=== PATIENT | male | born 1955 | race Caucasian/White ===

== ENCOUNTER → 2016-04-20 | Outpatient (REF) ==
[~2016-04-20] MED LIST: AMIT10TA6 PO; ARIP2TAB3 PO; ASP325T; ASPI-892 PO; ASPI-933 PO; ASPI-983 PO; ASPI-999 PO; ATOR40TA70 PO; BUPR100T6 PO; CLOP75TA PO; CLPD75T PO; CYCL10TA9 PO; DICL75TA2 PO; FAMO20TA27 PO; FENO145T20 PO; FISH OIL 1,2001 EAC1 PO; GBPN300C PO; GBPN400C PO; HCT25T PO; HCTZ12.5T; HYDR-3720 PO; HYDR-623 PO; ISM60TCR PO; LAMISIL CREAM TP; LISI1TAB10 PO; LSNP20T PO; MTF500T PO; MULT1TAB63; NF-DICLO50; NIA500ERT PO; OMEG1CAP51 PO; OMEG1CAP77 PO; OMG1KC PO; PANT40TA2 PO; PRAM0.5T9 PO; PRIM50TA PO; SERT25TA; SERT50TA PO; SERT50TA9 PO; SMV20T PO; SRTR100T PO; TERB30CR TP; TRAM50TA2 PO; WRF5T PO
--- NOTE | 2016-04-20 11:53 | Diagnostic Imaging Report ---
INDICATION: Injury between the first and second metacarpal of the right hand. 3 views of the right hand shows no fracture, dislocation or other abnormality. IMPRESSION: Normal right hand. Dictated by: Dictated on workstation # [id number]
== END | disposition home or self-care (01) ==
LOC: OCC 11:33
PROVIDERS: ATTEND Nurse Practitioner Family
CPT/HCPCS: 73130

== ENCOUNTER 2016-04-27 07:04 | Day surgery (SDC) | payer OTHER ==
[2016-04-27] VITALS (11 sets, daily range): BP systolic 121–145; BP diastolic 61–77
[~2016-04-27] VITALS: Ht 185.4 cm; Wt 118.4 kg
[~2016-04-27 07:04] MED LIST changes: -ASPI-983 PO; -ASPI-999 PO; -PRAM0.5T9 PO; -PRIM50TA PO; -SERT50TA9 PO
[2016-04-27] MEDS ORDERED: NS IV 1000 ML 1,000 ML ONE (07:07)
[2016-04-27] MEDS ORDERED: LIDOCAINE 1% INJ 20 ML (XYLOCAINE) VIAL ONE (07:07)
[2016-04-27] MEDS ORDERED: HEParin (CATH LAB) 2,000 ML IV ONE (07:07)
--- OUTSIDE RECORDS SUMMARY | 2016-04-27 07:08 | XMS REPORT | Continuity of Care Document ---
Author Author [facility] Organization [facility] Address Unknown Phone Unavailable Care Team Providers Care Engineering Associate Name Role Phone BETH ANDERSON MD PCP Insurance Providers Payer Name Policy Number Subscriber Name Relationship [employer] [facility] [id number] Easton Lemon Jr 20 Self / Same As Patient Advance Directives Directive Response Recorded Date/Time Advance Directives No 07/18/14 7:27am Health Care Power of Consolidation Accountant No 07/18/14 7:27am Organ Donor No 07/18/14 7:27am Resuscitation Status Full Code 07/18/14 7:27am Problems No known problems or medical conditions. Medications Medication Dose Route Sig Days/Qty Instructions Order Date Discontinued Date Status Lisinopril 10 Mg PO DAILY 02/14/08 02/14/10 Discontinued Hydrochlorothiazide 02/14/08 09/09/08 Discontinued Simvastatin 40 Mg PO DAILY 02/14/08 05/17/11 Discontinued Aspirin 02/14/08 08/19/09 Discontinued Diclofenac Sodium 02/14/08 09/09/08 Discontinued Multivitamins 02/14/08 08/19/09 Discontinued Sertraline HCl 07/26/08 09/09/08 Discontinued Niacin 1,000 Mg PO BEDTIME 09/09/08 05/17/11 Discontinued Diclofenac Sodium 75 Mg PO DAILY 09/09/08 02/14/10 Discontinued Sertraline HCl 09/09/08 08/19/09 Discontinued Clopidogrel Bisulfate 75 Mg PO DAILY 09/09/08 05/17/11 Discontinued Sertraline HCl 100 Mg PO DAILY 08/19/09 11/29/12 Discontinued Aspirin 81 Mg PO DAILY 08/19/09 07/18/14 Discontinued Amitriptyline HCl (Elavil) 10 Mg PO BEDTIME 08/19/09 02/14/10 Discontinued [place]-3 Fatty Acids/Fish Oil 1,000 Mg PO TWICE A DAY 08/19/09 Discontinued Hydrochlorothiazide 12.5 Mg PO DAILY 09/21/09 02/14/10 Discontinued [place]-3 Fatty Acids/Fish Oil 1 Cap PO TWICE A DAY 02/14/10 02/15/10 Discontinued Isosorbide Mononitrate 1 Tab PO DAILY 02/14/10 02/15/10 Discontinued Lisinopril/Hydrochlorothiazide 0.25 Tab PO NEEDED 02/14/10 Discontinued [place]-3/Dha/Epa/Fish Oil 1 Each PO TWICE A DAY 02/15/10 11/29/12 Discontinued Diclofenac Sodium 75 Mg PO DAILY 02/15/10 05/17/11 Discontinued Aripiprazole 5 Mg PO DAILY 05/17/11 07/18/14 Discontinued Acetaminophen/Hydrocodone Bitart ([place]) 0.5 - 1 Each PO Q 4 - 6 HRS PRN 20 Qty 05/17/11 04/24/12 Discontinued Tramadol Hcl 50 Mg PO EVERY 6 HOURS 04/24/12 11/28/12 Discontinued Gabapentin 500 Mg PO TWICE A DAY 04/24/12 11/28/12 Discontinued Famotidine 20 Mg PO DAILY 04/24/12 11/29/12 Discontinued Acetaminophen/Hydrocodone Bitart 1 - 2 Tab PO Q4HR PRN 60 Qty 05/03/12 11/28/12 Discontinued Warfarin Sodium 5 Mg PO DAILY@18 12 Days 05/03/12 11/28/12 Discontinued Cyclobenzaprine HCl (Flexeril) 1 Each PO TWICE A DAY PRN 05/03/12 Discontinued Metformin HCl (Glucophage) 1 Each PO TWICE A DAY WITH MEALS 11/28/12 11/29/12 Discontinued Gabapentin 300 Mg PO TWICE A DAY 11/28/12 Active Metformin HCl (Glucophage) 1 Each PO DAILY 11/29/12 07/18/14 Discontinued Fish Oil 1,000 Mg PO DAILY 11/29/12 07/18/14 Discontinued Sertraline HCl 100 Mg PO DAILY TAKES ALONG WITH 50MG TABLET 11/29/12 Active Sertraline HCl 50 Mg PO DAILY 11/29/12 Active Bupropion HCl 100 Mg PO TWICE A DAY 07/18/14 Active Pantoprazole Sod 40 Mg PO DAILY 07/18/14 Active Diclofenac Sodium 75 Mg PO TWICE A DAY 07/18/14 Active [Lamisil Cream ] TP DAILY 07/18/14 Active Clopidogrel Bisulfate 75 Mg PO DAILY 30 Qty 07/19/14 07/19/14 Discontinued Atorvastatin Calcium 40 Mg PO BEDTIME 30 Qty 07/19/14 07/19/14 Discontinued Clopidogrel Bisulfate 75 Mg PO DAILY 30 Qty 07/19/14 Active Atorvastatin Calcium 40 Mg PO BEDTIME 30 Qty 07/19/14 Active Fenofibrate Nanocrystallized 145 Mg PO BEDTIME 30 Qty 07/19/14 Active Aspirin 81 Mg PO DAILY 30 Qty 07/19/14 Active Social History Social History Problem Response Recorded Date/Time Alcohol Use Denies Use 11/28/2012 9:14pm Recreational Drug Use No 11/28/2012 9:14pm Recent Foreign Travel No 11/28/2012 9:14pm Recent Infectious Disease Exposure Y took flu shot today 11/28/2012 9:14pm Hospitalization with Isolation Denies 11/29/2012 11:09am Sexually Transmitted Disease No 11/28/2012 9:14pm HIV/AIDS No 11/28/2012 9:14pm Smoking Status Current Everyday Smoker 07/18/2014 7:27am Query Response Start Date Stop Date Smoking Status Current Everyday Smoker Hospital Discharge Instructions No hospital discharge instructions. Plan of Care No plan of care. Functional Status Query Response Date Recorded Comprehension Ability Understands Concepts July 19, 2014 8:08am Allergies, Adverse Reactions, Alerts Allergen Type Severity Reaction Status Last Updated NKANo Known Allergies Allergy Unknown Active 01/26/08 Immunizations Name Given Type Date of Pneumonia Vaccine 04/28/09 Historical Date of Influenza Vaccine 11/28/12 Historical Hepatitis A No Historical Hepatitis B Yes Historical Tetanus Booster (TDap) Unknown Historical Vital Signs Acute Vital Signs Vital Response Date/Time Temperature (Fahrenheit) 97.6 degrees F (97.6 - 99.5) Temperature (Calculated Celsius) 36.81231 degrees C (36.4 - 37.5) Temperature Source Temporal Pulse Rate (adult) 65 bpm (60 - 90) Respiratory Rate 20 bpm (12 - 24) O2 Sat by Pulse Oximetry 97 % (88 - 100) Blood Pressure 153/89 mm Hg Pain Pain Intensity 0 Height (Feet) 6 feet Height (Inches) 1.00 inches Height (Calculated Centimeters) 185.866752 cm Weight (Pounds) 260 pounds Weight (Calculated Grams) 679434.017 gm Weight (Calculated Kilograms) 117.941255 kilograms Calculated BMI 34.30 Results Laboratory Results Test Name Result Units Flags Reference Collection Date/Time Result Date/ Time Comments White Blood Count 7.3 10^3/uL 4.3-11.0 07/19/2014 4:54am 07/19/2014 5: 10am Red Blood Count 4.96 10^6/uL 4.35-5.85 07/19/2014 4:54am 07/19/2014 5: 10am Hemoglobin 14.0 G/DL 13.3-17.7 07/19/2014 4:54am 07/19/2014 5:10am Hematocrit 43 % 40-54 07/19/2014 4:54am 07/19/2014 5:10am Mean Corpuscular Volume 87 FL 80-99 07/19/2014 4:54am 07/19/2014 5: 10am Mean Corpuscular Hemoglobin 28 PG 25-34 07/19/2014 4:54am 07/19/2014 5: 10am Mean Corpuscular Hemoglobin Concent 33 G/DL 32-36 07/19/2014 4:54am 5:10am Red Cell Distribution Width 14.2 % 10.0-14.5 07/19/2014 4:54am 2014 5:10am Platelet Count 201 10^3/uL 130-400 07/19/2014 4:54am 07/19/2014 5:10am Mean Platelet Volume 10.5 FL H 7.4-10.4 07/19/2014 4:54am 07/19/2014 5: 10am Prothrombin Time 13.0 SEC 12.2-14.7 07/18/2014 7:30am 07/18/2014 7: 51am INR Comment 1.0 0.8-1.4 07/18/2014 7:30am 07/18/2014 7:51am INTERPRETIVE DATA SUGGESTED THERAPEUTIC RANGE FOR INR'S: VENOUS THROMBOSIS, PULMONARY EMBOLISM, OR PREVENTION OF SYSTEMIC EMBOLISM (EG. IN ATRIAL FIBRILLATION): 2.0 - 3.0 MECHANICAL PROSTHETIC HEART VALVES: 2.5 - 3.5* *NOTE: INR'S UP TO 4.5 MAY BE NECESSARY IN SELECTED GROUPS OF HIGH RISK PATIENTS. [employer] CONSENSUS CONFERENCE ON ANTITHROMBOTIC THERAPY (2000). Activated Partial Thromboplast Time 33 SEC 24-35 07/18/2014 7:30am 7:51am Sodium Level 138 MMOL/L 135-145 07/19/2014 4:54am 07/19/2014 5:32am Potassium Level 4.2 MMOL/L 3.6-5.0 07/19/2014 4:54am 07/19/2014 5:32am Chloride Level 107 MMOL/L 98-107 07/19/2014 4:54am 07/19/2014 5:32am Carbon Dioxide Level 23 MMOL/L 21-07/19/2014 4:54am 07/19/2014 5: 32am Blood Urea Nitrogen 11 MG/DL 7-18 07/19/2014 4:54am 07/19/2014 5:32am Creatinine 0.91 MG/DL 0.60-1.30 07/19/2014 4:54am 07/19/2014 5:32am BUN/Creatinine Ratio 12 07/19/2014 4:54am 07/19/2014 5:32am Estimat Glomerular Filtration Rate > 60 07/19/2014 4:54am 2014 5:32am GFR INTERPRETIVE DATA UNITS FOR ESTIMATED GFR (eGFR): mL/min/1.73 M2 REFERENCE RANGE FOR ESTIMATED GFR (eGFR) eGFR NORMAL eGFR >60 MODERATELY DECREASED eGFR 30-59 SEVERLY DECREASED eGFR 15-29 KIDNEY FAILURE <15 (OR DIALYSIS) Glucose Level 102 MG/DL 70-105 07/19/2014 4:54am 07/19/2014 5:32am Calcium Level 9.1 MG/DL 8.5-10.1 07/19/2014 4:54am 07/19/2014 5:32am Total Bilirubin 0.3 MG/DL 0.1-1.0 07/19/2014 4:54am 07/19/2014 5:32am Alkaline Phosphatase 103 U/L 40-136 07/19/2014 4:54am 07/19/2014 5: 32am Aspartate Amino Transf (AST/SGOT) 18 U/L 5-34 07/19/2014 4:54am 2014 5:32am Alanine Aminotransferase (ALT/SGPT) 24 U/L 0-55 07/19/2014 4:54am 07/19 5:32am Total Protein 6.4 G/DL 6.4-8.2 07/19/2014 4:54am 07/19/2014 5:32am Albumin 3.5 G/DL 3.2-4.5 07/19/2014 4:54am 07/19/2014 5:32am Triglycerides Level 236 MG/DL H <150 07/18/2014 7:30am 07/18/2014 8:03am Cholesterol Level 212 MG/DL H < 200 07/18/2014 7:30am 07/18/2014 8:03am HDL Cholesterol 26 MG/DL L 40-60 07/18/2014 7:30am 07/18/2014 8:03am LDL Cholesterol Direct 150 MG/DL H 1-129 07/18/2014 7:30am 07/18/2014 8: 03am VLDL Cholesterol 47 MG/DL H 5-40 07/18/2014 7:30am 07/18/2014 8:03am Procedures Procedure Status Date Provider(s) Tracing only of electrocardiogram completed 07/18/14 EVETTE SILVESTRE MD Encounters Encounter Location Date/Time Departed Surgical Day Care [facility] 07/18/14 7:05am
--- OUTSIDE RECORDS SUMMARY | 2016-04-27 07:08 | XMS REPORT | Continuity of Care Document ---
Author Author [facility] Organization [facility] Address Unknown Phone Unavailable Care Team Providers Care Retail Security Professional Name Role Phone BETH ANDERSON MD PCP Insurance Providers Payer Name Policy Number Subscriber Name Relationship [employer] [facility] [id number] Easton Lemon Jr 20 Self / Same As Patient Advance Directives Directive Response Recorded Date/Time Advance Directives No 07/18/14 7:27am Health Care Power of Building Specialist No 07/18/14 7:27am Organ Donor No 07/18/14 [...] 10 Mg PO BEDTIME 08/19/09 02/14/10 Discontinued [place]-3 Fatty Acids/Fish Oil 1,000 Mg PO TWICE A DAY 08/19/09 Discontinued Hydrochlorothiazide 12.5 Mg PO DAILY 09/21/09 02/14/10 Discontinued [place]-3 Fatty Acids/Fish Oil 1 Cap PO TWICE A DAY 02/14/10 02/15/10 Discontinued Isosorbide Mononitrate 1 Tab PO DAILY 02/14/10 02/15/10 Discontinued Lisinopril/Hydrochlorothiazide 0.25 Tab PO NEEDED 02/14/10 Discontinued [place]-3/Dha/Epa/Fish Oil 1 Each PO TWICE A DAY 02/15/10 11/29/12 Discontinued Diclofenac Sodium 75 Mg PO DAILY 02/15/10 05/17/11 Discontinued Aripiprazole 5 Mg PO DAILY 05/17/11 07/18/14 Discontinued Acetaminophen/Hydrocodone Bitart ([place]) 0.5 - 1 Each PO Q 4 [...] F (97.6 - 99.5) Temperature (Calculated Celsius) 36.06023 degrees C (36.4 - 37.5) Temperature Source Temporal Pulse Rate (adult) 65 bpm (60 - 90) Respiratory Rate 20 bpm (12 - 24) O2 Sat by Pulse Oximetry 97 % (88 - 100) Blood Pressure 153/89 mm Hg Pain Pain Intensity 0 Height (Feet) 6 feet Height (Inches) 1.00 inches Height (Calculated Centimeters) 185.136127 cm Weight (Pounds) 260 pounds Weight (Calculated Grams) 210604.017 gm Weight (Calculated Kilograms) 117.176253 kilograms Calculated BMI 34.30 Results Laboratory Results [...] SELECTED GROUPS OF HIGH RISK PATIENTS. [employer] CONSENSUS CONFERENCE ON [...] Location Date/Time Departed Surgical Day Care [facility] 07/18/14 7:05am
[2016-04-27 07:35] LABS: MEAN PLATELET VOLUME 10.5 FL (7.4-10.4); RED BLOOD COUNT 5.1 10^6/uL (4.35-5.85); RED CELL DISTRIBUTION WIDTH 14.7 % (10.0-14.5); WHITE BLOOD COUNT 17.9 10^3/uL (4.3-11.0)
[2016-04-27] MEDS ORDERED: NS IV 1000 ML 1,000 ML IV SCH ×2 (07:45→12:24)
[2016-04-27 07:56] LABS: ALANINE AMINOTRANSFERASE 27 U/L (0-55); ALBUMIN 4.3 G/DL (3.2-4.5); ANION GAP 14 MMOL/L (5-14); ASPARTATE AMINO TRANSFERASE 13 U/L (5-34); BILIRUBIN,TOTAL 0.3 MG/DL (0.1-1.0); BLOOD UREA NITROGEN 20 MG/DL (7-18); BUN/CREATININE RATIO 16; CALCIUM 9.2 MG/DL (8.5-10.1); CARBON DIOXIDE 19 MMOL/L (21-32); CHLORIDE 107 MMOL/L (98-107); CHOLESTEROL 190 MG/DL (< 200); CREATININE SERUM 1.22 MG/DL (0.60-1.30); DIRECT LDL 142 MG/DL (1-129); GFR ESTIMATED > 60; GLUCOSE 147 MG/DL (70-105); POTASSIUM 4.4 MMOL/L (3.6-5.0); SODIUM 140 MMOL/L (135-145); TOTAL PROTEIN 7.1 G/DL (6.4-8.2); TRIGLYCERIDES 151 MG/DL (<150); VLDL CHOLESTEROL 30 MG/DL (5-40)
[2016-04-27] MEDS ORDERED: SERT50TA9 PO (08:12)
[2016-04-27] MEDS ORDERED: FENO145T20 PO (08:12)
[2016-04-27] MEDS ORDERED: PRIM50TA PO (08:12)
[2016-04-27] MEDS ORDERED: PRAM0.5T9 PO (08:12)
[2016-04-27] MEDS ORDERED: ASPI-983 PO (08:12)
[2016-04-27] MEDS ORDERED: diphenhydrAMINE 50 MG/ML INJ (BENADRYL) ONE (08:25)
[2016-04-27] MEDS ORDERED: MIDAZOLAM 5 MG/5 ML (VERSED) VIAL ONE (08:25)
[2016-04-27] MEDS ORDERED: fentaNYL INJECTION 100 MCG/2 ML AMP ONE (08:25)
--- NOTE | 2016-04-27 08:52 | Cardiac Procedure Note-CS/ASA ---
Pre-Procedure Note Pre-Op Procedure Note H&P Reviewed The H&P was reviewed, patient examined and no changes noted. Date H&P Reviewed: Apr 27, 2016 Time H&P Reviewed: 08:52 Conscious Sedation Pre-Proced Time Reviewed: 08:52 ASA Class: 3 Airway Mallampati Classification: ([place] appropriate class) I. II. III, IV Lungs Heart ASA score ASA 1: a normal healthy patient ASA 2: a patient with a mild systemic disease (mid diabetes, controlled hypertension, obesity ASA 3: a patient with a severe systemic disease that limits activity (angina , COPD, prior Myocardial infarction) ASA 4: a patient with an incapacitating disease that is a constant threat to life (CHF, renal failure) ASA 5: a moribund patient not expected to survive 24 hrs. (ruptured aneurysm) ASA 6: a declared brain patient whose organs are being harvested. For emergent operations, add the letter E after the classification Grade 3 Sedation Plan: Analgesia, Amnesia, Plan communicated to team members, Discussed options with patient/fam, Discussed risks with patient/fam Note The patient is an appropriate candidate to undergo the planned procedure, sedation, and anesthesia. The patient immediately re-assessed prior to indication. CHRISTEL CARRASQUILLO MD FACP [facility] Apr 27, 2016 08:52
[2016-04-27] MEDS ORDERED: NITROGLYCERIN DRIP 25 MG/D5W 0 ML IV ONE (09:10)
[2016-04-27] MEDS ORDERED: HEParin 1000 UNIT/ML (10ML VIAL) FOR BOLUS ONE (09:10)
[2016-04-27] MEDS ORDERED: EPTIFIBATIDE BOLUS 20 ML IV ONE (09:10)
[2016-04-27] MEDS ORDERED: ASPI-999 PO (12:30)
[2016-04-27] MEDS ORDERED: PATIENT MAY USE OWN MEDS, ALL PO SCH (12:30)
--- NOTE | 2016-04-27 12:31 | Discharge Inst-Post CATH ---
Discharge Inst-CATH Post Cardiac Cath D/C Inst Follow Up/Plan F/u with Dr Houston next week CARDIAC CATH DISCHARGE INSTRUCTIONS *Hold Metformin for 48 hours post heart cath. ACTIVITY * Go Home directly and rest. * Limit activity of the leg (or wrist if it was used) for 7 days including aerobics, swimming, jogging, bicycling, etc. * Restrict stair-climbing for 7 days if possible, if not, climb up with your non -cath leg, then bring together on the same step. * Avoid lifting, pushing, pulling or excessive movement of the affected extremity for 7 days. * Customary sexual activity may be resumed after 2 days-use caution not to use a position that strains or causes pain to the affected extremity. * No driving for 24 hours. * NO SMOKING. * Avoid straining for bowel movements for 7 days. * Gentle walking on level ground is allowed. * Returning to work will depend on the type of procedure and the results. Your doctor will discuss this with you. CALL YOUR DOCTOR FOR ANY OF THE FOLLOWING: *If bleeding from the puncture site occurs- Apply gentle pressure to site with clean cloth and call your doctor or EMS. * If a knot or lump forms under the skin, increases in size, or causes pain. * If bruising appears to be worsening or moving further down your leg instead of disappearing. * Temperature above 101 F. CARE OF YOUR GROIN INCISION; * Bruising or purple discoloration of the skin near the puncture site is common. * You may shower only, no bathtub bathing for 5 days. Be careful to avoid slipping as your leg may feel stiff. * If a closure device was used on your femoral artery, please see the attached guide regarding care of the device and your leg. * REMOVE the dressing from your groin the next day after your procedure in the shower. CARE OF YOUR WRIST INCISION; * Bruising or purple discoloration of the skin near the puncture site is common. * You may shower. * DO NOT submerge wrist. * Remove dressing in 24 hours. CHRISTEL HOUSTON MD FACP [facility]S Apr 27, 2016 12:31
--- NOTE | 2016-04-27 12:33 | Discharge Inst-Cardiology ---
Discharge Inst-Cardiac Discharge Medications New Medications: Aspirin (Aspirin) 81 Mg Tab.chew 81 MG PO DAILY #90 Ref 3 TAB Continued Medications: Atorvastatin Calcium (Atorvastatin Calcium) 40 Mg Tablet 40 MG PO HS TAB Bupropion HCl (Wellbutrin) 100 Mg Tablet 100 MG PO BID TAB Clopidogrel Bisulfate (Plavix Tablet) 75 Mg Tab 75 MG PO DAILY TAB Diclofenac Sodium (Diclofenac Sodium) 75 Mg Tablet.dr 75 MG PO BID TAB Fenofibrate Nanocrystallized (Fenofibrate) 145 Mg Tablet 145 MG PO DAILY LAST FILLED #30 02-13-16 TAB Gabapentin (Neurontin) 300 Mg Cap 300 MG PO BID CAP Pantoprazole Sod (Protonix (Non-Formulary)) 40 Mg Tab 40 MG PO DAILY LAST FILLED #30 02-28-16 TAB Pramipexole Di-HCl (Pramipexole Dihydrochloride) 0.5 Mg Tablet 0.5 MG PO HS TAB Primidone (Primidone) 50 Mg Tablet 50 MG PO HS TAB Sertraline Hcl (Zoloft) 50 Mg Tablet 50 MG PO HS TAB Sertraline HCl (Sertraline HCl) 50 Mg Tablet 100 MG PO DAILY TAKES 2 (50MG) TABLETS EVERY MORNING TAB Discontinued Medications: Aspirin (Aspirin EC) 81 Mg Tablet.dr 81 MG PO DAILY TAB Patient Instructions Patient Instructions: No tobacco use Activity & Diet Discharge Diet: Cardiac Diet CHRISTEL CARRASQUILLO MD FACP [facility] Apr 27, 2016 12:33
--- NOTE | 2016-04-27 14:05 | CARDIAC CATHETERIZATION ---
PROCEDURE PHYSICIAN: CHRISTEL CARRASQUILLO CARDIAC CATHETERIZATION, CORONARY INTERVENTION AND PERIPHERAL ANGIOGRAPHY REPORT DATE OF PROCEDURE: 04/27/2016 Easton Lemon is a 60-year-old gentleman who has known coronary artery disease and peripheral arterial disease and who has been experiencing symptoms suggestive of exertional angina and bilateral leg claudication. Cardiac catheterization and peripheral angiography and possible ad hoc intervention was recommended. An informed consent obtained. PROCEDURE: He was brought to the cardiac catheterization laboratory in a fasting state. The right groin was prepared and draped usual sterile fashion. 1% lidocaine was used for local anesthesia. Modified Seldinger technique was used to advance a 5-[place]stonian sheath in the right femoral artery. A 5-Estonian JL3.5 catheter was used for left coronary angiography. 5-[place]stonian JR4 catheter was used for the right coronary angiography. A 5-[place]stonian pigtail catheter was used for left heart catheterization and left ventricular angiography. PERCUTANEOUS INTERVENTION TO THE RIGHT CORONARY ARTERY: Following completion of the diagnostic cardiac angiography, we proceeded with intervention to the posterior descending branch of the right coronary artery which had complete in-stent occlusion. We exchanged the sheath over a wire for a 6-Estonian sheath. We used a 6-Estonian JR4 guide catheter. We used multiple wires to try and cross the complete occlusion within a long posterior descending artery stent. The wires used were ChoICE floppy, ChoICE PT Graphix, Whisper wires. We were able to advance any of these across the complete occlusion within the posterior descending artery stent. The wires were removed and we repeated the coronary angiogram, which showed that the coronary status remained stable and unchanged. The guide catheter was then removed. LEFT VENTRICULAR ANGIOGRAPHY: Left ventricular angiography indicated normal global left ventricular systolic function with an ejection fraction of 60 to 65% and there did not appear to be distinct regional wall motion abnormality in the [place] projection. There did not appear to be significant mitral regurgitation. ABDOMINAL AORTIC ANGIOGRAPHY: Abdominal aortic angiography did not indicate any abdominal aortic aneurysm or dissection. Renal arteries are identified and do not exhibit significant disease. Mesenteric vessels, to the extent seen, do not seem to have significant disease. BILATERAL ILIAC ARTERY ANGIOGRAPHY: Bilateral iliac artery angiography was performed with runoff down to the level of the legs. The right common iliac artery has approximately 40% proximal stenosis. We performed catheter pullback across this lesion and this did not show any significant pressure gradient, indicating hemodynamic non-significance. The right internal and external iliac arteries are intact. The right common femoral, superficial femoral and deep femoral arteries are intact. Within the right superficial femoral artery, there is a patent stent, but does not exhibit significant disease. The right popliteal artery is intact and there is a 3 vessel runoff in the right leg. On the left side, there is a patent stent in the left common iliac artery that extends into the left external iliac artery. The left internal iliac artery appears occluded. The left common femoral, superficial femoral, deep femoral arteries are intact. The left superficial femoral artery has mild diffuse disease. The left popliteal artery is intact and there is a 3 vessel runoff in the leg. CONCLUSIONS: 1. Coronary artery disease. A long stent in the posterior descending branch of the right coronary artery is completely occluded and percutaneous intervention to this vessel today was unsuccessful. The proximal and mid right coronary artery is extensively stented. These are known to be Promus Premier overlapping 4 x 24 and 4 x 12 mm stents placed by Dr. Dockery on 07/18/2014. Within these stents, there is up to approximately 40% stenoses. The left circumflex in the left anterior descending artery has mild plaques. 2. Normal global left ventricular systolic function with an ejection fraction of approximately 65%. 3. No significant mitral regurgitation. 4. No significant renal artery stenosis. 5. Diffuse, mild peripheral arterial disease. There is a patent stent in the right superficial femoral artery and a patent stent in the left common iliac extending into external iliac artery. There appears to be 3 vessel runoff in both legs. 6. High normal to mildly elevated left ventricular end-diastolic pressure. DISCUSSION AND RECOMMENDATIONS: Based on the results of this study, it appears appropriate to continue a conservative approach. He has again been advised to quit smoking immediately and completely and outpatient follow-up is advised. Job ID: [id number] Dictated Date: 04/27/2016 10:11:36 Welding Estimator Date: 04/27/2016 13:21:41 / una ADKINS
== END 2016-04-27 14:05 | disposition home or self-care (01) ==
LOC: CATH 07:04 → SURG 10:23 → CATH 14:05
PROVIDERS: ATTEND Internal Medicine Cardiovascular Disease
DX: I70.213 Atherosclerosis of native arteries of extremities with intermittent claudication, bilateral legs (principal); I25.10 Atherosclerotic heart disease of native coronary artery without angina pectoris; I25.82 Chronic total occlusion of coronary artery; T82.855A Stenosis of coronary artery stent, initial encounter; I10 Essential (primary) hypertension; E78.00 Pure hypercholesterolemia, unspecified; G47.33 Obstructive sleep apnea (adult) (pediatric); Z72.0 Tobacco use; Z95.5 Presence of coronary angioplasty implant and graft; Z79.899 Other long term (current) drug therapy
CPT/HCPCS: 36415; 75625; 75716; 80053; 80061; 85027; 85610; 85730; 87081; 93005; 93458

== ENCOUNTER 2016-05-19 08:30 | Outpatient (RCR) | payer OTHER ==
--- OUTSIDE RECORDS SUMMARY | 2016-05-17 11:26 | XMS REPORT | Continuity of Care Document ---
Author Author [facility] Organization [facility] Address Unknown Phone Unavailable Care Team Providers Care Editor Publications Name Role Phone BETH ANDERSON MD PCP Insurance Providers Payer Name Policy Number Subscriber Name Relationship [employer] [facility] [id number] Easton Lemon Jr 20 Self / Same As Patient Advance Directives Directive Response Recorded Date/Time Advance Directives No 07/18/14 7:27am Health Care Power of Associate Software Developer No 07/18/14 7:27am Organ Donor No 07/18/14 [...] 10 Mg PO BEDTIME 08/19/09 02/14/10 Discontinued [place]-3 Fatty Acids/Fish Oil 1,000 Mg PO TWICE A DAY 08/19/09 Discontinued Hydrochlorothiazide 12.5 Mg PO DAILY 09/21/09 02/14/10 Discontinued [place]-3 Fatty Acids/Fish Oil 1 Cap PO TWICE A DAY 02/14/10 02/15/10 Discontinued Isosorbide Mononitrate 1 Tab PO DAILY 02/14/10 02/15/10 Discontinued Lisinopril/Hydrochlorothiazide 0.25 Tab PO NEEDED 02/14/10 Discontinued [place]-3/Dha/Epa/Fish Oil 1 Each PO TWICE A DAY 02/15/10 11/29/12 Discontinued Diclofenac Sodium 75 Mg PO DAILY 02/15/10 05/17/11 Discontinued Aripiprazole 5 Mg PO DAILY 05/17/11 07/18/14 Discontinued Acetaminophen/Hydrocodone Bitart ([place]) 0.5 - 1 Each PO Q 4 [...] F (97.6 - 99.5) Temperature (Calculated Celsius) 36.84793 degrees C (36.4 - 37.5) Temperature Source Temporal Pulse Rate (adult) 65 bpm (60 - 90) Respiratory Rate 20 bpm (12 - 24) O2 Sat by Pulse Oximetry 97 % (88 - 100) Blood Pressure 153/89 mm Hg Pain Pain Intensity 0 Height (Feet) 6 feet Height (Inches) 1.00 inches Height (Calculated Centimeters) 185.281593 cm Weight (Pounds) 260 pounds Weight (Calculated Grams) 947413.017 gm Weight (Calculated Kilograms) 117.596234 kilograms Calculated BMI 34.30 Results Laboratory Results [...] SELECTED GROUPS OF HIGH RISK PATIENTS. [employer] CONSENSUS CONFERENCE ON [...] Location Date/Time Departed Surgical Day Care [facility] 07/18/14 7:05am
[2016-05-17 11:35] LABS: BASOPHILS % (AUTO) 0 % (0-10); EOSINOPHILS # (AUTO) 0.1 10^3/uL (0.0-0.3); EOSINOPHILS % (AUTO) 1 % (0-10); LYMPHOCYTES # (AUTO) 1.2 X 10^3 (1.0-4.0); LYMPHOCYTES % (AUTO) 18 % (12-44); MEAN CORPUSCULAR HEMOGLOBIN 29 PG (25-34); MEAN CORPUSCULAR HGB CONC 33 G/DL (32-36); MEAN CORPUSCULAR VOLUME 86 FL (80-99); MEAN PLATELET VOLUME 10.1 FL (7.4-10.4); MONOCYTES # (AUTO) 0.6 X 10^3 (0.0-1.0); MONOCYTES % (AUTO) 9 % (0-12); NEUTROPHILS % (AUTO) 72 % (42-75); PLATELET COUNT 184 10^3/uL (130-400); RED BLOOD COUNT 4.63 10^6/uL (4.35-5.85); RED CELL DISTRIBUTION WIDTH 14.9 % (10.0-14.5); WHITE BLOOD COUNT 6.9 10^3/uL (4.3-11.0)
[2016-05-17 11:53] LABS: BAND NEUTROPHILS 0 %; BASOPHILS % (MANUAL) 0 %; EOSINOPHILS % (MANUAL) 0 %; LYMPHOCYTES % (MANUAL) 20 %; NEUTROPHILS % (MANUAL) 68 %; REACTIVE LYMPHOCYTES 4 %
[~2016-05-19 08:30] MED LIST changes: +ASPI-983 PO; +ASPI-999 PO; +PRAM0.5T9 PO; +PRIM50TA PO; +SERT50TA9 PO
[2016-08-02] MEDS ORDERED: METO-272 PO (15:09)
== END 2016-08-15 | disposition home or self-care (01) ==
LOC: LAB 08:30 → EDSTATUS 05-20 22:01
PROVIDERS: ATTEND Nurse Practitioner Family
DX: R06.02 Shortness of breath (principal); R05 Cough
CPT/HCPCS: 36415; 85007; 85027; 87070; 87205

== ENCOUNTER → 2016-05-20 | Outpatient (CLI) | payer OTHER ==
--- NOTE | 2016-05-20 17:14 | Diagnostic Imaging Report ---
PROCEDURE: MRI lumbar spine. TECHNIQUE: Multiplanar, multisequence MRI of the lumbar spine was performed without contrast. INDICATION: Back pain. Right leg pain. FINDINGS: There is satisfactory alignment of the posterior spinal line. The vertebral body heights are preserved. There is mild disc desiccation, and there is slight disc height loss at L3/4 level. The bone marrow signal demonstrates no significant abnormality. The cauda equina and conus medullaris appear grossly unremarkable. There is facet arthropathy, more prominent in the lower lumbar spine. T12/L1: No disc herniation. No spinal canal or foraminal stenosis. L1/2: No disc herniation or facet hypertrophy. No spinal canal or foraminal stenosis. L2/3: No disc herniation, no spinal canal or foraminal stenosis. L3/4: There is a diffuse disc bulge resulting in mild central canal stenosis reducing the AP dimension of the canal to 9.2 mm. There is toza-ro-aqfinlnc facet arthropathy associated with gign-ex-nficunnr stenosis of the lateral recess bilaterally. There is a mild foraminal stenosis bilaterally. L4/5: No disc herniation. There is moderate facet hypertrophy. No central canal stenosis. There is mild lateral recess stenosis bilaterally. The foramina demonstrate mild stenosis on the left and fcet-wy-hdzsgqjc stenosis on the right. L5/S1: There is a mild disc bulge and mild facet hypertrophy. No central canal or lateral recess stenosis. There is mild foraminal narrowing seen bilaterally. IMPRESSION: Generally mild disc and facet degenerative changes. There is mild central canal stenosis at L3/4 and dygv-pw-sgvxshxt lateral recess stenosis at this level bilaterally. Multilevel mild foraminal stenosis seen as well. Dictated by: Dictated on workstation # [id number]
== END ==
LOC: RAD 15:46
PROVIDERS: ATTEND Orthopaedic Surgery
DX: M54.16 Radiculopathy, lumbar region (principal); M17.11 Unilateral primary osteoarthritis, right knee
CPT/HCPCS: 72148

== ENCOUNTER → 2016-05-31 | Outpatient (CLI) | payer OTHER ==
[~2016-05-31] MED LIST changes: +RT-ALBUTEROL SULF 2.5 MG/3 ML PRE-MIX VIAL IH ONE; +RT-ALBUTEROL SULF 2.5 MG/3 ML PRE-MIX VIAL ONE
--- NOTE | 2016-05-31 14:38 | Diagnostic Imaging Report ---
PROCEDURE: CT chest without contrast. TECHNIQUE: Multiple contiguous axial images were obtained through the chest without the use of intravenous contrast. INDICATION: Tobacco use, shortness of breath. COMPARISON: The previous CT chest exam performed on 11/13/2014 failed to show any sign of a pulmonary nodule or of an acute abnormality. FINDINGS: On this study, there is still no parenchymal mass identified. The lungs remain clear. There is no sign of failure, pneumonia or pleural effusion to suggest an acute abnormality. Heart size is within normal limits. Coronary artery calcifications are evident. Aorta is not abnormally dilated. There is no mediastinal or hilar adenopathy. This exam is limited in evaluation of adenopathy however due to the absence of intravenous contrast. Thyroid gland is unremarkable. The sections through the upper abdomen fail to show any sign of an acute abnormality. The liver and spleen are prominent. Bone windows are unremarkable for fracture or for destructive lesion. IMPRESSION: There is no evidence for an acute cardiopulmonary abnormality. There is no sign of a parenchymal lung mass either. When compared to the previous study, there has been no significant change. LungRads Category 1: Negative. No definite benign nodules are seen with complete central or popcorn calcifications or fat in a benign pattern. Risk of cancer is less than 1%. Continued annual low-dose chest screening. Dictated by: Dictated on workstation # [id number]
== END ==
LOC: RAD 12:12
PROVIDERS: ATTEND Internal Medicine Critical Care Medicine
DX: R05 Cough (principal); R06.02 Shortness of breath; Z72.0 Tobacco use
CPT/HCPCS: 71250; 94060; 94640; 94726; 94729

== ENCOUNTER 2016-06-21 12:36 | Outpatient (CLI) | payer OTHER ==
[~2016-06-21] VITALS: Ht 185.4 cm; Wt 118.4 kg
[~2016-06-21 12:36] MED LIST changes: -RT-ALBUTEROL SULF 2.5 MG/3 ML PRE-MIX VIAL IH ONE; -RT-ALBUTEROL SULF 2.5 MG/3 ML PRE-MIX VIAL ONE
[2016-06-21] MEDS ORDERED: BUPIVACAINE 0.25% 30 ML (SENSORCAINE) VIAL ONE (12:40)
[2016-06-21] MEDS ORDERED: TRIAMCINOLONE ACET (KENALOG-40) 40 MG/ML 1 ML VIAL ONE (12:40)
[2016-06-21 12:46] VITALS: BP 167/83
[2016-06-21 13:25] VITALS: BP 167/72
--- NOTE | 2016-06-21 14:43 | Pain Medicine-Procedure ---
Procedure Pre-Op/Post-Op Diagnosis Diagnosis: disc disorder with radiculopathy, lumbar Indications for Operation Low back pain Attending Surgeon Hunter Procedure Date of Service: Jun 21, 2016 Procedure: Lumbar Epidural Steroid Injection at the L4-L5 level under Fluoroscopic Guidance Procedure: Patient was identified in the holding area. After risks, benefits, and alternatives were discussed with the patient, informed consent was obtained. Patient held his Plavix for 7 days prior to procedure and was instructed to restart his Plavix tomorrow. Patient was brought to the fluoroscopy suite and placed prone on the procedure room table. A time out was performed. Vital signs were monitored throughout the procedure. The patients low back was prepped and draped in the usual sterile fashion. The patients skin was anesthetized using 2% Lidocaine. A Tuohy needle was inserted and advanced to the L4-L5 epidural space under fluoroscopic guidance using the loss of resistance technique and intermittent projection of fluoroscopy. There was no paresthesia with needle placement. The needle position was confirmed in both the AP and lateral view. After negative aspiration 2ml of contrast was injected under live fluoroscopy which showed good spread of the contrast in the epidural space at the appropriate level, there was no intravascular or subarachnoid spread. Again, after negative aspiration for heme or CSF, 2 ml of 0.25% Bupivicaine, 2ml of preservative free normal saline, and 80mg of Kenalog was injected. The needle was removed and a sterile bandage was placed and the patient was transferred to the recovery area in stable condition. After a brief period of observation, patient was discharged to home with no new neurological deficits and no apparent complications. Complications None SHELBY LOPEZ MD Jun 21, 2016 2:43 pm
== END 2016-06-21 13:27 | disposition home or self-care (01) ==
LOC: CARD 12:36
PROVIDERS: ATTEND Pain Medicine Pain Medicine
DX: M51.16 Intervertebral disc disorders with radiculopathy, lumbar region (principal); Z79.02 Long term (current) use of antithrombotics/antiplatelets; Z79.899 Other long term (current) drug therapy
CPT/HCPCS: 62323

== ENCOUNTER 2016-07-12 13:21 | Outpatient (CLI) | payer OTHER ==
[~2016-07-12] VITALS: Ht 182.9 cm; Wt 113.4 kg
[2016-07-12] MEDS ORDERED: BUPIVACAINE 0.25% 30 ML (SENSORCAINE) VIAL ONE (13:29)
[2016-07-12] MEDS ORDERED: TRIAMCINOLONE ACET (KENALOG-40) 40 MG/ML 1 ML VIAL ONE (13:29)
[2016-07-12 13:37] VITALS: BP 163/96
[2016-07-12 14:10] VITALS: BP 154/93
--- NOTE | 2016-07-12 14:52 | Pain Medicine-Procedure ---
Procedure Pre-Op/Post-Op Diagnosis Diagnosis: disc disorder with radiculopathy, lumbar Indications for Operation Low back pain Attending Surgeon Hunter Procedure Date of Service: July 12, 2016 Procedure: Lumbar Epidural Steroid Injection at the L4-L5 level under Fluoroscopic Guidance Procedure: Patient was identified in the holding area. After risks, benefits, and alternatives were discussed with the patient, informed consent was obtained. Patient held his Plavix for 7 days prior to procedure and was instructed to restart his Plavix 24 hours after the procedure. Patient was brought to the fluoroscopy suite and placed prone on the procedure room table. A time out was performed. Vital signs were monitored throughout the procedure. The patient s low back was prepped and draped in the usual sterile fashion. The patients skin was anesthetized using 2% Lidocaine. A Tuohy needle was inserted and advanced to the L4-L5 epidural space under fluoroscopic guidance using the loss of resistance technique and intermittent projection of fluoroscopy. There was no paresthesia with needle placement. The needle position was confirmed in both the AP and lateral view. After negative aspiration 2ml of contrast was injected under live fluoroscopy which showed good spread of the contrast in the epidural space at the appropriate level, there was no intravascular or subarachnoid spread. Again, after negative aspiration for heme or CSF, 2 ml of 0.25% Bupivicaine, 2ml of preservative free normal saline, and 80mg of Kenalog was injected. The needle was removed and a sterile bandage was placed and the patient was transferred to the recovery area in stable condition. After a brief period of observation, patient was discharged to home with no new neurological deficits and no apparent complications. Complications None SHELBY LOPEZ MD July 12, 2016 2:52 pm
== END 2016-07-12 14:12 | disposition home or self-care (01) ==
LOC: CARD 13:21
PROVIDERS: ATTEND Pain Medicine Pain Medicine
DX: M51.16 Intervertebral disc disorders with radiculopathy, lumbar region (principal)
CPT/HCPCS: 62323

== ENCOUNTER 2016-08-02 12:49 | Emergency (ER) | payer OTHER ==
[~2016-08-02] VITALS: Ht 182.9 cm; Wt 113.4 kg
[2016-08-02 13:38] LABS: BASOPHILS % (AUTO) 0 % (0-10); EOSINOPHILS # (AUTO) 0.1 10^3/uL (0.0-0.3); EOSINOPHILS % (AUTO) 1 % (0-10); LYMPHOCYTES # (AUTO) 1.4 X 10^3 (1.0-4.0); LYMPHOCYTES % (AUTO) 14 % (12-44); MEAN CORPUSCULAR HEMOGLOBIN 28 PG (25-34); MEAN CORPUSCULAR HGB CONC 33 G/DL (32-36); MEAN CORPUSCULAR VOLUME 86 FL (80-99); MEAN PLATELET VOLUME 10.5 FL (7.4-10.4); MONOCYTES # (AUTO) 0.6 X 10^3 (0.0-1.0); MONOCYTES % (AUTO) 6 % (0-12); NEUTROPHILS % (AUTO) 79 % (42-75); PLATELET COUNT 184 10^3/uL (130-400); RED BLOOD COUNT 4.97 10^6/uL (4.35-5.85); RED CELL DISTRIBUTION WIDTH 14.9 % (10.0-14.5); WHITE BLOOD COUNT 10.1 10^3/uL (4.3-11.0)
--- NOTE | 2016-08-02 13:41 | ED Cardiac General ---
History of Present Illness General Chief Complaint: Cardiac/General Problems Stated Complaint: ELEVATED BP,HEADACHE Nursing Triage Note: pt ambulated to room. pt states his bp was 180/110, gave (2) 81mg asprin waited 10 minutes and then took his pressure and it was 160/90. pt and then headed to ed, this was all within 30 minutes of arrival to ed. pt also complains of a RODRIGUEZ and shoulder pain. Source: patient Exam Limitations: no limitations History of Present Illness Time seen by provider: 13:38 Initial Comments The patient is a 60-year-old white male who presents today with the observation of hypertension and a headache at home. The patient and his report they are sensitive to this as previously he was here with these complaints. They state he was about to be sent home when a cardiogram revealed him to be having a heart attack. Since that time he has had 13 stents placed by his account. He again denies any chest pain. It is noted that he is not taking any antihypertensive and they state never had this. His drug list does include Plavix and Lipitor Timing/Duration: 1 hour Activities at Onset: none Prior CP/Workup: cardiac cath, echocardiography, heart attack, other (stenting) Allergies and Home Medications Allergies Coded Allergies: No Known Drug Allergies (Unverified , 08/02/16) Home Medications Aspirin 81 Mg Tab.chew, 81 MG PO DAILY, #90 Ref 3 Prescribed by: CHRISTEL CARRASQUILLO on 04/27/16 1230 Atorvastatin Calcium 40 Mg Tablet, 40 MG PO HS, (Reported) Bupropion HCl 100 Mg Tablet, 100 MG PO BID, (Reported) Clopidogrel Bisulfate 75 Mg Tab, 75 MG PO DAILY, (Reported) Diclofenac Sodium 75 Mg Tablet.dr, 75 MG PO BID, (Reported) Fenofibrate Nanocrystallized 145 Mg Tablet, 145 MG PO DAILY, (Reported) LAST FILLED #30 02-13-16 Gabapentin 300 Mg Cap, 300 MG PO BID, (Reported) Pantoprazole Sod 40 Mg Tab, 40 MG PO DAILY, (Reported) LAST FILLED #30 02-28-16 Pramipexole Di-HCl 0.5 Mg Tablet, 0.5 MG PO HS, (Reported) Primidone 50 Mg Tablet, 50 MG PO HS, (Reported) Sertraline HCl 50 Mg Tablet, 100 MG PO DAILY, (Reported) TAKES 2 (50MG) TABLETS EVERY MORNING Sertraline Hcl 50 Mg Tablet, 50 MG PO HS, (Reported) Review of Systems Constitutional: see HPI EENTM: No Symptoms Reported Respiratory: No Symptoms Reported Cardiovascular: No Symptoms Reported Gastrointestinal: No Symptoms Reported Genitourinary: No Symptoms Reported Musculoskeletal: no symptoms reported Skin: no symptoms reported Psychiatric/Neurological: No Symptoms Reported Endocrine: No Symptoms Reported Hematologic/Lymphatic: No Symptoms Reported Past Wzemrnt-Kxxoii-Wxsrzl Hx Patient Social History Alcohol Use: Denies Use Recreational Drug Use: No Smoking Status: Current Everyday Smoker Type Used: Cigarettes 2nd Hand Smoke Exposure: Yes Recent Foreign Travel: No Contact w/Someone Who Travel: No Recent Infectious Disease Expo: No Recent Hopitalizations: No Immunizations Up To Date Tetanus Booster (TDap): Unknown Date of Pneumonia Vaccine: Sep 30, 2012 Date of Influenza Vaccine: Nov 29, 2015 Seasonal Allergies Seasonal Allergies: No Surgeries HX Surgeries: Yes (NECK AND BACK, CYST REMOVED, KNEE ARTH, LEFT TOTAL KNEE ) Respiratory Hx Respiratory Disorders: No Respiratory Disorders: Pneumonia, Sleep Apnea Cardiovascular Hx Cardiac Disorders: Yes Cardiac Disorders: Hypertension Neurological Hx Neurological Disorders: Yes Neurological Disorders: Neuropathy Reproductive System Hx Reproductive Disorders: No Sexually Transmitted Disease: No HIV/AIDS: No Genitourinary Hx Genitourinary Disorders: No Gastrointestinal Hx Gastrointestinal Disorders: No Gastrointestinal Disorders: Gastroesophageal Reflux Musculoskeletal Hx Musculoskeletal Disorders: Yes (OSTEO ARTHRITIS) Musculoskeletal Disorders: Arthritis Endocrine Hx Endocrine Disorders: No HEENT HX ENT Disorders: Yes (READING GLASSES. [place]) Cancer Hx Cancer: No Psychosocial Hx Psychiatric Problems: Yes Behavioral Health Disorders: Depression Integumentary HX Skin/Integumentary Disorder: Yes (RIGHT LEG RED AREA) Blood Transfusions Hx Blood Disorders: No Physical Exam Vital Signs Vital Sign - Last 12Hours 08/02/16 12:58 Temp 98.6 Pulse 71 Resp 20 B/P (MAP) 177/91 Pulse Ox 95 O2 Delivery Room Air Capillary Refill : Less Than 3 Seconds General Appearance: Anxious HEENT: Normal ENT Inspection Neck: Normal Inspection Respiratory: Chest Non Tender, Lungs Clear, Normal Breath Sounds, No Accessory Muscle Use, No Respiratory Distress Cardiovascular: Regular Rate, Rhythm, No Edema, No Gallop, No JVD, No Murmur, Normal Peripheral Pulses Gastrointestinal: Normal Bowel Sounds, No Organomegaly, No Pulsatile Mass, Non Tender Extremity: Normal Inspection Neurologic/Psychiatric: Alert, Oriented x3, No Motor/Sensory Deficits, Normal Mood/Affect Skin: Normal Color, Warm/Dry Lymphatic: No Adenopathy Progress/Results/Core Measures Results/Orders Lab Results Laboratory Tests Test 08/02/16 13:27 Range/Units White Blood Count 10.1 4.3-11.0 10^3/uL Red Blood Count 4.97 4.35-5.85 10^6/uL Hemoglobin 14.1 13.3-17.7 G/DL Hematocrit 43 40-54 % Mean Corpuscular Volume 86 80-99 FL Mean Corpuscular Hemoglobin 28 25-34 PG Mean Corpuscular Hemoglobin Concent 33 32-36 G/DL Red Cell Distribution Width 14.9 H 10.0-14.5 % Platelet Count 184 130-400 10^3/uL Mean Platelet Volume 10.5 H 7.4-10.4 FL Neutrophils (%) (Auto) 79 H 42-75 % Lymphocytes (%) (Auto) 14 12-44 % Monocytes (%) (Auto) 6 0-12 % Eosinophils (%) (Auto) 1 0-10 % Basophils (%) (Auto) 0 0-10 % Neutrophils # (Auto) 8.0 H 1.8-7.8 X 10^3 Lymphocytes # (Auto) 1.4 1.0-4.0 X 10^3 Monocytes # (Auto) 0.6 0.0-1.0 X 10^3 Eosinophils # (Auto) 0.1 0.0-0.3 10^3/uL Basophils # (Auto) 0.0 0.0-0.1 10^3/uL Sodium Level 141 135-145 MMOL/L Potassium Level 3.8 3.6-5.0 MMOL/L Chloride Level 108 H 98-107 MMOL/L Carbon Dioxide Level 23 21-32 MMOL/L Anion Gap 10 5-14 MMOL/L Blood Urea Nitrogen 16 7-18 MG/DL Creatinine 0.93 0.60-1.30 MG/DL Estimat Glomerular Filtration Rate > 60 BUN/Creatinine Ratio 17 Glucose Level 148 H 70-105 MG/DL Calcium Level 9.2 8.5-10.1 MG/DL Total Bilirubin 0.3 0.1-1.0 MG/DL Aspartate Amino Transf (AST/SGOT) 12 5-34 U/L Alanine Aminotransferase (ALT/SGPT) 24 0-55 U/L Alkaline Phosphatase 98 40-136 U/L Troponin I < 0.30 <0.30 NG/ML Total Protein 6.8 6.4-8.2 G/DL Albumin 3.9 3.2-4.5 G/DL My Orders Orders - EMILI LINN MD Cbc With Automated Diff (08/02/16 13:29) Comprehensive Metabolic Panel (08/02/16 13:29) Troponin I (08/02/16 13:41) Ekg Tracing (08/02/16 13:41) Chest 1 View, Ap/Pa Only (08/02/16 13:41) Vital Signs/I&O Vital Sign - Last 12Hours 08/02/16 12:58 Temp 98.6 Pulse 71 Resp 20 B/P (MAP) 177/91 Pulse Ox 95 O2 Delivery Room Air Blood Pressure Mean: 119 Departure Impression Impression: Primary Impression: hypertension Additional Impression: Peripheral vascular disease Disposition: 01 HOME, SELF-CARE Condition: Stable/Unchanged Departure-Patient Inst. Referrals: BETH ANDERSON MD (PCP/Family) Primary Care Physician Add. Discharge Instructions: All discharge instructions reviewed with patient and/or family. Voiced understanding. Take metoprolol as directed. See your provider in 1-2 weeks for follow-up EMILI LINN MD Aug 02, 2016 13:41
[2016-08-02 13:56] LABS: ALANINE AMINOTRANSFERASE 24 U/L (0-55); ALBUMIN 3.9 G/DL (3.2-4.5); ANION GAP 10 MMOL/L (5-14); ASPARTATE AMINO TRANSFERASE 12 U/L (5-34); BILIRUBIN,TOTAL 0.3 MG/DL (0.1-1.0); BLOOD UREA NITROGEN 16 MG/DL (7-18); BUN/CREATININE RATIO 17; CALCIUM 9.2 MG/DL (8.5-10.1); CARBON DIOXIDE 23 MMOL/L (21-32); CHLORIDE 108 MMOL/L (98-107); CREATININE SERUM 0.93 MG/DL (0.60-1.30); GFR ESTIMATED > 60; GLUCOSE 148 MG/DL (70-105); POTASSIUM 3.8 MMOL/L (3.6-5.0); SODIUM 141 MMOL/L (135-145); TOTAL PROTEIN 6.8 G/DL (6.4-8.2)
--- NOTE | 2016-08-02 14:12 | Diagnostic Imaging Report ---
INDICATION: Syncope and hypertension. Frontal chest obtained at 2:01 p.m. and compared to 11/28/12. FINDINGS: Heart and mediastinal silhouette are normal in appearance. The lungs are clear. There is no pneumothorax or pleural fluid. IMPRESSION: Negative chest. Dictated by: Dictated on workstation # [id number]
[2016-08-02] MEDS ORDERED: METO-272 PO (15:09)
[2016-08-02 15:18] VITALS: BP 122/81
== END 2016-08-02 15:18 | disposition home or self-care (01) ==
LOC: EDUNIT# 12:49 → ER 12:51
DX: I10 Essential (primary) hypertension (principal); I73.9 Peripheral vascular disease, unspecified; F32.9 Major depressive disorder, single episode, unspecified; F17.210 Nicotine dependence, cigarettes, uncomplicated; Z79.02 Long term (current) use of antithrombotics/antiplatelets; Z79.82 Long term (current) use of aspirin; Z95.5 Presence of coronary angioplasty implant and graft
CPT/HCPCS: 36415; 71010; 80053; 84484; 85025; 93005

== ENCOUNTER → 2016-08-09 | Outpatient (CLI) | payer OTHER ==
[~2016-08-09] MED LIST changes: +CATHETER FLUSH 10 ML SYR IV PRN; +IOHEXOL 350 MG/ML 100 ML (OMNIPAQUE 350) VIAL IV ONE; +METO-272 PO; +NS 100 ML (IVPB) BAG IV ONE
[2016-08-09 08:21] LABS: ANION GAP 12 MMOL/L (5-14); BLOOD UREA NITROGEN 14 MG/DL (7-18); BUN/CREATININE RATIO 15; CALCIUM 9.2 MG/DL (8.5-10.1); CARBON DIOXIDE 21 MMOL/L (21-32); CHLORIDE 108 MMOL/L (98-107); CREATININE SERUM 0.96 MG/DL (0.60-1.30); GFR ESTIMATED > 60; GLUCOSE 127 MG/DL (70-105); POTASSIUM 4.1 MMOL/L (3.6-5.0); SODIUM 141 MMOL/L (135-145)
--- NOTE | 2016-08-09 14:45 | Diagnostic Imaging Report ---
Clinical indication: Patient with syncope. Exams: 1: Head CT with and without IV contrast. 2: CT angiogram of the head and neck performed with 100 cc of Omnipaque 350 IV contrast. Sagittal and coronal MIP reformations were created for better visualization of vascular anatomy. Comparison: MRI of the brain performed without and with IV contrast dated 09/19/2012. Findings: Head CT: There is no evidence of acute cerebral infarct, intracranial hemorrhage, or gross mass effect. There is normal león-white matter distinction. The brain parenchymal volume appears appropriate for patient's age. There is no significant midline shift or herniation. There is no evidence of hydrocephalus. The basal cisterns are unremarkable. The skull, extracranial soft tissue, and orbits are unremarkable. The paranasal sinuses are unremarkable. CT angiogram: There is a common origin of the left common carotid artery and right brachiocephalic artery consistent with bovine arch. Aortic arch is not completely visualized. The visualized portion aortic arch is patent with no gross evidence of aneurysmal dilation. There is mild to moderate stenosis of the distal left subclavian artery. There is very limited contrast opacification of the bilateral cervical ICA, skull base and intracranial portions of the bilateral ICA, bilateral cervical vertebral arteries, and [place] vascular structures which is symmetric bilaterally and may be related to contrast timing. There is mild atherosclerotic disease involving the proximal right cervical ICA and right ECA with no significant stenosis. The right common carotid artery and remainder of the cervical right ICA is patent. The left common carotid artery is patent with no significant stenosis. There is atherosclerotic disease of the proximal left ECA and proximal cervical ICA with no significant stenosis of the left ECA and no more than mild to moderate narrowing of the proximal left ICA bulb. There is note of atherosclerotic plaque with a small contrast-filled defect involving the left proximal ICA bulb which may represent ulcerative plaque which is seen on the axial sequence series 6, image 234. There is very limited visualization of the mid and distal cervical bilateral ICA due to decreased contrast opacification. The bilateral cervical vertebral arteries show no major stenosis. There is limited visualization of the [place] vascular structures. There is no gross evidence of aneurysm or major vascular occlusion. Of note, small areas of stenosis or dissection may be missed on this exam. Suspected minimal atelectasis or scarring in both upper lobes. Subpleural cystic changes are seen in the right lung apex. There is a roughly 8 mm low-attenuation nodule in the left thyroid gland. The neck soft tissue structures show no other significant abnormality. There are cervical spine degenerative disease. Impression: 1: Very limited CT angiogram due to decreased contrast opacification of the mid to upper neck carotid and vertebral arteries, and limited visualization of the [place]. This appearance may be due to contrast bolus and CT timing. 2: There is at least mild to moderate stenosis of the proximal left ICA and suspected small ulcerative plaque involving the left ICA bulb region. 3: There is mild to moderate stenosis of the distal left subclavian artery. 4: Unremarkable CT scan of the brain. Dictated by: Dictated on workstation # [id number]
== END ==
LOC: RAD 07:36
PROVIDERS: ATTEND Internal Medicine Cardiovascular Disease
DX: R55 Syncope and collapse (principal); I65.22 Occlusion and stenosis of left carotid artery; I70.8 Atherosclerosis of other arteries
CPT/HCPCS: 36415; 70496; 70498; 80048

== ENCOUNTER → 2016-08-19 | Outpatient (CLI) | payer OTHER ==
[~2016-08-19] MED LIST changes: -CATHETER FLUSH 10 ML SYR IV PRN; -IOHEXOL 350 MG/ML 100 ML (OMNIPAQUE 350) VIAL IV ONE; -NS 100 ML (IVPB) BAG IV ONE
== END ==
DX: R09.89 Other specified symptoms and signs involving the circulatory and respiratory systems (principal)

== ENCOUNTER → 2016-08-26 | Outpatient (CLI) | payer OTHER ==
--- NOTE | 2016-08-26 15:09 | Diagnostic Imaging Report ---
EXAMINATION: Right lower extremity duplex venous ultrasound. TECHNIQUE: DVT protocol. Multiple sonographic images with color Doppler and waveform interrogation were performed of the right lower extremity veins with compression and augmentation maneuvers. INDICATION: Right leg swelling and pain. FINDINGS: The right lower extremity veins from the groin to below the knee veins were examined with normal color-flow, compressibility and normal waveform demonstrated. The great saphenous vein is patent. The peroneal veins in the distal calf are not seen. There is a 3.2 x 3.4 x 1 CM Hernandez's cyst in the right popliteal fossa. IMPRESSION: No evidence of DVT in the right lower extremity. Right Hernandez's cyst. Dictated by: Dictated on workstation # [id number]
== END ==
LOC: RAD 13:24
PROVIDERS: ATTEND Nurse Practitioner
DX: M71.21 Synovial cyst of popliteal space [Baker], right knee (principal); R09.89 Other specified symptoms and signs involving the circulatory and respiratory systems

== ENCOUNTER → 2016-09-20 | Outpatient (CLI) | payer OTHER ==
--- NOTE | 2016-09-20 16:43 | Diagnostic Imaging Report ---
Four views of the right knee. INDICATION: Right knee pain. FINDINGS: There is no fracture, dislocation or radiopaque foreign body. No suprapatellar effusion is seen. The joint spaces are preserved. There is mild osteophyte superiorly at the patella and in the medial compartment. IMPRESSION: Minimal degenerative changes. Dictated by: Dictated on workstation # [id number]
--- NOTE | 2016-09-20 17:39 | Diagnostic Imaging Report ---
AP view of the pelvis and the AP and frog-leg lateral views of the hip joints. INDICATION: Pelvic and hip pain. FINDINGS: No fracture or dislocation seen. There is a left common iliac artery stent in place. The hip joints demonstrate no significant degenerative changes. Sclerotic changes superiorly along the SI joints with question of joint fusion seen. IMPRESSION: There are sclerotic changes at the upper aspect of the SI joints with question of joint fusion. Dictated by: Dictated on workstation # [id number]
--- NOTE | 2016-09-20 18:08 | Diagnostic Imaging Report ---
Three views of the lumbar spine. INDICATION: Back pain. FINDINGS: The alignment of the lumbar spine is satisfactory. The vertebral body heights are preserved. Multilevel anterior and lateral osteophytes are noted. No posterior osteophytes. There is sclerosis and suggestion of fusion along the upper aspect of the SI joints bilaterally. Left common iliac artery stent is seen. IMPRESSION: Prominent anterior and lateral lumbar spine osteophytes. Sclerosis and suggestion of fusion of the SI joints. Consider possibility of seronegative arthritis. Dictated by: Dictated on workstation # [id number]
== END ==
LOC: RAD 15:05
PROVIDERS: ATTEND Nurse Practitioner Family
DX: M47.816 Spondylosis without myelopathy or radiculopathy, lumbar region (principal); M25.551 Pain in right hip; M25.561 Pain in right knee; R10.2 Pelvic and perineal pain; Z95.828 Presence of other vascular implants and grafts
CPT/HCPCS: 72100; 73523; 73564

== ENCOUNTER → 2016-10-21 | Outpatient (CLI) | payer OTHER ==
[2016-10-21 16:02] LABS: MEAN PLATELET VOLUME 10.5 FL (7.4-10.4); RED BLOOD COUNT 4.91 10^6/uL (4.35-5.85); RED CELL DISTRIBUTION WIDTH 14.3 % (10.0-14.5); WHITE BLOOD COUNT 8.9 10^3/uL (4.3-11.0)
[2016-10-21 16:20] LABS: ALANINE AMINOTRANSFERASE 23 U/L (0-55); ALBUMIN 4.1 GM/DL (3.2-4.5); ANION GAP 10 MMOL/L (5-14); ASPARTATE AMINO TRANSFERASE 17 U/L (5-34); BILIRUBIN,TOTAL 0.3 MG/DL (0.1-1.0); BLOOD UREA NITROGEN 18 MG/DL (7-18); BUN/CREATININE RATIO 19; CALCIUM 9.3 MG/DL (8.5-10.1); CARBON DIOXIDE 25 MMOL/L (21-32); CHLORIDE 106 MMOL/L (98-107); CHOLESTEROL 201 MG/DL (< 200); CREATININE SERUM 0.97 MG/DL (0.60-1.30); DIRECT LDL 141 MG/DL (1-129); GFR ESTIMATED > 60; GLUCOSE 143 MG/DL (70-105); POTASSIUM 4.1 MMOL/L (3.6-5.0); SODIUM 141 MMOL/L (135-145); TOTAL PROTEIN 7.1 GM/DL (6.4-8.2); TRIGLYCERIDES 360 MG/DL (<150); VLDL CHOLESTEROL 72 MG/DL (5-40)
[2016-10-21 16:40] LABS: THYROID STIMULATING HORMONE 1.35 UIU/ML (0.35-4.94)
== END ==
LOC: LAB 15:39
PROVIDERS: ATTEND Nurse Practitioner Family
DX: R53.83 Other fatigue (principal); E78.5 Hyperlipidemia, unspecified; R94.6 Abnormal results of thyroid function studies
CPT/HCPCS: 36415; 80053; 80061; 84436; 84443; 84480; 85027

== ENCOUNTER → 2016-10-29 | Outpatient (CLI) | payer OTHER ==
--- NOTE | 2016-10-29 18:19 | Diagnostic Imaging Report ---
PROCEDURE: US Thyroid. TECHNIQUE: Multiple real-time grayscale images were obtained of the thyroid in various projections. INDICATION: Nontoxic thyroid nodule. FINDINGS: The thyroid is normal in size. There are multiple bilateral hypoechoic nodules demonstrated within the thyroid which largely demonstrate an internal specular reflector and are most compatible with colloid cysts. The largest on the right measures up to 4 mm and the largest on the left measures up to 8 mm. IMPRESSION: 1. Small bilateral hypoechoic thyroid nodules or cysts. 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 No large dominant solid thyroid nodule is evident. Dictated by: Dictated on workstation # [id number]
== END ==
LOC: RAD 11:28
PROVIDERS: ATTEND Nurse Practitioner Family
DX: E04.2 Nontoxic multinodular goiter (principal)
CPT/HCPCS: 76536

== ENCOUNTER 2017-03-19 15:09 | Inpatient (IN) | payer OTHER ==
[2017-03-19] VITALS (11 sets, daily range): BP systolic 79–142; BP diastolic 50–84
[~2017-03-19] VITALS: Ht 185.4 cm; Wt 118.9 kg
[~2017-03-19 15:09] MED LIST changes: -METO-272 PO; +METO-370 PO
--- OUTSIDE RECORDS SUMMARY | 2017-03-19 15:19 | XMS REPORT | Continuity of Care Document ---
Author Author [facility] Organization [facility] Address Unknown Phone Unavailable Allergies Active Description Code Type Severity Reaction Onset Reported/Identified Relationship to Patient Clinical Status Yes NKANo Known Allergies NKA Miscellaneous Allergy Unknown N/A 01/26/2008 Yes No Known Drug Allergies [id number] Drug Allergy Unknown N/A 08/02/2016 Medications There is no data. Problems Date Dx Coded Attending Type Code Diagnosis Diagnosed By 02/15/2010 Ot 272.4 02/15/2010 Ot 276.51 02/15/2010 Ot 305.1 02/15/2010 Ot 401.9 02/15/2010 Ot 414.00 02/15/2010 Ot 558.9 02/15/2010 Ot 790.29 02/15/2010 Ot V45.82 02/15/2010 Ot V58.66 02/15/2010 Ot V58.69 05/17/2011 Ot 719.45 JOINT PAIN- PELVIS 05/17/2011 Ot 721.3 LUMBOSACRAL SPONDYLOSIS 05/03/2012 Ot 305.1 TOBACCO USE DISORDER 05/03/2012 Ot 311 DEPRESSIVE DISORDER NEC 05/03/2012 Ot 414.01 CORONARY ATHEROSCLEROSIS OF [place] CORON 05/03/2012 Ot 530.81 ESOPHAGEAL REFLUX 05/03/2012 Ot 715.36 LOC OSTEOARTH NOS-L/LEG 05/03/2012 Ot V45.82 PERCUTANEOUS TRANSLUM CORON ANGIOPLASTY 07/13/2012 RICHIE PARISH MD Ot 728.87 MUSCLE WEAKNESS (GENERALIZED) 07/13/2012 RICHIE PARISH MD Ot V43.65 KNEE JOINT REPLACEMENT STATUS 07/13/2012 RICHIE PARISH MD Ot V54.81 AFTERCARE FOLLOWING JOINT REPLACEMENT 07/13/2012 RICHIE PARISH MD Ot V57.1 PHYSICAL THERAPY NEC 11/29/2012 BETH ANDERSON MD Ot 250.00 DIAB ALONZO WO COMPL, TYPE II OR UNSPEC TY 11/29/2012 BETH ANDERSON MD Ot 272.4 HYPERLIPIDEMIA NEC/NOS 11/29/2012 BETH ANDERSON MD Ot 300.00 ANXIETY STATE NOS 11/29/2012 BETH ANDERSON MD Ot 311 DEPRESSIVE DISORDER NEC 11/29/2012 BETH ANDERSON MD Ot 786.52 PAINFUL RESPIRATION 11/29/2012 BETH ANDERSON MD Ot V58.69 OTH MED,LT,CURRENT USE 07/19/2014 EVETTE SILVESTRE MD Ot 278.00 OBESITY, NOS 07/19/2014 EVETTE SILVESTRE MD Ot 305.1 TOBACCO USE DISORDER 07/19/2014 EVETTE SILVESTRE MD Ot 327.23 OBSTRUCTIVE SLEEP APNEA (ADULT) (PEDIATR 07/19/2014 EVETTE SILVESTRE MD Ot 333.94 RESTLESS LEGS SYNDROME 07/19/2014 EVETTE SILVESTRE MD Ot 413.9 ANGINA PECTORIS NEC/NOS 07/19/2014 EVETTE SILVESTRE MD Ot 414.01 CORONARY ATHEROSCLEROSIS OF [place] CORON 07/19/2014 EVETTE SILVESTRE MD Ot 440.20 ATHEROSCLEROSIS [place] ARTERIES EXTREMIT 07/19/2014 EVETTE SILVESTRE MD Ot 530.81 ESOPHAGEAL REFLUX 07/19/2014 EVETTE SILVESTRE MD Ot V45.82 PERCUTANEOUS TRANSLUM CORON ANGIOPLASTY 07/19/2014 EVETTE SILVESTRE MD, Ot V58.69 OTH MED,LT,CURRENT USE 07/19/2014 EVETTE SILVESTRE MD Ot V85.34 BODY MASS INDEX 34.0-34.9, ADULT 07/23/2014 EVETTE SILVESTRE MD Ot 278.00 07/23/2014 EVETTE SILVESTRE MD Ot 305.1 07/23/2014 EVETTE SILVESTRE MD Ot 327.23 07/23/2014 EVETTE SILVESTRE MD Ot 333.94 07/23/2014 EVETTE SILVESTRE MD Ot 413.9 07/23/2014 EVETTE SILVESTRE MD Ot 414.01 07/23/2014 EVETTE SILVESTRE MD Ot 440.20 07/23/2014 EVETTE SILVESTRE MD Ot 530.81 07/23/2014 EVETTE SILVESTRE MD Ot V85.34 07/25/2014 HUONG VO APRN Ot 305.1 07/25/2014 NWAGWU, ISIDORE O CAR TESTER Ot 414.00 07/25/2014 NWAGWU, ISIDORE O CAR TESTER Ot 443.9 07/25/2014 NWAGWU, ISIDORE O CAR TESTER Ot 530.81 07/25/2014 NWAGWU, ISIDORE O CAR TESTER Ot 780.57 07/25/2014 NWAGWU, ISIDORE O CAR TESTER Ot 786.50 07/25/2014 NWAGWU, ISIDORE O CAR TESTER Ot V45.82 07/25/2014 NWAGWU, ISIDORE O CAR TESTER Ot 305.1 07/25/2014 NWAGWU, ISIDORE O CAR TESTER Ot 414.00 07/25/2014 NWAGWU, ISIDORE O CAR TESTER Ot 443.9 07/25/2014 NWAGWU, ISIDORE O CAR TESTER Ot 530.81 07/25/2014 NWAGWU, ISIDORE O CAR TESTER Ot 780.57 07/25/2014 NWAGWU, ISIDORE O CAR TESTER Ot 786.50 07/25/2014 NWAGWU, ISIDORE O CAR TESTER Ot V45.82 07/25/2014 NWAGWU, ISIDORE O CAR TESTER Ot 305.1 07/25/2014 NWAGWU, ISIDORE O CAR TESTER Ot 414.00 07/25/2014 NWAGWU, ISIDORE O CAR TESTER Ot 443.9 07/25/2014 NWAGWU, ISIDORE O CAR TESTER Ot 530.81 07/25/2014 NWAGWU, ISIDORE O CAR TESTER Ot 780.57 07/25/2014 NWAGWU, ISIDORE O CAR TESTER Ot 786.50 07/25/2014 NWAGWU, ISIDORE O CAR TESTER Ot V45.82 07/31/2014 YULI MEJIA CAR TESTER Ot 600.00 07/31/2014 YULI MEJIA CAR TESTER Ot 608.3 07/31/2014 YULI MEJIA CAR TESTER Ot 780.79 08/12/2014 YULI MEJIA CAR TESTER Ot 600.00 08/12/2014 YULI MEJIA CAR TESTER Ot 608.3 08/12/2014 MEJIA, ASHDEN N CAR TESTER Ot 780.79 08/12/2014 Ot 250.00 08/12/2014 Ot 272.4 08/12/2014 Ot 601.9 08/12/2014 Ot V70.0 08/12/2014 Ot 715.36 08/12/2014 Ot V72.63 08/12/2014 Ot V72.81 08/12/2014 Ot V72.83 08/12/2014 Ot V74.8 08/12/2014 DIPIKA REINIER Tillman CRATE ICER Ot 780.97 08/12/2014 NWAGWU, ISIDORE O CAR TESTER Ot 305.1 08/12/2014 NWAGWU, ISIDORE O CAR TESTER Ot 414.00 08/12/2014 NWAGWU, ISIDORE O CAR TESTER Ot 443.9 08/12/2014 NWAGWU, ISIDORE O CAR TESTER Ot 530.81 08/12/2014 NWAGWU, ISIDORE O CAR TESTER Ot 780.57 08/12/2014 NWAGWU, ISIDORE O CAR TESTER Ot 786.50 08/12/2014 NWAGWU, ISIDORE O CAR TESTER Ot V45.82 08/12/2014 MEJIA YULI N CAR TESTER Ot 600.00 08/12/2014 ROBERTO BELDIETER Rojas CAR TESTER Ot 608.3 08/12/2014 ROBERTO BELDIETER Rojas CAR TESTER Ot 780.79 08/12/2014 NWAGWU, ISIDORE O CAR TESTER Ot 305.1 08/12/2014 NWAGWU, ISIDORE O CAR TESTER Ot 414.00 08/12/2014 NWAGWU, ISIDORE O CAR TESTER Ot 443.9 08/12/2014 NWAGWU, ISIDORE O CAR TESTER Ot 530.81 08/12/2014 NWAGWU, ISIDORE O CAR TESTER Ot 780.57 08/12/2014 NWAGWU, ISIDORE O CAR TESTER Ot 786.50 08/12/2014 NWAGWU, ISIDORE O CAR TESTER Ot V45.82 08/15/2014 KONRAD NO, EVETTE [place] Ot 250.00 08/15/2014 KONRAD NO, EVETTE [place] Ot 272.4 08/15/2014 KONRAD NO, EVETTE [place] Ot 311 08/15/2014 KONRAD NO, EVETTE G Ot 414.00 08/15/2014 KONRAD NO, EVETTE G Ot 443.9 08/15/2014 KONRAD NO, EVETTE [place] Ot 459.81 08/22/2014 NWAGWU, ISIDORE O CAR TESTER Ot 305.1 08/22/2014 NWAGWU, ISIDORE O CAR TESTER Ot 414.00 08/22/2014 NWAGWU, ISIDORE O CAR TESTER Ot 443.9 08/22/2014 NWAGWU, ISIDORE O CAR TESTER Ot 530.81 08/22/2014 NWAGWU, ISIDORE O CAR TESTER Ot 780.57 08/22/2014 NWAGWU, ISIDORE O CAR TESTER Ot 786.50 08/22/2014 NWAGWU, ISIDORE O CAR TESTER Ot V45.82 08/22/2014 YULI MEJIA CAR TESTER Ot 600.00 08/22/2014 YULI MEJIA CAR TESTER Ot 608.3 08/22/2014 YULI MEJIA CAR TESTER Ot 780.79 09/05/2014 KONRAD NO, EVETTE [place] Ot 250.00 09/05/2014 KONRAD NO, EVETTE G Ot 272.4 09/05/2014 KONRAD NO, EVETTE G Ot 311 09/05/2014 KONRAD NO, EVETTE G Ot 414.00 09/05/2014 KONRAD NO, EVETTE G Ot 443.9 09/05/2014 KONRAD NO, EVETTE G Ot 459.81 09/06/2014 KONRAD NO, EVETTE G Ot 250.00 09/06/2014 KONRAD NO, EVETTE G Ot 272.4 09/06/2014 KONRAD NO, EVETTE G Ot 311 09/06/2014 KONRAD NO, EVETTE G Ot 414.00 09/06/2014 KONRAD NO, EVETTE G Ot 443.9 09/06/2014 KONRAD NO, EVETTE [place] Ot 459.81 09/27/2014 NWAGWU, ISIDORE O CAR TESTER Ot 305.1 09/27/2014 NWAGWU, ISIDORE O CAR TESTER Ot 414.00 09/27/2014 NWAGWU, ISIDORE O CAR TESTER Ot 443.9 09/27/2014 NWAGWU, ISIDORE O CAR TESTER Ot 530.81 09/27/2014 NWAGWU, ISIDORE O CAR TESTER Ot 780.57 09/27/2014 NWAGWU, ISIDORE O CAR TESTER Ot 786.50 09/27/2014 NWAGWU, ISIDORE O CAR TESTER Ot V45.82 09/27/2014 YULI MEJIA N CAR TESTER Ot 600.00 09/27/2014 YULI MEJIA N CAR TESTER Ot 608.3 09/27/2014 MEJIABELDIETER N CAR TESTER Ot 780.79 10/01/2014 KONRAD NO, EVETTE [place] Ot 272.4 HYPERLIPIDEMIA NEC/NOS 10/01/2014 EVETTE SILVESTRE MD Ot 305.1 TOBACCO USE DISORDER 10/01/2014 EVETTE SILVESTRE MD Ot 327.23 OBSTRUCTIVE SLEEP APNEA (ADULT) (PEDIATR 10/01/2014 EVETTE SILVESTRE MD Ot 414.00 CORON ATHEROSCLER NOS TYPE VESSEL, NATIV 10/01/2014 EVETTE SILVESTRE MD Ot 440.21 ATHEROSCL [place] ARTER EXTREM W INTERMIT 10/01/2014 EVETTE SILVESTRE MD Ot 454.9 ASYMPTOMATIC VARICOSE VEINS 10/01/2014 EVETTE SILVESTER MD Ot 530.81 ESOPHAGEAL REFLUX 10/01/2014 EVETTE SILVESTRE MD Ot V45.82 PERCUTANEOUS TRANSLUM CORON ANGIOPLASTY 10/01/2014 EVETTE SILVESTRE MD Ot V58.69 OTH MED,LT,CURRENT USE 10/20/2014 Ot 250.00 10/20/2014 Ot 272.4 10/20/2014 Ot 601.9 10/20/2014 Ot V70.0 10/20/2014 Ot 715.36 10/20/2014 Ot V72.63 10/20/2014 Ot V72.81 10/20/2014 Ot V72.83 10/20/2014 Ot V74.8 10/20/2014 REINIER BAR Ot 780.97 10/20/2014 NWAGWU, ISIDORE O CAR TESTER Ot 305.1 10/20/2014 NWAGWU, ISIDORE O CAR TESTER Ot 414.00 10/20/2014 NWAGWU, ISIDORE O CAR TESTER Ot 443.9 10/20/2014 NWAGWU, ISIDORE O CAR TESTER Ot 530.81 10/20/2014 NWAGWU, ISIDORE O CAR TESTER Ot 780.57 10/20/2014 NWAGWU, ISIDORE O CAR TESTER Ot 786.50 10/20/2014 NWAGWU, ISIDORE O CAR TESTER Ot V45.82 10/20/2014 ROBERTO BELDIETER N CAR TESTER Ot 600.00 10/20/2014 YULI MEJIA N CAR TESTER Ot 608.3 10/20/2014 ROBERTO BELDIETER N CAR TESTER Ot 780.79 10/20/2014 KONRAD NO, EVETTE [place] Ot 250.00 10/20/2014 KONRAD NO, EVETTE [place] Ot 272.4 10/20/2014 KONRAD NO, EVETTE [place] Ot 311 10/20/2014 KONRAD NO, EVETTE [place] Ot 414.00 10/20/2014 KONRAD NO, EVETTE [place] Ot 443.9 10/20/2014 KONRAD NO, EVETTE [place] Ot 459.81 10/21/2014 NWAGWU, ISIDORE O CAR TESTER Ot 327.23 OBSTRUCTIVE SLEEP APNEA (ADULT) (PEDIATR 10/21/2014 NWAGWU, ISIDORE O CAR TESTER Ot 327.51 PERIODIC LIMB MOVEMENT DISORDER 11/05/2014 Ot 250.00 11/05/2014 Ot 272.4 11/05/2014 Ot 601.9 11/05/2014 Ot V70.0 11/05/2014 Ot 715.36 11/05/2014 Ot V72.63 11/05/2014 Ot V72.81 11/05/2014 Ot V72.83 11/05/2014 Ot V74.8 11/05/2014 REINIER BAR Ot 780.97 11/05/2014 NWAGWU, ISIDORE O CAR TESTER Ot 305.1 11/05/2014 NWAGWU, ISIDORE O CAR TESTER Ot 414.00 11/05/2014 NWAGWU, ISIDORE O CAR TESTER Ot 443.9 11/05/2014 NWAGWU, ISIDORE O CAR TESTER Ot 530.81 11/05/2014 NWAGWU, ISIDORE O CAR TESTER Ot 780.57 11/05/2014 NWAGHUONG WANG CAR TESTER Ot 786.50 11/05/2014 NWHUONG MARTELL CAR TESTER Ot V45.82 11/05/2014 YULI MEJIA N CAR TESTER Ot 600.00 11/05/2014 YULI MEJIA N CAR TESTER Ot 608.3 11/05/2014 YULI MEJIA CAR TESTER Ot 780.79 11/05/2014 KONRAD NO, EVETTE [place] Ot 250.00 11/05/2014 KONRAD NO, EVETTE [place] Ot 272.4 11/05/2014 KONRAD NO, EVETTE [place] Ot 311 11/05/2014 KONRAD NO, EVETTE [place] Ot 414.00 11/05/2014 KONRAD NO, EVETTE [place] Ot 443.9 11/05/2014 KONRAD NO, EVETTE [place] Ot 459.81 12/20/2014 BRITNI FREIRE DO Ot 278.00 12/20/2014 BRITNI FREIRE DO Ot 305.1 12/20/2014 BRITNI FREIRE DO Ot 414.00 12/20/2014 BRITNI FREIRE DO Ot 443.9 12/20/2014 BRITNI FREIRE DO Ot 786.09 08/20/2015 Ot E78.0 PURE HYPERCHOLESTEROLEMIA 08/20/2015 Ot G47.33 OBSTRUCTIVE SLEEP APNEA (ADULT) (PEDIATR 08/20/2015 Ot I10 ESSENTIAL ( PRIMARY) HYPERTENSION 08/20/2015 Ot I25.10 ATHSCL HEART DISEASE OF [place] CORONARY 08/20/2015 Ot I65.23 OCCLUSION AND STENOSIS OF BILATERAL [place] 08/20/2015 Ot Z72.0 TOBACCO USE 08/29/2015 Ot E78.0 PURE HYPERCHOLESTEROLEMIA 08/29/2015 Ot G47.33 OBSTRUCTIVE SLEEP APNEA (ADULT) (PEDIATR 08/29/2015 Ot I10 ESSENTIAL ( PRIMARY) HYPERTENSION 08/29/2015 Ot I25.10 ATHSCL HEART DISEASE OF [place] CORONARY 08/29/2015 Ot I65.23 OCCLUSION AND STENOSIS OF BILATERAL [place] 08/29/2015 Ot Z72.0 TOBACCO USE 09/09/2015 Ot E78.0 PURE HYPERCHOLESTEROLEMIA 09/09/2015 Ot G47.33 OBSTRUCTIVE SLEEP APNEA (ADULT) (PEDIATR 09/09/2015 Ot I10 ESSENTIAL ( PRIMARY) HYPERTENSION 09/09/2015 Ot I25.10 ATHSCL HEART DISEASE OF [place] CORONARY 09/09/2015 Ot I65.23 OCCLUSION AND STENOSIS OF BILATERAL [place] 09/09/2015 Ot Z72.0 TOBACCO USE 09/15/2015 NEIDA NO FACGerry, ALI FACP CCDS Ot E78.0 PURE HYPERCHOLESTEROLEMIA 09/15/2015 NEIDA NO FACGerry, ALI FACP CCDS Ot G47.33 OBSTRUCTIVE SLEEP APNEA (ADULT) (PEDIATR 09/15/2015 NEIDA NO FACC, ALI FACP CCDS Ot I10 ESSENTIAL (PRIMARY) HYPERTENSION 09/15/2015 NEIDA NO FACC, ALI FACP CCDS Ot I25.10 ATHSCL HEART DISEASE OF [place] CORONARY 09/15/2015 NEIDA NO FACC, ALI FACP CCDS Ot I65.23 OCCLUSION AND STENOSIS OF BILATERAL [place] 09/15/2015 NEIDA NO FACC, ALI FACP CCDS Ot Z72.0 TOBACCO USE 09/15/2015 NEIDA NO FACC, ALI FACP CCDS Ot E78.0 PURE HYPERCHOLESTEROLEMIA 09/15/2015 NEIDA NO FACC, ALI FACP CCDS Ot G47.33 OBSTRUCTIVE SLEEP APNEA (ADULT) (PEDIATR 09/15/2015 NEIDA NO FACC, ALI FACP CCDS Ot I10 ESSENTIAL (PRIMARY) HYPERTENSION 09/15/2015 NEIDA ON FACC, ALI FACP CCDS Ot I25.10 ATHSCL HEART DISEASE OF [place] CORONARY 09/15/2015 NEIDA NO FACC, ALI FACP CCDS Ot I65.23 OCCLUSION AND STENOSIS OF BILATERAL [place] 09/15/2015 NEIDA NO FACC, ALI FACP CCDS Ot Z72.0 TOBACCO USE 09/26/2015 YULI MEJIA CAR TESTER Ot M79.89 OTHER SPECIFIED SOFT TISSUE DISORDERS 09/29/2015 YULI MEJIA CAR TESTER Ot M79.89 OTHER SPECIFIED SOFT TISSUE DISORDERS 11/12/2015 Ot E78.0 PURE HYPERCHOLESTEROLEMIA 11/12/2015 Ot G47.33 OBSTRUCTIVE SLEEP APNEA (ADULT) (PEDIATR 11/12/2015 Ot I10 ESSENTIAL ( PRIMARY) HYPERTENSION 11/12/2015 Ot I25.10 ATHSCL HEART DISEASE OF [place] CORONARY 11/12/2015 Ot I65.23 OCCLUSION AND STENOSIS OF [place]ILATERAL [place] 11/12/2015 Ot Z72.0 TOBACCO USE 11/12/2015 NEIDA NO FACC, ALI FACP CCDS Ot E78.0 PURE HYPERCHOLESTEROLEMIA 11/12/2015 NEIAD NO FACGerry, ALI FACP CCDS Ot G47.33 OBSTRUCTIVE SLEEP APNEA (ADULT) (PEDIATR 11/12/2015 NEIDA NO FACC, ALI FACP CCDS Ot I10 ESSENTIAL (PRIMARY) HYPERTENSION 11/12/2015 NEIDA NO FACGerry, ALI FACP CCDS Ot I25.10 ATHSCL HEART DISEASE OF [place] CORONARY 11/12/2015 NEIDA NO FACC, ALI FACP CCDS Ot I65.23 OCCLUSION AND STENOSIS OF BILATERAL [place] 11/12/2015 NEIDA NO FACC, ALI FACP CCDS Ot Z72.0 TOBACCO USE 11/12/2015 YULI MEJIA APRN Ot M79.89 OTHER SPECIFIED SOFT TISSUE DISORDERS 11/12/2015 Ot E78.0 PURE HYPERCHOLESTEROLEMIA 11/12/2015 Ot G47.33 OBSTRUCTIVE SLEEP APNEA (ADULT) (PEDIATR 11/12/2015 Ot I10 ESSENTIAL ( PRIMARY) HYPERTENSION 11/12/2015 Ot I25.10 ATHSCL HEART DISEASE OF [place] CORONARY 11/12/2015 Ot I65.23 OCCLUSION AND STENOSIS OF BILATERAL [place] 11/12/2015 Ot Z72.0 TOBACCO USE 11/12/2015 NEIDA NO FACC, CHRISTEL FACP CCDS Ot E78.0 PURE HYPERCHOLESTEROLEMIA 11/12/2015 NEIDA NO FACGerry, ALI FACP CCDS Ot G47.33 OBSTRUCTIVE SLEEP APNEA (ADULT) (PEDIATR 11/12/2015 NEIDA NO FACC, ALI FACP CCDS Ot I10 ESSENTIAL (PRIMARY) HYPERTENSION 11/12/2015 NEIDA NO FACC, ALI FACP CCDS Ot I25.10 ATHSCL HEART DISEASE OF [place] CORONARY 11/12/2015 NEIDA NO FACC, ALI FACP CCDS Ot I65.23 OCCLUSION AND STENOSIS OF BILATERAL [place] 11/12/2015 NEIAD NO FACC, ALI FACP CCDS Ot Z72.0 TOBACCO USE 11/12/2015 YULI MEJIA APRN Ot M79.89 OTHER SPECIFIED SOFT TISSUE DISORDERS 11/14/2015 Ot E78.0 PURE HYPERCHOLESTEROLEMIA 11/14/2015 Ot G47.33 OBSTRUCTIVE SLEEP APNEA (ADULT) (PEDIATR 11/14/2015 Ot I10 ESSENTIAL ( PRIMARY) HYPERTENSION 11/14/2015 Ot I25.10 ATHSCL HEART DISEASE OF [place] CORONARY 11/14/2015 Ot I65.23 OCCLUSION AND STENOSIS OF BILATERAL [place] 11/14/2015 Ot Z72.0 TOBACCO USE 11/14/2015 NEIDA NO FACC, ALI FACP CCDS Ot E78.0 PURE HYPERCHOLESTEROLEMIA 11/14/2015 NEIDA NO FACC, ALI FACP CCDS Ot G47.33 OBSTRUCTIVE SLEEP APNEA (ADULT) (PEDIATR 11/14/2015 NEIDA NO FACC, ALI FACP CCDS Ot I10 ESSENTIAL (PRIMARY) HYPERTENSION 11/14/2015 NEIDA NO FACC, ALI FACP CCDS Ot I25.10 ATHSCL HEART DISEASE OF [place] CORONARY 11/14/2015 NEIDA NO FACC, ALI FACP CCDS Ot I65.23 OCCLUSION AND STENOSIS OF BILATERAL [place] 11/14/2015 NEIDA NO FACC, ALI FACP CCDS Ot Z72.0 TOBACCO USE 11/14/2015 YULI MEJIA CAR TESTER Ot M79.89 OTHER SPECIFIED SOFT TISSUE DISORDERS 11/18/2015 DARLINE OCAMPO CAR TESTER Ot M25.561 PAIN IN RIGHT KNEE 11/28/2015 DARLINE OCAMPO CAR TESTER Ot M25.561 PAIN IN RIGHT KNEE 01/02/2016 TERRENCE, DARLINE E CAR TESTER Ot M25.561 PAIN IN RIGHT KNEE 01/02/2016 TERRENCE DARLINE E CAR TESTER Ot Z47.89 ENCOUNTER FOR OTHER ORTHOPEDIC AFTERCARE 02/13/2016 Ot 250.00 DIAB ALONZO WO COMPL, TYPE II OR UNSPEC TY 02/13/2016 Ot 272.4 HYPERLIPIDEMIA NEC/NOS 02/13/2016 Ot 601.9 PROSTATITIS NOS 02/13/2016 Ot V70.0 ROUTINE MEDICAL EXAM 02/13/2016 Ot 715.36 LOC OSTEOARTH NOS-L/LEG 02/13/2016 Ot V72.63 PRE- PROCEDURAL LABORATORY EXAMINATION 02/13/2016 Ot V72.81 EXAM-PRE- OPERATIVE CARDIOVASCULAR 02/13/2016 Ot V72.83 EXAM PRE- OPERATIVE NEC 02/13/2016 Ot V74.8 SCREEN- BACTERIAL DIS NEC 02/13/2016 REINIER BAR Ot 780.97 ALTERED MENTAL STATUS 02/13/2016 HUONG VO APRN Ot 305.1 TOBACCO USE DISORDER 02/13/2016 NWHUONG MARTELL CAR TESTER Ot 414.00 CORON ATHEROSCLER NOS TYPE VESSEL, NATIV 02/13/2016 NWAGWU, ISIDORE O CAR TESTER Ot 443.9 PERIPH VASCULAR DIS NOS 02/13/2016 NWAGWU, JONERE O CAR TESTER Ot 530.81 ESOPHAGEAL REFLUX 02/13/2016 NWREGINAWU, JONERE O CAR TESTER Ot 780.57 UNSPECIFIED SLEEP APNEA 02/13/2016 NWREGINAWJONE MosquedaRE O CAR TESTER Ot 786.50 CHEST PAIN NOS 02/13/2016 NWWJONE Mosqueda O CAR TESTER Ot V45.82 PERCUTANEOUS TRANSLUM CORON ANGIOPLASTY 02/13/2016 YULI MEJIA N CAR TESTER Ot 600.00 HYPERTROPHY (BENIGN) OF PROSTATE W/O URI 02/13/2016 YULI MEJIA N CAR TESTER Ot 608.3 ATROPHY OF TESTIS 02/13/2016 YULI MEJIA CAR TESTER Ot 780.79 OTH MALAISE FATIGUE 02/13/2016 EVETTE SILVESTRE MD Ot 250.00 DIAB ALONZO WO COMPL, TYPE II OR UNSPEC TY 02/13/2016 EVETTE SILVESTRE MD Ot 272.4 HYPERLIPIDEMIA NEC/NOS 02/13/2016 EVETTE SILVESTRE MD Ot 311 DEPRESSIVE DISORDER NEC 02/13/2016 EVETTE SILVESTRE MD Ot 414.00 CORON ATHEROSCLER NOS TYPE VESSEL, NATIV 02/13/2016 EVETTE SILVESTRE MD Ot 443.9 PERIPH VASCULAR DIS NOS 02/13/2016 EVETTE SILVESTRE MD Ot 459.81 VENOUS INSUFFICIENCY NOS 02/13/2016 BRITNI FREIRE DO Ot 278.00 OBESITY, NOS 02/13/2016 BRITNI FREIRE DO Ot 305.1 TOBACCO USE DISORDER 02/13/2016 BRITNI FREIRE DO Ot 414.00 CORON ATHEROSCLER NOS TYPE VESSEL, NATIV 02/13/2016 BRITNI FREIRE DO Ot 443.9 PERIPH VASCULAR DIS NOS 02/13/2016 BRITNI FREIRE DO Ot 786.09 RESPIRATORY ABNORM NEC 03/26/2016 Ot E78.0 PURE HYPERCHOLESTEROLEMIA 03/26/2016 Ot G47.33 OBSTRUCTIVE SLEEP APNEA (ADULT) (PEDIATR 03/26/2016 Ot I10 ESSENTIAL ( PRIMARY) HYPERTENSION 03/26/2016 Ot I25.10 ATHSCL HEART DISEASE OF [place] CORONARY 03/26/2016 Ot I65.23 OCCLUSION AND STENOSIS OF BILATERAL [place] 03/26/2016 Ot Z72.0 TOBACCO USE 03/26/2016 NEIDA OROZCOC, CHRISTEL FACP CCDS Ot E78.0 PURE HYPERCHOLESTEROLEMIA 03/26/2016 NEIDA NO FACGerry, ALI FACP CCDS Ot G47.33 OBSTRUCTIVE SLEEP APNEA (ADULT) (PEDIATR 03/26/2016 NEIDA NO FACC, ALI FACP CCDS Ot I10 ESSENTIAL (PRIMARY) HYPERTENSION 03/26/2016 NEIDA NO FACC, ALI FACP CCDS Ot I25.10 ATHSCL HEART DISEASE OF [place] CORONARY 03/26/2016 NEIDA OROZCOC, ALI FACP CCDS Ot I65.23 OCCLUSION AND STENOSIS OF [place]ILATERAL [place] 03/26/2016 NEIDA NO FACC, ALI FACP CCDS Ot Z72.0 TOBACCO USE 03/26/2016 YULI MEJIA APRN Ot M79.89 OTHER SPECIFIED SOFT TISSUE DISORDERS 04/27/2016 Ot E78.0 PURE HYPERCHOLESTEROLEMIA 04/27/2016 Ot G47.33 OBSTRUCTIVE SLEEP APNEA (ADULT) (PEDIATR 04/27/2016 Ot I10 ESSENTIAL ( PRIMARY) HYPERTENSION 04/27/2016 Ot I25.10 ATHSCL HEART DISEASE OF [place] CORONARY 04/27/2016 Ot I65.23 OCCLUSION AND STENOSIS OF BILATERAL [place] 04/27/2016 Ot Z72.0 TOBACCO USE 04/27/2016 NEIDA NO FACC, CHRISTEL FACP CCDS Ot E78.0 PURE HYPERCHOLESTEROLEMIA 04/27/2016 NEIDA NO FACC, ALI FACP CCDS Ot G47.33 OBSTRUCTIVE SLEEP APNEA (ADULT) (PEDIATR 04/27/2016 NEIDA NO FACC, ALI FACP CCDS Ot I10 ESSENTIAL (PRIMARY) HYPERTENSION 04/27/2016 NEIDA NO FACC, ALI FACP CCDS Ot I25.10 ATHSCL HEART DISEASE OF [place] CORONARY 04/27/2016 NEIDA NO FACC, ALI FACP CCDS Ot I65.23 OCCLUSION AND STENOSIS OF BILATERAL [place] 04/27/2016 NEIDA NO FACC, ALI FACP CCDS Ot Z72.0 TOBACCO USE 04/27/2016 YULI MEJIA APRN Ot M79.89 OTHER SPECIFIED SOFT TISSUE DISORDERS 04/27/2016 NEIDA NO FACC, ALI FACP CCDS Ot E78.00 PURE HYPERCHOLESTEROLEMIA, UNSPECIFIED 04/27/2016 NEIDA OROZCOC, ALI FACP CCDS Ot G47.33 OBSTRUCTIVE SLEEP APNEA (ADULT) (PEDIATR 04/27/2016 NEIDA NO FACC, ALI FACP CCDS Ot I10 ESSENTIAL (PRIMARY) HYPERTENSION 04/27/2016 NEIDA NO FACC, ALI FACP CCDS Ot I25.10 ATHSCL HEART DISEASE OF [place] CORONARY 04/27/2016 NEIDA NO FACC, ALI FACP CCDS Ot I25.82 CHRONIC TOTAL OCCLUSION OF CORONARY [place] 04/27/2016 NEIDA NO FACC, ALI FACP CCDS Ot I70.213 ATHSCL [place] ARTERIES OF EXTRM W INTRMT 04/27/2016 NEIDA NO FACC, ALI FACP CCDS Ot T82.855A STENOSIS OF CORONARY ARTERY STENT, INITI 04/27/2016 NEIDA NO FACC, ALI FACP CCDS Ot Z72.0 TOBACCO USE 04/27/2016 NEIDA NO FACC, CHRISTEL FACP CCDS Ot Z79.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 04/27/2016 NEIDA NO FACC, ALI FACP CCDS Ot Z95.5 PRESENCE OF CORONARY ANGIOPLASTY IMPLANT 05/20/2016 HEMANT CALVERT MD Ot M17.11 UNILATERAL PRIMARY OSTEOARTHRITIS, RIGHT 05/20/2016 HEMANT CALVERT MD Ot M54.16 RADICULOPATHY, LUMBAR REGION 05/20/2016 BERTRAM WILSON APRN Ot R05 COUGH 05/20/2016 BERTRAM WILSON APRN Ot R06.02 SHORTNESS OF BREATH 05/21/2016 HEMANT CALVERT MD Ot M17.11 UNILATERAL PRIMARY OSTEOARTHRITIS, RIGHT 05/21/2016 HEMANT CALVERT MD Ot M54.16 RADICULOPATHY, LUMBAR REGION 05/26/2016 HEMANT CALVERT MD Ot M17.11 UNILATERAL PRIMARY OSTEOARTHRITIS, RIGHT 05/26/2016 HEMANT CALVERT MD Ot M54.16 RADICULOPATHY, LUMBAR REGION 06/01/2016 BRITNI FREIRE DO Ot R05 COUGH 06/01/2016 BRITNI FREIRE DO Ot R06.02 SHORTNESS OF BREATH 06/01/2016 BRITNI FREIRE DO Ot Z72.0 TOBACCO USE 06/03/2016 BERTRAM WILSON APRN Ot R05 COUGH 06/03/2016 BERTRAM WILSON CAR TESTER Ot R06.02 SHORTNESS OF BREATH 06/21/2016 SHELBY LOPEZ MD Ot M51.16 INTERVERTEBRAL DISC DISORDERS W RADICULO 06/21/2016 SHELBY LOPEZ MD Ot Z79.02 CARE HOME (CURRENT) USE OF ANTITHROMBOTI 06/21/2016 SHELBY LOPEZ MD Ot Z79.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 06/24/2016 SHELBY LOPEZ MD, Ot M51.16 INTERVERTEBRAL DISC DISORDERS W RADICULO 06/24/2016 SHELBY LOPEZ MD, Ot 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 06/24/2016 SHELBY LOPEZ MD, Ot Z79.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 07/12/2016 SHELBY LOPEZ MD, Ot M51.16 INTERVERTEBRAL DISC DISORDERS W RADICULO 07/30/2016 Ot E78.0 PURE HYPERCHOLESTEROLEMIA 07/30/2016 Ot G47.33 OBSTRUCTIVE SLEEP APNEA (ADULT) (PEDIATR 07/30/2016 Ot I10 ESSENTIAL ( PRIMARY) HYPERTENSION 07/30/2016 Ot I25.10 ATHSCL HEART DISEASE OF [place] CORONARY 07/30/2016 Ot I65.23 OCCLUSION AND STENOSIS OF BILATERAL [place] 07/30/2016 Ot Z72.0 TOBACCO USE 07/30/2016 NEIDA NO FACC, ALI FACP CCDS Ot E78.0 PURE HYPERCHOLESTEROLEMIA 07/30/2016 NEIDA NO FACC, ALI FACP CCDS Ot G47.33 OBSTRUCTIVE SLEEP APNEA (ADULT) (PEDIATR 07/30/2016 NEIDA NO FACC, ALI FACP CCDS Ot I10 ESSENTIAL (PRIMARY) HYPERTENSION 07/30/2016 NEIDA NO FACC, ALI FACP CCDS Ot I25.10 ATHSCL HEART DISEASE OF [place] CORONARY 07/30/2016 NEIDA NO FACC, ALI FACP CCDS Ot I65.23 OCCLUSION AND STENOSIS OF BILATERAL [place] 07/30/2016 NEIDA NO FACC, ALI FACP CCDS Ot Z72.0 TOBACCO USE 07/30/2016 YULI MEJIA APRN Ot M79.89 OTHER SPECIFIED SOFT TISSUE DISORDERS 07/30/2016 ENRIKE NO, HEMANT Pascual Ot M17.11 UNILATERAL PRIMARY OSTEOARTHRITIS, RIGHT 07/30/2016 ENRIKE NO, HEMANT Pascual Ot M54.16 RADICULOPATHY, LUMBAR REGION 07/30/2016 BRITNI FREIRE DO Ot R05 COUGH 07/30/2016 BRITNI FREIRE DO Ot R06.02 SHORTNESS OF BREATH 07/30/2016 BRITNI FREIRE DO Ot Z72.0 TOBACCO USE 07/30/2016 BERTRAM WILSON APRN Ot R05 COUGH 07/30/2016 BERTRAM WILSON APRN Ot R06.02 SHORTNESS OF BREATH 08/02/2016 Ot E78.0 PURE HYPERCHOLESTEROLEMIA 08/02/2016 Ot G47.33 OBSTRUCTIVE SLEEP APNEA (ADULT) (PEDIATR 08/02/2016 Ot I10 ESSENTIAL ( PRIMARY) HYPERTENSION 08/02/2016 Ot I25.10 ATHSCL HEART DISEASE OF [place] CORONARY 08/02/2016 Ot I65.23 OCCLUSION AND STENOSIS OF BILATERAL [place] 08/02/2016 Ot Z72.0 TOBACCO USE 08/02/2016 NEIDA NO FACC, ALI FACP CCDS Ot E78.0 PURE HYPERCHOLESTEROLEMIA 08/02/2016 NEIDA NO FACC, ALI FACP CCDS Ot G47.33 OBSTRUCTIVE SLEEP APNEA (ADULT) (PEDIATR 08/02/2016 NEIDA NO FACC, ALI FACP CCDS Ot I10 ESSENTIAL (PRIMARY) HYPERTENSION 08/02/2016 NEIDA NO FACC, ALI FACP CCDS Ot I25.10 ATHSCL HEART DISEASE OF [place] CORONARY 08/02/2016 NEIDA NO FACC, ALI FACP CCDS Ot I65.23 OCCLUSION AND STENOSIS OF BILATERAL [place] 08/02/2016 NEIDA NO FACC, ALI FACP CCDS Ot Z72.0 TOBACCO USE 08/02/2016 YULI MEJIA CAR TESTER Ot M79.89 OTHER SPECIFIED SOFT TISSUE DISORDERS 08/02/2016 ENRIKE NO, HEMANT Pascual Ot M17.11 UNILATERAL PRIMARY OSTEOARTHRITIS, RIGHT 08/02/2016 HEMANT CALVERT MD Ot M54.16 RADICULOPATHY, LUMBAR REGION 08/02/2016 BRITNI FREIRE DO Ot R05 COUGH 08/02/2016 BRITNI FREIRE DO Ot R06.02 SHORTNESS OF BREATH 08/02/2016 BRITNI FREIRE DO Ot Z72.0 TOBACCO USE 08/02/2016 BERTRAM WILSON APRN Ot R05 COUGH 08/02/2016 BERTRAM WILSON APRN Ot R06.02 SHORTNESS OF BREATH 08/02/2016 TEMITOPE NO, EMILI Baltazar Ot F17.210 NICOTINE DEPENDENCE, CIGARETTES, UNCOMPL 08/02/2016 EMILI LINN MD Ot F32.9 MAJOR DEPRESSIVE DISORDER, SINGLE EPISOD 08/02/2016 EMILI LINN MD Ot I10 ESSENTIAL (PRIMARY) HYPERTENSION 08/02/2016 EMILI LINN MD Ot I73.9 PERIPHERAL VASCULAR DISEASE,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
[2017-03-19] MEDS ORDERED: ASPIRIN 81 MG CHEW (CHILDREN'S ASA) PO ONE (15:30)
[2017-03-19 15:43] LABS: BASOPHILS % (AUTO) 0 % (0-10); EOSINOPHILS # (AUTO) 0.1 10^3/uL (0.0-0.3); EOSINOPHILS % (AUTO) 0 % (0-10); HEMATOCRIT 41 % (40-54); LYMPHOCYTES # (AUTO) 1.5 X 10^3 (1.0-4.0); LYMPHOCYTES % (AUTO) 11 % (12-44); MEAN CORPUSCULAR HEMOGLOBIN 29 PG (25-34); MEAN CORPUSCULAR HGB CONC 34 G/DL (32-36); MEAN CORPUSCULAR VOLUME 86 FL (80-99); MEAN PLATELET VOLUME 11.3 FL (7.4-10.4); MONOCYTES # (AUTO) 1.3 X 10^3 (0.0-1.0); MONOCYTES % (AUTO) 9 % (0-12); NEUTROPHILS # (AUTO) 11.5 X 10^3 (1.8-7.8); NEUTROPHILS % (AUTO) 80 % (42-75); PLATELET COUNT 187 10^3/uL (130-400); RED CELL DISTRIBUTION WIDTH 15.2 % (10.0-14.5); WHITE BLOOD COUNT 14.4 10^3/uL (4.3-11.0)
[2017-03-19] MEDS: NITROGLYCERIN 0.4 MG SL TABS BTL 25'S SL PRN ×2 (15:46→16:01)
--- NOTE | 2017-03-19 15:50 | ED Chest Pain ---
General Chief Complaint: Chest Wall/Rib Pain Stated Complaint: L ARM/NECK PAIN Source: patient Exam Limitations: no limitations History of Present Illness Date Seen by Provider: Mar 19, 2017 Time Seen by Provider: 15:30 Initial Comments To ER with left-sided chest pain, neck pain, left arm pain that has been constant since last evening. He does have shortness of breath that is chronic but somewhat worse than usual today. Prior to this he's had these symptoms intermittently for the past 2 weeks History of 13 stents by various compliance representative. Primary compliance representative is Dr. Houston. Take this began yesterday evening after staying late at work and replacing a pump. He's uncertain if this is musculoskeletal or cardiac. 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 He does smoke 1 pack of cigarettes per day. Timing/Duration: constant Severity/Quality: moderate, aching Radiation: no radiation Allergies and Home Medications Allergies Coded Allergies: No Known Drug Allergies (Unverified , 08/02/16) Home Medications Aspirin 81 Mg Tab.chew, 81 MG PO DAILY, #90 Ref 3 Prescribed by: CHRISTEL HOUSTON on 04/27/16 1230 Atorvastatin Calcium 40 Mg Tablet, 40 MG PO HS, (Reported) Bupropion HCl 100 Mg Tablet, 100 MG PO BID, (Reported) Clopidogrel Bisulfate 75 Mg Tab, 75 MG PO DAILY, (Reported) Diclofenac Sodium 75 Mg Tablet.dr, 75 MG PO BID, (Reported) Fenofibrate Nanocrystallized 145 Mg Tablet, 145 MG PO DAILY, (Reported) LAST FILLED #30 02-13-16 Gabapentin 300 Mg Cap, 300 MG PO BID, (Reported) Metoprolol Succinate 50 Mg Tab.er.24h, 50 MG PO DAILY, #30 Prescribed by: EMILI LINN on 08/02/16 1509 Pantoprazole Sod 40 Mg Tab, 40 MG PO DAILY, (Reported) LAST FILLED #30 02-28-16 Pramipexole Di-HCl 0.5 Mg Tablet, 0.5 MG PO HS, (Reported) Primidone 50 Mg Tablet, 50 MG PO HS, (Reported) Sertraline HCl 50 Mg Tablet, 100 MG PO DAILY, (Reported) TAKES 2 (50MG) TABLETS EVERY MORNING Sertraline Hcl 50 Mg Tablet, 50 MG PO HS, (Reported) Review of Systems Constitutional: see HPI EENTM: No Symptoms Reported Respiratory: See HPI, Shortness of Air Cardiovascular: See HPI, Chest Pain Gastrointestinal: No Symptoms Reported Musculoskeletal: no symptoms reported Skin: no symptoms reported Psychiatric/Neurological: No Symptoms Reported Endocrine: No Symptoms Reported Past Otfbwrp-Uvlkul-Rrusxl Hx Patient Social History Alcohol Use: Denies Use Recreational Drug Use: No Smoking Status: Current Everyday Smoker Type Used: Cigarettes 2nd Hand Smoke Exposure: Yes Recent Foreign Travel: No Contact w/Someone Who Travel: No Recent Hopitalizations: No Immunizations Up To Date Tetanus Booster (TDap): Unknown Date of Pneumonia Vaccine: Sep 30, 2012 Date of Influenza Vaccine: Nov 29, 2015 Seasonal Allergies Seasonal Allergies: No Surgeries History of Surgeries: Yes (NECK AND BACK, CYST REMOVED, KNEE ARTH, LEFT TOTAL KNEE 05/01/12, 13 STENTS) Respiratory History of Respiratory Disorde: No Respiratory Disorders: Pneumonia, Sleep Apnea Currently Using CPAP: Yes Cardiovascular History of Cardiac Disorders: Yes (13 STENTS PLACED) Cardiac Disorders: Hypertension Neurological History of Neurological Disord: Yes Neurological Disorders: Neuropathy Reproductive System Hx Reproductive Disorders: No Sexually Transmitted Disease: No HIV/AIDS: No Genitourinary History of Genitourinary Disor: No Gastrointestinal History of Gastrointestinal Di: No Gastrointestinal Disorders: Gastroesophageal Reflux Musculoskeletal History of Musculoskeletal Dis: Yes (OSTEO ARTHRITIS) Musculoskeletal Disorders: Arthritis Endocrine History of Endocrine Disorders: No HEENT History of HEENT Disorders: No Cancer History of Cancer: No Psychosocial History of Psychiatric Problem: Yes Behavioral Health Disorders: Depression Integumentary History of Skin or Integumenta: Yes (RECENT DIAGNOSIS OF FUNGAL INFECTION ON BILAT LEGS) Blood Transfusions History of Blood Disorders: No Physical Exam Vital Signs Vital Sign - Last 12Hours 03/19/17 15:15 Temp 96.1 Pulse 70 Resp 18 B/P (MAP) 139/86 (103) Pulse Ox 98 O2 Delivery Room Air Capillary Refill : General Appearance: No Apparent Distress, WD/WN HEENT: PERRL/EOMI, TMs Normal Respiratory: Normal Breath Sounds, No Accessory Muscle Use, No Respiratory Distress Cardiovascular: Regular Rate, Rhythm, Normal Peripheral Pulses Gastrointestinal: Normal Bowel Sounds, Non Tender, Soft Extremity: Normal Capillary Refill, Normal Inspection Neurologic/Psychiatric: Alert, Oriented x3, No Motor/Sensory Deficits Skin: Normal Color, Warm/Dry Progress/Results/Core Measures Results/Orders Lab Results Laboratory Tests Test 03/19/17 15:27 03/19/17 15:44 Range/Units White Blood Count 14.4 H 4.3-11.0 10^3/uL Red Blood Count 4.80 4.35-5.85 10^6/uL Hemoglobin 14.0 13.3-17.7 G/DL Hematocrit 41 40-54 % Mean Corpuscular Volume 86 80-99 FL Mean Corpuscular Hemoglobin 29 25-34 PG Mean Corpuscular Hemoglobin Concent 34 32-36 G/DL Red Cell Distribution Width 15.2 H 10.0-14.5 % Platelet Count 187 130-400 10^3/uL Mean Platelet Volume 11.3 H 7.4-10.4 FL Neutrophils (%) (Auto) 80 H 42-75 % Lymphocytes (%) (Auto) 11 L 12-44 % Monocytes (%) (Auto) 9 0-12 % Eosinophils (%) (Auto) 0 0-10 % Basophils (%) (Auto) 0 0-10 % Neutrophils # (Auto) 11.5 H 1.8-7.8 X 10^3 Lymphocytes # (Auto) 1.5 1.0-4.0 X 10^3 Monocytes # (Auto) 1.3 H 0.0-1.0 X 10^3 Eosinophils # (Auto) 0.1 0.0-0.3 10^3/uL Basophils # (Auto) 0.0 0.0-0.1 10^3/uL Neutrophils % (Manual) 79 % Lymphocytes % (Manual) 16 % Monocytes % (Manual) 5 % Eosinophils % (Manual) 0 % Basophils % (Manual) 0 % Band Neutrophils 0 % Blood Morphology Comment NORMAL Sodium Level 140 135-145 MMOL/L Potassium Level 4.2 3.6-5.0 MMOL/L Chloride Level 105 98-107 MMOL/L Carbon Dioxide Level 21 21-32 MMOL/L Anion Gap 14 5-14 MMOL/L Blood Urea Nitrogen 19 H 7-18 MG/DL Creatinine 1.19 0.60-1.30 MG/DL Estimat Glomerular Filtration Rate > 60 BUN/Creatinine Ratio 16 Glucose Level 147 H 70-105 MG/DL Calcium Level 9.3 8.5-10.1 MG/DL Magnesium Level 1.9 1.8-2.4 MG/DL Total Bilirubin 0.5 0.1-1.0 MG/DL Aspartate Amino Transf (AST/SGOT) 100 H 5-34 U/L Alanine Aminotransferase (ALT/SGPT) 32 0-55 U/L Alkaline Phosphatase 105 40-136 U/L Myoglobin 245.7 H 10.0-92.0 NG/ML Troponin I 7.37 *H <0.30 NG/ML Total Protein 7.2 6.4-8.2 GM/DL Albumin 4.2 3.2-4.5 GM/DL Lipase 12 8-78 U/L Prothrombin Time 14.1 12.2-14.7 SEC INR Comment 1.1 0.8-1.4 Activated Partial Thromboplast Time 28 24-35 SEC My Orders Orders - CHRIS BOTELLO APRN Cbc With Automated Diff (03/19/17 15:16) Magnesium (03/19/17 15:16) Chest 1 View, Ap/Pa Only (03/19/17 15:16) Ekg Tracing (03/19/17 15:16) Cardiac Profile 1 (03/19/17 15:16) Comprehensive Metabolic Panel (03/19/17 15:16) Myoglobin Serum (03/19/17 15:16) Protime With Inr (03/19/17 15:16) Partial Thromboplastin Time (03/19/17 15:16) O2 (03/19/17 15:16) Monitor-Rhythm Ecg Trace Only (03/19/17 15:16) Lipid Panel (03/20/17 06:00) Aspirin Chewable Tablet (Baby Aspirin Ch (03/19/17 15:30) Saline Lock/Iv-Start (03/19/17 15:16) Lipase (03/19/17 15:16) Ct Angio Chest W (03/19/17 15:16) Nitroglycerin 0.4 Mg Btl 25's (Nitrostat (03/19/17 15:45) Manual Differential (03/19/17 15:27) Iohexol Injection (Omnipaque 350 Mg/Ml 1 (03/19/17 16:00) Ns (Ivpb) (Sodium Chloride 0.9% Ivpb Bag (03/19/17 16:00) Ns Iv 1000 Ml (Sodium Chloride 0.9%) (03/19/17 16:15) Medications Given in ED Current Medications Medications Dose Ordered Sig/Paula Route Start Time Stop Time Status Last Admin Dose Admin Aspirin 324 mg ONCE ONCE PO 03/19/17 15:30 03/19/17 15:31 DC 03/19/17 15:45 324 MG Iohexol 150 ml ONCE ONCE IV 03/19/17 16:00 03/19/17 16:01 DC 03/19/17 16:09 145 ML Nitroglycerin 1 TAB Q 5 MIN X 3 NEEDED PRN SL 03/19/17 15:45 03/19/17 16:01 0.4 MG Sodium Chloride 100 ml ONCE ONCE IV 03/19/17 16:00 03/19/17 16:01 DC 03/19/17 16:09 100 ML Vital Signs/I&O Vital Sign - Last 12Hours 03/19/17 15:15 Temp 96.1 Pulse 70 Resp 18 B/P (MAP) 139/86 (103) Pulse Ox 98 O2 Delivery Room Air Diagnostic Imaging Diagonstic Imaging: CT Comments NAME: GYPSY CARUSO [facility] REC#: [id number] PT STATUS: REG [facility] [place] : 1955 PHYSICIAN: CHRIS BOTELLO APRN ADMIT DATE: 03/19/17/CATH Draft Date of Exam:03/19/17 CT ANGIO CHEST W PROCEDURE: CT angiography of the chest with contrast. TECHNIQUE: Multiple contiguous axial images were obtained through the chest after uneventful bolus administration of intravenous contrast. Reconstructed CTA MIP acquisitions were also performed. INDICATION: Chest pain. COMPARISON: 05/31/2016. FINDINGS: There is no evidence of pulmonary embolus or other acute vascular abnormality demonstrated. Coronary artery calcifications are noted. There is no pneumothorax, pleural effusion or pericardial effusion. No adenopathy is seen. There is minimal atelectasis in the lung bases. There is a subtle ill-defined nodular density in the anterior right upper lobe on series 4, image 28 measuring about 3 mm, not apparent on the prior CT. The lungs are otherwise clear. There is diffuse hepatic steatosis. No additional abnormality seen in the visualized upper abdomen. IMPRESSION: 1. No evidence of pulmonary embolus or other acute abnormality in the chest. 2. Minimal bilateral basilar atelectasis. Indeterminate 3 mm nodular density anterior right upper lobe, new from prior CT. Given its recent development, if there are significant clinical risk factors, a followup CT in 3-6 months is suggested. In absence of clinical risk factors despite its small size, followup CT in 6-12 months will be recommended. 3. No additional abnormality is seen. Dictated on workstation # [id number] Dict: 03/19/17 1627 Trans: 03/19/17 1646 [facility] [id number] Interpreted by: COLLIN PATRICK DO Electronically signed by: Departure Communication (Admissions) Time/Spoke to Consulting Phy: 16:38 Communication/Consulting Spoke with Dr. Houston. He will take the patient to the Rn Case Management. He will admit the patient himself. Does not need medicine consult. As the patient is not any longer on metoprolol we will give him a dose of Toprol-XL 50 mg here in the emergency room. After 2 nitroglycerin sublingual pain is still intense so we will give 4 mg of morphine. Blood pressure remains 129/70 heart rate 70 sinus without ectopy. Impression Impression: Primary Impression: NSTEMI (non-ST elevated myocardial infarction) Disposition: ADMITTED INPATIENT Condition: Stable Admissions Decision to Admit Reason: Admit from ER (General) Decision to Admit/Date: Mar 19, 2017 Time/Decision to Admit Time: 16:28 Departure-Patient Inst. Referrals: BETH ANDERSON MD (PCP/Family) Primary Care Physician CHRIS BOTELLO APRN Mar 19, 2017 15:50
[2017-03-19 15:55] LABS: ALANINE AMINOTRANSFERASE 32 U/L (0-55); ALBUMIN 4.2 GM/DL (3.2-4.5); ALKALINE PHOSPHATASE 105 U/L (40-136); BILIRUBIN,TOTAL 0.5 MG/DL (0.1-1.0); BUN/CREATININE RATIO 16; CALCIUM 9.3 MG/DL (8.5-10.1); CARBON DIOXIDE 21 MMOL/L (21-32); CHLORIDE 105 MMOL/L (98-107); CREATININE SERUM 1.19 MG/DL (0.60-1.30); GFR ESTIMATED > 60; GLUCOSE 147 MG/DL (70-105); LIPASE 12 U/L (8-78); MAGNESIUM 1.9 MG/DL (1.8-2.4); POTASSIUM 4.2 MMOL/L (3.6-5.0); SODIUM 140 MMOL/L (135-145); TOTAL PROTEIN 7.2 GM/DL (6.4-8.2)
[2017-03-19] MEDS ORDERED: NS 100 ML (IVPB) BAG IV ONE (16:00)
[2017-03-19] MEDS ORDERED: IOHEXOL 350 MG/ML 150 ML (OMNIPAQUE 350) VIAL IV ONE (16:00)
[2017-03-19 16:01] LABS: MYOGLOBIN SERUM 245.7 NG/ML (10.0-92.0)
[2017-03-19] MEDS ORDERED: NS IV 1000 ML 1,000 ML IV SCH ×2 (16:15→18:36)
[2017-03-19 16:23] LABS: INR 1.1 (0.8-1.4); PROTHROMBIN TIME PATIENT 14.1 SEC (12.2-14.7)
[2017-03-19 16:31] LABS: BAND NEUTROPHILS 0 %; BASOPHILS % (MANUAL) 0 %; EOSINOPHILS % (MANUAL) 0 %; LYMPHOCYTES % (MANUAL) 16 %; MONOCYTES % (MANUAL) 5 %; NEUTROPHILS % (MANUAL) 79 %; RBC MORPH NORMAL
--- NOTE | 2017-03-19 16:32 | Diagnostic Imaging Report ---
INDICATION: Arm pain and chest pain. COMPARISON: 08/02/2016. FINDINGS: Upright portable view of the chest is obtained. Heart size is enlarged but unchanged. There is no central venous congestion. No pneumothorax, mediastinal widening or pleural fluid. The lungs are clear. IMPRESSION: No acute abnormalities demonstrated. Dictated by: Dictated on workstation # [id number]
[2017-03-19] MEDS ORDERED: HEParin 1000 UNIT/ML (10ML VIAL) FOR BOLUS ONE ×2 (16:39→17:35)
--- OUTSIDE RECORDS SUMMARY | 2017-03-19 16:41 | XMS REPORT | Continuity of Care Document ---
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 08/12/2014 10:24:00 08/12/2014 23:59:59 CLS Outpatient EVETTE SILVESTRE MD [facility] RAD CLAUTIFICATION CLASS 1 CAD HLE [id number] 07/29/2014 11:17:00 07/29/2014 23:59:59 CLS Outpatient YULI MEJIA [employer] 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 RAD CAD,CLAUDICATION,CP, GERD,ALELN [id number] 07/18/2014 07:05:00 07/19/2014 10:55:00 DIS Outpatient EVETTE SILVESTRE MD [facility] CATH CAD [id number] 11/28/2012 20:08:00 11/29/2012 10:15:00 DIS Inpatient BETH ANDERSON MD [facility] ICU CP [id number] 09/19/2012 15:37:00 09/19/2012 23:59:59 CLS Outpatient REINIER BAR [facility] RAD HEADACHE WITH MENTAL STATUS CHANGE [id number] 07/07/2012 09:53:00 07/13/2012 13:21:00 DIS Outpatient RICHIE PARISH MD [facility] REHAB S/P LEFT TKR WITH THIGH MUSCLE WEAKNESS [id number] 03/19/2017 15:45:00 Document Registration [id number] 08/19/2015 07:24:00 Document Registration [id number] 08/12/2014 10:39:00 Document Registration [id number] 05/01/2012 11:48:00 Document Registration [id number] 04/10/2012 09:04:00 Document Registration [id number] 05/17/2011 10:06:00 Document Registration [id number] 02/15/2010 00:10:00 Document Registration
[2017-03-19] MEDS ORDERED: morphine INJ 10 MG/ML 1ML (SYR OR VIAL) IVP ONE (16:45)
[2017-03-19] MEDS ORDERED: meTOproloL SUCCINATE 50 MG (TOPROL XL) TAB PO SCH (16:45)
--- NOTE | 2017-03-19 16:46 | Diagnostic Imaging Report ---
PROCEDURE: CT angiography of the chest with contrast. TECHNIQUE: Multiple contiguous axial images were obtained through the chest after uneventful bolus administration of intravenous contrast. Reconstructed CTA MIP acquisitions were also performed. INDICATION: Chest pain. COMPARISON: 05/31/2016. FINDINGS: There is no evidence of pulmonary embolus or other acute vascular abnormality demonstrated. Coronary artery calcifications are noted. There is no pneumothorax, pleural effusion or pericardial effusion. No adenopathy is seen. There is minimal atelectasis in the lung bases. There is a subtle ill-defined nodular density in the anterior right upper lobe on series 4, image 28 measuring about 3 mm, not apparent on the prior CT. The lungs are otherwise clear. There is diffuse hepatic steatosis. No additional abnormality seen in the visualized upper abdomen. IMPRESSION: 1. No evidence of pulmonary embolus or other acute abnormality in the chest. 2. Minimal bilateral basilar atelectasis. Indeterminate 3 mm nodular density anterior right upper lobe, new from prior CT. Given its recent development, if there are significant clinical risk factors, a followup CT in 3-6 months is suggested. In absence of clinical risk factors despite its small size, followup CT in 6-12 months will be recommended. 3. No additional abnormality is seen. Dictated by: Dictated on workstation # [id number]
--- NOTE | 2017-03-19 16:55 | Cardiology History & Physical ---
HPI-Cardiology Cardiology H&P Date of Admission 03/19/17 Primary Care Physician Manuel Braxton MD Attending Physician Nohemi Houston MD, MA FACP [facility] Consulting Physician NGA CC:Chest and neck discomfort 61 yo man with upper chest and neck discomfort since yesterday who presents to the ER today and is found to have an elevated troponin. Chest pain continuous for over 12 hours, moderate, radiating to neck, not associated with other symptoms, not relieved with s/l NTG, similar episode experienced intermittently for the last 2 weeks. No shortness of breath. No palp or syncope or leg swelling Review of Systems-Cardiology Review of Systems Constitutional: malaise, tiredness, No weight loss, No weight gain Eyes: No vision change Ears/Nose/Throat: No ear discharge, No nasal drainage, No recent hearing loss Respiratory: As described under HPI Cardiovascular: As described under HPI Gastrointestinal: No constipation, No diarrhea, No nausea, No vomiting Genitourinary: No hematuria Musculoskeletal: back pain (chronic) Skin: No rash, No ulcerations Psychiatric/Neurological: No seizure, No focal weakness, No syncope Hematologic: No bleeding abnormalities FKS-Tcjbxr-Voeelt Hx Patient Social History Alcohol Use: Denies Use Recreational Drug Use: No Smoking Status: Current Everyday Smoker Type Used: Cigarettes 2nd Hand Smoke Exposure: Yes Recent Foreign Travel: No Recent Infectious Disease Expo: No Hospitalization with Isolation: Denies Immunizations Up To Date Tetanus Booster (TDap): Unknown Date of Pneumonia Vaccine: Sep 30, 2012 Date of Influenza Vaccine: Nov 29, 2015 Past Medical History PMH As described under Assessment. Family Medical History Family Medical History: Does not report fam h/o early CAD or SCD Allergies and Home Medications Allergies Coded Allergies: No Known Drug Allergies (Unverified , 08/02/16) Home Medications Aspirin 81 Mg Tab.chew, 81 MG PO DAILY, #90 Ref 3 Prescribed by: NOHEMI HOUSTON on 04/27/16 1230 Atorvastatin Calcium 40 Mg Tablet, 40 MG PO HS, (Reported) Bupropion HCl 100 Mg Tablet, 100 MG PO BID, (Reported) Clopidogrel Bisulfate 75 Mg Tab, 75 MG PO DAILY, (Reported) Diclofenac Sodium 75 Mg Tablet.dr, 75 MG PO BID, (Reported) Fenofibrate Nanocrystallized 145 Mg Tablet, 145 MG PO DAILY, (Reported) LAST FILLED #30 12-16-16 Gabapentin 300 Mg Cap, 300 MG PO BID, (Reported) Metoprolol Succinate 50 Mg Tab.er.24h, 50 MG PO DAILY, #30 Prescribed by: EMILI LINN on 08/02/16 1509 Pantoprazole Sod 40 Mg Tab, 40 MG PO DAILY, (Reported) LAST FILLED #30 02-28-16 Pramipexole Di-HCl 0.5 Mg Tablet, 0.5 MG PO HS, (Reported) Primidone 50 Mg Tablet, 50 MG PO HS, (Reported) Sertraline HCl 50 Mg Tablet, 100 MG PO DAILY, (Reported) TAKES 2 (50MG) TABLETS EVERY MORNING Sertraline Hcl 50 Mg Tablet, 50 MG PO HS, (Reported) Physical Exam-Cardiology Physical Exam Vital Signs/I&O Vital Sign - Last 12Hours 03/19/17 15:15 Temp 96.1 Pulse 70 Resp 18 B/P (MAP) 139/86 (103) Pulse Ox 98 O2 Delivery Room Air Capillary Refill : Less Than 3 Seconds Constitutional: AAO x 3, well-developed, well-nourished HEENT: PERRL, hearing is well preserved, No xanthelasmas are seen Neck: carotid pulses are 2 + bilaterally, with good upstrokes Respiratory: No accessory muscle use, lungs clear to percussion, lungs clear to auscultation Cardiovascular: regular rate-rhythm, S1 and S2, systolic murmur (faint GEMA at card base) Gastrointestinal: No tender, soft, No guarding, No rebound, audible bowel sounds Extremities: No clubbing, No cyanosis, No significant edema Neurologic/Psychiatric: grossly intact, power is 5/5 both on sides Skin: No rash, No ulcerations Data Review Labs Laboratory Tests 03/19/17 15:27: White Blood Count 14.4H, Red Blood Count 4.80, Hemoglobin 14.0, Hematocrit 41, Mean Corpuscular Volume 86, Mean Corpuscular Hemoglobin 29, Mean Corpuscular Hemoglobin Concent 34, Red Cell Distribution Width 15.2H, Platelet Count 187, Mean Platelet Volume 11.3H, Neutrophils (%) (Auto) 80H, Lymphocytes (%) (Auto) 11L, Monocytes (%) (Auto) 9, Eosinophils (%) (Auto) 0, Basophils (%) (Auto) 0, Neutrophils # (Auto) 11.5H, Lymphocytes # (Auto) 1.5, Monocytes # (Auto) 1.3H, Eosinophils # (Auto) 0.1, Basophils # (Auto) 0.0, Neutrophils % (Manual) 79, Lymphocytes % (Manual) 16, Monocytes % (Manual) 5, Eosinophils % (Manual) 0, Basophils % (Manual) 0, Band Neutrophils 0, Blood Morphology Comment NORMAL, Sodium Level 140, Potassium Level 4.2, Chloride Level 105, Carbon Dioxide Level 21, Anion Gap 14, Blood Urea Nitrogen 19H, Creatinine 1.19, Estimat Glomerular Filtration Rate > 60, BUN/Creatinine Ratio 16, Glucose Level 147H, Calcium Level 9.3, Magnesium Level 1.9, Total Bilirubin 0.5, Aspartate Amino Transf (AST /SGOT) 100H, Alanine Aminotransferase (ALT/SGPT) 32, Alkaline Phosphatase 105, Myoglobin 245.7H, Troponin I 7.37*H, Total Protein 7.2, Albumin 4.2, Lipase 12 03/19/17 15:44: Prothrombin Time 14.1, INR Comment 1.1, Activated Partial Thromboplast Time 28 A/P-Cardiology Assessment/Admission Diagnosis Ac NSTEMI CAD. Last card cath was on A long stent in the posterior descending branch of the right coronary artery is completely occluded and percutaneous intervention to this vessel on 04/27/16 was unsuccessful. The proximal and mid right coronary artery is extensively stented. These are known to be Promus Premier overlapping 4 x 24 and 4 x 12 mm stents placed by Dr. Dockery on 2014. Within these stents, there is up to approximately 40% stenoses. The left circumflex in the left anterior descending artery has mild plaques. Elevated LVEDP. LVEF is 65% PAD. On 09/30/14, he underwent Stenting of the R SFA and the L external iliac artery by Dr Dockery. Diffuse, mild peripheral arterial disease. On last peripheral angio of 04/27/16 there is a patent stent in the right superficial femoral artery and a patent stent in the left common iliac extending into external iliac artery. There appears to be 3 vessel runoff in both legs. Carotid arterial disease: L ICA mild to mod dz seen on CTA head/neck of 08-09-16 Mild to mod stenosis of the distal L SC seen on CTA of head/neck of 08-09-16 8mm thyroid nodule seen on head/neck CT of 08-09-16 - followed by his pcp, Dr Braxton Chronic tobacco use S/p L TKR and arthroscopic R knee surg Echo of 09/12/15 shows LVEF 60%, trivial MR & TR, no valvular stenosis ALLEN, treated with CPAP Incomplete RBBB Hypertension, labile Hypercholesterolemia Discussion and Recomendations * Given chest discomfort in the setting of known CAD and elevated troponin and continuing symptoms, we recommend urgent card cath. The rationale, procedure, risks, benefits, potential complications of card cath were reviewed. He provides informed consent NOHEMI HOUSTON MD FACP FAC CCDS Mar 19, 2017 16:55
[2017-03-19] MEDS ORDERED: MIDAZOLAM 5 MG/5 ML (VERSED) VIAL ONE (17:01)
[2017-03-19] MEDS ORDERED: LIDOCAINE 1% INJ 50 ML (XYLOCAINE) VIAL ONE (17:01)
[2017-03-19] MEDS ORDERED: diphenhydrAMINE 50 MG/ML INJ (BENADRYL) ONE (17:01)
[2017-03-19] MEDS ORDERED: fentaNYL INJECTION 100 MCG/2 ML AMP ONE (17:01)
[2017-03-19] MEDS ORDERED: NS IV 1000 ML 0 ML ONE (17:02)
[2017-03-19] MEDS ORDERED: HEParin (CATH LAB) 2,000 ML IV ONE (17:02)
[2017-03-19] MEDS ORDERED: NITROGLYCERIN DRIP 25 MG/D5W 0 ML IV ONE (17:26)
[2017-03-19] MEDS ORDERED: EPTIFIBATIDE DRIP 100 ML IV ONE (17:43)
[2017-03-19] MEDS ORDERED: EPTIFIBATIDE BOLUS 20 ML IV ONE (17:43)
[2017-03-19] MEDS ORDERED: niCARdipine 25 MG/10 ML (CARDENE) AMP IV ONE (17:54)
[2017-03-19] MEDS ORDERED: NS (IVPB) 250 ML ONE (17:54)
[2017-03-19] MEDS ORDERED: CLOPIDOGREL 300 MG (PLAVIX) TABLET PO ONE (18:26)
[2017-03-19] MEDS ORDERED: ASPIRIN 81 MG CHEW (CHILDREN'S ASA) ONE (18:26)
--- NOTE | 2017-03-19 18:34 | Cardiac Procedure Note-CS/ASA ---
Pre-Procedure Note Pre-Op Procedure Note H&P Reviewed The H&P was reviewed, patient examined and no changes noted. Date H&P Reviewed: Mar 19, 2017 Time H&P Reviewed: 17:00 Conscious Sedation Pre-Proced Time Reviewed: 17:00 ASA Class: 3 Airway Mallampati Classification: ([place] appropriate class) I. II. III, IV Lungs Heart ASA score ASA 1: a normal healthy patient ASA 2: a patient with a mild systemic disease (mid diabetes, controlled hypertension, obesity ASA 3: a patient with a severe systemic disease that limits activity (angina , COPD, prior Myocardial infarction) ASA 4: a patient with an incapacitating disease that is a constant threat to life (CHF, renal failure) ASA 5: a moribund patient not expected to survive 24 hrs. (ruptured aneurysm) ASA 6: a declared brain patient whose organs are being harvested. For emergent operations, add the letter E after the classification Grade 2 Sedation Plan: Analgesia, Amnesia, Plan communicated to team members, Discussed options with patient/fam, Discussed risks with patient/fam Note The patient is an appropriate candidate to undergo the planned procedure, sedation, and anesthesia. The patient immediately re-assessed prior to indication. CHRISTEL CARRASQUILLO MD FACP FAC CCDS Mar 19, 2017 18:34
[2017-03-19] MEDS ORDERED: ACETAMINOPHEN 325 MG TABLET/CAPLET (TYLENOL) PO PRN (18:45)
[2017-03-19] MEDS ORDERED: PATIENT MAY USE OWN MEDS, ALL PO SCH (18:45)
[2017-03-19] MEDS ORDERED: lisINopril 10 MG (PRINIVIL) TAB PO ONE (18:45)
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
[2017-03-19] MEDS: ATORVASTATIN 40 MG (LIPITOR) TABLET PO SCH (20:42)
--- NOTE | 2017-03-19 22:38 | CARDIAC CATHETERIZATION ---
DATE OF SERVICE: 03/19/2017 CARDIAC CATHETERIZATION AND CORONARY INTERVENTION REPORT The patient is a 61-year-old man with known coronary artery disease, who presented to the emergency room with acute non-ST elevation myocardial infarction. He is known to have coronary artery disease and has previously had stenting of the right coronary artery. Last cardiac catheterization in 03/2016 showed that stents (known to be Promus PREMIER overlapping 4.0 x 24 and 4.0 x 12) in the proximal and mid right coronary artery were patent. A long stent in the posterior descending branch of the right coronary artery was occluded. An attempted intervention to that was not successful. Given presentation with acute non-ST elevation myocardial infarction, known coronary artery disease and continuing symptoms, emergency cardiac catheterization was carried out after having obtained an informed consent for cardiac catheterization and possible ad hoc coronary intervention. PROCEDURE: He was brought to the cardiac catheterization laboratory. Right groin was prepared and draped in the usual sterile fashion. A 1% lidocaine for local anesthesia. Modified Seldinger technique was used to advance a 6-Djiboutian sheath into the right femoral artery. We used a 6-Djiboutian JL4 catheter for left coronary angiography. We used a 6-Djiboutian JR4 guide catheter for angiography of the right coronary artery and subsequent coronary intervention that is described below. PERCUTANEOUS INTERVENTION TO THE RIGHT CORONARY ARTERY: The right coronary artery was found to be occluded in its mid portion within a previously placed stent. Percutaneous intervention was carried out. We used a 6-Djiboutian JR4 guide catheter to engage the right coronary artery. We used a ChoICE floppy wire. This was advanced to cross the complete occlusion with considerable difficulty and the tip was placed in the distal branch vessel. We carried out balloon angioplasty with successive 2.0, 3.0 and 3.5 mm balloons. This did restore antegrade flow throughout the vessel. The posterior descending branch is completely occluded and is known to be chronically occluded and was not intervened on. Flow was restored to the distal posterolateral branches of the right coronary artery with balloon angioplasty. There was still considerable restenosis in the distal portion of the stented part of the mid right coronary artery. We advanced Alpine Xience 4.0 x 12 mm stent. This was carefully positioned at the site of stent restenosis and the stent was deployed at 16 atmospheres. Subsequent angiography revealed 0% residual stenosis at the previous site of complete occlusion in the distal part of the standard area in the proximal right coronary artery. Flow throughout the vessel was normal. There is diffuse moderate disease of the right coronary artery. He tolerated the procedure well. Following completion of the interventional procedure, we used a 6-Djiboutian pigtail catheter to carry out left heart catheterization. The left ventricular end-diastolic pressure was around 35 to 37 and we chose not to do left ventricular angiography. The catheter was pulled back and removed. We carried out angiography of the right femoral artery through the sheath and Mynx was used to achieve hemostasis. He tolerated the procedure well. HEMODYNAMICS: Left ventricular end-diastolic pressure following coronary angiography and coronary intervention was 35 mmHg. There was no significant pressure gradient on pullback across the aortic valve. Ascending aortic pressure was 147/76 with a mean of 104 mmHg. CORONARY ANGIOGRAPHY: Left main coronary artery did not exhibit significant disease. Left anterior descending and left circumflex arteries have diffuse mild to moderate disease and coronary calcification. The right coronary artery was found to be completely occluded in its mid to distal portion within a previously placed stent. Successful balloon angioplasty and subsequent stenting was carried out to the complete occlusion with adventism of antegrade flow and the stenosis was reduced to 0% residual following stenting of the stent restenosis in the distal part of the previous stent in the right coronary artery. The right coronary artery has diffuse moderate disease. The posterior descending branch of the right coronary artery is chronically occluded within a long previously placed stent. This was not intervened on. CONCLUSIONS: 1. Acute non-ST elevation myocardial infarction due to complete occlusion within the distal portion of a previously placed stent in 2014 (overlapping from Promus Premier 4.0 x 24 and 4.0 x 12 mm stents). To this complete occlusion, successful balloon angioplasty and stenting was carried out. Following deployment of Alpine Xience 4.0 x 12 mm stent, there is 0% residual stenosis and there is normal antegrade flow in the distal right coronary artery. The posterior descending branch of the right coronary artery is chronically occluded and was not intervened on. 2. Mild to moderate disease of the left coronary system. 3. Significantly elevated left ventricular end-diastolic pressure. DISCUSSION AND RECOMMENDATIONS: Smoking cessation has been advised. Treatment is with beta-blockers, JOSE FRANCISCO inhibitors, clopidogrel, aspirin and statins. He is being hospitalized. Job ID: [id number] DocumentID: [id number] Dictated Date: 03/19/2017 18:49:27 [employer] Date: 03/19/2017 20:28:18 Dictated By: CHRISTEL CARRASQUILLO MD, MA, FACP, FACC, MTDD
[2017-03-20] VITALS (7 sets, daily range): BP systolic 3–118; BP diastolic 41–70
[2017-03-20] MEDS ORDERED: PANTOPRAZOLE 40 MG/10 ML (PROTONIX) VIAL ONE (04:36)
[2017-03-20] MEDS ORDERED: ANTACID SUSP 30 ML UDC (MYLANTA) ONE (04:36)
[2017-03-20] MEDS ORDERED: ANTACID SUSP 30 ML UDC (MYLANTA) PO ONE (04:45)
[2017-03-20] MEDS ORDERED: PANTOPRAZOLE 40 MG/10 ML (PROTONIX) VIAL IV ONE (04:45)
[2017-03-20 04:46] LABS: BASOPHILS % (AUTO) 0 % (0-10); EOSINOPHILS # (AUTO) 0.1 10^3/uL (0.0-0.3); EOSINOPHILS % (AUTO) 1 % (0-10); HEMATOCRIT 40 % (40-54); HEMOGLOBIN 13.5 G/DL (13.3-17.7); LYMPHOCYTES # (AUTO) 1.3 X 10^3 (1.0-4.0); LYMPHOCYTES % (AUTO) 13 % (12-44); MEAN CORPUSCULAR HEMOGLOBIN 29 PG (25-34); MEAN CORPUSCULAR HGB CONC 33 G/DL (32-36); MEAN CORPUSCULAR VOLUME 86 FL (80-99); MEAN PLATELET VOLUME 11.3 FL (7.4-10.4); MONOCYTES % (AUTO) 10 % (0-12); NEUTROPHILS # (AUTO) 7.8 X 10^3 (1.8-7.8); NEUTROPHILS % (AUTO) 77 % (42-75); PLATELET COUNT 169 10^3/uL (130-400); RED BLOOD COUNT 4.69 10^6/uL (4.35-5.85); RED CELL DISTRIBUTION WIDTH 15.2 % (10.0-14.5); WHITE BLOOD COUNT 10.1 10^3/uL (4.3-11.0)
[2017-03-20 05:20] LABS: ALANINE AMINOTRANSFERASE 38 U/L (0-55); ALBUMIN 3.7 GM/DL (3.2-4.5); ALKALINE PHOSPHATASE 93 U/L (40-136); BILIRUBIN,TOTAL 0.6 MG/DL (0.1-1.0); BUN/CREATININE RATIO 16; CALCIUM 8.8 MG/DL (8.5-10.1); CARBON DIOXIDE 21 MMOL/L (21-32); CHLORIDE 104 MMOL/L (98-107); CHOLESTEROL 112 MG/DL (< 200); CREATININE SERUM 0.99 MG/DL (0.60-1.30); GFR ESTIMATED > 60; GLUCOSE 132 MG/DL (70-105); HDL CHOLESTEROL 26 MG/DL (40-60); POTASSIUM 4.4 MMOL/L (3.6-5.0); SODIUM 138 MMOL/L (135-145); TOTAL PROTEIN 6.3 GM/DL (6.4-8.2); TRIGLYCERIDES 123 MG/DL (<150); VLDL CHOLESTEROL 25 MG/DL (5-40)
[2017-03-20 05:24] LABS: CHOLESTEROL 113 MG/DL (< 200); HDL CHOLESTEROL 24 MG/DL (40-60); TRIGLYCERIDES 127 MG/DL (<150); VLDL CHOLESTEROL 25 MG/DL (5-40)
[2017-03-20] MEDS: PANTOPRAZOLE 40 MG (PROTONIX) TAB PO SCH (07:31)
[2017-03-20] MEDS: ANTACID SUSP 30 ML UDC (MYLANTA) PO PRN ×4 (07:32→22:53)
[2017-03-20] MEDS: meTOproloL SUCCINATE 50 MG (TOPROL XL) TAB PO SCH (08:06)
[2017-03-20] MEDS: CLOPIDOGREL 75 MG (PLAVIX) TABLET PO SCH (08:06)
[2017-03-20] MEDS: ASPIRIN 81 MG CHEW (CHILDREN'S ASA) PO SCH (08:06)
[2017-03-20] MEDS ORDERED: lisINopril 10 MG (PRINIVIL) TAB PO SCH (09:00)
--- NOTE | 2017-03-20 14:29 | Progress Note-Cardiology ---
Cardiology SOAP Progress Note Subjective: Has had epigastric discomfort that is improved with antacids Has not had recurrence of cp that he presented with yesterday Denies palp or syncope or shortness of breath or groin discomfort Objective: I&O/Vital Signs Vital Sign - Last 12Hours 03/20/17 03/20/17 03/20/17 03/20/17 04:00 04:00 07:00 08:00 Temp 99.2 99.5 Pulse 68 58 63 Resp 18 21 B/P (MAP) 108/68 (81) 107/70 (82) Pulse Ox 97 97 95 O2 Delivery Room Air Room Air Room Air 03/20/17 03/20/17 03/20/17 03/20/17 08:00 09:00 12:00 12:00 Temp 99.6 Pulse 63 Resp 11 B/P (MAP) 96/55 (69) Pulse Ox 95 95 96 O2 Delivery Room Air Room Air Room Air Room Air 03/20/17 13:00 Pulse 65 Intake and Output 03/20/17 00:00 Intake Total 233 ml Output Total 550 ml Balance -317 ml Weight (Pounds): 261 Weight (Ounces): 1.6 Weight (Calculated Kilograms): 118.797039 Groin site without hematoma: Yes Bruising: mild bruising (at site of R groin access) Constitutional: AAO x 3, well-developed, well-nourished Respiratory: No accessory muscle use, lungs clear to percussion, lungs clear to auscultation Cardiovascular: regular rate-rhythm, S1 and S2, systolic murmur (faint GEMA at card base) Gastrointestional: No tender, soft, No guarding, No rebound, audible bowel sounds Extremities: No clubbing, No cyanosis, No significant edema Neurologic/Psychiatric: grossly intact, power is 5/5 both on sides Skin: No rash, No ulcerations Results/Procedures: Labs Laboratory Tests 03/19/17 15:27: White Blood Count 14.4H, Red Blood Count 4.80, Hemoglobin 14.0, Hematocrit 41, Mean Corpuscular Volume 86, Mean Corpuscular Hemoglobin 29, Mean Corpuscular Hemoglobin Concent 34, Red Cell Distribution Width 15.2H, Platelet Count 187, Mean Platelet Volume 11.3H, Neutrophils (%) (Auto) 80H, Lymphocytes (%) (Auto) 11L, Monocytes (%) (Auto) 9, Eosinophils (%) (Auto) 0, Basophils (%) (Auto) 0, Neutrophils # (Auto) 11.5H, Lymphocytes # (Auto) 1.5, Monocytes # (Auto) 1.3H, Eosinophils # (Auto) 0.1, Basophils # (Auto) 0.0, Neutrophils % (Manual) 79, Lymphocytes % (Manual) 16, Monocytes % (Manual) 5, Eosinophils % (Manual) 0, Basophils % (Manual) 0, Band Neutrophils 0, Blood Morphology Comment NORMAL, Sodium Level 140, Potassium Level 4.2, Chloride Level 105, Carbon Dioxide Level 21, Anion Gap 14, Blood Urea Nitrogen 19H, Creatinine 1.19, Estimat Glomerular Filtration Rate > 60, BUN/Creatinine Ratio 16, Glucose Level 147H, Calcium Level 9.3, Magnesium Level 1.9, Total Bilirubin 0.5, Aspartate Amino Transf (AST /SGOT) 100H, Alanine Aminotransferase (ALT/SGPT) 32, Alkaline Phosphatase 105, Myoglobin 245.7H, Troponin I 7.37*H, Total Protein 7.2, Albumin 4.2, Lipase 12 03/19/17 15:44: Prothrombin Time 14.1, INR Comment 1.1, Activated Partial Thromboplast Time 28 03/20/17 04:08: White Blood Count 10.1, Red Blood Count 4.69, Hemoglobin 13.5, Hematocrit 40, Mean Corpuscular Volume 86, Mean Corpuscular Hemoglobin 29, Mean Corpuscular Hemoglobin Concent 33, Red Cell Distribution Width 15.2H, Platelet Count 169, Mean Platelet Volume 11.3H, Neutrophils (%) (Auto) 77H, Lymphocytes (%) (Auto) 13, Monocytes (%) (Auto) 10, Eosinophils (%) (Auto) 1, Basophils (%) (Auto) 0, Neutrophils # (Auto) 7.8, Lymphocytes # (Auto) 1.3, Monocytes # (Auto) 1.0, Eosinophils # (Auto) 0.1, Basophils # (Auto) 0.0, Sodium Level 138, Potassium Level 4.4, Chloride Level 104, Carbon Dioxide Level 21, Anion Gap 13, Blood Urea Nitrogen 16, Creatinine 0.99, Estimat Glomerular Filtration Rate > 60, BUN/ Creatinine Ratio 16, Glucose Level 132H, Calcium Level 8.8, Total Bilirubin 0.6 , Aspartate Amino Transf (AST/SGOT) 132H, Alanine Aminotransferase (ALT/SGPT) 38 , Alkaline Phosphatase 93, Total Protein 6.3L, Albumin 3.7, Triglycerides Level 123, Cholesterol Level 112, LDL Cholesterol Direct 66, VLDL Cholesterol 25, HDL Cholesterol 26L, Thyroid Stimulating Hormone (TSH) 1.04 Laboratory Tests 03/19/17 15:27 03/20/17 04:08 Laboratory Tests 03/19/17 15:27 03/20/17 04:08 A/P: Assessment: Ac NSTEMI CAD. Last card cath was on 03/19/17: 1. complete occlusion within the distal portion of a previously placed stent in 2014 (overlapping from Promus Premier 4.0 x 24 and 4.0 x 12 mm stents). To this complete occlusion, successful balloon angioplasty and stenting was carried out. Following deployment of Alpine Xience 4.0 x 12 mm stent, there is 0% residual stenosis and normal antegrade flow. 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 Mild to moderate disease of the left coronary system. Significantly elevated left ventricular end-diastolic pressure PAD. On 09/30/14, he underwent Stenting of the R SFA and the L external iliac artery by Dr Dockery. Diffuse, mild peripheral arterial disease. On last peripheral angio of 04/27/16 there is a patent stent in the right superficial femoral artery and a patent stent in the left common iliac extending into external iliac artery. There appears to be 3 vessel runoff in both legs. Carotid arterial disease: L ICA mild to mod dz seen on CTA head/neck of 08-09-16 Mild to mod stenosis of the distal L SC seen on CTA of head/neck of 08-09-16 8mm thyroid nodule seen on head/neck CT of 08-09-16 - followed by his pcp, Dr Braxton Chronic tobacco use S/p L TKR and arthroscopic R knee surg Echo of 03/20/17: shows LVEF 50-55%, Grade I diastolic dysfunction of LV ALLEN, treated with CPAP Incomplete RBBB Hypertension, labile Hyperlipidemia Plan: * I had a detailed discussion with him and his regarding cath findings, interventions undertaken, post-PCI echo results, medication rationale, risk factor modification, and management plan * He has been advised refrain from tobacco use * We are discontinuing JOSE FRANCISCO-inhib because LVEF is well-preserved and BP is relatively low * Continue bb, DAPT, and statin * Post-PCI epigastric discomfort is likely due to GERD, probably worsened by DAPT. We have initiated PPI and antacids. This has resulted in improvement of symptoms * We have encouraged increased ambulation * Low-dose enoxaparin for DVT prophylaxis * D/c iv fluids CHRISTEL CARRASQUILLO MD FACP [facility] Mar 20, 2017 14:29
[2017-03-20] MEDS ORDERED: ENOXAPARIN 40 MG/0.4 ML (LOVENOX) SYR SC SCH (14:30)
[2017-03-20] MEDS ORDERED: PREG75CA PO (14:44)
[2017-03-20] MEDS ORDERED: HYDR-3820 PO (14:44)
[2017-03-20] MEDS ORDERED: CLOP75TA28 PO (14:44)
[2017-03-20] MEDS ORDERED: BUPR100T15 PO (14:44)
[2017-03-20] MEDS ORDERED: ATOR40TA70 PO (14:44)
[2017-03-20] MEDS ORDERED: ASPI-983 PO (15:44)
[2017-03-20] MEDS ORDERED: RANI150T11 PO (15:44)
[2017-03-20] MEDS: ATORVASTATIN 40 MG (LIPITOR) TABLET PO SCH (21:01)
[2017-03-21] VITALS: BP 130/79
[2017-03-21 04:00] VITALS: BP 121/75
[2017-03-21 05:03] LABS: BASOPHILS % (AUTO) 0 % (0-10); EOSINOPHILS # (AUTO) 0.1 10^3/uL (0.0-0.3); EOSINOPHILS % (AUTO) 1 % (0-10); HEMATOCRIT 42 % (40-54); HEMOGLOBIN 13.5 G/DL (13.3-17.7); LYMPHOCYTES # (AUTO) 1.6 X 10^3 (1.0-4.0); LYMPHOCYTES % (AUTO) 19 % (12-44); MEAN CORPUSCULAR HEMOGLOBIN 28 PG (25-34); MEAN CORPUSCULAR HGB CONC 33 G/DL (32-36); MEAN CORPUSCULAR VOLUME 87 FL (80-99); MEAN PLATELET VOLUME 11.4 FL (7.4-10.4); MONOCYTES # (AUTO) 0.8 X 10^3 (0.0-1.0); MONOCYTES % (AUTO) 10 % (0-12); NEUTROPHILS # (AUTO) 6.2 X 10^3 (1.8-7.8); NEUTROPHILS % (AUTO) 71 % (42-75); PLATELET COUNT 163 10^3/uL (130-400); RED BLOOD COUNT 4.78 10^6/uL (4.35-5.85); RED CELL DISTRIBUTION WIDTH 15.4 % (10.0-14.5); WHITE BLOOD COUNT 8.7 10^3/uL (4.3-11.0)
[2017-03-21 05:31] LABS: BUN/CREATININE RATIO 16; CALCIUM 8.8 MG/DL (8.5-10.1); CARBON DIOXIDE 23 MMOL/L (21-32); CHLORIDE 105 MMOL/L (98-107); CREATININE SERUM 1.07 MG/DL (0.60-1.30); GFR ESTIMATED > 60; GLUCOSE 123 MG/DL (70-105); MAGNESIUM 2.5 MG/DL (1.8-2.4); POTASSIUM 4.2 MMOL/L (3.6-5.0); SODIUM 139 MMOL/L (135-145)
[2017-03-21] MEDS: ANTACID SUSP 30 ML UDC (MYLANTA) PO PRN (07:06)
[2017-03-21] MEDS: PANTOPRAZOLE 40 MG (PROTONIX) TAB PO SCH (07:06)
[2017-03-21 08:00] VITALS: BP 116/68
[2017-03-21] MEDS ORDERED: PANT40TA3 PO (08:57)
[2017-03-21] MEDS ORDERED: METO-370 PO (08:57)
--- NOTE | 2017-03-21 08:58 | Discharge Inst-Cardiology ---
Discharge Inst-Cardiac Discharge Medications New Medications: Metoprolol Succinate (Metoprolol Succinate) 50 Mg Tab.er.24h 50 MG PO DAILY, #30 TAB 5 Refills Pantoprazole Sodium (Pantoprazole Sodium) 40 Mg Tablet.dr 40 MG PO DAILY@0700, #30 TAB 5 Refills Continued Medications: Aspirin (Aspirin EC) 81 Mg Tablet.dr 81 MG PO DAILY, TAB Atorvastatin Calcium (Atorvastatin Calcium) 40 Mg Tablet 40 MG PO HS Bupropion HCl (Bupropion HCl) 100 Mg Tablet 100 MG PO BID Clopidogrel Bisulfate (Clopidogrel) 75 Mg Tablet 75 MG PO DAILY Fenofibrate Nanocrystallized (Fenofibrate) 145 Mg Tablet 145 MG PO DAILY, TAB Hydrocodone/Acetaminophen (Hydrocodon-Acetaminophn 10-325) 1 Each Tablet 1 TAB PO EVERY 4-6 HOURS PRN for PAIN-MODERATE Pramipexole Di-HCl (Pramipexole Dihydrochloride) 0.5 Mg Tablet 0.5 MG PO HS, TAB Pregabalin (Lyrica) 75 Mg Capsule 75 MG PO BID Primidone (Primidone) 50 Mg Tablet 50 MG PO HS, TAB Sertraline HCl (Sertraline HCl) 50 Mg Tablet 150 MG PO DAILY, TAB TAKES 3 (50 MG) TABLETS EVERY MORNING Discontinued Medications: Ranitidine HCl (Ranitidine HCl) 150 Mg Tablet 150 MG PO BID, TAB New, Converted or Re-Newed RX: Transmitted to Pharmacy Patient Instructions Patient Instructions: Follow up appointment to see Dr. Houston next week SLOAN RIVERA Mar 21, 2017 08:58
[2017-03-21] MEDS: ASPIRIN 81 MG CHEW (CHILDREN'S ASA) PO SCH (09:01)
[2017-03-21] MEDS: meTOproloL SUCCINATE 50 MG (TOPROL XL) TAB PO SCH (09:01)
[2017-03-21] MEDS: CLOPIDOGREL 75 MG (PLAVIX) TABLET PO SCH (09:01)
--- NOTE | 2017-03-21 09:03 | Progress Note-Cardiology ---
Cardiology SOAP Progress Note Subjective: Sitting up in a chair at the bedside. States he feels well and wants to go home. No c/o CP, palpitations, syncope, dyspnea or near syncope. Objective: I&O/Vital Signs Vital Sign - Last 12Hours 03/21/17 03/21/17 03/21/17 03/21/17 01:00 04:00 04:00 07:00 Temp 97.6 Pulse 56 58 68 Resp 16 B/P (MAP) 121/75 (90) Pulse Ox 97 97 O2 Delivery Room Air Room Air Intake and Output 03/21/17 00:00 Intake Total 650 ml Output Total 1250 ml Balance -600 ml Weight (Pounds): 262 Weight (Ounces): 3.2 Weight (Calculated Kilograms): 118.176777 Side: right Groin site without hematoma: Yes Condition: DP/PT pulses palpable, extremity w/d/p Bruising: mild bruising (at site of R groin access) Constitutional: AAO x 3, well-developed, well-nourished Respiratory: No accessory muscle use, lungs clear to percussion, lungs clear to auscultation Cardiovascular: regular rate-rhythm, S1 and S2, systolic murmur (faint GEMA at card base) Gastrointestional: No tender, soft, No guarding, No rebound, audible bowel sounds Extremities: No clubbing, No cyanosis, No significant edema Neurologic/Psychiatric: grossly intact, power is 5/5 both on sides Skin: No rash, No ulcerations Results/Procedures: Labs Laboratory Tests 03/21/17 04:20: White Blood Count 8.7, Red Blood Count 4.78, Hemoglobin 13.5, Hematocrit 42, Mean Corpuscular Volume 87, Mean Corpuscular Hemoglobin 28, Mean Corpuscular Hemoglobin Concent 33, Red Cell Distribution Width 15.4H, Platelet Count 163, Mean Platelet Volume 11.4H, Neutrophils (%) (Auto) 71, Lymphocytes (%) (Auto) 19 , Monocytes (%) (Auto) 10, Eosinophils (%) (Auto) 1, Basophils (%) (Auto) 0, Neutrophils # (Auto) 6.2, Lymphocytes # (Auto) 1.6, Monocytes # (Auto) 0.8, Eosinophils # (Auto) 0.1, Basophils # (Auto) 0.0, Sodium Level 139, Potassium Level 4.2, Chloride Level 105, Carbon Dioxide Level 23, Anion Gap 11, Blood Urea Nitrogen 17, Creatinine 1.07, Estimat Glomerular Filtration Rate > 60, BUN/ Creatinine Ratio 16, Glucose Level 123H, Calcium Level 8.8, Magnesium Level 2.5H A/P: Assessment: Ac NSTEMI on 03/19/17 CAD. Last card cath was on 03/19/17: complete occlusion within the distal portion of a previously placed stent in 2014 (overlapping from Promus Premier 4.0 x 24 and 4.0 x 12 mm stents). To this complete occlusion, successful balloon angioplasty and stenting was carried out. Following deployment of Alpine Xience 4.0 x 12 mm stent, there is 0% residual stenosis and normal antegrade flow. 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 Mild to moderate disease of the left coronary system. Significantly elevated left ventricular end-diastolic pressure PAD. On 09/30/14, he underwent Stenting of the R SFA and the L external iliac artery by Dr Dockery. Diffuse, mild peripheral arterial disease. On last peripheral angio of 04/27/16 there is a patent stent in the right superficial femoral artery and a patent stent in the left common iliac extending into external iliac artery. There appears to be 3 vessel runoff in both legs. Carotid arterial disease: L ICA mild to mod dz seen on CTA head/neck of 08-09-16 Mild to mod stenosis of the distal L SC seen on CTA of head/neck of 08-09-16 8mm thyroid nodule seen on head/neck CT of 08-09-16 - followed by his pcp, Dr Braxton Chronic tobacco use S/p L TKR and arthroscopic R knee surg Echo of 03/20/17: shows LVEF 50-55%, Grade I diastolic dysfunction of LV ALLEN, treated with CPAP Incomplete RBBB Hypertension, labile Hyperlipidemia Plan: * OK to discharge home today * He has been advised refrain from tobacco use * We are discontinuing JOSE FRANCISCO-inhib because LVEF is well-preserved and BP is relatively low * Continue bb, DAPT, and statin * Post-PCI epigastric discomfort is likely due to GERD, probably worsened by DAPT. We have initiated PPI and antacids. This has resulted in improvement of symptoms. We advise f/u with Dr. Russell of GI services in [place], [place] whom he is already an established patient * We have discussed risk factor modification and advised compliance with medication regimen Physician Assessment Physician Assessment Feels well and wishes to go home. Denies cp or palp or shortness of breath or groin discomfort Lungs: clear Cor: reg Ext: no c/c/e A&R * As documented in our note above that I updated (italics) and as noted below * I had a detailed conversation with him regarding his CV issues and our management plan * We again reviewed risk factor modification, including our advice to completely quit tobacco use * We have advised outpatient f/u SLOAN RIVERA Mar 21, 2017 09:03 CHRISTEL CARRASQUILLO MD FACP [facility] Mar 21, 2017 12:46
--- NOTE | 2017-03-21 09:04 | Cardiology Discharge Summary ---
Diagnosis/Chief Complaint Date of Admission Mar 19, 2017 at 18:57 Date of Discharge 03-21-17 Final/Discharge Diagnosis Ac NSTEMI CAD. Last card cath was on 03/19/17: complete occlusion within the distal portion of a previously placed stent in 2014 (overlapping from Promus Premier 4.0 x 24 and 4.0 x 12 mm stents). To this complete occlusion, successful balloon angioplasty and stenting was carried out. Following deployment of Alpine Xience 4.0 x 12 mm stent, there is 0% residual stenosis and normal antegrade flow. 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 Mild to moderate disease of the left coronary system. Significantly elevated left ventricular end-diastolic pressure PAD. On 09/30/14, he underwent Stenting of the R SFA and the L external iliac artery by Dr Dockery. Diffuse, mild peripheral arterial disease. On last peripheral angio of 04/27/16 there is a patent stent in the right superficial femoral artery and a patent stent in the left common iliac extending into external iliac artery. There appears to be 3 vessel runoff in both legs. Carotid arterial disease: L ICA mild to mod dz seen on CTA head/neck of 08-09-16 Mild to mod stenosis of the distal L SC seen on CTA of head/neck of 08-09-16 8mm thyroid nodule seen on head/neck CT of 08-09-16 - followed by his pcp, Dr Braxton Chronic tobacco use S/p L TKR and arthroscopic R knee surg Echo of 03/20/17: shows LVEF 50-55%, Grade I diastolic dysfunction of LV ALLEN, treated with CPAP Incomplete RBBB Hypertension, labile Hyperlipidemia Chief Complaint/HPI Chief Complaint/HPI CC:Chest and neck discomfort 61 yo man with upper chest and neck discomfort since yesterday who presents to the ER today and is found to have an elevated troponin. Chest pain continuous for over 12 hours, moderate, radiating to neck, not associated with other symptoms, not relieved with s/l NTG, similar episode experienced intermittently for the last 2 weeks. No shortness of breath. No palp or syncope or leg swelling For hosp course, please see the progress note of today's date (03/21/17) Discharge Summary Procedures Please refer to Dr. Houston's cardiac cath report of 03-19-17 for details Discharge Physical Examination Please refer to Progress Note of 03-21-17 Hospital Course Pending Labs Discussion & Recommendations Discussion Please refer to Progress Note of 03-21-17 Home Medications Reviewed patient Home Medication Reconciliation Form Discharge Home Medications: New Medications: Metoprolol Succinate (Metoprolol Succinate) 50 Mg Tab.er.24h 50 MG PO DAILY, #30 TAB 5 Refills Pantoprazole Sodium (Pantoprazole Sodium) 40 Mg Tablet.dr 40 MG PO DAILY@0700, #30 TAB 5 Refills Continued Medications: Aspirin (Aspirin EC) 81 Mg Tablet.dr 81 MG PO DAILY, TAB Atorvastatin Calcium (Atorvastatin Calcium) 40 Mg Tablet 40 MG PO HS Bupropion HCl (Bupropion HCl) 100 Mg Tablet 100 MG PO BID Clopidogrel Bisulfate (Clopidogrel) 75 Mg Tablet 75 MG PO DAILY Fenofibrate Nanocrystallized (Fenofibrate) 145 Mg Tablet 145 MG PO DAILY, TAB Hydrocodone/Acetaminophen (Hydrocodon-Acetaminophn 10-325) 1 Each Tablet 1 TAB PO EVERY 4-6 HOURS PRN for PAIN-MODERATE Pramipexole Di-HCl (Pramipexole Dihydrochloride) 0.5 Mg Tablet 0.5 MG PO HS, TAB Pregabalin (Lyrica) 75 Mg Capsule 75 MG PO BID Primidone (Primidone) 50 Mg Tablet 50 MG PO HS, TAB Sertraline HCl (Sertraline HCl) 50 Mg Tablet 150 MG PO DAILY, TAB TAKES 3 (50 MG) TABLETS EVERY MORNING Discontinued Medications: Ranitidine HCl (Ranitidine HCl) 150 Mg Tablet 150 MG PO BID, TAB Clinical Quality Measures DVT/VTE Risk/Contraindication: Risk Factor Score Per Nursin RFS Level Per Nursing on Admit: 2=Moderate SLOAN RIVERA Mar 21, 2017 09:04 CHRISTEL HOUSTON MD FACP [facility] Mar 21, 2017 12:53
[2017-03-21 11:00] VITALS: BP 116/68
--- OUTSIDE RECORDS SUMMARY | 2017-03-22 12:05 | XMS REPORT | Continuity of Care Document ---
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 09/25/2015 23:59:59 CLS Outpatient YULI MEJIA CLINICAL REGISTERED NURSE Via 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 OCC KNEE POPPED/ PAIN [id number] 09/12/2015 07:59:00 09/12/2015 23:59:59 CLS Outpatient NEIDA NO FACC, CHRISTEL LEMONS CCDS [facility] CARD CAD,CAROTID ARTERY NARROWING,ALLEN ON CPAP,HTN [id number] 11/13/2014 15:44:00 11/13/2014 23:59:59 CLS Outpatient BRITNI FREIRE DO [facility] RAD TOBACCO USE,SNORING, DYSPNEA [id number] 10/20/2014 19:52:00 10/21/2014 05:55:00 DIS Outpatient HUONG VO CLINICAL REGISTERED NURSE [facility] SLEEP ALLEN,SNORING [id number] 09/30/2014 08:21:00 10/01/2014 10:45:00 DIS Outpatient EVETTE SILVESTRE MD Via [facility] CATH PAD PVD [id number] 08/12/2014 10:24:00 08/12/2014 23:59:59 CLS Outpatient EVETTE SILVESTRE MD Via [facility] RAD CLAUTIFICATION CLASS 1 CAD HLE [id number] 07/29/2014 11:17:00 07/29/2014 23:59:59 CLS Outpatient YULI MEJIA APRN Via [facility] LAB MALAISE,FATIGUE, ATROPHY OF TESTIS,BENIGN PROSTIC H [id number] 07/24/2014 10:57:00 07/24/2014 23:59:59 CLS Outpatient TAVO ISIDORE O CLINICAL REGISTERED NURSE Via [facility] RAD CAD,CLAUDICATION,CP, GERD,ALLEN [id number] 07/18/2014 07:05:00 07/19/2014 10:55:00 DIS Outpatient KONRAD NO, EVETTE [place] [facility] CATH CAD [id number] 11/28/2012 20:08:00 11/29/2012 10:15:00 DIS Inpatient JUSTIN NO, BETH [place] [facility] ICU CP [id number] 09/19/2012 15:37:00 09/19/2012 23:59:59 CLS Outpatient REINIER BAR [facility] RAD HEADACHE WITH MENTAL STATUS CHANGE [id number] 07/07/2012 09:53:00 07/13/2012 13:21:00 DIS Outpatient JEM NO, RICHIE Perdomo [facility] REHAB S/P LEFT TKR WITH THIGH MUSCLE WEAKNESS [id number] 03/19/2017 15:45:00 Document Registration [id number] 08/19/2015 07:24:00 Document Registration [id number] 08/12/2014 10:39:00 Document Registration [id number] 05/01/2012 11:48:00 Document Registration [id number] 04/10/2012 09:04:00 Document Registration [id number] 05/17/2011 10:06:00 Document Registration [id number] 02/15/2010 00:10:00 Document Registration
== END 2017-03-21 10:15 | disposition home or self-care (01) | DRG 247 ==
LOC: EDUNIT# 15:09 → ER 15:10 → CATH 16:34 → UNDOADMOB 18:57 → ICU 18:57 → UNDODISOB 03-21 10:15
PROVIDERS: ADMIT Internal Medicine Cardiovascular Disease; ATTEND Internal Medicine Cardiovascular Disease
PROC: 027034Z Dilation of Coronary Artery, One Artery with Drug-eluting Intraluminal Device, Percutaneous Approach (ICD-10-PCS; principal; 2017-03-19)
PROC: 4A023N8 Measurement of Cardiac Sampling and Pressure, Bilateral, Percutaneous Approach (ICD-10-PCS; 2017-03-19)
PROC: B2161ZZ Fluoroscopy of Right and Left Heart using Low Osmolar Contrast (ICD-10-PCS; 2017-03-19)
DX: I21.4 Non-ST elevation (NSTEMI) myocardial infarction (principal); T82.855A Stenosis of coronary artery stent, initial encounter; I25.10 Atherosclerotic heart disease of native coronary artery without angina pectoris; I73.9 Peripheral vascular disease, unspecified; I65.22 Occlusion and stenosis of left carotid artery; E04.1 Nontoxic single thyroid nodule; G47.33 Obstructive sleep apnea (adult) (pediatric); I45.10 Unspecified right bundle-branch block; I10 Essential (primary) hypertension; E78.5 Hyperlipidemia, unspecified; F17.210 Nicotine dependence, cigarettes, uncomplicated; K21.9 Gastro-esophageal reflux disease without esophagitis; M19.91 Primary osteoarthritis, unspecified site; F32.9 Major depressive disorder, single episode, unspecified; G62.9 Polyneuropathy, unspecified; Z96.652 Presence of left artificial knee joint; Z95.5 Presence of coronary angioplasty implant and graft; Z95.820 Peripheral vascular angioplasty status with implants and grafts; Z79.82 Long term (current) use of aspirin; Z79.899 Other long term (current) drug therapy
CPT/HCPCS: 36415; 71045; 71275; 80048; 80053; 80061; 83690; 83735; 83874; 84443; 84484; 85007; 85025; 85027; 85610; 85730; 93005; 93041; 93306; 93458; 96374

== ENCOUNTER 2017-04-17 12:33 | Emergency (ER) | payer OTHER ==
[~2017-04-17] VITALS: Ht 185.4 cm; Wt 113.4 kg
[~2017-04-17 12:33] MED LIST changes: +BUPR100T15 PO; +CLOP75TA28 PO; +HYDR-3820 PO; +PANT40TA3 PO; +PREG75CA PO; +RANI150T11 PO
[2017-04-17] MEDS ORDERED: ASPIRIN 81 MG CHEW (CHILDREN'S ASA) PO ONE (13:00)
[2017-04-17 13:01] LABS: BASOPHILS % (AUTO) 0 % (0-10); EOSINOPHILS # (AUTO) 0.1 10^3/uL (0.0-0.3); EOSINOPHILS % (AUTO) 1 % (0-10); HEMATOCRIT 40 % (40-54); HEMOGLOBIN 13.5 G/DL (13.3-17.7); LYMPHOCYTES # (AUTO) 1.6 X 10^3 (1.0-4.0); LYMPHOCYTES % (AUTO) 21 % (12-44); MEAN CORPUSCULAR HEMOGLOBIN 29 PG (25-34); MEAN CORPUSCULAR HGB CONC 34 G/DL (32-36); MEAN CORPUSCULAR VOLUME 85 FL (80-99); MONOCYTES # (AUTO) 0.5 X 10^3 (0.0-1.0); MONOCYTES % (AUTO) 7 % (0-12); NEUTROPHILS # (AUTO) 5.3 X 10^3 (1.8-7.8); NEUTROPHILS % (AUTO) 71 % (42-75); PLATELET COUNT 164 10^3/uL (130-400); RED CELL DISTRIBUTION WIDTH 13.9 % (10.0-14.5); WHITE BLOOD COUNT 7.4 10^3/uL (4.3-11.0)
[2017-04-17 13:10] LABS: INR 1.1 (0.8-1.4); PROTHROMBIN TIME PATIENT 14.3 SEC (12.2-14.7)
[2017-04-17 13:18] LABS: ALANINE AMINOTRANSFERASE 20 U/L (0-55); ALBUMIN 3.7 GM/DL (3.2-4.5); ALKALINE PHOSPHATASE 94 U/L (40-136); BILIRUBIN,TOTAL 0.4 MG/DL (0.1-1.0); BUN/CREATININE RATIO 11; CALCIUM 8.5 MG/DL (8.5-10.1); CARBON DIOXIDE 22 MMOL/L (21-32); CHLORIDE 105 MMOL/L (98-107); CREATININE SERUM 1.14 MG/DL (0.60-1.30); GFR ESTIMATED > 60; GLUCOSE 179 MG/DL (70-105); MAGNESIUM 1.9 MG/DL (1.8-2.4); POTASSIUM 3.7 MMOL/L (3.6-5.0); SODIUM 137 MMOL/L (135-145); TOTAL PROTEIN 6.2 GM/DL (6.4-8.2)
[2017-04-17 13:25] LABS: MYOGLOBIN SERUM 40.9 NG/ML (10.0-92.0)
[2017-04-17] MEDS ORDERED: ANTACID SUSP 30 ML UDC (MYLANTA) PO ONE (13:30)
[2017-04-17] MEDS ORDERED: LIDOCAINE 2% VISCOUS 15 ML UDC PO ONE (13:30)
--- NOTE | 2017-04-17 13:32 | Diagnostic Imaging Report ---
INDICATION: Chest pain COMPARISON: 03/19/2017 TECHNIQUE: Single frontal radiograph of the chest dated 04/17/2017. FINDINGS: The cardiac silhouette is within normal limits in size. No significant pulmonary vascular congestion. The lungs are clear. No pleural effusion. No pneumothorax. No acute osseous abnormality. IMPRESSION: Stable examination without acute cardiopulmonary abnormality. Dictated by: Dictated on workstation # [id number]
--- NOTE | 2017-04-17 13:55 | ED Chest Pain ---
General Chief Complaint: Chest Pain Stated Complaint: CHEST PAIN Nursing Triage Note: AMB TO ED REPORTS HAS HAD CHEST PAIN SINCE LAST HEART CATH ON MAR 19 2 STENTS PLACED. REPORTS LAST NIGHT PAIN WORSE. Nursing Sepsis Screen: No Definite Risk History of Present Illness Date Seen by Provider: Apr 17, 2017 Time Seen by Provider: 12:50 Initial Comments 61-year-old male presents for chest pain. He states the pain has been present for approximately one to 2 months, intermittent midsternal pain that is not relieved with eating or belching. This pain was present prior to the chest pain that began in mid February, and was not relieved after his cardiac catheterization. He was admitted on 03/19/17 for chest pain and had a cardiac catheterization by Dr. Houston for elevated troponin and NSTEMI. He is on Protonix for GERD. Patient is on Plavix, he is not taking aspirin on a regular basis. He is currently rating his pain midsternal 5/10. He had an EGD over [address] Gu. He has a history of sleep apnea he does not use his BiPAP machine throughout the night, as he moves from bed to his recliner. He has not taken nitroglycerin for approximately 2-3 years and his current prescription is . 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 He continues to smoke cigarettes, however he is decreased from 2 packs a day to approximately 10 cigarettes per day. Timing/Duration: other Severity/Quality: moderate (5/10) Location: substernal Radiation: no radiation Activities at Onset: none Prior CP/Workup: cardiac cath ASA po ONLINE RETAILER: No NTG SL ONLINE RETAILER: No Associated Symptoms: denies symptoms Allergies and Home Medications Allergies Coded Allergies: No Known Drug Allergies (Unverified , 08/02/16) Home Medications Aspirin 81 Mg Tablet.dr, 81 MG PO DAILY, (Reported) Atorvastatin Calcium 40 Mg Tablet, 40 MG PO HS, (Reported) Bupropion HCl 100 Mg Tablet, 100 MG PO BID, (Reported) Clopidogrel Bisulfate 75 Mg Tablet, 75 MG PO DAILY, (Reported) Fenofibrate Nanocrystallized 145 Mg Tablet, 145 MG PO DAILY, (Reported) Hydrocodone/Acetaminophen 1 Each Tablet, 1 TAB PO EVERY 4-6 HOURS PRN for PAIN- MODERATE, (Reported) Metoprolol Succinate 50 Mg Tab.er.24h, 50 MG PO DAILY, #30 Ref 5 Prescribed by: SLOAN RIVERA on 03/21/17 0857 Pantoprazole Sodium 40 Mg Tablet.dr, 40 MG PO DAILY@0700, #30 Ref 5 Prescribed by: SLOAN RIVERA on 03/21/17 0857 Pramipexole Di-HCl 0.5 Mg Tablet, 0.5 MG PO HS, (Reported) Pregabalin 75 Mg Capsule, 75 MG PO BID, (Reported) Primidone 50 Mg Tablet, 50 MG PO HS, (Reported) Sertraline HCl 50 Mg Tablet, 150 MG PO DAILY, (Reported) TAKES 3 (50 MG) TABLETS EVERY MORNING Review of Systems Constitutional: no symptoms reported, see HPI Respiratory: No Symptoms Reported, See HPI, Denies SOA With Exertion, Denies SOA at Rest Cardiovascular: See HPI, Chest Pain Gastrointestinal: See HPI, Other (GERD) All Other Systems Reviewed Negative Unless Noted: Yes Past Alwhtrf-Kutfmd-Djpods Hx Patient Social History Alcohol Use: Denies Use Recreational Drug Use: No Smoking Status: Current Everyday Smoker Type Used: Cigarettes 2nd Hand Smoke Exposure: Yes Recent Foreign Travel: No Contact w/Someone Who Travel: No Recent Infectious Disease Expo: No Recent Hopitalizations: No Immunizations Up To Date Tetanus Booster (TDap): Unknown Date of Pneumonia Vaccine: Sep 30, 2012 Date of Influenza Vaccine: Dec 13, 2016 Seasonal Allergies Seasonal Allergies: No Surgeries History of Surgeries: Yes (NECK AND BACK, CYST REMOVED, KNEE ARTH, LEFT TOTAL KNEE 05/01/12, 13 STENTS) Respiratory History of Respiratory Disorde: No Respiratory Disorders: Pneumonia, Sleep Apnea Currently Using CPAP: Yes Currently Using BIPAP: No Cardiovascular History of Cardiac Disorders: Yes (13 STENTS PLACED) Cardiac Disorders: Hypertension Neurological History of Neurological Disord: Yes Neurological Disorders: Neuropathy Reproductive System Hx Reproductive Disorders: No Sexually Transmitted Disease: No HIV/AIDS: No Genitourinary History of Genitourinary Disor: No Gastrointestinal History of Gastrointestinal Di: No Gastrointestinal Disorders: Gastroesophageal Reflux Musculoskeletal History of Musculoskeletal Dis: Yes (OSTEO ARTHRITIS) Musculoskeletal Disorders: Arthritis Endocrine History of Endocrine Disorders: Yes (possible diabetes) HEENT History of HEENT Disorders: No Cancer History of Cancer: No Psychosocial History of Psychiatric Problem: Yes Behavioral Health Disorders: Depression Integumentary History of Skin or Integumenta: Yes (RECENT DIAGNOSIS OF FUNGAL INFECTION ON BILAT LEGS) Blood Transfusions History of Blood Disorders: No Reviewed Nursing Assessment Reviewed/Agree w Nursing PMH: Yes Physical Exam Vital Signs Vital Signs - First Documented 04/17/17 12:37 Temp 98.0 Pulse 63 Resp 18 B/P (MAP) 117/63 (81) Pulse Ox 97 O2 Delivery Room Air Capillary Refill : Less Than 3 Seconds General Appearance: No Apparent Distress, WD/WN HEENT: PERRL/EOMI, TMs Normal, Normal ENT Inspection, Pharynx Normal Neck: Full Range of Motion, Normal Inspection, Non Tender, Supple, No JVD, No Lymphadenopathy (L), No Lymphadenopathy (R) Respiratory: Chest Non Tender, Lungs Clear, Normal Breath Sounds Cardiovascular: Regular Rate, Rhythm, No Edema, No Murmur Gastrointestinal: Normal Bowel Sounds, No Pulsatile Mass, Non Tender, Soft Extremity: Normal Capillary Refill, Normal Inspection, No Pedal Edema Neurologic/Psychiatric: Alert, Oriented x3, No Motor/Sensory Deficits, Normal Mood/Affect Skin: Normal Color, Warm/Dry Progress/Results/Core Measures Results/Orders Lab Results Laboratory Tests Test 04/17/17 12:44 Range/Units White Blood Count 7.4 4.3-11.0 10^3/uL Red Blood Count 4.70 4.35-5.85 10^6/uL Hemoglobin 13.5 13.3-17.7 G/DL Hematocrit 40 40-54 % Mean Corpuscular Volume 85 80-99 FL Mean Corpuscular Hemoglobin 29 25-34 PG Mean Corpuscular Hemoglobin Concent 34 32-36 G/DL Red Cell Distribution Width 13.9 10.0-14.5 % Platelet Count 164 130-400 10^3/uL Mean Platelet Volume 11.0 H 7.4-10.4 FL Neutrophils (%) (Auto) 71 42-75 % Lymphocytes (%) (Auto) 21 12-44 % Monocytes (%) (Auto) 7 0-12 % Eosinophils (%) (Auto) 1 0-10 % Basophils (%) (Auto) 0 0-10 % Neutrophils # (Auto) 5.3 1.8-7.8 X 10^3 Lymphocytes # (Auto) 1.6 1.0-4.0 X 10^3 Monocytes # (Auto) 0.5 0.0-1.0 X 10^3 Eosinophils # (Auto) 0.1 0.0-0.3 10^3/uL Basophils # (Auto) 0.0 0.0-0.1 10^3/uL Prothrombin Time 14.3 12.2-14.7 SEC INR Comment 1.1 0.8-1.4 Activated Partial Thromboplast Time 28 24-35 SEC Sodium Level 137 135-145 MMOL/L Potassium Level 3.7 3.6-5.0 MMOL/L Chloride Level 105 98-107 MMOL/L Carbon Dioxide Level 22 21-32 MMOL/L Anion Gap 10 5-14 MMOL/L Blood Urea Nitrogen 13 7-18 MG/DL Creatinine 1.14 0.60-1.30 MG/DL Estimat Glomerular Filtration Rate > 60 BUN/Creatinine Ratio 11 Glucose Level 179 H 70-105 MG/DL Calcium Level 8.5 8.5-10.1 MG/DL Magnesium Level 1.9 1.8-2.4 MG/DL Total Bilirubin 0.4 0.1-1.0 MG/DL Aspartate Amino Transf (AST/SGOT) 14 5-34 U/L Alanine Aminotransferase (ALT/SGPT) 20 0-55 U/L Alkaline Phosphatase 94 40-136 U/L Myoglobin 40.9 10.0-92.0 NG/ML Troponin I < 0.30 <0.30 NG/ML Total Protein 6.2 L 6.4-8.2 GM/DL Albumin 3.7 3.2-4.5 GM/DL My Orders Orders - ALLAN ISBELL Lidocaine 2% Viscous 15 Ml (Xylocaine Vi (04/17/17 13:30) Antacid Suspension (Mylanta Suspension (04/17/17 13:30) Medications Given in ED Current Medications Medications Dose Ordered Sig/Paula Route Start Time Stop Time Status Last Admin Dose Admin Al Hydrox/Mg Hydrox/Simethicone 30 ml ONCE ONCE PO 04/17/17 13:30 04/17/17 13:31 DC 04/17/17 13:29 30 ML Aspirin 324 mg ONCE ONCE PO 04/17/17 13:00 04/17/17 13:01 DC 04/17/17 12:56 324 MG Lidocaine HCl 15 ml ONCE ONCE PO 04/17/17 13:30 04/17/17 13:31 DC 04/17/17 13:29 15 ML Vital Signs/I&O Vital Sign - Last 12Hours 04/17/17 04/17/17 12:37 14:02 Temp 98.0 Pulse 63 70 Resp 18 18 B/P (MAP) 117/63 (81) 136/75 Pulse Ox 97 97 O2 Delivery Room Air Room Air Blood Pressure Mean: 81 Progress Note : Time: 12:50 Progress Note Initial evaluation and chest pain workup started. Reviewed Cardiac Cath from 03/19/17: 1. Acute non-ST elevation myocardial infarction due to complete occlusion within the distal portion of a previously placed stent in 2014 (overlapping from Promus Premier 4.0 x 24 and 4.0 x 12 mm stents). To this complete occlusion, successful balloon angioplasty and stenting was carried out. Following deployment of Alpine Xience 4.0 x 12 mm stent, there is 0% residual stenosis and there is normal antegrade flow in the distal right coronary artery. The posterior descending branch of the right coronary artery is chronically occluded and was not intervened on. 2. Mild to moderate disease of the left coronary system. 3. Significantly elevated left ventricular end-diastolic pressure. 1330 discussed patient, laboratory findings, EKG and assessment with Dr. Castro, concurred with treatment plan. Troponin negative. Discussed findings with the patient and his . With like to try a GI cocktail and reevaluation, patient agreed with this treatment. 1345 patient reports complete resolution of the midsternal pain since taking the GI cocktail. Discussed the results of his labs, which are all essentially normal except elevated glucose. Discussed the need to follow up with EGD and colonoscopy, he prefers to have this done by Dr. Barragan and will schedule in the near future. In the meantime he can use [id number] Mylanta or Gaviscon when he has the pain and continue the Protonix. 1400 discharge instructions and return precautions reviewed with patient in detail, all questions answered. ECG Initial ECG Impression Date: Apr 17, 2017 Initial ECG Impression Time: 12:38 Initial ECG Rate: 64 Initial ECG Rhythm: Normal Sinus Initial ECG Intervals: Normal Initial ECG Intervals IA 204, QRS D1 06, QT 432, QTC 446. [place] P 24, QRS -33, T -29. Initial ECG Impression: Normal, Nonspecific Changes Initial ECG Comparisson: Unchanged Comment Sinus rhythm. Viewed with Dr. Castro, concurred with interpretation. Diagnostic Imaging Diagonstic Imaging: Xray Plain Films/CT/US/NM/MRI: chest Comments NAME: GYPSY CARUSO JR [facility] REC#: [id number] PT STATUS: REG ER : 1955 PHYSICIAN: RADHA CASTRO MD ADMIT DATE: 04/17/17/ER Signed Date of Exam: 04/17/17 CHEST 1 VIEW, AP/PA ONLY INDICATION: Chest pain COMPARISON: 03/19/2017 TECHNIQUE: Single frontal radiograph of the chest dated 04/17/2017. FINDINGS: The cardiac silhouette is within normal limits in size. No significant pulmonary vascular congestion. The lungs are clear. No pleural effusion. No pneumothorax. No acute osseous abnormality. IMPRESSION: Stable examination without acute cardiopulmonary abnormality. Dictated by: Dictated on workstation # [id number] Dict: 04/17/17 1329 Trans: 04/17/17 1344 Interpreted by: CASSIDY GUAJARDO MD Electronically signed by: CASSIDY GUAJARDO MD 04/17/17 1344 Reviewed: Reviewed by Me Departure Impression Impression: Primary Impression: Gastroesophageal reflux disease Qualified Codes: K21.9 - Gastro-esophageal reflux disease without esophagitis Additional Impressions: Chest pain Qualified Codes: R07.89 - Other chest pain Tobacco abuse Disposition: 01 HOME, SELF-CARE Condition: Improved Departure-Patient Inst. Decision time for Depature: 13:45 Referrals: BETH ANDERSON MD (PCP/Family) Primary Care Physician Patient Instructions: Chest Pain That Is Not Caused by the Heart (DC), Acid Reflux (Gastroesophageal Reflux Disease), Adult (DC) Add. Discharge Instructions: Take an enteric-coated aspirin 81 mg daily. Continue all medications as previously prescribed. Use Mylanta or Gaviscon [id number] as directed on the bottle, as needed for pain. Return to the emergency department for chest pain, pain radiating into the left arm, neck or cheek, pain not relieved by Mylanta or Gaviscon, difficulty breathing, or new problems. Schedule appointment for EGD and colonoscopy with Dr. Barragan in the near future. All discharge instructions reviewed with patient and/or family. Voiced understanding. Copy Copies To 1: BETH ANDERSON MD Copies To 2: PHYLLIS BARRAGAN DO; CHRISTEL HOUSTON MD FACP FACC CCDS ALLAN ISBELL Apr 17, 2017 13:55
[2017-04-17 14:02] VITALS: BP 136/75
== END 2017-04-17 14:02 | disposition home or self-care (01) ==
LOC: EDUNIT# 12:33 → ER 12:35
DX: K21.9 Gastro-esophageal reflux disease without esophagitis (principal); I10 Essential (primary) hypertension; I25.2 Old myocardial infarction; F32.9 Major depressive disorder, single episode, unspecified; G62.9 Polyneuropathy, unspecified; G47.30 Sleep apnea, unspecified; F17.210 Nicotine dependence, cigarettes, uncomplicated; Z87.01 Personal history of pneumonia (recurrent); Z96.652 Presence of left artificial knee joint; Z79.82 Long term (current) use of aspirin; Z79.02 Long term (current) use of antithrombotics/antiplatelets
CPT/HCPCS: 36415; 71045; 80053; 83735; 83874; 84484; 85025; 85610; 85730; 93005; 93041

== ENCOUNTER → 2017-04-22 | Outpatient (CLI) | payer OTHER ==
[2017-04-22 16:09] LABS: BASOPHILS % (AUTO) 0 % (0-10); EOSINOPHILS # (AUTO) 0.1 10^3/uL (0.0-0.3); EOSINOPHILS % (AUTO) 1 % (0-10); HEMATOCRIT 40 % (40-54); HEMOGLOBIN 13.5 G/DL (13.3-17.7); LYMPHOCYTES # (AUTO) 1.5 X 10^3 (1.0-4.0); LYMPHOCYTES % (AUTO) 20 % (12-44); MEAN CORPUSCULAR HEMOGLOBIN 29 PG (25-34); MEAN CORPUSCULAR HGB CONC 34 G/DL (32-36); MEAN CORPUSCULAR VOLUME 86 FL (80-99); MONOCYTES # (AUTO) 0.5 X 10^3 (0.0-1.0); MONOCYTES % (AUTO) 7 % (0-12); NEUTROPHILS # (AUTO) 5.4 X 10^3 (1.8-7.8); NEUTROPHILS % (AUTO) 72 % (42-75); PLATELET COUNT 194 10^3/uL (130-400); RED BLOOD COUNT 4.69 10^6/uL (4.35-5.85); RED CELL DISTRIBUTION WIDTH 14.5 % (10.0-14.5); WHITE BLOOD COUNT 7.6 10^3/uL (4.3-11.0)
[2017-04-22 16:29] LABS: BILIRUBIN,TOTAL 0.2 MG/DL (0.1-1.0); CREATININE SERUM 1.31 MG/DL (0.60-1.30); MAGNESIUM 2.1 MG/DL (1.8-2.4); POTASSIUM 4.1 MMOL/L (3.6-5.0)
== END ==
LOC: LAB 15:46
PROVIDERS: ATTEND Internal Medicine Cardiovascular Disease
DX: I25.10 Atherosclerotic heart disease of native coronary artery without angina pectoris (principal); R53.83 Other fatigue
CPT/HCPCS: 36415; 80053; 83735; 84443; 85025

== ENCOUNTER 2017-04-26 07:05 | Day surgery (SDC) | payer OTHER ==
[~2017-04-26] VITALS: Ht 185.4 cm; Wt 113.5 kg
[2017-04-26] VITALS (21 sets, daily range): BP systolic 119–159; BP diastolic 66–101
[2017-04-26] MEDS ORDERED: HEParin (CATH LAB) 2,000 ML IV ONE (07:10)
[2017-04-26] MEDS ORDERED: LIDOCAINE 1% INJ 50 ML (XYLOCAINE) VIAL ONE (07:10)
[2017-04-26] MEDS ORDERED: NS IV 1000 ML 1,000 ML ONE (07:10)
--- OUTSIDE RECORDS SUMMARY | 2017-04-26 07:12 | XMS REPORT | Continuity of Care Document ---
Author Author [facility] Organization [facility] Address Unknown Phone Unavailable Allergies Active Description Code Type Severity Reaction Onset Reported/Identified Relationship to Patient Clinical Status Yes NKANo Known Allergies NKA Miscellaneous Allergy Unknown N/A 01/26/2008 Yes No Known Drug Allergies [id number] Drug Allergy Unknown N/A 08/02/2016 Medications There [...] NEC 05/03/2012 Ot 414.01 CORONARY ATHEROSCLEROSIS OF [place] CORON 05/03/2012 Ot 530.81 ESOPHAGEAL REFLUX 05/03/2012 [...] SILVESTRE MD Ot 414.01 CORONARY ATHEROSCLEROSIS OF [place] CORON 07/19/2014 EVETTE SILVESTRE MD Ot 440.20 ATHEROSCLEROSIS [place] ARTERIES EXTREMIT 07/19/2014 EVETTE SILVESTRE MD Ot [...] APRN Ot 305.1 07/25/2014 NWAGWU, ISIDORE O LEAD RELAY TESTER Ot 414.00 07/25/2014 NWAGWU, ISIDORE O LEAD RELAY TESTER Ot 443.9 07/25/2014 NWAGWU, ISIDORE O LEAD RELAY TESTER Ot 530.81 07/25/2014 NWAGWU, ISIDORE O LEAD RELAY TESTER Ot 780.57 07/25/2014 NWAGWU, ISIDORE O LEAD RELAY TESTER Ot 786.50 07/25/2014 NWAGWU, ISIDORE O LEAD RELAY TESTER Ot V45.82 07/25/2014 NWAGWU, ISIDORE O LEAD RELAY TESTER Ot 305.1 07/25/2014 NWAGWU, ISIDORE O LEAD RELAY TESTER Ot 414.00 07/25/2014 NWAGWU, ISIDORE O LEAD RELAY TESTER Ot 443.9 07/25/2014 NWAGWU, ISIDORE O LEAD RELAY TESTER Ot 530.81 07/25/2014 NWAGWU, ISIDORE O LEAD RELAY TESTER Ot 780.57 07/25/2014 NWAGWU, ISIDORE O LEAD RELAY TESTER Ot 786.50 07/25/2014 NWAGWU, ISIDORE O LEAD RELAY TESTER Ot V45.82 07/25/2014 NWAGWU, ISIDORE O LEAD RELAY TESTER Ot 305.1 07/25/2014 NWAGWU, ISIDORE O LEAD RELAY TESTER Ot 414.00 07/25/2014 NWAGWU, ISIDORE O LEAD RELAY TESTER Ot 443.9 07/25/2014 NWAGWU, ISIDORE O LEAD RELAY TESTER Ot 530.81 07/25/2014 NWAGWU, ISIDORE O LEAD RELAY TESTER Ot 780.57 07/25/2014 NWAGWU, ISIDORE O LEAD RELAY TESTER Ot 786.50 07/25/2014 NWAGWU, ISIDORE O LEAD RELAY TESTER Ot V45.82 07/31/2014 YULI MEJIA LEAD RELAY TESTER Ot 600.00 07/31/2014 YULI MEJIA LEAD RELAY TESTER Ot 608.3 07/31/2014 YULI MEJIA LEAD RELAY TESTER Ot 780.79 08/12/2014 YULI MEJIA LEAD RELAY TESTER Ot 600.00 08/12/2014 YULI MEJIA LEAD RELAY TESTER Ot 608.3 08/12/2014 MEJIA, ASHDEN N LEAD RELAY TESTER Ot 780.79 08/12/2014 Ot 250.00 08/12/2014 Ot 272.4 08/12/2014 Ot 601.9 08/12/2014 Ot V70.0 08/12/2014 Ot 715.36 08/12/2014 Ot V72.63 08/12/2014 Ot V72.81 08/12/2014 Ot V72.83 08/12/2014 Ot V74.8 08/12/2014 DIPIKA REINIER Tillman REHABILITATION SPECIALIST Ot 780.97 08/12/2014 NWAGWU, ISIDORE O LEAD RELAY TESTER Ot 305.1 08/12/2014 NWAGWU, ISIDORE O LEAD RELAY TESTER Ot 414.00 08/12/2014 NWAGWU, ISIDORE O LEAD RELAY TESTER Ot 443.9 08/12/2014 NWAGWU, ISIDORE O LEAD RELAY TESTER Ot 530.81 08/12/2014 NWAGWU, ISIDORE O LEAD RELAY TESTER Ot 780.57 08/12/2014 NWAGWU, ISIDORE O LEAD RELAY TESTER Ot 786.50 08/12/2014 NWAGWU, ISIDORE O LEAD RELAY TESTER Ot V45.82 08/12/2014 MEJIA YULI N LEAD RELAY TESTER Ot 600.00 08/12/2014 ROBERTO BELDIETER Rojas LEAD RELAY TESTER Ot 608.3 08/12/2014 ROBERTO BELDIETER Rojas LEAD RELAY TESTER Ot 780.79 08/12/2014 NWAGWU, ISIDORE O LEAD RELAY TESTER Ot 305.1 08/12/2014 NWAGWU, ISIDORE O LEAD RELAY TESTER Ot 414.00 08/12/2014 NWAGWU, ISIDORE O LEAD RELAY TESTER Ot 443.9 08/12/2014 NWAGWU, ISIDORE O LEAD RELAY TESTER Ot 530.81 08/12/2014 NWAGWU, ISIDORE O LEAD RELAY TESTER Ot 780.57 08/12/2014 NWAGWU, ISIDORE O LEAD RELAY TESTER Ot 786.50 08/12/2014 NWAGWU, ISIDORE O LEAD RELAY TESTER Ot V45.82 08/15/2014 KONRAD NO, EVETTE [place] Ot 250.00 08/15/2014 KONRAD NO, EVETTE [place] Ot 272.4 08/15/2014 KONRAD NO, EVETTE [place] Ot 311 08/15/2014 KONRAD NO, EVETTE G Ot 414.00 08/15/2014 KONRAD NO, EVETTE G Ot 443.9 08/15/2014 KONRAD NO, EVETTE [place] Ot 459.81 08/22/2014 NWAGWU, ISIDORE O LEAD RELAY TESTER Ot 305.1 08/22/2014 NWAGWU, ISIDORE O LEAD RELAY TESTER Ot 414.00 08/22/2014 NWAGWU, ISIDORE O LEAD RELAY TESTER Ot 443.9 08/22/2014 NWAGWU, ISIDORE O LEAD RELAY TESTER Ot 530.81 08/22/2014 NWAGWU, ISIDORE O LEAD RELAY TESTER Ot 780.57 08/22/2014 NWAGWU, ISIDORE O LEAD RELAY TESTER Ot 786.50 08/22/2014 NWAGWU, ISIDORE O LEAD RELAY TESTER Ot V45.82 08/22/2014 YULI MEJIA LEAD RELAY TESTER Ot 600.00 08/22/2014 YULI MEJIA LEAD RELAY TESTER Ot 608.3 08/22/2014 YULI MEJIA LEAD RELAY TESTER Ot 780.79 09/05/2014 KONRAD NO, EVETTE [...] [place] Ot 459.81 09/27/2014 NWAGWU, ISIDORE O LEAD RELAY TESTER Ot 305.1 09/27/2014 NWAGWU, ISIDORE O LEAD RELAY TESTER Ot 414.00 09/27/2014 NWAGWU, ISIDORE O LEAD RELAY TESTER Ot 443.9 09/27/2014 NWAGWU, ISIDORE O LEAD RELAY TESTER Ot 530.81 09/27/2014 NWAGWU, ISIDORE O LEAD RELAY TESTER Ot 780.57 09/27/2014 NWAGWU, ISIDORE O LEAD RELAY TESTER Ot 786.50 09/27/2014 NWAGWU, ISIDORE O LEAD RELAY TESTER Ot V45.82 09/27/2014 YULI MEJIA N LEAD RELAY TESTER Ot 600.00 09/27/2014 YULI MEJIA N LEAD RELAY TESTER Ot 608.3 09/27/2014 MEJIABELDIETER N LEAD RELAY TESTER Ot 780.79 10/01/2014 KONRAD NO, EVETTE [place] Ot 272.4 HYPERLIPIDEMIA NEC/NOS 10/01/2014 EVETTE SILVESTRE MD Ot 305.1 TOBACCO USE DISORDER 10/01/2014 EVETTE SILVESTRE MD Ot 327.23 OBSTRUCTIVE SLEEP APNEA (ADULT) (PEDIATR 10/01/2014 EVETTE SILVESTRE MD Ot 414.00 CORON ATHEROSCLER NOS TYPE VESSEL, NATIV 10/01/2014 EVETTE SILVESTRE MD Ot 440.21 ATHEROSCL [place] ARTER EXTREM W INTERMIT 10/01/2014 EVETTE SILVESTRE [...] BAR Ot 780.97 10/20/2014 NWAGWU, ISIDORE O LEAD RELAY TESTER Ot 305.1 10/20/2014 NWAGWU, ISIDORE O LEAD RELAY TESTER Ot 414.00 10/20/2014 NWAGWU, ISIDORE O LEAD RELAY TESTER Ot 443.9 10/20/2014 NWAGWU, ISIDORE O LEAD RELAY TESTER Ot 530.81 10/20/2014 NWAGWU, ISIDORE O LEAD RELAY TESTER Ot 780.57 10/20/2014 NWAGWU, ISIDORE O LEAD RELAY TESTER Ot 786.50 10/20/2014 NWAGWU, ISIDORE O LEAD RELAY TESTER Ot V45.82 10/20/2014 ROBERTO BELDIETER N LEAD RELAY TESTER Ot 600.00 10/20/2014 YULI MEJIA N LEAD RELAY TESTER Ot 608.3 10/20/2014 ROBERTO BELDIETER N LEAD RELAY TESTER Ot 780.79 10/20/2014 KONRAD NO, EVETTE [place] Ot 250.00 10/20/2014 KONRAD NO, EVETTE [place] Ot 272.4 10/20/2014 KONRAD NO, EVETTE [place] Ot 311 10/20/2014 KONRAD NO, EVETTE [place] Ot 414.00 10/20/2014 KONRAD NO, EVETTE [place] Ot 443.9 10/20/2014 KONRAD NO, EVETTE [place] Ot 459.81 10/21/2014 NWAGWU, ISIDORE O LEAD RELAY TESTER Ot 327.23 OBSTRUCTIVE SLEEP APNEA (ADULT) (PEDIATR 10/21/2014 NWAGWU, ISIDORE O LEAD RELAY TESTER Ot 327.51 PERIODIC LIMB MOVEMENT DISORDER 11/05/2014 Ot 250.00 11/05/2014 Ot 272.4 11/05/2014 Ot 601.9 11/05/2014 Ot V70.0 11/05/2014 Ot 715.36 11/05/2014 Ot V72.63 11/05/2014 Ot V72.81 11/05/2014 Ot V72.83 11/05/2014 Ot V74.8 11/05/2014 REINIER BAR Ot 780.97 11/05/2014 NWAGWU, ISIDORE O LEAD RELAY TESTER Ot 305.1 11/05/2014 NWAGWU, ISIDORE O LEAD RELAY TESTER Ot 414.00 11/05/2014 NWAGWU, ISIDORE O LEAD RELAY TESTER Ot 443.9 11/05/2014 NWAGWU, ISIDORE O LEAD RELAY TESTER Ot 530.81 11/05/2014 NWAGWU, ISIDORE O LEAD RELAY TESTER Ot 780.57 11/05/2014 NWAGHUONG WANG LEAD RELAY TESTER Ot 786.50 11/05/2014 NWHUONG MARTELL LEAD RELAY TESTER Ot V45.82 11/05/2014 YULI MEJIA N LEAD RELAY TESTER Ot 600.00 11/05/2014 YULI MEJIA N LEAD RELAY TESTER Ot 608.3 11/05/2014 YULI MEJIA LEAD RELAY TESTER Ot 780.79 11/05/2014 KONRAD NO, EVETTE [place] Ot 250.00 11/05/2014 KONRAD NO, EVETTE [place] Ot 272.4 11/05/2014 KONRAD NO, EVETTE [place] Ot 311 11/05/2014 KONRAD NO, EVETTE [place] Ot 414.00 11/05/2014 KONRAD NO, EVETTE [place] Ot 443.9 11/05/2014 KONRAD NO, EVETTE [place] Ot 459.81 12/20/2014 BRITNI FREIRE DO Ot 278.00 12/20/2014 BRITIN FREIRE DO Ot 305.1 12/20/2014 BRITNI FREIRE DO Ot 414.00 12/20/2014 BRITNI FREIRE DO Ot 443.9 12/20/2014 BRITNI FREIRE DO Ot 786.09 08/20/2015 Ot E78.0 PURE HYPERCHOLESTEROLEMIA 08/20/2015 Ot G47.33 OBSTRUCTIVE SLEEP APNEA (ADULT) (PEDIATR 08/20/2015 Ot I10 ESSENTIAL ( PRIMARY) HYPERTENSION 08/20/2015 Ot I25.10 ATHSCL HEART DISEASE OF [place] CORONARY 08/20/2015 Ot I65.23 OCCLUSION AND STENOSIS OF [place]AL [place] 08/20/2015 Ot Z72.0 TOBACCO USE 08/29/2015 Ot E78.0 PURE HYPERCHOLESTEROLEMIA 08/29/2015 Ot G47.33 OBSTRUCTIVE SLEEP APNEA (ADULT) (PEDIATR 08/29/2015 Ot I10 ESSENTIAL ( PRIMARY) HYPERTENSION 08/29/2015 Ot I25.10 ATHSCL HEART DISEASE OF [place] CORONARY 08/29/2015 Ot I65.23 OCCLUSION AND STENOSIS OF [place]ILATERAL [place] 08/29/2015 Ot Z72.0 TOBACCO USE 09/09/2015 Ot E78.0 PURE HYPERCHOLESTEROLEMIA 09/09/2015 Ot G47.33 OBSTRUCTIVE SLEEP APNEA (ADULT) (PEDIATR 09/09/2015 Ot I10 ESSENTIAL ( PRIMARY) HYPERTENSION 09/09/2015 Ot I25.10 ATHSCL HEART DISEASE OF [place] CORONARY 09/09/2015 Ot I65.23 OCCLUSION AND STENOSIS [...] CCDS Ot I25.10 ATHSCL HEART DISEASE OF [place] CORONARY 09/15/2015 NEIDA NO FACC, ALI FACP [...] CCDS Ot I25.10 ATHSCL HEART DISEASE OF [place] CORONARY 09/15/2015 NEIDA NO FACC, ALI FACP CCDS Ot I65.23 OCCLUSION AND STENOSIS OF [place]IL[place]AL [place] 09/15/2015 NEIDA NO FACC, ALI FACP CCDS Ot Z72.0 TOBACCO USE 09/26/2015 YULI MEJIA LEAD RELAY TESTER Ot M79.89 OTHER SPECIFIED SOFT TISSUE DISORDERS 09/29/2015 YULI MEJIA LEAD RELAY TESTER Ot M79.89 OTHER SPECIFIED SOFT TISSUE DISORDERS 11/12/2015 Ot E78.0 PURE HYPERCHOLESTEROLEMIA 11/12/2015 Ot G47.33 OBSTRUCTIVE SLEEP APNEA (ADULT) (PEDIATR 11/12/2015 Ot I10 ESSENTIAL ( PRIMARY) HYPERTENSION 11/12/2015 Ot I25.10 ATHSCL HEART DISEASE OF [place] CORONARY 11/12/2015 Ot I65.23 OCCLUSION AND STENOSIS [...] CCDS Ot I25.10 ATHSCL HEART DISEASE OF [place] CORONARY 11/12/2015 NEIDA NO FACC, ALI FACP [...] 11/12/2015 Ot I25.10 ATHSCL HEART DISEASE OF [place] CORONARY 11/12/2015 Ot I65.23 OCCLUSION AND STENOSIS [...] CCDS Ot I25.10 ATHSCL HEART DISEASE OF [place] CORONARY 11/12/2015 NEIDA NO FACC, ALI FACP [...] 11/14/2015 Ot I25.10 ATHSCL HEART DISEASE OF [place] CORONARY 11/14/2015 Ot I65.23 OCCLUSION AND STENOSIS [...] CCDS Ot I25.10 ATHSCL HEART DISEASE OF [place] CORONARY 11/14/2015 NEIDA NO FACC, ALI FACP CCDS Ot I65.23 OCCLUSION AND STENOSIS OF [place]AL [place] 11/14/2015 NEIDA NO FACC, ALI FACP CCDS Ot Z72.0 TOBACCO USE 11/14/2015 YULI MEJIA LEAD RELAY TESTER Ot M79.89 OTHER SPECIFIED SOFT TISSUE DISORDERS 11/18/2015 DARLINE OCAMPO LEAD RELAY TESTER Ot M25.561 PAIN IN RIGHT KNEE 11/28/2015 DARLINE OCAMPO LEAD RELAY TESTER Ot M25.561 PAIN IN RIGHT KNEE 01/02/2016 TERRENCE, DARLINE E LEAD RELAY TESTER Ot M25.561 PAIN IN RIGHT KNEE 01/02/2016 TERRENCE DARLINE E LEAD RELAY TESTER Ot Z47.89 ENCOUNTER FOR OTHER ORTHOPEDIC [...] 305.1 TOBACCO USE DISORDER 02/13/2016 NWHUONG MARTELL LEAD RELAY TESTER Ot 414.00 CORON ATHEROSCLER NOS TYPE VESSEL, NATIV 02/13/2016 NWAGWU, ISIDORE O LEAD RELAY TESTER Ot 443.9 PERIPH VASCULAR DIS NOS 02/13/2016 NWAGWU, JONERE O LEAD RELAY TESTER Ot 530.81 ESOPHAGEAL REFLUX 02/13/2016 NWREGINAWU, JONERE O LEAD RELAY TESTER Ot 780.57 UNSPECIFIED SLEEP APNEA 02/13/2016 NWREGINAWJONE MosquedaRE O LEAD RELAY TESTER Ot 786.50 CHEST PAIN NOS 02/13/2016 NWWJONE Mosqueda O LEAD RELAY TESTER Ot V45.82 PERCUTANEOUS TRANSLUM CORON ANGIOPLASTY 02/13/2016 YULI MEJIA N LEAD RELAY TESTER Ot 600.00 HYPERTROPHY (BENIGN) OF PROSTATE W/O URI 02/13/2016 YULI MEJIA N LEAD RELAY TESTER Ot 608.3 ATROPHY OF TESTIS 02/13/2016 YUIL MEJIA LEAD RELAY TESTER Ot 780.79 OTH MALAISE FATIGUE 02/13/2016 [...] 03/26/2016 Ot I25.10 ATHSCL HEART DISEASE OF [place] CORONARY 03/26/2016 Ot I65.23 OCCLUSION AND STENOSIS [...] CCDS Ot I25.10 ATHSCL HEART DISEASE OF [place] CORONARY 03/26/2016 NEIDA OROZCOC, ALI FACP CCDS [...] 04/27/2016 Ot I25.10 ATHSCL HEART DISEASE OF [place] CORONARY 04/27/2016 Ot I65.23 OCCLUSION AND STENOSIS [...] CCDS Ot I25.10 ATHSCL HEART DISEASE OF [place] CORONARY 04/27/2016 NEIDA NO FACC, ALI FACP [...] CCDS Ot I25.10 ATHSCL HEART DISEASE OF [place] CORONARY 04/27/2016 NEIDA NO FACC, ALI FACP CCDS Ot I25.82 CHRONIC TOTAL OCCLUSION OF CORONARY [place] 04/27/2016 NEIDA NO FACC, ALI FACP CCDS Ot I70.213 ATHSCL [place] ARTERIES OF EXTRM W INTRMT 04/27/2016 NEIDA NO FACC, ALI FACP CCDS Ot T82.855A STENOSIS OF CORONARY ARTERY STENT, INITI 04/27/2016 NEIDA NO FACC, ALI FACP CCDS Ot Z72.0 TOBACCO USE 04/27/2016 NEIDA NO FACC, CHRISTEL FACP CCDS Ot Z79.899 OTHER ACCOUNTS CLERK (CURRENT) DRUG THERAPY 04/27/2016 NEIDA NO FACC, [...] APRN Ot R05 COUGH 06/03/2016 BERTRAM WILSON LEAD RELAY TESTER Ot R06.02 SHORTNESS OF BREATH 06/21/2016 SHELBY LOPEZ MD Ot M51.16 INTERVERTEBRAL DISC DISORDERS W RADICULO 06/21/2016 SHELBY LOPEZ MD Ot Z79.02 [facility] (CURRENT) USE OF ANTITHROMBOTI 06/21/2016 SHELBY LOPEZ MD Ot Z79.899 OTHER ACCOUNTS CLERK (CURRENT) DRUG THERAPY 06/24/2016 SHELBY LOPEZ MD, Ot M51.16 INTERVERTEBRAL DISC DISORDERS W RADICULO 06/24/2016 SHELBY LOPEZ MD, Ot Z79.02 ACCOUNTS CLERK (CURRENT) USE OF ANTITHROMBOTI 06/24/2016 SHELBY LOPEZ MD, Ot Z79.899 OTHER ACCOUNTS CLERK (CURRENT) DRUG THERAPY 07/12/2016 SHELBY LOPEZ MD, Ot M51.16 INTERVERTEBRAL DISC DISORDERS W RADICULO 07/30/2016 Ot E78.0 PURE HYPERCHOLESTEROLEMIA 07/30/2016 Ot G47.33 OBSTRUCTIVE SLEEP APNEA (ADULT) (PEDIATR 07/30/2016 Ot I10 ESSENTIAL ( PRIMARY) HYPERTENSION 07/30/2016 Ot I25.10 ATHSCL HEART DISEASE OF [place] CORONARY 07/30/2016 Ot I65.23 OCCLUSION AND STENOSIS [...] CCDS Ot I25.10 ATHSCL HEART DISEASE OF [place] CORONARY 07/30/2016 NEIDA NO FACC, ALI FACP [...] 08/02/2016 Ot I25.10 ATHSCL HEART DISEASE OF [place] CORONARY 08/02/2016 Ot I65.23 OCCLUSION AND STENOSIS [...] CCDS Ot I25.10 ATHSCL HEART DISEASE OF [place] CORONARY 08/02/2016 NEIDA NO FACC, ALI FACP CCDS Ot I65.23 OCCLUSION AND STENOSIS OF [place]IL[place]AL [place] 08/02/2016 NEIDA NO FACC, ALI FACP CCDS Ot Z72.0 TOBACCO USE 08/02/2016 YULI MEJIA LEAD RELAY TESTER Ot M79.89 OTHER SPECIFIED SOFT TISSUE [...] UNSPECIFIED 08/02/2016 EMILI LINN MD Ot Z79.02 ACCOUNTS CLERK (CURRENT) USE OF ANTITHROMBOTI 08/02/2016 EMILI LINN MD Ot Z79.82 [facility] (CURRENT) USE OF ASPIRIN 08/02/2016 EMILI LINN MD Ot Z95.5 PRESENCE OF CORONARY ANGIOPLASTY IMPLANT 08/05/2016 EMILI LINN MD Ot F17.210 NICOTINE DEPENDENCE, CIGARETTES, UNCOMPL 08/05/2016 EMILI LINN MD Ot F32.9 MAJOR DEPRESSIVE DISORDER, SINGLE EPISOD 08/05/2016 EMILI LINN MD Ot I10 ESSENTIAL (PRIMARY) HYPERTENSION 08/05/2016 EMILI LINN MD Ot I73.9 PERIPHERAL VASCULAR DISEASE, UNSPECIFIED 08/05/2016 EMILI LINN MD Ot Z79.02 ACCOUNTS CLERK (CURRENT) USE OF ANTITHROMBOTI 08/05/2016 EMILI LINN MD Ot Z79.82 [facility] (CURRENT) USE OF ASPIRIN 08/05/2016 EMILI LINN MD Ot Z95.5 PRESENCE OF CORONARY ANGIOPLASTY IMPLANT 08/15/2016 BERTRAM WILSON APRN Ot R05 COUGH 08/15/2016 BERTRAM WILSON APRN Ot R06.02 SHORTNESS OF BREATH 08/20/2016 ROX PUBLIC OPINION SURVEY TAKER, TAMY Sadler Ot R09.89 OTH SYMPTOMS AND SIGNS INVOLVING THE CIR 08/25/2016 ROX PUBLIC OPINION SURVEY TAKER, TAMY Sadler Ot R09.89 OTH SYMPTOMS AND SIGNS INVOLVING THE CIR 09/03/2016 Ot E78.0 PURE HYPERCHOLESTEROLEMIA 09/03/2016 Ot G47.33 OBSTRUCTIVE SLEEP APNEA (ADULT) (PEDIATR 09/03/2016 Ot I10 ESSENTIAL ( PRIMARY) HYPERTENSION 09/03/2016 Ot I25.10 ATHSCL HEART DISEASE OF [place] CORONARY 09/03/2016 Ot I65.23 OCCLUSION AND STENOSIS [...] CCDS Ot I25.10 ATHSCL HEART DISEASE OF [place] CORONARY 09/03/2016 NEIDA NO FACC, ALI FACP [...] 09/20/2016 Ot I25.10 ATHSCL HEART DISEASE OF [place] CORONARY 09/20/2016 Ot I65.23 OCCLUSION AND STENOSIS [...] CCDS Ot I25.10 ATHSCL HEART DISEASE OF [place] CORONARY 09/20/2016 NEIDA NO FACGerry, ALI FACP [...] SYNOVIAL CYST OF POPLITEAL SPACE [ESCOBAR] 09/20/2016 ROX CHAVES, TAMY Sadler Ot R09.89 OTH SYMPTOMS AND SIGNS INVOLVING THE CIR 09/21/2016 YULI MEJIA LEAD RELAY TESTER Ot M25.551 PAIN IN RIGHT HIP 09/21/2016 YULI MEJIA LEAD RELAY TESTER Ot M25.561 PAIN IN RIGHT KNEE 09/21/2016 YULI MEJIA LEAD RELAY TESTER Ot M47.816 SPONDYLOSIS W/O MYELOPATHY OR RADICULOPA 09/21/2016 YULI MEJIA LEAD RELAY TESTER Ot R10.2 PELVIC AND PERINEAL PAIN 09/21/2016 YULI MEJIA LEAD RELAY TESTER Ot Z95.828 PRESENCE OF OTHER VASCULAR IMPLANTS AND 11/03/2016 YULI MEJIA LEAD RELAY TESTER Ot E04.2 NONTOXIC MULTINODULAR GOITER 03/21/2017 NEIDA NO FACC, ALI FACP CCDS Ot E04.1 NONTOXIC SINGLE THYROID NODULE 03/21/2017 NEIDA NO FACC, ALI FACP CCDS Ot E78.5 HYPERLIPIDEMIA, UNSPECIFIED 03/21/2017 NEIDA NO FACC, ALI FACP CCDS Ot F17.210 NICOTINE DEPENDENCE, CIGARETTES, UNCOMPL 03/21/2017 NEIDA NO FACC, ALI FACP CCDS Ot F32.9 MAJOR DEPRESSIVE DISORDER, SINGLE EPISOD 03/21/2017 NEIDA NO FACC, ALI FACP CCDS Ot G47.33 OBSTRUCTIVE SLEEP APNEA (ADULT) (PEDIATR 03/21/2017 NEIDA NO FACC, ALI FACP CCDS Ot G62.9 POLYNEUROPATHY, UNSPECIFIED 03/21/2017 NEIDA NO FACC, ALI FACP CCDS Ot I10 ESSENTIAL (PRIMARY) HYPERTENSION 03/21/2017 NEIDA NO FACC, ALI FACP CCDS Ot I21.4 NON-ST ELEVATION (NSTEMI) MYOCARDIAL INF 03/21/2017 NEIDA NO FACC, ALI FACP CCDS Ot I25.10 ATHSCL HEART DISEASE OF [place] CORONARY 03/21/2017 NEIDA NO FACC, ALI FACP CCDS Ot I45.10 UNSPECIFIED RIGHT BUNDLE-BRANCH BLOCK 03/21/2017 NEIDA NO FACC, ALI FACP CCDS Ot I65.22 OCCLUSION AND STENOSIS OF LEFT CAROTID A 03/21/2017 NEIDA NO FACC, ALI FACP CCDS Ot I73.9 PERIPHERAL VASCULAR DISEASE, UNSPECIFIED 03/21/2017 NEIDA NO FACC, ALI FACP CCDS Ot K21.9 GASTRO-ESOPHAGEAL REFLUX DISEASE WITHOUT 03/21/2017 NEIDA NO FACC, ALI FACP CCDS Ot M19.91 PRIMARY OSTEOARTHRITIS, UNSPECIFIED SITE 03/21/2017 NEIDA NO FACC, ALI FACP CCDS Ot T82.855A STENOSIS OF CORONARY ARTERY STENT, INITI 03/21/2017 NEIDA NO FACC, ALI FACP CCDS Ot Z79.82 [facility] (CURRENT) USE OF ASPIRIN 03/21/2017 NEIDA NO FACC, ALI FACP CCDS Ot Z79.899 OTHER ACCOUNTS CLERK (CURRENT) DRUG THERAPY 03/21/2017 NEIDA NO FACC, ALI FACP CCDS Ot Z95.5 PRESENCE OF CORONARY ANGIOPLASTY IMPLANT 03/21/2017 NEIDA NO FACC, ALI FACP CCDS Ot Z95.820 PERIPHERAL VASCULAR ANGIOPLASTY STATUS W 03/21/2017 NEIDA NO FACC, ALI FACP CCDS Ot Z96.652 PRESENCE OF LEFT ARTIFICIAL KNEE JOINT 04/17/2017 Ot E78.0 PURE HYPERCHOLESTEROLEMIA 04/17/2017 Ot G47.33 OBSTRUCTIVE SLEEP APNEA (ADULT) (PEDIATR 04/17/2017 Ot I10 ESSENTIAL ( PRIMARY) HYPERTENSION 04/17/2017 Ot I25.10 ATHSCL HEART DISEASE OF [place] CORONARY 04/17/2017 Ot I65.23 OCCLUSION AND STENOSIS OF BILATERAL [place] 04/17/2017 Ot Z72.0 TOBACCO USE 04/17/2017 NEIDA NO FACC, CHRISTEL FACP CCDS Ot E78.0 PURE HYPERCHOLESTEROLEMIA 04/17/2017 NEIDA NO FACC, ALI FACP CCDS Ot G47.33 OBSTRUCTIVE SLEEP APNEA (ADULT) (PEDIATR 04/17/2017 NEDIA NO FACC, ALI FACP CCDS Ot I10 ESSENTIAL (PRIMARY) HYPERTENSION 04/17/2017 NEIDA NO FACC, ALI FACP CCDS Ot I25.10 ATHSCL HEART DISEASE OF [place] CORONARY 04/17/2017 NEIDA NO FACC, ALI FACP CCDS Ot I65.23 OCCLUSION AND STENOSIS OF BILATERAL [place] 04/17/2017 NEIDA NO FACC, ALI FACP CCDS Ot Z72.0 TOBACCO USE 04/17/2017 YULI MEJIA APRN Ot M79.89 OTHER SPECIFIED SOFT TISSUE DISORDERS 04/17/2017 ENRIKE NO, HEMANT Pascual Ot M17.11 UNILATERAL PRIMARY OSTEOARTHRITIS, RIGHT 04/17/2017 ENRIKE NO, HEMANT Pascual Ot M54.16 RADICULOPATHY, LUMBAR REGION 04/17/2017 BRITNI FREIRE DO Ot R05 COUGH 04/17/2017 BRITNI FREIRE DO Ot R06.02 SHORTNESS OF BREATH 04/17/2017 BRITNI FREIRE DO Ot Z72.0 TOBACCO USE 04/17/2017 NEIDA NO FAC, ALI FACP CCDS Ot I65.22 OCCLUSION AND STENOSIS OF LEFT CAROTID A 04/17/2017 NEIDA NO FACC, ALI FACP CCDS Ot I70.8 ATHEROSCLEROSIS OF OTHER ARTERIES 04/17/2017 NEIDA NO FACC, ALI FACP CCDS Ot R55 SYNCOPE AND COLLAPSE 04/17/2017 BERTRAM WILSON APRN Ot R05 COUGH 04/17/2017 BERTRAM WILSON APRN Ot R06.02 SHORTNESS OF BREATH 04/17/2017 ROX PUBLIC OPINION SURVEY TAKER, TAMY J Ot R09.89 OTH SYMPTOMS AND SIGNS INVOLVING THE CIR 04/17/2017 ROX PUBLIC OPINION SURVEY TAKER, TAMY Sadler Ot 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] 04/17/2017 ROX PUBLIC OPINION SURVEY TAKER, TAMY Sadler Ot R09.89 OTH SYMPTOMS AND SIGNS INVOLVING THE CIR 04/17/2017 YULI MEJIA LEAD RELAY TESTER Ot M25.551 PAIN IN RIGHT HIP 04/17/2017 YULI MEJIA LEAD RELAY TESTER Ot M25.561 PAIN IN RIGHT KNEE 04/17/2017 YULI MEJIA LEAD RELAY TESTER Ot M47.816 SPONDYLOSIS W/O MYELOPATHY OR RADICULOPA 04/17/2017 YULI MEJIA LEAD RELAY TESTER Ot R10.2 PELVIC AND PERINEAL PAIN 04/17/2017 YULI MEJIA LEAD RELAY TESTER Ot Z95.828 PRESENCE OF OTHER VASCULAR IMPLANTS AND 04/17/2017 YULI MEJIA APRN Ot E78.5 HYPERLIPIDEMIA, UNSPECIFIED 04/17/2017 YULI MEJIA LEAD RELAY TESTER Ot R53.83 OTHER FATIGUE 04/17/2017 YULI MEJIA LEAD RELAY TESTER Ot R94.6 ABNORMAL RESULTS OF THYROID FUNCTION [place]AT[place] 04/17/2017 MEJIA, ASHDEN N LEAD RELAY TESTER Ot E04.2 NONTOXIC MULTINODULAR GOITER 04/19/2017 SUKHI, ALLAN FLORP Ot F17.210 NICOTINE DEPENDENCE, CIGARETTES, UNCOMPL 04/19/2017 SUKHI, ALLAN FLORP Ot F32.9 MAJOR DEPRESSIVE DISORDER, SINGLE EPISOD 04/19/2017 SUKHI, ALLAN REHABILITATION SPECIALIST Ot G47.30 SLEEP APNEA, UNSPECIFIED 04/19/2017 SUKHI, ALLAN REHABILITATION SPECIALIST Ot G62.9 POLYNEUROPATHY, UNSPECIFIED 04/19/2017 SUKHI, ALLAN REHABILITATION SPECIALIST Ot I10 ESSENTIAL (PRIMARY) HYPERTENSION 04/19/2017 SUKHI, ALLAN REHABILITATION SPECIALIST Ot I25.2 OLD MYOCARDIAL INFARCTION 04/19/2017 SUKHI, ALLAN REHABILITATION SPECIALIST Ot K21.9 GASTRO-ESOPHAGEAL REFLUX DISEASE WITHOUT 04/19/2017 SUKHI, ALLAN FLORP Ot R07.2 PRECORDIAL PAIN 04/19/2017 SUKHI, ALLAN FLORP Ot Z79.02 ACCOUNTS CLERK (CURRENT) USE OF ANTITHROMBOTI 04/19/2017 SUKHIALLAN Olivas REHABILITATION SPECIALIST Ot Z79.82 ACCOUNTS CLERK (CURRENT) USE OF ASPIRIN 04/19/2017 SUKHI, ALLAN FLORP Ot Z87.01 PERSONAL HISTORY OF PNEUMONIA (RECURRENT 04/19/2017 SUKHI, ALLAN FLORP Ot Z96.652 PRESENCE OF LEFT ARTIFICIAL KNEE JOINT Procedures Code Description Performed By Performed On 81.54 TOTAL KNEE REPLACEMENT 05/01/2012 [id number] DILATION OF 1 COR ART WITH DRUG-ELUT INT 03/19/2017 [id number] MEASURE CARDIAC SAMPL PRESSURE, BILATE 03/19/2017 [id number] FLUOROSCOPY OF RIGHT AND LEFT HEART USIN 03/19/2017 Results Test Result Range Automated blood complete [...] 03/19/17 15:27 Blood monocytes/100 leukocytes 5 % NRG Manual blood segmented neutrophils/100 leukocytes 79 % NRG Blood band neutrophils/100 leukocytes 0 % NRG Manual blood lymphocytes/100 leukocytes 16 % NRG Manual eosinophils/100 leukocytes in nose 0 % NRG Manual blood basophils/100 leukocytes 0 % NRG Blood erythrocyte morphology finding identification NORMAL NRG PT panel in platelet poor plasma by [...] - 03/21/17 04:20 Magnesium 2.5 mg/dL 1.8-2.4 Complete blood count (CBC) with automated white blood cell (WBC) differential - 04/17/17 12:44 Blood leukocytes automated count (number/volume) 7.4 10*3/uL 4.3-11.0 Blood erythrocytes automated count (number/volume) 4.70 10*6/uL 4.35-5.85 Venous blood hemoglobin measurement (mass/volume) 13.5 g/dL 13.3-17.7 Blood hematocrit (volume fraction) 40 % 40-54 Automated erythrocyte mean corpuscular volume 85 [foz_us] 80-99 Automated erythrocyte mean corpuscular hemoglobin (mass per erythrocyte) 29 pg 25-34 Automated erythrocyte mean corpuscular hemoglobin concentration measurement ( mass/volume) 34 g/dL 32-36 Automated erythrocyte distribution width ratio 13.9 % 10.0-14.5 Automated blood platelet count (count/volume) 164 10*3/uL 130-400 Automated blood platelet mean volume measurement 11.0 [foz_us] 7.4-10.4 Automated blood neutrophils/100 leukocytes 71 % 42-75 Automated blood lymphocytes/100 leukocytes 21 % 12-44 Blood monocytes/100 leukocytes 7 % 0-12 Automated blood eosinophils/100 leukocytes 1 % 0-10 Automated blood basophils/100 leukocytes 0 % 0-10 Blood neutrophils automated count (number/volume) 5.3 10*3 1.8-7.8 Blood lymphocytes automated count (number/volume) 1.6 10*3 1.0-4.0 Blood monocytes automated count (number/volume) 0.5 10*3 0.0-1.0 Automated eosinophil count 0.1 10*3/uL 0.0-0.3 Automated blood basophil count (count/volume) 0.0 10*3/uL 0.0-0.1 PT panel in platelet poor plasma by coagulation assay - 04/17/17 12:44 Prothrombin time (PT) in platelet poor plasma by coagulation assay 14.3 s 12.2-14.7 INR in platelet poor plasma or blood by coagulation assay 1.1 0.8-1.4 Activated partial thromboplastin time (aPTT) in platelet poor plasma bycoagulation assay - 04/17/17 12:44 Activated partial thromboplastin time (aPTT) in platelet poor plasma bycoagulation assay 28 s 24-35 Comprehensive metabolic panel - 04/17/17 12:44 Serum or plasma sodium measurement (moles/volume) 137 mmol/L 135-145 Serum or plasma potassium measurement (moles/volume) 3.7 mmol/L 3.6-5.0 Serum or plasma chloride measurement (moles/volume) 105 mmol/L 98-107 Carbon dioxide 22 mmol/L 21-32 Serum or plasma anion gap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
[2017-04-26 07:41] LABS: HEMOGLOBIN 14.7 G/DL (13.3-17.7); MEAN PLATELET VOLUME 10.9 FL (7.4-10.4); RED BLOOD COUNT 5.18 10^6/uL (4.35-5.85); RED CELL DISTRIBUTION WIDTH 14.8 % (10.0-14.5); WHITE BLOOD COUNT 6.4 10^3/uL (4.3-11.0)
[2017-04-26] MEDS ORDERED: NS IV 1000 ML 1,000 ML IV SCH ×2 (07:45→08:00)
[2017-04-26 07:56] LABS: INR 0.9 (0.8-1.4); PROTHROMBIN TIME PATIENT 12.7 SEC (12.2-14.7)
[2017-04-26 08:02] LABS: ALANINE AMINOTRANSFERASE 23 U/L (0-55); ALBUMIN 4.3 GM/DL (3.2-4.5); ALKALINE PHOSPHATASE 117 U/L (40-136); BILIRUBIN,TOTAL 0.3 MG/DL (0.1-1.0); BUN/CREATININE RATIO 14; CALCIUM 9.5 MG/DL (8.5-10.1); CARBON DIOXIDE 25 MMOL/L (21-32); CHLORIDE 109 MMOL/L (98-107); CHOLESTEROL 164 MG/DL (< 200); GFR ESTIMATED > 60; GLUCOSE 121 MG/DL (70-105); HDL CHOLESTEROL 31 MG/DL (40-60); POTASSIUM 4.2 MMOL/L (3.6-5.0); SODIUM 141 MMOL/L (135-145); TOTAL PROTEIN 7.5 GM/DL (6.4-8.2); TRIGLYCERIDES 239 MG/DL (<150); VLDL CHOLESTEROL 48 MG/DL (5-40)
--- NOTE | 2017-04-26 09:00 | Diagnostic Imaging Report ---
INDICATION: Bilateral leg swelling. Bilateral lower extremity venous Doppler study was performed in the routine fashion with color flow Doppler and waveform analysis. FINDINGS: The common femoral veins, superficial femoral veins, popliteal veins and visualized portion of the tibial veins show normal compressibility and venous flow patterns. There is normal augmentation. IMPRESSION: No evidence of deep vein thrombosis in the major veins of both legs. Dictated by: Dictated on workstation # [id number]
[2017-04-26] MEDS ORDERED: MIDAZOLAM 5 MG/5 ML (VERSED) VIAL ONE (12:52)
[2017-04-26] MEDS ORDERED: fentaNYL INJECTION 100 MCG/2 ML AMP ONE ×2 (12:52→17:36)
[2017-04-26] MEDS ORDERED: diphenhydrAMINE 50 MG/ML INJ (BENADRYL) ONE (12:52)
[2017-04-26] MEDS ORDERED: HEParin 1000 UNIT/ML (10ML VIAL) FOR BOLUS ONE (13:57)
[2017-04-26] MEDS ORDERED: ASPIRIN 81 MG CHEW (CHILDREN'S ASA) ONE (14:45)
[2017-04-26] MEDS ORDERED: CLOPIDOGREL 300 MG (PLAVIX) TABLET PO ONE (14:45)
--- NOTE | 2017-04-26 14:56 | Cardiac Procedure Note-CS/ASA ---
Pre-Procedure Note Pre-Op Procedure Note H&P Reviewed The H&P was reviewed, patient examined and no changes noted. Date H&P Reviewed: Apr 26, 2017 Time H&P Reviewed: 13:45 Conscious Sedation Pre-Proced Time Reviewed: 13:45 ASA Class: 3 Airway Mallampati Classification: ([place] appropriate class) I. II. III, IV Lungs Heart ASA score ASA 1: a normal healthy patient ASA 2: a patient with a mild systemic disease (mid diabetes, controlled hypertension, obesity ASA 3: a patient with a severe systemic disease that limits activity (angina , COPD, prior Myocardial infarction) ASA 4: a patient with an incapacitating disease that is a constant threat to life (CHF, renal failure) ASA 5: a moribund patient not expected to survive 24 hrs. (ruptured aneurysm) ASA 6: a declared brain patient whose organs are being harvested. For emergent operations, add the letter E after the classification Grade 3 Sedation Plan: Analgesia, Amnesia, Plan communicated to team members, Discussed options with patient/fam, Discussed risks with patient/fam Note The patient is an appropriate candidate to undergo the planned procedure, sedation, and anesthesia. The patient immediately re-assessed prior to indication. CHRISTEL CARRASQUILLO MD FACP FAC CCDS Apr 26, 2017 14:56
[2017-04-26] MEDS ORDERED: PATIENT MAY USE OWN MEDS, ALL PO SCH (15:00)
[2017-04-26] MEDS: NS IV 1000 ML 1,000 ML IV SCH (15:22)
[2017-04-26] MEDS ORDERED: ATROPINE INJECTION 1 MG/10 ML SYR (ABBOTT) ONE (17:37)
[2017-04-26] MEDS ORDERED: fentaNYL INJECTION 100 MCG/2 ML AMP IVP PRN (17:45)
[2017-04-26] MEDS ORDERED: fentaNYL INJECTION 100 MCG/2 ML AMP IVP ONE (18:15)
[2017-04-26] MEDS: buPROPion 100 MG (WELLBUTRIN) TAB PO SCH (19:27)
[2017-04-26] MEDS ORDERED: PRAMIPEXOLE 0.5 MG TAB (MIRAPEX) PO SCH (21:00)
[2017-04-26] MEDS ORDERED: ATORVASTATIN 40 MG (LIPITOR) TABLET PO SCH (21:00)
[2017-04-26] MEDS ORDERED: PRIMIDONE 50 MG TAB (MYSOLINE) PO SCH (21:00)
[2017-04-26] MEDS: PREGABALIN 75 MG (LYRICA) CAP PO SCH (21:28)
[2017-04-26] MEDS: HYDROcodone/APAP 10 MG/325 MG (LORTAB) TAB PO PRN (21:28)
[2017-04-27] MEDS: NS IV 1000 ML 1,000 ML IV SCH (01:15)
[2017-04-27 03:41] LABS: HEMOGLOBIN 13.1 G/DL (13.3-17.7); MEAN PLATELET VOLUME 11.1 FL (7.4-10.4); RED BLOOD COUNT 4.62 10^6/uL (4.35-5.85); RED CELL DISTRIBUTION WIDTH 14.8 % (10.0-14.5); WHITE BLOOD COUNT 8.1 10^3/uL (4.3-11.0)
[2017-04-27] MEDS: HYDROcodone/APAP 10 MG/325 MG (LORTAB) TAB PO PRN ×2 (03:41→09:08)
[2017-04-27 03:59] LABS: BUN/CREATININE RATIO 13; CALCIUM 8.9 MG/DL (8.5-10.1); CARBON DIOXIDE 18 MMOL/L (21-32); CHLORIDE 105 MMOL/L (98-107); CREATININE SERUM 1.05 MG/DL (0.60-1.30); GFR ESTIMATED > 60; GLUCOSE 227 MG/DL (70-105); POTASSIUM 4.5 MMOL/L (3.6-5.0); SODIUM 137 MMOL/L (135-145)
[2017-04-27 04:00] VITALS: BP 120/63
[2017-04-27] MEDS ORDERED: PANTOPRAZOLE 40 MG (PROTONIX) TAB PO SCH (07:00)
[2017-04-27 08:25] VITALS: BP 132/76
[2017-04-27] MEDS: PREGABALIN 75 MG (LYRICA) CAP PO SCH (08:32)
[2017-04-27] MEDS: buPROPion 100 MG (WELLBUTRIN) TAB PO SCH (08:32)
[2017-04-27] MEDS ORDERED: NON-FORMULARY MEDICATION 1 EA EA (Fenofibrate Nanocrystallized (Fenofibrate) 145 MG) PO SCH (09:00)
[2017-04-27] MEDS ORDERED: CLOPIDOGREL 75 MG (PLAVIX) TABLET PO SCH (09:00)
[2017-04-27] MEDS ORDERED: ASPIRIN 81 MG CHEW (CHILDREN'S ASA) PO SCH (09:00)
[2017-04-27] MEDS ORDERED: meTOproloL SUCCINATE 50 MG (TOPROL XL) TAB PO SCH (09:00)
--- NOTE | 2017-04-27 09:23 | Progress Note-Cardiology ---
Cardiology SOAP Progress Note Subjective: Notes mod groin discomfort with palpation, but not otherwise. Has been able to walk without discomfort. Denies cp or palp or syncope Objective: I&O/Vital Signs Vital Sign - Last 12Hours 04/26/17 04/26/17 04/27/17 04/27/17 22:00 23:00 02:00 04:00 Temp 97.8 Pulse 70 70 71 77 Resp 20 16 20 B/P (MAP) 132/66 (88) 139/76 (97) 120/63 (82) Pulse Ox 97 98 97 O2 Delivery Room Air Room Air Room Air 04/27/17 04/27/17 07:00 08:25 Temp 97.6 Pulse 68 70 Resp 18 B/P (MAP) 132/76 (94) Pulse Ox 97 O2 Delivery Room Air Weight (Pounds): 250 Weight (Ounces): 3.2 Weight (Calculated Kilograms): 113.360932 Groin site without hematoma: No Swelling: moderate amount of swelling Bruising: moderated bruising Constitutional: AAO x 3, well-developed, well-nourished Respiratory: No accessory muscle use, lungs clear to percussion, lungs clear to auscultation Cardiovascular: regular rate-rhythm, S1 and S2, systolic murmur (faint GEMA at card base) Gastrointestional: soft, No guarding, No rebound, audible bowel sounds, other ( mod R groin tenderness, no abdominal tenderness, abd soft) Extremities: No clubbing, No cyanosis, No significant edema Neurologic/Psychiatric: oriented x 3, grossly intact, power is 5/5 both on sides Skin: No rash on exposed areas, No ulcerations on exposed areas Results/Procedures: Labs Laboratory Tests 04/26/17 16:50: Activated Partial Thromboplast Time 40H 04/27/17 03:15: White Blood Count 8.1, Red Blood Count 4.62, Hemoglobin 13.1L, Hematocrit 40, Mean Corpuscular Volume 86, Mean Corpuscular Hemoglobin 28, Mean Corpuscular Hemoglobin Concent 33, Red Cell Distribution Width 14.8H, Platelet Count 189, Mean Platelet Volume 11.1H, Sodium Level 137, Potassium Level 4.5, Chloride Level 105, Carbon Dioxide Level 18L, Anion Gap 14, Blood Urea Nitrogen 14, Creatinine 1.05, Estimat Glomerular Filtration Rate > 60, BUN/Creatinine Ratio 13, Glucose Level 227H, Calcium Level 8.9 Laboratory Tests 04/26/17 07:32 04/27/17 03:15 A/P: Assessment: Leg claudication. PAD. On 09/30/14, he underwent Stenting of the R SFA and the L external iliac artery by Dr Dockery. Diffuse, mild peripheral arterial disease. On last peripheral angio of there is a patent stent in the right superficial femoral artery and a patent stent in the left common iliac extending into external iliac artery. There was 90% L SFA stenosis to which successful balloon angioplasty was carried out Mod R groin hematoma, post cath of 04/26/17, clinically stable. Bilateral leg swelling due varicose veins and venous insuff. No evidence of DVT on bilat leg venous Doppler of 04/26/17 Atypical syncope without any evidence of cardiac etiology seen on 4 day ambulatory associate project manager of 08-04-16 to 08-09-16 CAD. Last card cath was on 03/19/17: complete occlusion within the distal portion of a previously placed stent in 2014 (overlapping from Promus Premier 4.0 x 24 and 4.0 x 12 mm stents). To this complete occlusion, successful balloon angioplasty and stenting was carried out. Following deployment of Alpine Xience 4.0 x 12 mm stent, there is 0% residual stenosis and normal antegrade flow. 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 Mild to moderate disease of the left coronary system. Significantly elevated left ventricular end-diastolic pressure L ICA mild to mod dz seen on CTA head/neck of 08-09-16 Mild to mod stenosis of the distal L SC seen on CTA of head/neck of 08-09-16 8mm thyroid nodule seen on head/neck CT of 08-09-16 - f/u advised with PCP Chronic tobacco use CTA of the chest on 03-19-17 showed minimal bilat basilar atelectasis. Indeterminat 3 mm nodular density anterior right upper lobe, new from piror CT. S/p L TKR and arthroscopic R knee surg Echo of 03/20/17: shows LVEF 50-55%, Grade I diastolic dysfunction of LV ALLEN, treated with CPAP - followed by Dr. Zaman Incomplete RBBB Hypertension, labile Hyperlipidemia Mild carotid art disease on u/s of 08/29/15 Plan: * We discussed in detail the findings of angio and interventions undertaken and further treatment plan * We discussed risk factor modification in detail * We answered his and his 's questions in detail * We have advised close outpatient f/u for now * We have advise presentation to ER in case of new symptoms CHRISTEL CARRASQUILLO MD FACP FAC CCDS Apr 27, 2017 09:23
--- NOTE | 2017-04-27 09:25 | Discharge Inst-Post CATH ---
Discharge Inst-CATH Post Cardiac Cath D/C Inst Follow Up/Plan F/u with Dr Houston next week Resume work w/o restrictions on 05/02/17 CARDIAC CATH DISCHARGE INSTRUCTIONS *Hold Metformin for 48 hours post heart cath. ACTIVITY * Go Home directly and rest. * Limit activity of the leg (or wrist if it was used) for 7 days including aerobics, swimming, jogging, bicycling, etc. * Restrict stair-climbing for 7 days if possible, if not, climb up with your non -cath leg, then bring together on the same step. * Avoid lifting, pushing, pulling or excessive movement of the affected extremity for 7 days. * Customary sexual activity may be resumed after 2 days-use caution not to use a position that strains or causes pain to the affected extremity. * No driving for 24 hours. * NO SMOKING. * Avoid straining for bowel movements for 7 days. * Gentle walking on level ground is allowed. * Returning to work will depend on the type of procedure and the results. Your doctor will discuss this with you. CALL YOUR DOCTOR FOR ANY OF THE FOLLOWING: *If bleeding from the puncture site occurs- Apply gentle pressure to site with clean cloth and call your doctor or EMS. * If a knot or lump forms under the skin, increases in size, or causes pain. * If bruising appears to be worsening or moving further down your leg instead of disappearing. * Temperature above 101 F. CARE OF YOUR GROIN INCISION; * Bruising or purple discoloration of the skin near the puncture site is common. * You may shower only, no bathtub bathing for 5 days. Be careful to avoid slipping as your leg may feel stiff. * If a closure device was used on your femoral artery, please see the attached guide regarding care of the device and your leg. * REMOVE the dressing from your groin the next day after your procedure in the shower. CARE OF YOUR WRIST INCISION; * Bruising or purple discoloration of the skin near the puncture site is common. * You may shower. * DO NOT submerge wrist. * Remove dressing in 24 hours. CHRISTEL HOUSTON [facility] CCDS Apr 27, 2017 09:25
--- NOTE | 2017-04-27 09:26 | Discharge Inst-Cardiology ---
Discharge Inst-Cardiac Discharge Medications Continued Medications: Aspirin (Aspirin EC) 81 Mg Tablet.dr 81 MG PO DAILY, TAB Atorvastatin Calcium (Atorvastatin Calcium) 40 Mg Tablet 40 MG PO HS Bupropion HCl (Bupropion HCl) 100 Mg Tablet 100 MG PO BID Clopidogrel Bisulfate (Clopidogrel) 75 Mg Tablet 75 MG PO DAILY Fenofibrate Nanocrystallized (Fenofibrate) 145 Mg Tablet 145 MG PO DAILY, TAB Hydrocodone/Acetaminophen (Hydrocodon-Acetaminophn 10-325) 1 Each Tablet 1 TAB PO EVERY 4-6 HOURS PRN for PAIN-MODERATE Metoprolol Succinate (Metoprolol Succinate) 50 Mg Tab.er.24h 50 MG PO DAILY, #30 TAB 5 Refills Pantoprazole Sodium (Pantoprazole Sodium) 40 Mg Tablet.dr 40 MG PO DAILY@0700, #30 TAB 5 Refills Pramipexole Di-HCl (Pramipexole Dihydrochloride) 0.5 Mg Tablet 0.5 MG PO HS, TAB Pregabalin (Lyrica) 75 Mg Capsule 75 MG PO BID Primidone (Primidone) 50 Mg Tablet 50 MG PO HS, TAB CHRISTEL CARRASQUILLO MD FACP FACC CCDS Apr 27, 2017 09:26
[2017-04-27 10:00] VITALS: BP 121/92
[2017-04-27 11:35] VITALS: BP 132/76
[2017-04-27] MEDS ORDERED: FENOFIBRATE 134 MG (LOFIBRA) CAPSULE PO SCH (21:00)
--- NOTE | 2017-04-28 08:17 | OPERATIVE REPORT ---
DATE OF SERVICE: 04/26/2017 PERIPHERAL ANGIOGRAPHY AND PERIPHERAL INTERVENTION REPORT The patient is a 61-year-old man with known coronary artery disease and peripheral arterial disease. He is known to have had peripheral intervention consisting of right superficial femoral artery stenting and left external iliac artery stenting by Dr. Dockery in 2014. He has been experiencing bilateral leg claudication, somewhat more pronounced in the right leg. Informed consent was obtained for peripheral angiography and possible ad hoc peripheral intervention. DESCRIPTION OF PROCEDURE: He was brought to the cardiac catheterization laboratory in a fasting state. Right groin was prepared and draped in the usual sterile fashion. Lidocaine 1% for local anesthesia. Modified Seldinger technique was used to advance a 5-Iranian sheath in the right femoral artery. A 5-Iranian pigtail catheter was used for abdominal aortic angiography with runoff down to the level of the ankles on both sides. Subsequently, we used a crossover catheter and advanced a 0.035 inch wire with the help of the crossover catheter into the contralateral superficial femoral artery. We then advanced a straight catheter into the left superficial femoral artery and carried out selective angiography of the left superficial femoral artery. There was 90% stenosis in the mid left superficial femoral artery to which percutaneous intervention was carried out. PERCUTANEOUS INTERVENTION TO THE LEFT SUPERFICIAL FEMORAL ARTERY: We removed the straight catheter after having advanced a 0.035 inch wire across the lesion in the contralateral superficial femoral artery. We removed the 5-Iranian sheath and exchanged it for a short 6-Iranian sheath. We then advanced an [place] 35 balloon measuring 5.0 x 40 mm. This was carefully positioned to cover the entire lesion and balloon inflation was carried out to follow up. Next, subsequent angiography revealed less than 30% stenosis at the previous site of 90% stenosis and flow throughout the vessel was normal. He tolerated the procedure well. Angioplasty equipment was removed. Angiography of the right femoral artery was carried out through the sheath. It was not suitable for device closure. The sheath was sutured in place for removal at the floor later, after the ACT drifts below 180 seconds. The patient received a total of 7000 units of intravenous heparin during this procedure. He tolerated the procedure well. CONCLUSIONS: 1. Patent stent in the right superficial femoral and the left external iliac arteries. 2. A 90% stenosis in the left superficial femoral artery to which successful balloon angioplasty was carried out with reduction of stenosis to less than 30%. DISCUSSION AND RECOMMENDATIONS: Risk factor modification has been reviewed. Antiplatelet regimen is being continued. Statin therapy is being continued. Job ID: [id number] DocumentID: [id number] Dictated Date: 04/26/2017 14:40:27 Beef Tagger Date: 04/26/2017 17:13:31 Dictated By: CHRISTEL CARRASQUILLO MD, MA, FACP, FACC,
== END 2017-04-27 11:35 | disposition home or self-care (01) ==
LOC: CATH 07:05 → ICU 14:55 → CATH 04-27 11:35
PROVIDERS: ATTEND Internal Medicine Cardiovascular Disease
DX: I70.213 Atherosclerosis of native arteries of extremities with intermittent claudication, bilateral legs (principal); I25.10 Atherosclerotic heart disease of native coronary artery without angina pectoris; I10 Essential (primary) hypertension; I65.22 Occlusion and stenosis of left carotid artery; E11.9 Type 2 diabetes mellitus without complications; K21.9 Gastro-esophageal reflux disease without esophagitis; G47.33 Obstructive sleep apnea (adult) (pediatric); E78.5 Hyperlipidemia, unspecified; E04.1 Nontoxic single thyroid nodule; I45.10 Unspecified right bundle-branch block; F17.210 Nicotine dependence, cigarettes, uncomplicated; Z95.820 Peripheral vascular angioplasty status with implants and grafts; Z79.82 Long term (current) use of aspirin; Z79.899 Other long term (current) drug therapy; Z96.652 Presence of left artificial knee joint
CPT/HCPCS: 36415; 80048; 80053; 80061; 85027; 85610; 85730; 87081; 93005; 93970

== ENCOUNTER → 2017-05-02 | Outpatient (CLI) | payer OTHER ==
[2017-05-02 12:53] LABS: BASOPHILS % (AUTO) 0 % (0-10); EOSINOPHILS # (AUTO) 0.1 10^3/uL (0.0-0.3); EOSINOPHILS % (AUTO) 1 % (0-10); HEMATOCRIT 42 % (40-54); LYMPHOCYTES # (AUTO) 1.8 X 10^3 (1.0-4.0); LYMPHOCYTES % (AUTO) 19 % (12-44); MEAN CORPUSCULAR HEMOGLOBIN 28 PG (25-34); MEAN CORPUSCULAR HGB CONC 34 G/DL (32-36); MEAN CORPUSCULAR VOLUME 84 FL (80-99); MEAN PLATELET VOLUME 10.3 FL (7.4-10.4); MONOCYTES # (AUTO) 0.8 X 10^3 (0.0-1.0); MONOCYTES % (AUTO) 9 % (0-12); NEUTROPHILS # (AUTO) 6.4 X 10^3 (1.8-7.8); NEUTROPHILS % (AUTO) 71 % (42-75); PLATELET COUNT 244 10^3/uL (130-400); RED BLOOD COUNT 4.93 10^6/uL (4.35-5.85); RED CELL DISTRIBUTION WIDTH 14.7 % (10.0-14.5); WHITE BLOOD COUNT 9.1 10^3/uL (4.3-11.0)
[2017-05-02 13:08] LABS: BUN/CREATININE RATIO 15; CALCIUM 9.3 MG/DL (8.5-10.1); CARBON DIOXIDE 25 MMOL/L (21-32); CHLORIDE 104 MMOL/L (98-107); CREATININE SERUM 1.16 MG/DL (0.60-1.30); GFR ESTIMATED > 60; GLUCOSE 145 MG/DL (70-105); POTASSIUM 4.4 MMOL/L (3.6-5.0); SODIUM 136 MMOL/L (135-145)
--- NOTE | 2017-05-02 13:41 | Diagnostic Imaging Report ---
INDICATION: Right groin pain. Patient is status post heart catheterization. TECHNIQUE: Grayscale, color-flow, and duplex Doppler evaluation of the right groin was performed. FINDINGS: There is a pseudoaneurysm in the right groin arising from the right common femoral artery measuring 2.1 x 2.0 x 1.9 cm. This does demonstrate blood flow. This does have a short neck arising from the right common femoral artery. The superficial femoral artery is patent. The common femoral vein is patent. No AV fistula is detected. IMPRESSION: Small right groin pseudoaneurysm, as described. Dictated by: Dictated on workstation # [id number]
== END ==
LOC: RAD 12:38
PROVIDERS: ATTEND Internal Medicine Cardiovascular Disease
DX: I72.4 Aneurysm of artery of lower extremity (principal); I70.213 Atherosclerosis of native arteries of extremities with intermittent claudication, bilateral legs; E66.8 Other obesity; G47.33 Obstructive sleep apnea (adult) (pediatric); E13.65 Other specified diabetes mellitus with hyperglycemia; E78.4 Other hyperlipidemia; I10 Essential (primary) hypertension; Z72.0 Tobacco use; Z98.890 Other specified postprocedural states
CPT/HCPCS: 36415; 80048; 85025; 93926

== ENCOUNTER → 2017-05-03 | Outpatient (CLI) | payer OTHER ==
--- NOTE | 2017-05-03 14:48 | Diagnostic Imaging Report ---
Indication: Right groin pseudoaneurysm. Study is performed for followup. Correlation made with prior exam one day earlier. Sonographic interrogation of the right groin was performed. The previously noted right groin pseudoaneurysm remains thrombosed, status post sonographically assisted compression. No internal blood flow is seen. The right common femoral artery and vein remain patent. IMPRESSION: Thrombosed right groin pseudoaneurysm. Dictated by: Dictated on workstation # [id number]
== END ==
LOC: RAD 13:02
PROVIDERS: ATTEND Nurse Practitioner Family
DX: I72.8 Aneurysm of other specified arteries (principal); I70.213 Atherosclerosis of native arteries of extremities with intermittent claudication, bilateral legs; G47.33 Obstructive sleep apnea (adult) (pediatric); E13.65 Other specified diabetes mellitus with hyperglycemia; E78.4 Other hyperlipidemia
CPT/HCPCS: 93926

== ENCOUNTER → 2017-05-23 | Outpatient (CLI) | payer OTHER ==
--- NOTE | 2017-05-23 13:15 | Diagnostic Imaging Report ---
PROCEDURE: CT chest without contrast. TECHNIQUE: Multiple contiguous axial images were obtained through the chest without the use of intravenous contrast. INDICATION: Difficulty breathing and lung nodules. COMPARISON: Comparison is made with prior CT chest from 03/19/2017. FINDINGS: No axillary lymphadenopathy is seen. No definite hilar or mediastinal lymphadenopathy is seen. There are coronary arterial calcifications. No pericardial or pleural fluid is identified. Parenchymal evaluation demonstrates the central airways to be unremarkable. The previously noted tiny nodule in the anterior right upper lobe is no longer appreciated. No new pulmonary nodule is seen. The upper abdomen is unremarkable. IMPRESSION: The previously described tiny pulmonary nodule in the right upper lobe is no longer present. The study is essentially unremarkable. Dictated by: Dictated on workstation # [id number]
== END ==
LOC: RAD 12:46
PROVIDERS: ATTEND Nurse Practitioner Family
DX: J98.4 Other disorders of lung (principal)
CPT/HCPCS: 71250

== ENCOUNTER → 2017-11-14 | Outpatient (CLI) | payer OTHER ==
[~2017-11-14] MED LIST changes: +CALC300T4 PO; +FENO145T37 PO; +RANI150T46 PO
[2017-11-14 12:55] LABS: BASOPHILS % (AUTO) 0 % (0-10); EOSINOPHILS # (AUTO) 0.1 10^3/uL (0.0-0.3); EOSINOPHILS % (AUTO) 2 % (0-10); HEMATOCRIT 47 % (40-54); HEMOGLOBIN 15.7 G/DL (13.3-17.7); LYMPHOCYTES # (AUTO) 1.6 X 10^3 (1.0-4.0); LYMPHOCYTES % (AUTO) 18 % (12-44); MEAN CORPUSCULAR HEMOGLOBIN 28 PG (25-34); MEAN CORPUSCULAR HGB CONC 33 G/DL (32-36); MEAN CORPUSCULAR VOLUME 85 FL (80-99); MEAN PLATELET VOLUME 10.7 FL (7.4-10.4); MONOCYTES # (AUTO) 0.7 X 10^3 (0.0-1.0); MONOCYTES % (AUTO) 8 % (0-12); NEUTROPHILS # (AUTO) 6.2 X 10^3 (1.8-7.8); NEUTROPHILS % (AUTO) 72 % (42-75); PLATELET COUNT 202 10^3/uL (130-400); RED BLOOD COUNT 5.57 10^6/uL (4.35-5.85); RED CELL DISTRIBUTION WIDTH 15.6 % (10.0-14.5); WHITE BLOOD COUNT 8.6 10^3/uL (4.3-11.0)
[2017-11-14 13:14] LABS: ALANINE AMINOTRANSFERASE 26 U/L (0-55); ALBUMIN 4.3 GM/DL (3.2-4.5); ALKALINE PHOSPHATASE 139 U/L (40-136); BILIRUBIN,TOTAL 0.7 MG/DL (0.1-1.0); BUN/CREATININE RATIO 16; CALCIUM 9.6 MG/DL (8.5-10.1); CARBON DIOXIDE 25 MMOL/L (21-32); CHLORIDE 103 MMOL/L (98-107); CREATININE SERUM 0.95 MG/DL (0.60-1.30); GFR ESTIMATED > 60; GLUCOSE 87 MG/DL (70-105); SODIUM 138 MMOL/L (135-145); TOTAL PROTEIN 7.6 GM/DL (6.4-8.2)
== END ==
LOC: LAB 12:43
PROVIDERS: ATTEND Surgery
DX: I70.292 Other atherosclerosis of native arteries of extremities, left leg (principal)
CPT/HCPCS: 36415; 80053; 85025

== ENCOUNTER → 2017-11-14 | Outpatient (CLI) | payer OTHER | LOC: WOUNDCARE 10:15 | PROVIDERS: ATTEND Surgery | DX: B07.0 Plantar wart (principal); I70.292 Other atherosclerosis of native arteries of extremities, left leg | CPT/HCPCS: 99213 ==

== ENCOUNTER → 2017-11-21 | Outpatient (CLI) | payer OTHER | LOC: WOUNDCARE 08:41 | PROVIDERS: ATTEND Surgery | DX: B07.0 Plantar wart (principal); I70.292 Other atherosclerosis of native arteries of extremities, left leg | CPT/HCPCS: 99212 ==

== ENCOUNTER 2017-11-22 08:54 | Day surgery (SDC) | payer OTHER ==
[2017-11-22] VITALS (11 sets, daily range): BP systolic 126–161; BP diastolic 60–101
[~2017-11-22] VITALS: Ht 185.4 cm; Wt 101.7 kg
[~2017-11-22 08:54] MED LIST changes: -CALC300T4 PO; -RANI150T46 PO
[2017-11-22] MEDS ORDERED: HEParin (CATH LAB) 2,000 ML IV ONE (09:08)
[2017-11-22] MEDS ORDERED: LIDOCAINE 1% INJ 20 ML 20 ML VIAL ONE (09:08)
[2017-11-22] MEDS ORDERED: NS IV 1000 ML 1,000 ML ONE (09:08)
[2017-11-22 09:38] LABS: HEMOGLOBIN 15.4 G/DL (13.3-17.7); MEAN PLATELET VOLUME 10.6 FL (7.4-10.4); RED BLOOD COUNT 5.43 10^6/uL (4.35-5.85); RED CELL DISTRIBUTION WIDTH 15.6 % (10.0-14.5); WHITE BLOOD COUNT 9.6 10^3/uL (4.3-11.0)
[2017-11-22 09:49] LABS: PROTHROMBIN TIME PATIENT 13.6 SEC (12.2-14.7)
[2017-11-22 09:56] LABS: ALANINE AMINOTRANSFERASE 19 U/L (0-55); ALBUMIN 4.3 GM/DL (3.2-4.5); ALKALINE PHOSPHATASE 121 U/L (40-136); BILIRUBIN,TOTAL 0.6 MG/DL (0.1-1.0); BUN/CREATININE RATIO 14; CALCIUM 9.5 MG/DL (8.5-10.1); CARBON DIOXIDE 24 MMOL/L (21-32); CHLORIDE 107 MMOL/L (98-107); CHOLESTEROL 149 MG/DL (< 200); CREATININE SERUM 0.96 MG/DL (0.60-1.30); GFR ESTIMATED > 60; GLUCOSE 96 MG/DL (70-105); HDL CHOLESTEROL 25 MG/DL (40-60); POTASSIUM 4.4 MMOL/L (3.6-5.0); SODIUM 140 MMOL/L (135-145); TOTAL PROTEIN 7.4 GM/DL (6.4-8.2); TRIGLYCERIDES 171 MG/DL (<150); VLDL CHOLESTEROL 34 MG/DL (5-40)
[2017-11-22] MEDS ORDERED: RANI150T46 PO (09:56)
[2017-11-22] MEDS ORDERED: CALC300T4 PO (09:56)
[2017-11-22] MEDS ORDERED: SERT50TA9 PO (09:59)
[2017-11-22] MEDS ORDERED: METO-370 PO (09:59)
[2017-11-22] MEDS ORDERED: FLU QUADRIvalent (5+ YOA) 2018-2019 (AFLURIA) 0.5 ML IM ONE (10:15)
[2017-11-22] MEDS ORDERED: NS IV 1000 ML 1,000 ML IV SCH ×2 (10:15→14:09)
[2017-11-22] MEDS ORDERED: MIDAZOLAM 5 MG/5 ML (VERSED) VIAL ONE ×2 (10:39→11:34)
[2017-11-22] MEDS ORDERED: diphenhydrAMINE 25 MG TAB (BENADRYL) PO ONE (10:39)
[2017-11-22] MEDS ORDERED: fentaNYL INJECTION 100 MCG/2 ML AMP ONE ×2 (10:39→12:13)
[2017-11-22] MEDS ORDERED: HEParin 1000 UNIT/ML (10ML VIAL) FOR BOLUS ONE (11:45)
[2017-11-22] MEDS ORDERED: HEParin (CATH LAB) 1,000 ML IV ONE (12:47)
[2017-11-22] MEDS ORDERED: HYDROmorphone 2 MG/ML VIAL (DILAUDID) ONE (12:56)
--- NOTE | 2017-11-22 14:09 | Cardiac Procedure Note-CS/ASA ---
Pre-Procedure Note Pre-Op Procedure Note H&P Reviewed The H&P was reviewed, patient examined and no changes noted. Date H&P Reviewed: Nov 22, 2017 Time H&P Reviewed: 12:15 Conscious Sedation Pre-Proced Time 12:15 ASA Score 3 For ASA 3 and 4: Consider anesthesia and medical clearance. Also, for patients with a history of failed moderate sedation consider anesthesia. Airway Lungs Heart ASA score ASA 1: a normal healthy patient ASA 2: a patient with a mild systemic disease (mid diabetes, controlled hypertension, obesity ASA 3: a patient with a severe systemic disease that limits activity (angina , COPD, prior Myocardial infarction) ASA 4: a patient with an incapacitating disease that is a constant threat to life (CHF, renal failure) ASA 5: a moribund patient not expected to survive 24 hrs. (ruptured aneurysm) ASA 6: a declared brain patient whose organs are being harvested. For emergent operations, add the letter E after the classification Mallampati Classification Grade 3 Sedation Plan Analgesia, Amnesia, Plan communicated to team members, Discussed options with patient/fam, Discussed risks with patient/fam The patient is an appropriate candidate to undergo the planned procedure, sedation, and anesthesia. The patient immediately re-assessed prior to indication. CHRISTEL CARRASQUILLO MD FACP FAC CCDS Nov 22, 2017 14:09
[2017-11-22] MEDS ORDERED: PATIENT MAY USE OWN MEDS, ALL PO SCH (14:15)
[2017-11-22] MEDS ORDERED: HYDROcodone/APAP 10 MG/325 MG (LORTAB) TAB PO PRN (14:15)
[2017-11-22] MEDS ORDERED: ASPIRIN 81 MG CHEW (CHILDREN'S ASA) ONE (14:16)
[2017-11-22] MEDS ORDERED: CLOPIDOGREL 300 MG (PLAVIX) TABLET PO ONE (14:16)
--- NOTE | 2017-11-22 14:41 | OPERATIVE REPORT ---
DATE OF SERVICE: 11/22/2017 PERIPHERAL ANGIOGRAPHY REPORT The patient is a 61-year-old man who is known to have peripheral arterial disease and has had previous peripheral interventions. He has had a stenting of the right superficial femoral and the left external iliac arteries in 09/2014 and underwent balloon angioplasty of the left superficial femoral artery in 03/2017. He has lately had recurrent leg claudication, which is considerably more pronounced on the left side. Noninvasive workup indicated severe disease involving the left lower limb. Peripheral angiography was carried out after having obtained informed consent for peripheral angiography and Ad-hoc peripheral intervention, if needed. DESCRIPTION OF PROCEDURE: He was brought to the cardiac catheterization laboratory in a fasting state. The right groin was prepared and draped in the usual sterile fashion. A 1% lidocaine local anesthesia. Modified Seldinger technique was used to advance a 5-Luxembourgish sheath in the right femoral artery. A 5-Luxembourgish pigtail catheter was used to carry out lower abdominal aortic angiography with bilateral leg runoff. This indicated occlusion of the left superficial femoral artery. The left external iliac artery stent and the right superficial femoral artery stent were widely patent. We then carried out selective angiography of the left common femoral artery by crossing over into the left common femoral artery and placing a straight catheter. A runoff was performed. This confirmed that the left superficial femoral artery was completely occluded and the segment of occlusion was a very long one. We exchanged the catheter and the sheath over a wire for a long 6-Luxembourgish sheath (45 cm). The tip of the sheath was placed in the left external iliac artery and was used to perform peripheral intervention. We first used a 0.018 Command wire that we were not able to advance across the complete occlusion within the left superficial femoral artery. We then used a 0.014 inch Command wire, which we were able to cross the complete occlusion with. We also used a mini catheter to provide support for this wire. Once we had crossed the complete occlusion and landed in the true lumen of the distal left superficial femoral artery, we carried out balloon angioplasty over a 0.018 inch wire that we had replaced the 0.014 inch wire with, using the mini catheter. We carried out balloon angioplasty with 2 mm x 40 mm balloon, 4 mm x 120 mm balloon, and 5 mm x 200 mm balloon. This restored antegrade flow, but there was considerable remaining stenosis and segments of dissection within the luminal surface of the left superficial femoral artery. We therefore proceeded with stenting. We placed three overlapping Absolute stents. These are from distal to proximal, 6 x 100, 6 x 100 and 6 x 60 mm stents. These extended from the distal part of the left superficial femoral artery back to the ostium of the left superficial femoral artery. The stent does not extend into the left common femoral. Following stenting, there was 0% residual stenosis and flow throughout the vessel was normal. The popliteal vessel on the left side is seen trifurcating into anterior tibial, peroneal, and posterior tibial arteries. The peroneal and the anterior tibial appeared occluded in their very distal portions. The posterior tibial is intact to the foot. Angioplasty equipment was removed. The sheath was exchanged over a wire for a 6-Luxembourgish short sheath. Angiography of the right femoral artery was carried out through the sheath and Mynx was used to achieve hemostasis. The patient received a total of 9000 units of intravenous heparin during this intervention procedure. He tolerated the procedure well. CONCLUSIONS: 1. A long total occlusion of the left superficial femoral artery treated successfully with balloon angioplasty followed by stenting (overlapping Absolute stents: 6 x 100, 6 x 100, 6 x 60). 2. Patent right superficial femoral artery stent. 3. Patent left external iliac artery stent. Job ID: [id number] DocumentID: [id number] Dictated Date: 11/22/2017 14:01:26 Import Export Clerk Date: 11/22/2017 14:39:57 Dictated By: CHRISTEL CARRASQUILLO MD, MA, FACP, FACC, MTDD
[2017-11-22] MEDS ORDERED: FAMOTIDINE 20 MG (PEPCID) TABLET PO PRN (15:48)
[2017-11-22] MEDS ORDERED: CALCIUM CARBONATE 500 MG (TUMS) TAB.CHEW PO PRN (16:00)
[2017-11-22] MEDS: SERTRALINE 50 MG (ZOLOFT) TABLET PO SCH (20:38)
[2017-11-22] MEDS: PREGABALIN 75 MG (LYRICA) CAP PO SCH (20:39)
[2017-11-22] MEDS ORDERED: buPROPion 100 MG (WELLBUTRIN) TAB PO SCH (21:00)
[2017-11-22] MEDS ORDERED: ATORVASTATIN 40 MG (LIPITOR) TABLET PO SCH (21:00)
[2017-11-22] MEDS ORDERED: PRIMIDONE 50 MG TAB (MYSOLINE) PO SCH (21:00)
[2017-11-22] MEDS ORDERED: PRAMIPEXOLE 0.5 MG TAB (MIRAPEX) PO SCH (21:00)
[2017-11-23 03:45] VITALS: BP 158/74
[2017-11-23 06:19] LABS: HEMOGLOBIN 13.6 G/DL (13.3-17.7); MEAN PLATELET VOLUME 10.8 FL (7.4-10.4); RED BLOOD COUNT 4.72 10^6/uL (4.35-5.85); WHITE BLOOD COUNT 8.9 10^3/uL (4.3-11.0)
[2017-11-23 06:42] LABS: BUN/CREATININE RATIO 17; CALCIUM 8.9 MG/DL (8.5-10.1); CARBON DIOXIDE 24 MMOL/L (21-32); CHLORIDE 107 MMOL/L (98-107); CREATININE SERUM 0.89 MG/DL (0.60-1.30); GFR ESTIMATED > 60; GLUCOSE 140 MG/DL (70-105); POTASSIUM 4.5 MMOL/L (3.6-5.0); SODIUM 138 MMOL/L (135-145)
--- NOTE | 2017-11-23 07:57 | Progress Note-Cardiology ---
Cardiology SOAP Progress Note Objective: I&O/Vital Signs 11/23/17 11/23/17 11/23/17 11/23/17 03:45 04:00 07:00 08:00 Temp 99.1 Pulse 75 65 Resp 18 B/P (MAP) 158/74 (102) Pulse Ox 98 98 98 O2 Delivery Nasal Cannula Nasal Cannula Room Air O2 Flow Rate 1.50 2.00 2.00 11/23/17 11/23/17 08:00 12:00 Temp 98.0 97.3 Pulse 69 65 Resp 20 20 B/P (MAP) 156/72 (100) 146/71 (96) Pulse Ox 99 96 O2 Delivery Room Air Room Air 11/23/17 00:00 Intake Total 960 ml Balance 960 ml Weight (Pounds): 224 Weight (Ounces): 3.0 Weight (Calculated Kilograms): 101.686326 Results/Procedures: Labs Laboratory Tests 11/23/17 06:00: White Blood Count 8.9, Red Blood Count 4.72, Hemoglobin 13.6, Hematocrit 41, Mean Corpuscular Volume 86, Mean Corpuscular Hemoglobin 29, Mean Corpuscular Hemoglobin Concent 33, Red Cell Distribution Width 15.0H, Platelet Count 167, Mean Platelet Volume 10.8H, Sodium Level 138, Potassium Level 4.5, Chloride Level 107, Carbon Dioxide Level 24, Anion Gap 7, Blood Urea Nitrogen 15, Creatinine 0.89, Estimat Glomerular Filtration Rate > 60, BUN/Creatinine Ratio 17, Glucose Level 140H, Calcium Level 8.9 Microbiology 11/22/17 MRSA Screen - Final, Complete MRSA not isolated A/P: Assessment: Leg claudication. PAD. On 09/30/14, he underwent Stenting of the R SFA and the L external iliac artery by Dr Dockery. Diffuse, mild peripheral arterial disease. On last peripheral angio of 04/26/17 there is a patent stent in the right superficial femoral artery and a patent stent in the left common iliac extending into external iliac artery. There was 90% L SFA stenosis to which successful balloon angioplasty was carried out. ABIs of 11/15/17 are indicative of mod R leg and severe L leg obstructive disease R groin pseudoaneurysm (post cath of 04/26/17) on groin u/s of 05/02/17, treated with local pressure, resolved (thrombosed) on subsequent groin u/s of 05/03/17 R groin hematoma, post cath of 04/26/17 Bilateral leg swelling due varicose veins and venous insuff. No evidence of DVT on bilat leg venous Doppler of 04/26/17 Atypical syncope without any evidence of cardiac etiology seen on 4 day ambulatory manager agency of 08-04-16 to 08-09-16 CAD. Last card cath was on 03/19/17: complete occlusion within the distal portion of a previously placed stent in 2014 (overlapping from Promus Premier 4.0 x 24 and 4.0 x 12 mm stents). To this complete occlusion, successful balloon angioplasty and stenting was carried out. Following deployment of Alpine Xience 4.0 x 12 mm stent, there is 0% residual stenosis and normal antegrade flow. 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 Mild to moderate disease of the left coronary system. Significantly elevated left ventricular end-diastolic pressure L ICA mild to mod dz seen on CTA head/neck of 08-09-16 Mild to mod stenosis of the distal L SC seen on CTA of head/neck of 08-09-16 8mm thyroid nodule seen on head/neck CT of 08-09-16 - f/u advised with PCP Chronic tobacco use CTA of the chest on 03-19-17 showed minimal bilat basilar atelectasis. Indeterminant 3 mm nodular density anterior right upper lobe, new from piror CT. S/p L TKR and arthroscopic R knee surg Echo of 03/20/17: shows LVEF 50-55%, Grade I diastolic dysfunction of LV ALLEN, treated with CPAP - followed by Dr. Zaman Incomplete RBBB Hypertension, labile Hyperlipidemia Mild carotid art disease on u/s of 08/29/15 SLOAN RIVERA Nov 23, 2017 07:57
[2017-11-23 08:00] VITALS: BP 156/72
[2017-11-23] MEDS: PREGABALIN 75 MG (LYRICA) CAP PO SCH (08:50)
[2017-11-23] MEDS: SERTRALINE 50 MG (ZOLOFT) TABLET PO SCH (08:50)
[2017-11-23] MEDS ORDERED: ASPIRIN E.C. 81 MG (ECOTRIN) TAB PO SCH (09:00)
[2017-11-23] MEDS ORDERED: CLOPIDOGREL 75 MG (PLAVIX) TABLET PO SCH (09:00)
--- NOTE | 2017-11-23 09:05 | Discharge Inst-Cardiology ---
Discharge Inst-Cardiac Discharge Medications Continued Medications: Aspirin (Aspirin EC) 81 Mg Tablet.dr 81 MG PO DAILY, TAB Atorvastatin Calcium (Atorvastatin Calcium) 40 Mg Tablet 40 MG PO HS, TAB Bupropion HCl (Bupropion HCl) 100 Mg Tablet 100 MG PO HS, TAB Calcium Carbonate (Tums) 300 Mg Tab.chew 300 MG PO TID PRN for HEARTBURN, TAB Clopidogrel Bisulfate (Clopidogrel) 75 Mg Tablet 75 MG PO DAILY, TAB Hydrocodone/Acetaminophen (Hydrocodon-Acetaminophn 10-325) 1 Each Tablet 1 TAB PO EVERY 4-6 HOURS PRN for PAIN-MODERATE, TAB Metoprolol Succinate (Metoprolol Succinate) 50 Mg Tab.er.24h 25 MG PO DAILY, TAB TAKES 1/2 (50MG) TABLET Pramipexole Di-HCl (Pramipexole Dihydrochloride) 0.5 Mg Tablet 0.5 MG PO HS, TAB Pregabalin (Lyrica) 75 Mg Capsule 75 MG PO BID, CAP Primidone (Primidone) 50 Mg Tablet 50 MG PO HS, TAB Ranitidine HCl (Zantac) 150 Mg Tablet 150 MG PO DAILY PRN for HEARTBURN, TAB Sertraline HCl (Sertraline HCl) 50 Mg Tablet 50 MG PO BID, TAB Patient Instructions Patient Instructions: Please schedule follow up appointment to see Dr. Houston in 2-3 weeks SLOAN RIVERA Nov 23, 2017 09:05
--- NOTE | 2017-11-23 09:44 | Progress Note-Cardiology ---
Cardiology SOAP Progress Note Subjective: No cp or palp or syncope Some soreness at site of groin access No leg discoloration, swelling or pain Objective: I&O/Vital Signs 11/22/17 11/22/17 11/23/17 11/23/17 23:25 23:54 00:00 01:00 Temp 97.6 Pulse 68 74 Resp 18 B/P (MAP) 133/60 (84) Pulse Ox 98 98 O2 Delivery Nasal Cannula Nasal Cannula Nasal Cannula O2 Flow Rate 1.50 1.50 2.00 11/23/17 11/23/17 11/23/17 11/23/17 03:45 04:00 07:00 08:00 Temp 99.1 98.0 Pulse 75 65 69 Resp 18 20 B/P (MAP) 158/74 (102) 156/72 (100) Pulse Ox 98 98 99 O2 Delivery Nasal Cannula Nasal Cannula Room Air O2 Flow Rate 1.50 2.00 11/23/17 00:00 Intake Total 960 ml Balance 960 ml Weight (Pounds): 224 Weight (Ounces): 3.0 Weight (Calculated Kilograms): 101.086749 Groin site without hematoma: Yes Bruising: mild bruising Constitutional: AAO x 3, well-developed, well-nourished Respiratory: No accessory muscle use; lungs clear to percussion, lungs clear to auscultation Cardiovascular: regular rate-rhythm, S1 and S2, systolic murmur (faint GEMA at card base) Gastrointestional: No tender; soft; No guarding, No rebound; audible bowel sounds Extremities: No clubbing, No cyanosis, No significant edema Neurologic/Psychiatric: grossly intact, power is 5/5 both on sides Skin: No rash on exposed areas, No ulcerations on exposed areas Results/Procedures: Labs Laboratory Tests 11/23/17 06:00: White Blood Count 8.9, Red Blood Count 4.72, Hemoglobin 13.6, Hematocrit 41, Mean Corpuscular Volume 86, Mean Corpuscular Hemoglobin 29, Mean Corpuscular Hemoglobin Concent 33, Red Cell Distribution Width 15.0H, Platelet Count 167, Mean Platelet Volume 10.8H, Sodium Level 138, Potassium Level 4.5, Chloride Level 107, Carbon Dioxide Level 24, Anion Gap 7, Blood Urea Nitrogen 15, Creatinine 0.89, Estimat Glomerular Filtration Rate > 60, BUN/Creatinine Ratio 17, Glucose Level 140H, Calcium Level 8.9 Laboratory Tests 11/22/17 09:28 11/23/17 06:00 A/P: Assessment: PAD. Last peripheral angio and intervention on 11/22/17: patent stents in R SFA and L Ext Iliac; L SFA had a long segment of occlusion that was treated with PTCA and stents (overlapping Absolute 6x100, 6x100, and 6x60) Bilateral leg swelling due varicose veins and venous insuff. No evidence of DVT on bilat leg venous Doppler of 04/26/17 Atypical syncope without any evidence of cardiac etiology seen on 4 day ambulatory cardiac care unit nurse of 08-04-16 to 08-09-16 CAD. Last card cath was on 03/19/17: complete occlusion within the distal portion of a previously placed stent in 2014 (overlapping from Promus Premier 4.0 x 24 and 4.0 x 12 mm stents). To this complete occlusion, successful balloon angioplasty and stenting was carried out. Following deployment of Alpine Xience 4.0 x 12 mm stent, there is 0% residual stenosis and normal antegrade flow. 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 Mild to moderate disease of the left coronary system. Significantly elevated left ventricular end-diastolic pressure L ICA mild to mod dz seen on CTA head/neck of 08-09-16 Mild to mod stenosis of the distal L SC seen on CTA of head/neck of 08-09-16 8mm thyroid nodule seen on head/neck CT of 08-09-16 - f/u advised with PCP Chronic tobacco use CTA of the chest on 03-19-17 showed minimal bilat basilar atelectasis. Indeterminant 3 mm nodular density anterior right upper lobe, new from piror CT. S/p L TKR and arthroscopic R knee surg Echo of 03/20/17: shows LVEF 50-55%, Grade I diastolic dysfunction of LV ALLEN, treated with CPAP - followed by Dr. Zaman Incomplete RBBB Hypertension, labile Hyperlipidemia Plan: * We reviewed the procedures of 11/22/17 in detail * Focus of management is on risk factor mod * We advised him again to quit smoking immediately and completely * Med compliance was advised. Rationale of meds was reviewed * Outpatient f/u is advised CHRISTEL CARRASQUILLO MD FACP FAC CCDS Nov 23, 2017 09:44
[2017-11-23] MEDS ORDERED: NS 250 ML (IVPB) BAG IV ONE (11:45)
[2017-11-23] MEDS ORDERED: IOHEXOL 350 MG/ML 150 ML (OMNIPAQUE 350) VIAL IV ONE (11:45)
[2017-11-23 12:00] VITALS: BP 146/71
--- NOTE | 2017-11-23 12:53 | Diagnostic Imaging Report ---
PROCEDURE: CT bilateral lower extremities with contrast. TECHNIQUE: Imaging was performed through the lower extremities with intravenous contrast. INDICATION: Left upper leg pain. FINDINGS: There are no prior CTA aorta and bilateral runoff exams available for comparison. By history, the patient had femoral stents inserted yesterday. On this study, there do appear to be stents throughout much of the length of the superficial femoral artery on the left. There is also a much shorter segment stent involving the distal superficial femoral artery. The stents are patent and there is opacification of both popliteal arteries. The popliteal artery on the left is difficult to assess due to the streak artifact related to the total knee prosthesis on the left. The trifurcation arteries are best visualized on the coronal reconstructed images. The vessels are small and there is only a single vessel (posterior tibial artery) runoff to the ankle joints. The distal abdominal aorta is small and heavily calcified. The distal aorta measures approximately 1.6 x 1.7 cm in maximum transverse and AP diameters. There is also atherosclerotic disease involving both common iliac arteries. There is a stent in the left common iliac artery and the stent seems to be patent. There is no hemodynamically significant stenosis of the external iliac or common femoral arteries. There is distortion of the subcutaneous fat in the right groin. Most likely, this is related to the recent vascular procedure. There is diverticulosis of the sigmoid colon without evidence for acute diverticulitis. The appendix is visualized and is not abnormally thickened. The urinary bladder and prostate gland are grossly unremarkable. The bone windows Show no evidence for a fracture or for a destructive lesion. There is no acute abnormality of the visualized abdomen or pelvis. There do appear to be a number of varicosities along the medial aspect of the right lower leg. IMPRESSION: 1. There are bilateral superficial femoral artery stents in place. There is also a common iliac stent in place on the left. The stents are patent. 2. There is arterial blood flow to both lower extremities and there is no evidence for a hemodynamically significant stenosis. However the trifurcation arteries are small and there is only a single vessel (posterior tibial) artery to each lower leg. 3. There is no acute abnormality of the visualized abdomen or pelvis. 4. The distortion of the subcutaneous fat in the right groin is most likely related to the patient's recent interventional procedure. Dictated by: Dictated on workstation # [id number]
[2017-11-23 14:30] VITALS: BP 146/71
== END 2017-11-23 14:30 | disposition home or self-care (01) ==
LOC: CATH 08:54 → 4TH 14:30 → CATH 11-23 14:30
PROVIDERS: ATTEND Internal Medicine Cardiovascular Disease
DX: I70.202 Unspecified atherosclerosis of native arteries of extremities, left leg (principal); I87.2 Venous insufficiency (chronic) (peripheral); I83.93 Asymptomatic varicose veins of bilateral lower extremities; I25.10 Atherosclerotic heart disease of native coronary artery without angina pectoris; R55 Syncope and collapse; I65.22 Occlusion and stenosis of left carotid artery; F17.210 Nicotine dependence, cigarettes, uncomplicated; Z96.651 Presence of right artificial knee joint; G47.33 Obstructive sleep apnea (adult) (pediatric); I10 Essential (primary) hypertension; E78.5 Hyperlipidemia, unspecified; E04.1 Nontoxic single thyroid nodule; I45.10 Unspecified right bundle-branch block; Z79.899 Other long term (current) drug therapy
CPT/HCPCS: 36415; 37226; 75716; 80048; 80053; 80061; 85027; 85610; 85730; 87081; 90686; 93005

== ENCOUNTER → 2017-11-28 | Outpatient (CLI) | payer OTHER ==
[~2017-11-28] MED LIST changes: +CALC300T4 PO; +RANI150T46 PO
== END ==
LOC: WOUNDCARE 08:54
PROVIDERS: ATTEND Surgery
DX: B07.0 Plantar wart (principal); I70.292 Other atherosclerosis of native arteries of extremities, left leg
CPT/HCPCS: 99212

== ENCOUNTER → 2017-11-28 | Outpatient (CLI) | payer OTHER ==
--- NOTE | 2017-11-28 12:32 | Diagnostic Imaging Report ---
INDICATION: Patient is status post recent placement of left superficial femoral artery stents, now complaining of pain in the left groin region. Note is made that the patient underwent catheterization of the right groin and not the left groin. TECHNIQUE: Grayscale, color-flow, and duplex Doppler evaluation of the left lower extremity arterial system was performed. FINDINGS: Triphasic waveforms in the left common femoral artery as well as the superficial femoral artery are noted. The velocities are normal. No stenosis or occlusion is seen. The recently placed stent appears to be patent. No fluid collection is seen. IMPRESSION: Unremarkable limited left lower extremity arterial Doppler. Dictated by: Dictated on workstation # [id number]
== END ==
LOC: RAD 11:00
PROVIDERS: ATTEND Internal Medicine Cardiovascular Disease
DX: M79.604 Pain in right leg (principal); M79.605 Pain in left leg; Z95.820 Peripheral vascular angioplasty status with implants and grafts; Z98.890 Other specified postprocedural states
CPT/HCPCS: 93926

== ENCOUNTER 2018-03-13 12:42 | Emergency (ER) | payer OTHER ==
[~2018-03-13] VITALS: Ht 188 cm; Wt 117.9 kg
[2018-03-13] MEDS ORDERED: ASPIRIN 81 MG CHEW (CHILDREN'S ASA) PO ONE (13:00)
--- NOTE | 2018-03-13 13:21 | ED Dyspnea ---
General Stated Complaint: SOB Source of Information: Patient Exam Limitations: No Limitations History of Present Illness Date Seen by Provider: Mar 13, 2018 Time Seen by Provider: 13:19 Initial Comments To ER with reports of shortness of breath and a productive cough for the past 2- 3 days. He has general malaise as well. Denies chest pain but does have some epigastric pain. Denies fevers or chills. Timing/Duration: Other (2-3 days) Severity: Moderate Activities at Onset: None Modifying Factors: Improves With Coughing Associated Symptoms: Denies Symptoms Allergies and Home Medications Allergies Coded Allergies: No Known Drug Allergies (Unverified , 08/02/16) Home Medications Albuterol Sulfate 1 Puff Puff, 2 PUFF IH Q4H 1 PUFF = 90 MCG Prescribed by: CHRIS BOTELLO on 03/13/18 144 Aspirin 81 Mg Tablet.dr, 81 MG PO DAILY, (Reported) Atorvastatin Calcium 40 Mg Tablet, 40 MG PO HS, (Reported) Bupropion HCl 100 Mg Tablet, 100 MG PO HS, (Reported) Calcium Carbonate 300 Mg Tab.chew, 300 MG PO TID PRN for HEARTBURN, (Reported) Cefuroxime Axetil 250 Mg Tablet, 250 MG PO BID Prescribed by: CHRIS BOTELLO on 03/13/18 144 Clopidogrel Bisulfate 75 Mg Tablet, 75 MG PO DAILY, (Reported) Hydrocodone/Acetaminophen 1 Each Tablet, 1 TAB PO EVERY 4-6 HOURS PRN for PAIN- MODERATE, (Reported) Metoprolol Succinate 50 Mg Tab.er.24h, 25 MG PO DAILY, (Reported) TAKES 1/2 (50MG) TABLET Pramipexole Di-HCl 0.5 Mg Tablet, 0.5 MG PO HS, (Reported) Prednisone 20 Mg Tab, 40 MG PO DAILY Prescribed by: CHRIS BOTELLO on 03/13/18 1442 Pregabalin 75 Mg Capsule, 75 MG PO BID, (Reported) Primidone 50 Mg Tablet, 50 MG PO HS, (Reported) Ranitidine HCl 150 Mg Tablet, 150 MG PO DAILY PRN for HEARTBURN, (Reported) Sertraline HCl 50 Mg Tablet, 50 MG PO BID, (Reported) Patient Home Medication List Home Medication List Reviewed: Yes Review of Systems Review of Systems Constitutional: see HPI; No chills, No fever; malaise, weakness EENTM: see HPI Respiratory: see HPI, cough, short of breath Cardiovascular: no symptoms reported; No chest pain Genitourinary: no symptoms reported Musculoskeletal: no symptoms reported Skin: no symptoms reported Psychiatric/Neurological: No Symptoms Reported Past Xneluyk-Vzcur[employer]fgbtt Hx Patient Social History Type Used: Cigarettes 2nd Hand Smoke Exposure: Yes Recent Hopitalizations: No Immunizations Up To Date Tetanus Booster (TDap): Unknown Date of Pneumonia Vaccine: Sep 30, 2012 Date of Influenza Vaccine: Dec 13, 2016 Seasonal Allergies Seasonal Allergies: No Past Medical History Surgeries: Yes (NECK AND BACK, CYST REMOVED, KNEE ARTH, LEFT TOTAL KNEE 05/01/12 , 13 STENTS) Respiratory: No Pneumonia, Sleep Apnea Currently Using CPAP: Yes Currently Using BIPAP: No Cardiac: Yes (13 STENTS PLACED) Hypertension Neurological: Yes Neuropathy Reproductive Disorders: No Sexually Transmitted Disease: No HIV/AIDS: No Genitourinary: No Gastrointestinal: No Gastroesophageal Reflux Musculoskeletal: Yes (OSTEO ARTHRITIS) Arthritis Endocrine: Yes (possible diabetes) HEENT: No Cancer: No Psychosocial: Yes Depression Integumentary: Yes (RECENT DIAGNOSIS OF FUNGAL INFECTION ON BILAT LEGS) Blood Disorders: No Physical Exam Vital Signs Vital Signs - First Documented 03/13/18 12:42 Temp 98.1 Pulse 78 Resp 16 B/P (MAP) 127/86 (100) Pulse Ox 100 O2 Delivery Room Air Capillary Refill : Height, Weight, BMI Height: 6'1.00" Weight: 224lbs. 3.0oz. [id number]; 31.0 BMI Method:Stated General Appearance: No Apparent Distress, WD/WN HEENT: PERRL/EOMI, TMs Normal Respiratory: Normal Breath Sounds, No Accessory Muscle Use, No Respiratory Distress Cardiovascular: Regular Rate, Rhythm, Normal Peripheral Pulses Gastrointestinal: Normal Bowel Sounds, Non Tender, Soft Neurologic/Psychiatric: Alert, Oriented x3 Skin: Normal Color, Warm/Dry Progress/Results/Core Measures Results/Orders Lab Results Laboratory Tests Test 03/13/18 13:50 Range/Units White Blood Count 8.4 4.3-11.0 10^3/uL Red Blood Count 5.35 4.35-5.85 10^6/uL Hemoglobin 15.3 13.3-17.7 G/DL Hematocrit 46 40-54 % Mean Corpuscular Volume 87 80-99 FL Mean Corpuscular Hemoglobin 29 25-34 PG Mean Corpuscular Hemoglobin Concent 33 32-36 G/DL Red Cell Distribution Width 15.1 H 10.0-14.5 % Platelet Count 193 130-400 10^3/uL Mean Platelet Volume 10.7 H 7.4-10.4 FL Neutrophils (%) (Auto) 71 42-75 % Lymphocytes (%) (Auto) 18 12-44 % Monocytes (%) (Auto) 10 0-12 % Eosinophils (%) (Auto) 2 0-10 % Basophils (%) (Auto) 0 0-10 % Neutrophils # (Auto) 6.0 1.8-7.8 X 10^3 Lymphocytes # (Auto) 1.5 1.0-4.0 X 10^3 Monocytes # (Auto) 0.8 0.0-1.0 X 10^3 Eosinophils # (Auto) 0.1 0.0-0.3 10^3/uL Basophils # (Auto) 0.0 0.0-0.1 10^3/uL Prothrombin Time 13.7 12.2-14.7 SEC INR Comment 1.1 0.8-1.4 Activated Partial Thromboplast Time 32 24-35 SEC D-Dimer 0.37 0.00-0.49 UG/ML Sodium Level 139 135-145 MMOL/L Potassium Level 4.0 3.6-5.0 MMOL/L Chloride Level 106 98-107 MMOL/L Carbon Dioxide Level 22 21-32 MMOL/L Anion Gap 11 5-14 MMOL/L Blood Urea Nitrogen 10 7-18 MG/DL Creatinine 0.97 0.60-1.30 MG/DL Estimat Glomerular Filtration Rate > 60 BUN/Creatinine Ratio 10 Glucose Level 148 H 70-105 MG/DL Calcium Level 9.1 8.5-10.1 MG/DL Corrected Calcium 9.1 8.5-10.1 MG/DL Magnesium Level 2.3 1.8-2.4 MG/DL Total Bilirubin 0.3 0.1-1.0 MG/DL Aspartate Amino Transf (AST/SGOT) 17 5-34 U/L Alanine Aminotransferase (ALT/SGPT) 18 0-55 U/L Alkaline Phosphatase 122 40-136 U/L Myoglobin 31.6 10.0-92.0 NG/ML Troponin I < 0.028 <0.028 NG/ML B-Type Natriuretic Peptide 29.2 <100.0 PG/ML Total Protein 7.4 6.4-8.2 GM/DL Albumin 4.0 3.2-4.5 GM/DL Lipase 20 8-78 U/L Micro Results Microbiology 03/13/18 Influenza Types A,B Antigen (ALEX) - Final, Complete My Orders Orders - CHRIS BOTELLO CONVEYOR TECHNICIAN Cbc With Automated Diff (03/13/18 12:59) Magnesium (03/13/18 12:59) Ekg Tracing (03/13/18 12:59) Cardiac Profile 1 (03/13/18 12:59) Comprehensive Metabolic Panel (03/13/18 12:59) Myoglobin Serum (03/13/18 12:59) Protime With Inr (03/13/18 12:59) Partial Thromboplastin Time (03/13/18 12:59) O2 (03/13/18 12:59) Monitor-Rhythm Ecg Trace Only (03/13/18 12:59) Lipid Panel (03/14/18 06:00) Aspirin Chewable Tablet (Baby Aspirin Ch (03/13/18 13:00) Saline Lock/Iv-Start (03/13/18 12:59) BNP (03/13/18 12:59) Fibrin Degradation Products (03/13/18 12:59) Chest Pa/Lat (2 View) (03/13/18 13:11) Influenza A And B Antigens (03/13/18 13:11) Lipase (03/13/18 13:11) Albuterol/Ipra Inhalation Soln (Duoneb I (03/13/18 13:30) Svn Small Volume Nebulizer (03/13/18 13:21) Lactated Ringers (Lr 1000 Ml Iv Solution (03/13/18 14:15) Medications Given in ED Current Medications Medications Dose Ordered Sig/Paula Route Start Time Stop Time Status Last Admin Dose Admin Albuterol/ Ipratropium 3 ml ONCE ONCE INH 03/13/18 13:30 03/13/18 13:31 DC 03/13/18 14:17 3 ML Aspirin 324 mg ONCE ONCE PO 03/13/18 13:00 03/13/18 13:01 DC 03/13/18 13:40 324 MG Vital Signs/I&O 03/13/18 03/13/18 03/13/18 12:42 12:47 14:17 Temp 98.1 Pulse 78 Resp 16 B/P (MAP) 127/86 (100) Pulse Ox 100 100 97 O2 Delivery Room Air Room Air Room Air Diagnostic Imaging Diagonstic Imaging: Xray Plain Films/CT/US/NM/MRI: chest Comments NAME: GYPSY CARUSO JR MED REC#: [id number] PT STATUS: REG ER : 1955 PHYSICIAN: CHRIS BOTELLO APRN ADMIT DATE: 03/13/18/ER Draft Date of Exam:03/13/18 CHEST PA/LAT (2 VIEW) Indication: Shortness of air. Time of exam: 2:23 PM Correlation is made with prior study from 04/17/2017. Heart size is stable. The lungs are clear. The pulmonary vascularity is normal. No infiltrate, effusion or pneumothorax is identified. Impression: No acute cardiopulmonary process is detected. Dictated on workstation # [id number] Dict: 03/13/18 1403 Trans: 03/13/[address] [facility] [id number] Interpreted by: ANDREEA JARVIS MD Electronically signed by: Departure Communication (Admissions) states he seems anxious preoperative short course of lorazepam. Impression Primary Impression: Dyspnea Qualified Codes: R06.00 - Dyspnea, unspecified Additional Impression: Acute bronchitis Qualified Codes: J20.9 - Acute bronchitis, unspecified Disposition: 01 HOME, SELF-CARE Condition: Stable Departure-Patient Inst. Decision time for Depature: 14:40 Referrals: BETH ANDERSON MD (PCP/Family) Primary Care Physician Patient Instructions: Acute Bronchitis, Adult (DC) Add. Discharge Instructions: 1. Call your doctor later this week for follow up appointment. return to ER for any concerns. 3 Scripts Lorazepam (Lorazepam) 0.5 Mg Tablet 0.5 MG PO TID PRN for ANXIETY, #10 TAB Prov: CHRIS BOTELLO APRN 03/13/18 Albuterol Sulfate (PROAIR HFA) 1 Puff Puff 2 PUFF IH Q4H, #1 PUFF 1 PUFF = 90 MCG Prov: CHRIS BOTELLO APRN 03/13/18 Cefuroxime Axetil (Cefuroxime) 250 Mg Tablet 250 MG PO BID, #10 TAB Prov: CHRIS BOTELLO APRN 03/13/18 Prednisone (Prednisone) 20 Mg Tab 40 MG PO DAILY, #8 TAB Prov: CHRIS BOTELLO APRN 03/13/18 Work/School Note: Work Release Form Date Seen in the Emergency Department: Mar 13, 2018 Return to Work: Mar 15, 2018 CHRIS BOTELLO APRN Mar 13, 2018 13:21
[2018-03-13] MEDS ORDERED: RT-ALBUTEROL/IPRATROPIUM 3 ML (DUONEB) VIAL INH ONE (13:30)
[2018-03-13 14:01] LABS: BASOPHILS % (AUTO) 0 % (0-10); EOSINOPHILS # (AUTO) 0.1 10^3/uL (0.0-0.3); EOSINOPHILS % (AUTO) 2 % (0-10); HEMATOCRIT 46 % (40-54); HEMOGLOBIN 15.3 G/DL (13.3-17.7); LYMPHOCYTES # (AUTO) 1.5 X 10^3 (1.0-4.0); LYMPHOCYTES % (AUTO) 18 % (12-44); MEAN CORPUSCULAR HEMOGLOBIN 29 PG (25-34); MEAN CORPUSCULAR HGB CONC 33 G/DL (32-36); MEAN CORPUSCULAR VOLUME 87 FL (80-99); MEAN PLATELET VOLUME 10.7 FL (7.4-10.4); MONOCYTES # (AUTO) 0.8 X 10^3 (0.0-1.0); MONOCYTES % (AUTO) 10 % (0-12); NEUTROPHILS % (AUTO) 71 % (42-75); PLATELET COUNT 193 10^3/uL (130-400); RED BLOOD COUNT 5.35 10^6/uL (4.35-5.85); RED CELL DISTRIBUTION WIDTH 15.1 % (10.0-14.5); WHITE BLOOD COUNT 8.4 10^3/uL (4.3-11.0)
--- NOTE | 2018-03-13 14:06 | Diagnostic Imaging Report ---
Indication: Shortness of air. Time of exam: 2:23 PM Correlation is made with prior study from 04/17/2017. Heart size is stable. The lungs are clear. The pulmonary vascularity is normal. No infiltrate, effusion or pneumothorax is identified. Impression: No acute cardiopulmonary process is detected. Dictated by: Dictated on workstation # [id number]
[2018-03-13 14:11] LABS: INR 1.1 (0.8-1.4); PROTHROMBIN TIME PATIENT 13.7 SEC (12.2-14.7)
[2018-03-13] MEDS ORDERED: LACTATED RINGERS 1,000 ML IV SCH (14:15)
[2018-03-13 14:18] LABS: ALANINE AMINOTRANSFERASE 18 U/L (0-55); ALKALINE PHOSPHATASE 122 U/L (40-136); BILIRUBIN,TOTAL 0.3 MG/DL (0.1-1.0); BUN/CREATININE RATIO 10; CALCIUM 9.1 MG/DL (8.5-10.1); CARBON DIOXIDE 22 MMOL/L (21-32); CHLORIDE 106 MMOL/L (98-107); CREATININE SERUM 0.97 MG/DL (0.60-1.30); GFR ESTIMATED > 60; GLUCOSE 148 MG/DL (70-105); MAGNESIUM 2.3 MG/DL (1.8-2.4); SODIUM 139 MMOL/L (135-145); TOTAL PROTEIN 7.4 GM/DL (6.4-8.2)
[2018-03-13 14:25] LABS: MYOGLOBIN SERUM 31.6 NG/ML (10.0-92.0)
[2018-03-13] MEDS ORDERED: RT-ALBUINH IH (14:42)
[2018-03-13] MEDS ORDERED: CEFU250T80 PO (14:42)
[2018-03-13] MEDS ORDERED: PRD20T PO (14:42)
[2018-03-13] MEDS ORDERED: methylPREDNISolone 125 MG (Solu-MEDROL) VIAL IVP ONE (15:00)
[2018-03-13] MEDS ORDERED: LORA0.5T PO (15:00)
[2018-03-13 15:38] VITALS: BP 126/74
== END 2018-03-13 15:37 | disposition home or self-care (01) ==
LOC: ER 12:42 → EDUNIT# 12:42 → ER 15:37
DX: J20.9 Acute bronchitis, unspecified (principal); G47.30 Sleep apnea, unspecified; I10 Essential (primary) hypertension; K21.9 Gastro-esophageal reflux disease without esophagitis; F32.9 Major depressive disorder, single episode, unspecified; Z95.820 Peripheral vascular angioplasty status with implants and grafts; Z79.51 Long term (current) use of inhaled steroids; Z79.82 Long term (current) use of aspirin; Z79.02 Long term (current) use of antithrombotics/antiplatelets; Z79.52 Long term (current) use of systemic steroids; Z77.22 Contact with and (suspected) exposure to environmental tobacco smoke (acute) (chronic); Z87.01 Personal history of pneumonia (recurrent)
CPT/HCPCS: 36415; 71046; 80053; 83690; 83735; 83874; 83880; 84484; 85025; 85379; 85610; 85730; 87804; 93041; 94640

== ENCOUNTER → 2018-03-27 | Outpatient (CLI) | payer OTHER ==
[~2018-03-27] MED LIST changes: +CEFU250T80 PO; +LORA0.5T PO; +PRD20T PO; +RT-ALBUINH IH
--- NOTE | 2018-03-27 11:54 | Diagnostic Imaging Report ---
PROCEDURE: US Bilateral lower extremity arterial. TECHNIQUE: Multiple real-time grayscale images are obtained through both lower extremity arterial systems with color Doppler imaging and color Doppler spectral analysis. INDICATION: Leg pain. FINDINGS: The previous left lower extremity arterial Doppler exam of 11/28/2017 failed to show any sign of a hemodynamically significant stenosis. On this exam, there are stents in the superficial femoral artery extending from the proximal portion of the vessel to the distal portion. The stent is patent, but there is now a marked elevation in the velocity in the proximal superficial femoral artery when compared with the prior exam. On the prior exam, the velocity in this area was 1.08 m/s. On this exam, it is 2.91 m/s. There is fairly good arterial blood flow in the remainder of the superficial femoral artery and popliteal arteries on the left. There is no hemodynamically significant stenosis of the trifurcation arteries, but there is monophasic flow in the dorsalis pedis artery on the left. There is also a stent on the right extending from the mid portion of the superficial femoral artery to the distal superficial femoral artery. The stent appears patent and there is no abrupt alteration of the velocities to indicate a hemodynamically significant stenosis. There is no other hemodynamically significant stenosis identified on the right although flow was not seen in the dorsalis pedis artery. IMPRESSION: 1. There are bilateral stents in place. The stents are patent, but the marked elevation of the velocity in the proximal superficial femoral artery on the left does suggest that there is a hemodynamically significant stenosis in this area. If further imaging is desired, then CTA of the aorta with bilateral runoffs will be recommended. 2. There is no evidence for a hemodynamically significant stenosis of the right arterial system. Dictated by: Dictated on workstation # [id number]
== END ==
LOC: RAD 09:03
PROVIDERS: ATTEND Internal Medicine Cardiovascular Disease
DX: I25.10 Atherosclerotic heart disease of native coronary artery without angina pectoris (principal); I65.23 Occlusion and stenosis of bilateral carotid arteries; E11.9 Type 2 diabetes mellitus without complications; E78.5 Hyperlipidemia, unspecified; I70.213 Atherosclerosis of native arteries of extremities with intermittent claudication, bilateral legs; Z95.820 Peripheral vascular angioplasty status with implants and grafts
CPT/HCPCS: 93925

== ENCOUNTER → 2018-03-28 | Outpatient (CLI) | payer OTHER ==
[~2018-03-28] VITALS: Ht 185.4 cm; Wt 115.2 kg
[~2018-03-28] MED LIST changes: +CATHETER FLUSH 10 ML SYR IV PRN; +REGADENOSON 0.4 MG/5 ML SYR (LEXISCAN) IV ONE
[2018-03-28 09:50] VITALS: BP 160/84
[2018-03-28 09:53] VITALS: BP 144/80
--- NOTE | 2018-03-28 14:25 | STRESS TEST ---
DATE OF SERVICE: 03/28/2018 RESTING AND POST REGADENOSON TECHNETIUM-99M TETROFOSMIN SPECT CT IMAGING CLINICAL DIAGNOSES: Coronary artery disease, diabetes, hyperlipidemia, peripheral arterial disease and shortness of breath. Baseline images were carried out after injection of 10.5 mCi technetium-99m Tetrofosmin. This was followed by 0.4 mg Regadenoson and 28.9 mCi of technetium-99m Tetrofosmin for stress imaging. The electrocardiogram showed sinus rhythm at the baseline. The electrocardiogram is indicative of old inferior wall myocardial infarction. There is incomplete right bundle branch block. Isolated premature ventricular contractions were seen on this study. The patient had brief left-sided chest discomfort and a feeling of stomach discomfort, which resolved in a few minutes after a cessation of the Regadenoson infusion. Review of images at rest and following stress indicates an inferior perfusion defect, which is predominantly fixed. Gated images show inferior hypokinesis. Left ventricular ejection fraction is calculated to be 53%. Left ventricular end diastolic volume is 112 mL. TID is absent (0.85). CONCLUSIONS: 1. Inferior wall myocardial infarction with a small amount of gerry-infarct ischemia. 2. Inferior hypokinesis. 3. Well-preserved global left ventricular systolic function with ejection fraction of 53%. 4. Mild cardiomegaly. Job ID: [id number] DocumentID: [id number] Dictated Date: 03/28/2018 13:07:36 Md Allergy Immunology Date: 03/28/2018 14:25:37 Dictated By: CHRISTEL CARRASQUILLO MD, MA, FACP, FACC, MTDD
== END ==
LOC: CARD 07:51
PROVIDERS: ATTEND Internal Medicine Cardiovascular Disease
DX: I25.10 Atherosclerotic heart disease of native coronary artery without angina pectoris (principal); I77.9 Disorder of arteries and arterioles, unspecified; E11.51 Type 2 diabetes mellitus with diabetic peripheral angiopathy without gangrene; E78.5 Hyperlipidemia, unspecified; R06.02 Shortness of breath; I21.19 ST elevation (STEMI) myocardial infarction involving other coronary artery of inferior wall; I51.7 Cardiomegaly
CPT/HCPCS: 78452; 93017

== ENCOUNTER → 2018-03-31 | Outpatient (CLI) | payer OTHER ==
[~2018-03-31] MED LIST changes: -CATHETER FLUSH 10 ML SYR IV PRN; +RECEIVED CONTRAST (Hold Metformin) IV SCH; -REGADENOSON 0.4 MG/5 ML SYR (LEXISCAN) IV ONE
[2018-03-31] MEDS: NS 100 ML (IVPB) BAG IV ONE (16:18)
[2018-03-31] MEDS: IOHEXOL 350 MG/ML 150 ML (OMNIPAQUE 350) VIAL IV ONE (16:18)
[2018-03-31] MEDS: CATHETER FLUSH 10 ML SYR IV PRN (16:19)
--- NOTE | 2018-03-31 17:11 | Diagnostic Imaging Report ---
CTA AORTA W GNAGA RUNOFF W/WO TECHNIQUE: Helical imaging of the pelvis and bilateral lower extremities was performed without and with intravenous contrast. INDICATION: Peripheral vascular disease, leg pain, and hip pain. COMPARISON: 11/23/2017 FINDINGS: AORTA: Normal caliber abdominal aorta with moderate atherosclerotic plaquing. There is no significant luminal narrowing. The celiac, superior mesenteric, and bilateral renal arteries are patent centrally. Inferior mesenteric artery is also patent. ILIAC ARTERIES: There is a patent stent within the left common iliac artery. The left external iliac artery is patent with scattered atherosclerotic plaques which result in less than 20% luminal narrowing. Right common iliac artery is patent with peripheral calcified plaque resulting in less than 25% luminal narrowing. External iliac artery is patent with no significant luminal narrowing. RIGHT LOWER EXTREMITY: The right common femoral artery is patent with approximately 25% luminal narrowing due to calcified plaquing. The profunda femoris branches are widely patent. The proximal superficial femoral artery is normal. There is a stent within the mid right superficial femoral artery that is patent. At the terminal aspect of the stent, there is approximately 25-40% luminal narrowing of the distal superficial femoral artery. Popliteal artery is widely patent. There is a three-vessel runoff in the proximal lower leg and at least two vessels are patent to the level of the ankle. LEFT LOWER EXTREMITY: Common femoral artery is patent with approximately 20% luminal narrowing due to atherosclerotic plaquing. Profunda femoris branches are patent. There is a stent present within the superficial femoral artery from its origin through the adductor canal. There appears to be opacification throughout the entire stent, although there is likely at least moderate in-stent stenosis in the proximal aspect. The popliteal artery is patent where visualized. Streak artifact from knee arthroplasty does limit portions of the popliteal artery. There appears to be a three-vessel runoff to the lower leg. NON-VASCULATURE: Lung bases are clear. No pericardial or pleural effusion. The liver, gallbladder, and spleen are normal. Pancreas is unremarkable. No adrenal mass. The kidneys enhance normally without mass lesion or obstruction. Prostate is not enlarged. Urinary bladder is normal. Sigmoid colon diverticulosis without diverticulitis. No bowel obstruction. No abdominal or pelvic lymphadenopathy. No concerning osseous lesions. IMPRESSION: 1. No high-grade stenosis within the aorta or iliac arteries. Left common iliac stent is patent. 2. Bilateral superficial femoral stents remain patent. However, there is likely moderate in-stent stenosis in the proximal left SFA stent. 3. There appears to be three-vessel runoff to the bilateral lower legs. Dictated by: Dictated on workstation # [id number]
== END ==
LOC: RAD 15:34
PROVIDERS: ATTEND Nurse Practitioner Family
DX: I70.213 Atherosclerosis of native arteries of extremities with intermittent claudication, bilateral legs (principal); Z95.820 Peripheral vascular angioplasty status with implants and grafts
CPT/HCPCS: 75635

== ENCOUNTER 2018-05-07 20:15 | Emergency (ER) | payer OTHER ==
[~2018-05-07] VITALS: Ht 185.4 cm; Wt 114.3 kg
[~2018-05-07 20:15] MED LIST changes: -RECEIVED CONTRAST (Hold Metformin) IV SCH
--- OUTSIDE RECORDS SUMMARY | 2018-05-07 20:26 | XMS REPORT | Continuity of Care Document ---
Author Author [facility] Organization [facility] Address Unknown Phone Unavailable Allergies Active Description Code Type Severity Reaction Onset Reported/Identified Relationship to Patient Clinical Status Yes NKANo Known Allergies NKA Miscellaneous Allergy Unknown N/A 01/26/2008 Yes No Known Drug Allergies [id number] Drug Allergy Unknown N/A 08/02/2016 Medications There [...] NEC 05/03/2012 Ot 414.01 CORONARY ATHEROSCLEROSIS OF [place] CORON 05/03/2012 Ot 530.81 ESOPHAGEAL REFLUX 05/03/2012 [...] SILVESTRE MD Ot 414.01 CORONARY ATHEROSCLEROSIS OF [place] CORON 07/19/2014 EVETTE SILVESTRE MD Ot 440.20 ATHEROSCLEROSIS [place] ARTERIES EXTREMIT 07/19/2014 EVETTE SILVESTRE MD Ot 530.81 ESOPHAGEAL REFLUX 07/19/2014 EVTETE SILVESTRE MD Ot V45.82 PERCUTANEOUS TRANSLUM CORON [...] APRN Ot 305.1 07/25/2014 NWAGWU, ISIDORE O PAPER COLORER Ot 414.00 07/25/2014 NWAGWU, ISIDORE O PAPER COLORER Ot 443.9 07/25/2014 NWAGWU, ISIDORE O PAPER COLORER Ot 530.81 07/25/2014 NWAGWU, ISIDORE O PAPER COLORER Ot 780.57 07/25/2014 NWAGWU, ISIDORE O PAPER COLORER Ot 786.50 07/25/2014 NWAGWU, ISIDORE O PAPER COLORER Ot V45.82 07/25/2014 NWAGWU, ISIDORE O PAPER COLORER Ot 305.1 07/25/2014 NWAGWU, ISIDORE O PAPER COLORER Ot 414.00 07/25/2014 NWAGWU, ISIDORE O PAPER COLORER Ot 443.9 07/25/2014 NWAGWU, ISIDORE O PAPER COLORER Ot 530.81 07/25/2014 NWAGWU, ISIDORE O PAPER COLORER Ot 780.57 07/25/2014 NWAGWU, ISIDORE O PAPER COLORER Ot 786.50 07/25/2014 NWAGWU, ISIDORE O PAPER COLORER Ot V45.82 07/25/2014 NWAGWU, ISIDORE O PAPER COLORER Ot 305.1 07/25/2014 NWAGWU, ISIDORE O PAPER COLORER Ot 414.00 07/25/2014 NWAGWU, ISIDORE O PAPER COLORER Ot 443.9 07/25/2014 NWAGWU, ISIDORE O PAPER COLORER Ot 530.81 07/25/2014 NWAGWU, ISIDORE O PAPER COLORER Ot 780.57 07/25/2014 NWAGWU, ISIDORE O PAPER COLORER Ot 786.50 07/25/2014 NWAGWU, ISIDORE O PAPER COLORER Ot V45.82 07/31/2014 YULI MEJIA PAPER COLORER Ot 600.00 07/31/2014 YULI MEJIA PAPER COLORER Ot 608.3 07/31/2014 YULI MEJIA PAPER COLORER Ot 780.79 08/12/2014 YULI MEJIA PAPER COLORER Ot 600.00 08/12/2014 YULI MEJIA PAPER COLORER Ot 608.3 08/12/2014 MEJIA, ASHDEN N PAPER COLORER Ot 780.79 08/12/2014 Ot 250.00 08/12/2014 Ot 272.4 08/12/2014 Ot 601.9 08/12/2014 Ot V70.0 08/12/2014 Ot 715.36 08/12/2014 Ot V72.63 08/12/2014 Ot V72.81 08/12/2014 Ot V72.83 08/12/2014 Ot V74.8 08/12/2014 REINIER BAR Ot 780.97 08/12/2014 NWAGWU, ISIDORE O PAPER COLORER Ot 305.1 08/12/2014 NWAGWU, ISIDORE O PAPER COLORER Ot 414.00 08/12/2014 NWAGWU, ISIDORE O PAPER COLORER Ot 443.9 08/12/2014 NWAGWU, ISIDORE O PAPER COLORER Ot 530.81 08/12/2014 NWAGWU, ISIDORE O PAPER COLORER Ot 780.57 08/12/2014 NWAGWU, ISIDORE O PAPER COLORER Ot 786.50 08/12/2014 NWAGWU, ISIDORE O PAPER COLORER Ot V45.82 08/12/2014 YULI MEJIA Crystal PAPER COLORER Ot 600.00 08/12/2014 YULI MEJIA Crystal PAPER COLORER Ot 608.3 08/12/2014 YULI MEJIA Crystal PAPER COLORER Ot 780.79 08/12/2014 NWAGWU, ISIDORE O PAPER COLORER Ot 305.1 08/12/2014 NWAGWU, ISIDORE O PAPER COLORER Ot 414.00 08/12/2014 NWAGWU, ISIDORE O PAPER COLORER Ot 443.9 08/12/2014 NWAGWU, ISIDORE O PAPER COLORER Ot 530.81 08/12/2014 NWAGWU, ISIDORE O PAPER COLORER Ot 780.57 08/12/2014 NWAGWU, ISIDORE O PAPER COLORER Ot 786.50 08/12/2014 NWAGWU, ISIDORE O PAPER COLORER Ot V45.82 08/15/2014 KONRAD NO, EVETTE [place] Ot 250.00 08/15/2014 KONRAD NO, EVETTE [place] Ot 272.4 08/15/2014 KONRAD NO, EVETTE [place] Ot 311 08/15/2014 KONRAD NO, EVETTE G Ot 414.00 08/15/2014 KONRAD NO, EVETTE G Ot 443.9 08/15/2014 KONRAD NO, EVETTE [place] Ot 459.81 08/22/2014 NWAGWU, ISIDORE O PAPER COLORER Ot 305.1 08/22/2014 NWAGWU, ISIDORE O PAPER COLORER Ot 414.00 08/22/2014 NWAGWU, ISIDORE O PAPER COLORER Ot 443.9 08/22/2014 NWAGWU, ISIDORE O PAPER COLORER Ot 530.81 08/22/2014 NWAGWU, ISIDORE O PAPER COLORER Ot 780.57 08/22/2014 NWAGWU, ISIDORE O PAPER COLORER Ot 786.50 08/22/2014 NWAGWU, ISIDORE O PAPER COLORER Ot V45.82 08/22/2014 YULI MEJIA PAPER COLORER Ot 600.00 08/22/2014 YULI MEJIA PAPER COLORER Ot 608.3 08/22/2014 YULI MEJIA PAPER COLORER Ot 780.79 09/05/2014 KONRAD NO, EEVTTE G Ot 250.00 09/05/2014 KONRAD NO, EVETTE G [...] [place] Ot 459.81 09/27/2014 NWAGWU, ISIDORE O PAPER COLORER Ot 305.1 09/27/2014 NWAGWU, ISIDORE O PAPER COLORER Ot 414.00 09/27/2014 NWAGWU, ISIDORE O PAPER COLORER Ot 443.9 09/27/2014 NWAGWJaylin, ISIDORE O PAPER COLORER Ot 530.81 09/27/2014 NWAGWJaylin, ISIDORE O PAPER COLORER Ot 780.57 09/27/2014 NWAGWU, ISIDORE O PAPER COLORER Ot 786.50 09/27/2014 NWAGWU, ISIDORE O PAPER COLORER Ot V45.82 09/27/2014 BEL MEJIADIETER N PAPER COLORER Ot 600.00 09/27/2014 YULI MEJIA N PAPER COLORER Ot 608.3 09/27/2014 MEJIAYULI N PAPER COLORER Ot 780.79 10/01/2014 EVETTE SILVESTRE MD Ot 272.4 HYPERLIPIDEMIA NEC/NOS 10/01/2014 EVETTE SILVESTRE MD Ot 305.1 TOBACCO USE DISORDER 10/01/2014 EVETTE SILVESTRE MD Ot 327.23 OBSTRUCTIVE SLEEP APNEA (ADULT) (PEDIATR 10/01/2014 EVETTE SILVESTRE MD Ot 414.00 CORON ATHEROSCLER NOS TYPE VESSEL, NATIV 10/01/2014 EVETTE SILVESTRE MD Ot 440.21 ATHEROSCL [place] ARTER EXTREM W INTERMIT 10/01/2014 EVETTE SILVESTRE [...] V74.8 10/20/2014 REINIER BAR Ot 780.97 10/20/2014 NWAGWUKARINEDORE O PAPER COLORER Ot 305.1 10/20/2014 NWAGWKARINE MosquedaDORE O PAPER COLORER Ot 414.00 10/20/2014 NWAGWU, ISIDORE O PAPER COLORER Ot 443.9 10/20/2014 NWAGWU, ISIDORE O PAPER COLORER Ot 530.81 10/20/2014 NWAGWU, ISIDORE O PAPER COLORER Ot 780.57 10/20/2014 NWAGWU, ISIDORE O PAPER COLORER Ot 786.50 10/20/2014 NWAGWU, ISIDORE O PAPER COLORER Ot V45.82 10/20/2014 YULI MEJIA N PAPER COLORER Ot 600.00 10/20/2014 YULI MEJIA PAPER COLORER Ot 608.3 10/20/2014 YULI MEJIA N PAPER COLORER Ot 780.79 10/20/2014 KONRAD NO, EVETTE [place] Ot 250.00 10/20/2014 KONRAD NO, EVETTE [place] Ot 272.4 10/20/2014 KONRAD NO, EVETTE [place] Ot 311 10/20/2014 KONRAD NO, EVETTE [place] Ot 414.00 10/20/2014 KONRAD NO, EVETTE [place] Ot 443.9 10/20/2014 KONRAD NO, EVETTE [place] Ot 459.81 10/21/2014 NWAGWU, ISIDORE O PAPER COLORER Ot 327.23 OBSTRUCTIVE SLEEP APNEA (ADULT) (PEDIATR 10/21/2014 NWAGWU, ISIDORE O PAPER COLORER Ot 327.51 PERIODIC LIMB MOVEMENT DISORDER 11/05/2014 Ot 250.00 11/05/2014 Ot 272.4 11/05/2014 Ot 601.9 11/05/2014 Ot V70.0 11/05/2014 Ot 715.36 11/05/2014 Ot V72.63 11/05/2014 Ot V72.81 11/05/2014 Ot V72.83 11/05/2014 Ot V74.8 11/05/2014 REINIER BAR Ot 780.97 11/05/2014 NWAGWU, ISIDORE O PAPER COLORER Ot 305.1 11/05/2014 NWAGWU, ISIDORE O PAPER COLORER Ot 414.00 11/05/2014 NWAGWU, ISIDORE O PAPER COLORER Ot 443.9 11/05/2014 NWAGWU, ISIDORE O PAPER COLORER Ot 530.81 11/05/2014 NWAGWU, ISIDORE O PAPER COLORER Ot 780.57 11/05/2014 NWAGHUONG WANG PAPER COLORER Ot 786.50 11/05/2014 KISHOREHUONG MARTELL PAPER COLORER Ot V45.82 11/05/2014 YULI MEJIA N PAPER COLORER Ot 600.00 11/05/2014 YULI MEJIA N PAPER COLORER Ot 608.3 11/05/2014 YULI MEJIA PAPER COLORER Ot 780.79 11/05/2014 KONRAD NO, EVETTE [place] Ot 250.00 11/05/2014 KONRAD NO, EVETTE [place] Ot 272.4 11/05/2014 KONRAD NO, EVETTE [place] Ot 311 11/05/2014 KONRAD NO, EVETTE [place] Ot 414.00 11/05/2014 KONRAD NO, EVETTE G Ot 443.9 11/05/2014 KONRAD NO, EVETTE [place] Ot 459.81 12/20/2014 BRITNI FREIRE DO Ot 278.00 12/20/2014 BRITNI FREIRE DO Ot 305.1 12/20/2014 BRITNI FREIRE DO Ot 414.00 12/20/2014 BRITNI FREIRE DO Ot 443.9 12/20/2014 BRITNI FREIRE DO Ot 786.09 08/20/2015 Ot E78.0 PURE HYPERCHOLESTEROLEMIA 08/20/2015 Ot G47.33 OBSTRUCTIVE SLEEP APNEA (ADULT) (PEDIATR 08/20/2015 Ot I10 ESSENTIAL ( PRIMARY) HYPERTENSION 08/20/2015 Ot I25.10 ATHSCL HEART DISEASE OF [place] CORONARY 08/20/2015 Ot I65.23 OCCLUSION AND STENOSIS OF [place] 08/20/2015 Ot Z72.0 TOBACCO USE 08/29/2015 Ot E78.0 PURE HYPERCHOLESTEROLEMIA 08/29/2015 Ot G47.33 OBSTRUCTIVE SLEEP APNEA (ADULT) (PEDIATR 08/29/2015 Ot I10 ESSENTIAL ( PRIMARY) HYPERTENSION 08/29/2015 Ot I25.10 ATHSCL HEART DISEASE OF [place] CORONARY 08/29/2015 Ot I65.23 OCCLUSION AND STENOSIS OF [place] 08/29/2015 Ot Z72.0 TOBACCO USE 09/09/2015 Ot E78.0 PURE HYPERCHOLESTEROLEMIA 09/09/2015 Ot G47.33 OBSTRUCTIVE SLEEP APNEA (ADULT) (PEDIATR 09/09/2015 Ot I10 ESSENTIAL ( PRIMARY) HYPERTENSION 09/09/2015 Ot I25.10 ATHSCL HEART DISEASE OF [place] CORONARY 09/09/2015 Ot I65.23 OCCLUSION AND STENOSIS [...] CCDS Ot I25.10 ATHSCL HEART DISEASE OF [place] CORONARY 09/15/2015 NEIDA NO FACC, ALI FACP [...] CCDS Ot I25.10 ATHSCL HEART DISEASE OF [place] CORONARY 09/15/2015 NEIDA NO FACC, ALI FACP CCDS Ot I65.23 OCCLUSION AND STENOSIS OF [place] 09/15/2015 NEIDA NO FACC, ALI FACP CCDS Ot Z72.0 TOBACCO USE 09/26/2015 YULI MEJIA PAPER COLORER Ot M79.89 OTHER SPECIFIED SOFT TISSUE DISORDERS 09/29/2015 YULI MEJIA PAPER COLORER Ot M79.89 OTHER SPECIFIED SOFT TISSUE DISORDERS 11/12/2015 Ot E78.0 PURE HYPERCHOLESTEROLEMIA 11/12/2015 Ot G47.33 OBSTRUCTIVE SLEEP APNEA (ADULT) (PEDIATR 11/12/2015 Ot I10 ESSENTIAL ( PRIMARY) HYPERTENSION 11/12/2015 Ot I25.10 ATHSCL HEART DISEASE OF [place] CORONARY 11/12/2015 Ot I65.23 OCCLUSION AND STENOSIS OF [place] 11/12/2015 Ot Z72.0 TOBACCO USE 11/12/2015 NEIDA OROZCOC, ALI FACP CCDS Ot E78.0 PURE HYPERCHOLESTEROLEMIA 11/12/2015 NEIDA NO FACC, ALI FACP CCDS Ot G47.33 OBSTRUCTIVE SLEEP APNEA (ADULT) (PEDIATR 11/12/2015 NEIDA NO FACC, ALI FACP CCDS Ot I10 ESSENTIAL (PRIMARY) HYPERTENSION 11/12/2015 NEIDA NO FACC, ALI FACP CCDS Ot I25.10 ATHSCL HEART DISEASE OF [place] CORONARY 11/12/2015 NEIDA NO FACC, ALI FACP [...] 11/12/2015 Ot I25.10 ATHSCL HEART DISEASE OF [place] CORONARY 11/12/2015 Ot I65.23 OCCLUSION AND STENOSIS OF [place] 11/12/2015 Ot Z72.0 TOBACCO USE 11/12/2015 NEIDA OROZCOC, CHRISTEL FACP CCDS Ot E78.0 PURE HYPERCHOLESTEROLEMIA 11/12/2015 NEIDA NO FACGerry, ALI FACP CCDS Ot G47.33 OBSTRUCTIVE SLEEP APNEA (ADULT) (PEDIATR 11/12/2015 NEIDA NO FACC, ALI FACP CCDS Ot I10 ESSENTIAL (PRIMARY) HYPERTENSION 11/12/2015 NEIDA NO FACC, ALI FACP CCDS Ot I25.10 ATHSCL HEART DISEASE OF [place] CORONARY 11/12/2015 NEIDA NO FACGerry, ALI FACP CCDS [...] 11/14/2015 Ot I25.10 ATHSCL HEART DISEASE OF [place] CORONARY 11/14/2015 Ot I65.23 OCCLUSION AND STENOSIS [...] CCDS Ot I25.10 ATHSCL HEART DISEASE OF [place] CORONARY 11/14/2015 NEIDA NO FACC, ALI FACP CCDS Ot I65.23 OCCLUSION AND STENOSIS OF [place] 11/14/2015 NEIDA NO FACC, ALI FACP CCDS Ot Z72.0 TOBACCO USE 11/14/2015 YULI MEJIA PAPER COLORER Ot M79.89 OTHER SPECIFIED SOFT TISSUE DISORDERS 11/18/2015 DARLINE OCAMPO PAPER COLORER Ot M25.561 PAIN IN RIGHT KNEE 11/28/2015 DARLINE OCAMPO PAPER COLORER Ot M25.561 PAIN IN RIGHT KNEE 01/02/2016 TERRENCE, DARLINE E PAPER COLORER Ot M25.561 PAIN IN RIGHT KNEE 01/02/2016 TERRENCE DARLINE E PAPER COLORER Ot Z47.89 ENCOUNTER FOR OTHER ORTHOPEDIC AFTERCARE [...] 305.1 TOBACCO USE DISORDER 02/13/2016 NWHUONG MARTELL APRN Ot 414.00 CORON ATHEROSCLER NOS TYPE VESSEL, NATIV 02/13/2016 NWAGWU, ISIDORE O PAPER COLORER Ot 443.9 PERIPH VASCULAR DIS NOS 02/13/2016 NWAGWU, JONERE O PAPER COLORER Ot 530.81 ESOPHAGEAL REFLUX 02/13/2016 NWREGINAWJONE MosquedaRE O PAPER COLORER Ot 780.57 UNSPECIFIED SLEEP APNEA 02/13/2016 NWREGINAWHUONG Mosqueda O PAPER COLORER Ot 786.50 CHEST PAIN NOS 02/13/2016 NWREGINAWHUONG Mosqueda O PAPER COLORER Ot V45.82 PERCUTANEOUS TRANSLUM CORON ANGIOPLASTY 02/13/2016 YULI MEJIA N PAPER COLORER Ot 600.00 HYPERTROPHY (BENIGN) OF PROSTATE W/O URI 02/13/2016 YULI MEJIA N PAPER COLORER Ot 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.3 ATROPHY OF TESTIS 02/13/2016 YULI MEJIA PAPER COLORER Ot 780.79 OTH MALAISE FATIGUE 02/13/2016 EVETTE [...] 03/26/2016 Ot I25.10 ATHSCL HEART DISEASE OF [place] CORONARY 03/26/2016 Ot I65.23 OCCLUSION AND STENOSIS OF [place] 03/26/2016 Ot Z72.0 TOBACCO USE 03/26/2016 NEIDA NO FACC, CHRISTEL FACP CCDS Ot E78.0 PURE HYPERCHOLESTEROLEMIA 03/26/2016 NEIDA NO FACGerry, ALI FACP CCDS Ot G47.33 OBSTRUCTIVE SLEEP APNEA (ADULT) (PEDIATR 03/26/2016 NEIDA NO FACC, ALI FACP CCDS Ot I10 ESSENTIAL (PRIMARY) HYPERTENSION 03/26/2016 NEIDA NO FACC, ALI FACP CCDS Ot I25.10 ATHSCL HEART DISEASE OF [place] CORONARY 03/26/2016 NEIDA OROZCOC, ALI FACP CCDS [...] 04/27/2016 Ot I25.10 ATHSCL HEART DISEASE OF [place] CORONARY 04/27/2016 Ot I65.23 OCCLUSION AND STENOSIS OF [place] 04/27/2016 Ot Z72.0 TOBACCO USE 04/27/2016 NEIDA NO FACC, CHRISTEL FACP CCDS Ot E78.0 PURE HYPERCHOLESTEROLEMIA 04/27/2016 NEIDA NO FACC, ALI FACP CCDS Ot G47.33 OBSTRUCTIVE SLEEP APNEA (ADULT) (PEDIATR 04/27/2016 NEIDA ON FACC, ALI FACP CCDS Ot I10 ESSENTIAL (PRIMARY) HYPERTENSION 04/27/2016 NEIDA NO FACC, ALI FACP CCDS Ot I25.10 ATHSCL HEART DISEASE OF [place] CORONARY 04/27/2016 NEIDA NO FACC, ALI FACP CCDS Ot I65.23 OCCLUSION AND STENOSIS OF [place] 04/27/2016 NEIDA NO FACC, ALI FACP CCDS Ot Z72.0 TOBACCO USE 04/27/2016 YULI MEJIA APRN Ot M79.89 OTHER SPECIFIED SOFT TISSUE DISORDERS 04/27/2016 NEIDA NO FACC, CHRISTEL FACP CCDS Ot E78.00 PURE HYPERCHOLESTEROLEMIA, UNSPECIFIED 04/27/2016 NEIDA NO FACC, ALI FACP CCDS Ot G47.33 OBSTRUCTIVE SLEEP APNEA (ADULT) (PEDIATR 04/27/2016 NEIDA NO FACC, ALI FACP CCDS Ot I10 ESSENTIAL (PRIMARY) HYPERTENSION 04/27/2016 NEIDA NO FACC, ALI FACP CCDS Ot I25.10 ATHSCL HEART DISEASE OF [place] CORONARY 04/27/2016 NEIDA NO FACC, ALI FACP CCDS Ot I25.82 CHRONIC TOTAL OCCLUSION OF CORONARY [place] 04/27/2016 NEIDA NO FACC, ALI FACP CCDS Ot I70.213 ATHSCL [place] ARTERIES OF EXTRM W INTRMT 04/27/2016 NEIDA NO FACC, ALI FACP CCDS Ot T82.855A STENOSIS OF CORONARY ARTERY STENT, INITI 04/27/2016 NEIDA NO FACC, ALI FACP CCDS Ot Z72.0 TOBACCO USE 04/27/2016 NEIDA NO FACC, CHRISTEL FACP CCDS Ot Z79.899 OTHER MCC (CURRENT) DRUG THERAPY 04/27/2016 NEIDA NO FACC, [...] BRITNI FREIRE DO Ot R05 COUGH 06/01/2016 BIRTNI FREIRE DO Ot R06.02 SHORTNESS OF BREATH 06/01/2016 BRITNI FREIRE DO Ot Z72.0 TOBACCO USE 06/03/2016 BERTRAM WILSON APRN Ot R05 COUGH 06/03/2016 BERTRAM WILSON APRN Ot R06.02 SHORTNESS OF BREATH 06/21/2016 SHELBY LOPEZ MD Ot M51.16 INTERVERTEBRAL DISC DISORDERS W RADICULO 06/21/2016 SHELBY LOPEZ MD Ot Z79.02 MCC (CURRENT) USE OF ANTITHROMBOTI 06/21/2016 SHELBY LOPEZ MD Ot Z79.899 OTHER MCC (CURRENT) DRUG THERAPY 06/24/2016 SHELBY LOPEZ MD, Ot M51.16 INTERVERTEBRAL DISC DISORDERS W RADICULO 06/24/2016 SHELBY LOPEZ MD Ot Z79.02 THERMOSCREW OPERATOR (CURRENT) USE OF ANTITHROMBOTI 06/24/2016 SHELBY LOPEZ MD, Ot Z79.899 OTHER MCC (CURRENT) DRUG THERAPY 07/12/2016 SHELBY LOPEZ MD, Ot M51.16 INTERVERTEBRAL DISC DISORDERS W RADICUL[place] 07/30/2016 Ot E78.0 PURE HYPERCHOLESTEROLEMIA 07/30/2016 Ot G47.33 OBSTRUCTIVE SLEEP APNEA (ADULT) (PEDIATR 07/30/2016 Ot I10 ESSENTIAL ( PRIMARY) HYPERTENSION 07/30/2016 Ot I25.10 ATHSCL HEART DISEASE OF [place] CORONARY 07/30/2016 Ot I65.23 OCCLUSION AND STENOSIS [...] CCDS Ot I25.10 ATHSCL HEART DISEASE OF [place] CORONARY 07/30/2016 NEIDA NO FACC, ALI FACP [...] 08/02/2016 Ot I25.10 ATHSCL HEART DISEASE OF [place] CORONARY 08/02/2016 Ot I65.23 OCCLUSION AND STENOSIS [...] CCDS Ot I25.10 ATHSCL HEART DISEASE OF [place] CORONARY 08/02/2016 NEIDA NO FACC, ALI FACP CCDS Ot I65.23 OCCLUSION AND STENOSIS OF [place] 08/02/2016 NEIDA NO FACC, ALI FACP CCDS Ot Z72.0 TOBACCO USE 08/02/2016 YULI MEJIA APRN Ot M79.89 OTHER SPECIFIED [...] Ot R06.02 SHORTNESS OF BREATH 08/02/2016 TEMITOPE NOEMILI Ot F17.210 NICOTINE DEPENDENCE, CIGARETTES, UNCOMPL 08/02/2016 EMILI LINN MD Ot F32.9 MAJOR DEPRESSIVE DISORDER, SINGLE EPISOD 08/02/2016 EMILI LINN MD Ot I10 ESSENTIAL (PRIMARY) HYPERTENSION 08/02/2016 EMILI LINN MD Ot I73.9 PERIPHERAL VASCULAR DISEASE, UNSPECIFIED 08/02/2016 EMILI LINN MD Ot Z79.02 THERMOSCREW OPERATOR (CURRENT) USE OF ANTITHROMBOTI 08/02/2016 EMILI LINN MD Ot Z79.82 THERMOSCREW OPERATOR (CURRENT) USE OF ASPIRIN 08/02/2016 EMILI LINN MD Ot Z95.5 PRESENCE OF CORONARY ANGIOPLASTY IMPLANT 08/05/2016 EMILI LINN MD Ot F17.210 NICOTINE DEPENDENCE, CIGARETTES, UNCOMPL 08/05/2016 EMILI LINN MD Ot F32.9 MAJOR DEPRESSIVE DISORDER, SINGLE EPISOD 08/05/2016 EMILI LINN MD Ot I10 ESSENTIAL (PRIMARY) HYPERTENSION 08/05/2016 EMILI LINN MD Ot I73.9 PERIPHERAL VASCULAR DISEASE, UNSPECIFIED 08/05/2016 EMILI LINN MD Ot Z79.02 MCC (CURRENT) USE OF ANTITHROMBOTI 08/05/2016 EMILI LINN MD Ot Z79.82 THERMOSCREW OPERATOR (CURRENT) USE OF ASPIRIN 08/05/2016 EMILI LINN MD Ot Z95.5 PRESENCE OF CORONARY ANGIOPLASTY IMPLANT 08/15/2016 BERTRAM WILSON APRN Ot R05 COUGH 08/15/2016 BERTRAM WILSON APRN Ot R06.02 SHORTNESS OF BREATH 08/20/2016 ROX GARAGE DOOR INSTALLER, TAMY Sadler Ot R09.89 OTH SYMPTOMS AND SIGNS INVOLVING THE CIR 08/25/2016 ROX GARAGE DOOR INSTALLER, TAMY Sadler Ot R09.89 OTH SYMPTOMS AND SIGNS INVOLVING THE CIR 09/03/2016 Ot E78.0 PURE HYPERCHOLESTEROLEMIA 09/03/2016 Ot G47.33 OBSTRUCTIVE SLEEP APNEA (ADULT) (PEDIATR 09/03/2016 Ot I10 ESSENTIAL ( PRIMARY) HYPERTENSION 09/03/2016 Ot I25.10 ATHSCL HEART DISEASE OF [place] CORONARY 09/03/2016 Ot I65.23 OCCLUSION AND STENOSIS [...] CCDS Ot I25.10 ATHSCL HEART DISEASE OF [place] CORONARY 09/03/2016 NEIDA NO FACC, ALI FACP CCDS Ot I65.23 OCCLUSION AND STENOSIS OF [place] 09/03/2016 NEIDA NO FACC, ALI FACP CCDS Ot Z72.0 TOBACCO USE 09/03/2016 YULI MEJIA APRN Ot M79.89 OTHER SPECIFIED SOFT TISSUE DISORDERS 09/03/2016 ENRIKE NO, HEMANT Pascual Ot M17.11 UNILATERAL PRIMARY OSTEOARTHRITIS, RIGHT 09/03/2016 [...] 09/20/2016 Ot I25.10 ATHSCL HEART DISEASE OF [place] CORONARY 09/20/2016 Ot I65.23 OCCLUSION AND STENOSIS OF [place] 09/20/2016 Ot Z72.0 TOBACCO USE 09/20/2016 NEIDA NO FACGerry, ALI FACP CCDS Ot E78.0 PURE HYPERCHOLESTEROLEMIA 09/20/2016 NEIDA NO FACGerry, ALI FACP CCDS Ot G47.33 OBSTRUCTIVE SLEEP APNEA (ADULT) (PEDIATR 09/20/2016 NEIDA NO FACC, ALI FACP CCDS Ot I10 ESSENTIAL (PRIMARY) HYPERTENSION 09/20/2016 NEIDA NO FACGerry, ALI FACP CCDS Ot I25.10 ATHSCL HEART DISEASE OF [place] CORONARY 09/20/2016 NEIDA NO FACGerry, ALI FACP CCDS Ot I65.23 OCCLUSION AND STENOSIS OF [place] 09/20/2016 NEIDA NO FACC, ALI FACP CCDS Ot Z72.0 TOBACCO USE 09/20/2016 YULI MEJIA APRN Ot M79.89 OTHER SPECIFIED SOFT TISSUE DISORDERS 09/20/2016 ENRIKE NO, HEMANT Pascual Ot M17.11 UNILATERAL PRIMARY OSTEOARTHRITIS, RIGHT 09/20/2016 [...] Ot R06.02 SHORTNESS OF BREATH 09/20/2016 ROX GARAGE DOOR INSTALLER, TAMY Sadler Ot R09.89 OTH SYMPTOMS AND SIGNS INVOLVING THE CIR 09/20/2016 TAMY GRAMAJO NP Ot 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] 09/20/2016 ROX GARAGE DOOR INSTALLER, TAMY Sadler Ot R09.89 OTH SYMPTOMS AND SIGNS INVOLVING THE CIR 09/21/2016 YULI MEJIA PAPER COLORER Ot M25.551 PAIN IN RIGHT HIP 09/21/2016 YULI MEJIA PAPER COLORER Ot M25.561 PAIN IN RIGHT KNEE 09/21/2016 YULI MEJIA PAPER COLORER Ot M47.816 SPONDYLOSIS W/O MYELOPATHY OR RADICULOPA 09/21/2016 YULI MEJIA PAPER COLORER Ot R10.2 PELVIC AND PERINEAL PAIN 09/21/2016 YULI MEJIA PAPER COLORER Ot Z95.828 PRESENCE OF OTHER VASCULAR IMPLANTS AND 11/03/2016 YULI MEJIA PAPER COLORER Ot E04.2 NONTOXIC MULTINODULAR GOITER 03/21/2017 NEIDA [...] CCDS Ot I25.10 ATHSCL HEART DISEASE OF [place] CORONARY 03/21/2017 NEIDA NO FACC, ALI FACP CCDS Ot I45.10 UNSPECIFIED RIGHT BUNDLE-BRANCH BLOCK 03/21/2017 NEIDA NO FACC, ALI FACP CCDS Ot I65.22 OCCLUSION AND STENOSIS OF LEFT CAROTID A 03/21/2017 NEIDA NO FACC, ALI FACP CCDS Ot I73.9 PERIPHERAL VASCULAR DISEASE, UNSPECIFIED 03/21/2017 NEIDA NO FACC, CHRISTEL FACP CCDS Ot K21.9 GASTRO-ESOPHAGEAL REFLUX DISEASE WITHOUT 03/21/2017 NIEDA NO FACC, CHRISTEL FACP CCDS Ot M19.91 PRIMARY OSTEOARTHRITIS, UNSPECIFIED SITE 03/21/2017 NEIDA NO FACC, CHRISTEL FACP CCDS Ot T82.855A STENOSIS OF CORONARY ARTERY STENT, INITI 03/21/2017 NEIDA NO FACC, CHRISTEL FACP CCDS Ot Z79.82 THERMOSCREW OPERATOR (CURRENT) USE OF ASPIRIN 03/21/2017 NEIDA NO FACC, CHRISTEL FACP CCDS Ot Z79.899 OTHER MCC (CURRENT) DRUG THERAPY 03/21/2017 NEIDA NO FACC, CHRISTEL FACP CCDS Ot Z95.5 PRESENCE OF CORONARY ANGIOPLASTY IMPLANT 03/21/2017 NEIDA NO FACC, CHRISTEL FACP CCDS Ot Z95.820 PERIPHERAL VASCULAR ANGIOPLASTY STATUS W 03/21/2017 NEIDA NO FACC, CHRISTEL FACP CCDS Ot Z96.652 PRESENCE OF LEFT ARTIFICIAL KNEE JOINT 04/17/2017 SUKHI ALLAN CONTROL CLERK SUBASSEMBLY Ot F17.210 NICOTINE DEPENDENCE, CIGARETTES, UNCOMPL 04/17/2017 SUKHI, ALLAN CONTROL CLERK SUBASSEMBLY Ot F32.9 MAJOR DEPRESSIVE DISORDER, SINGLE EPISOD 04/17/2017 SUKHI ALLAN CONTROL CLERK SUBASSEMBLY Ot G47.30 SLEEP APNEA, UNSPECIFIED 04/17/2017 SUKHI ALLAN CONTROL CLERK SUBASSEMBLY Ot G62.9 POLYNEUROPATHY, UNSPECIFIED 04/17/2017 SUKHI, ALLAN CONTROL CLERK SUBASSEMBLY Ot I10 ESSENTIAL (PRIMARY) HYPERTENSION 04/17/2017 SUKHI ALLAN CONTROL CLERK SUBASSEMBLY Ot I25.2 OLD MYOCARDIAL INFARCTION 04/17/2017 SUKHI ALLAN CONTROL CLERK SUBASSEMBLY Ot K21.9 GASTRO-ESOPHAGEAL REFLUX DISEASE WITHOUT 04/17/2017 SUKHI, ALLAN CONTROL CLERK SUBASSEMBLY Ot R07.2 PRECORDIAL PAIN 04/17/2017 SUKHI ALLAN CONTROL CLERK SUBASSEMBLY Ot Z79.02 MCC (CURRENT) USE OF ANTITHROMBOTI 04/17/2017 SUKHI ALLAN CONTROL CLERK SUBASSEMBLY Ot Z79.82 THERMOSCREW OPERATOR (CURRENT) USE OF ASPIRIN 04/17/2017 SUKHI ALLAN CONTROL CLERK SUBASSEMBLY Ot Z87.01 PERSONAL HISTORY OF PNEUMONIA (RECURRENT 04/17/2017 SUKHI ALLAN CONTROL CLERK SUBASSEMBLY Ot Z96.652 PRESENCE OF LEFT ARTIFICIAL KNEE JOINT 04/17/2017 Ot E78.0 PURE HYPERCHOLESTEROLEMIA 04/17/2017 Ot G47.33 OBSTRUCTIVE SLEEP APNEA (ADULT) (PEDIATR 04/17/2017 Ot I10 ESSENTIAL ( PRIMARY) HYPERTENSION 04/17/2017 Ot I25.10 ATHSCL HEART DISEASE OF [place] CORONARY 04/17/2017 Ot I65.23 OCCLUSION AND STENOSIS OF BILATERAL [place] 04/17/2017 Ot Z72.0 TOBACCO USE 04/17/2017 NEIDA NO FACC, ALI FACP CCDS Ot E78.0 PURE HYPERCHOLESTEROLEMIA 04/17/2017 NEIDA NO FACC, ALI FACP CCDS Ot G47.33 OBSTRUCTIVE SLEEP APNEA (ADULT) (PEDIATR 04/17/2017 NEIDA NO FACC, ALI FACP CCDS Ot I10 ESSENTIAL (PRIMARY) HYPERTENSION 04/17/2017 NEIDA NO FACC, ALI FACP CCDS Ot I25.10 ATHSCL HEART DISEASE OF [place] CORONARY 04/17/2017 NEIDA NO FACC, ALI FACP CCDS Ot I65.23 OCCLUSION AND STENOSIS OF [place]ILATERAL [place] 04/17/2017 NEIDA NO FACC, ALI FACP CCDS Ot Z72.0 TOBACCO USE 04/17/2017 YULI MEJIA PAPER COLORER Ot M79.89 OTHER SPECIFIED SOFT TISSUE DISORDERS 04/17/2017 ENRIKE NO, HEMANT Pascual Ot M17.11 UNILATERAL PRIMARY OSTEOARTHRITIS, RIGHT 04/17/2017 ENRIKE NO, HEMANT Pascual Ot M54.16 RADICULOPATHY, LUMBAR REGION 04/17/2017 BRITNI FREIRE DO Ot R05 COUGH 04/17/2017 BRITNI FREIRE DO Ot R06.02 SHORTNESS OF BREATH 04/17/2017 BRITNI FREIRE DO Ot Z72.0 TOBACCO USE 04/17/2017 NEIDA NO FACC, ALI FACP CCDS Ot I65.22 OCCLUSION AND STENOSIS OF LEFT CAROTID A 04/17/2017 NEIDA NO FACC, ALI FACP CCDS Ot I70.8 ATHEROSCLEROSIS OF OTHER ARTERIES 04/17/2017 NEIDA NO FACC, ALI FACP CCDS Ot R55 SYNCOPE AND COLLAPSE 04/17/2017 BERTRAM WILSON APRN Ot R05 COUGH 04/17/2017 EBRTRAM WILSON APRN Ot R06.02 SHORTNESS OF BREATH 04/17/2017 HARTZFELD TAMY CHAVES Ot R09.89 OTH SYMPTOMS AND SIGNS INVOLVING THE CIR 04/17/2017 TAMY GRAMAJO NP Ot 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] 04/17/2017 TAMY GRAMAJO NP Ot R09.89 OTH SYMPTOMS AND SIGNS INVOLVING THE CIR 04/17/2017 YULI MEJIA PAPER COLORER Ot M25.551 PAIN IN RIGHT HIP 04/17/2017 YULI MEJIA PAPER COLORER Ot M25.561 PAIN IN RIGHT KNEE 04/17/2017 YULI MEJIA PAPER COLORER Ot M47.816 SPONDYLOSIS W/O MYELOPATHY OR RADICULOPA 04/17/2017 YULI MEJIA PAPER COLORER Ot R10.2 PELVIC AND PERINEAL PAIN 04/17/2017 YULI MEJIA PAPER COLORER Ot Z95.828 PRESENCE OF OTHER VASCULAR IMPLANTS AND 04/17/2017 YULI MEJIA PAPER COLORER Ot E78.5 HYPERLIPIDEMIA, UNSPECIFIED 04/17/2017 YULI MEJIA PAPER COLORER Ot R53.83 OTHER FATIGUE 04/17/2017 YULI MEJIA PAPER COLORER Ot R94.6 ABNORMAL RESULTS OF THYROID FUNCTION [place] 04/17/2017 YULI MEJIA PAPER COLORER Ot E04.2 NONTOXIC MULTINODULAR GOITER 04/19/2017 ALLAN ISBELLP Ot F17.210 NICOTINE DEPENDENCE, CIGARETTES, UNCOMPL 04/19/2017 ALLAN ISBELL CONTROL CLERK SUBASSEMBLY Ot F32.9 MAJOR DEPRESSIVE DISORDER, SINGLE EPISOD 04/19/2017 ALLAN ISBELL CONTROL CLERK SUBASSEMBLY Ot G47.30 SLEEP APNEA, UNSPECIFIED 04/19/2017 ALLAN ISBELL CONTROL CLERK SUBASSEMBLY Ot G62.9 POLYNEUROPATHY, UNSPECIFIED 04/19/2017 SUKHI ALLAN CONTROL CLERK SUBASSEMBLY Ot I10 ESSENTIAL (PRIMARY) HYPERTENSION 04/19/2017 ALLAN ISBELLP Ot I25.2 OLD MYOCARDIAL INFARCTION 04/19/2017 ALLAN ISBELLP Ot K21.9 GASTRO-ESOPHAGEAL REFLUX DISEASE WITHOUT 04/19/2017 ALLAN ISBELLP Ot R07.2 PRECORDIAL PAIN 04/19/2017 ALLAN ISBELLP Ot Z79.02 MCC (CURRENT) USE OF ANTITHROMBOTI 04/19/2017 ALLAN ISBELLP Ot Z79.82 MCC (CURRENT) USE OF ASPIRIN 04/19/2017 ALLAN ISBELL CATIA Ot Z87.01 PERSONAL HISTORY OF PNEUMONIA (RECURRENT 04/19/2017 ALLAN ISBELLP Ot Z96.652 PRESENCE OF LEFT ARTIFICIAL KNEE JOINT 04/27/2017 NEIDA NO FACC, CHRISTEL FACP CCDS Ot E04.1 NONTOXIC SINGLE THYROID NODULE 04/27/2017 NEIDA NO FACC, CHRISTEL FACP CCDS Ot E11.9 TYPE 2 DIABETES MELLITUS WITHOUT COMPLIC 04/27/2017 NEIDA NO FACC, CHRISTEL FACP CCDS Ot E78.5 HYPERLIPIDEMIA, UNSPECIFIED 04/27/2017 NEIDA NO FACC, CHRISTEL FACP CCDS Ot F17.210 NICOTINE DEPENDENCE, CIGARETTES, UNCOMPL 04/27/2017 NEIDA NO FACC, CHRISTEL FACP CCDS Ot G47.33 OBSTRUCTIVE SLEEP APNEA (ADULT) (PEDIATR 04/27/2017 NEIDA NO FACC, CHRISTEL FACP CCDS Ot I10 ESSENTIAL (PRIMARY) HYPERTENSION 04/27/2017 NEIDA NO FACC, CHRISTEL FACP CCDS Ot I25.10 ATHSCL HEART DISEASE OF [place] CORONARY 04/27/2017 NEIDA NO FACC, CHRISTEL FACP CCDS Ot I45.10 UNSPECIFIED RIGHT BUNDLE-BRANCH BLOCK 04/27/2017 NEIDA NO FACC, CHRISTEL FACP CCDS Ot I65.22 OCCLUSION AND STENOSIS OF LEFT CAROTID A 04/27/2017 NEIAD NO FACC, CHRISTEL FACP CCDS Ot I70.213 ATHSCL [place] ARTERIES OF EXTRM W INTRMT 04/27/2017 NEIDA NO FACC, CHRISTEL FACP CCDS Ot K21.9 GASTRO-ESOPHAGEAL REFLUX DISEASE WITHOUT 04/27/2017 NEIDA NO FACC, CHRISTEL FACP CCDS Ot Z79.82 THERMOSCREW OPERATOR (CURRENT) USE OF ASPIRIN 04/27/2017 CHRISTEL CARRASQUILLO MD, FACC FACP CCDS Ot Z79.899 OTHER [facility] (CURRENT) DRUG THERAPY 04/27/2017 NEIDA NO FACC, CHRISTEL FACP CCDS Ot Z95.820 PERIPHERAL VASCULAR ANGIOPLASTY STATUS W 04/27/2017 CHRISTEL CARRASQUILLO MD, FACC FACP CCDS Ot Z96.652 PRESENCE OF LEFT ARTIFICIAL KNEE JOINT 04/29/2017 NEIDA NO FACC, CHRISTEL FACP CCDS Ot E04.1 NONTOXIC SINGLE THYROID NODULE 04/29/2017 NEIDA NO FACC, CHRISTEL FACP CCDS Ot E11.9 TYPE 2 DIABETES MELLITUS WITHOUT COMPLIC 04/29/2017 NEIDA NO FACC, ALI FACP CCDS Ot E78.5 HYPERLIPIDEMIA, UNSPECIFIED 04/29/2017 NEIDA NO FACC, ALI FACP CCDS Ot F17.210 NICOTINE DEPENDENCE, CIGARETTES, UNCOMPL 04/29/2017 NEIDA NO FACC, ALI FACP CCDS Ot G47.33 OBSTRUCTIVE SLEEP APNEA (ADULT) (PEDIATR 04/29/2017 NEIDA NO FACC, CHRISTEL FACP CCDS Ot I10 ESSENTIAL (PRIMARY) HYPERTENSION 04/29/2017 NEIDA NO FACC, ALI FACP CCDS Ot I25.10 ATHSCL HEART DISEASE OF [place] CORONARY 04/29/2017 NEIDA NO FACC, CHRISTEL FACP CCDS Ot I45.10 UNSPECIFIED RIGHT BUNDLE-BRANCH BLOCK 04/29/2017 NEIDA NO FACC, ALI FACP CCDS Ot I65.22 OCCLUSION AND STENOSIS OF LEFT CAROTID A 04/29/2017 NEIDA NO FACC, CHRISTEL FACP CCDS Ot I70.213 ATHSCL [place] ARTERIES OF EXTRM W INTRMT 04/29/2017 NEIDA NO FACC, CHRISTEL FACP CCDS Ot K21.9 GASTRO-ESOPHAGEAL REFLUX DISEASE WITHOUT 04/29/2017 NEIDA NO FACC, ALI FACP CCDS Ot Z79.82 THERMOSCREW OPERATOR (CURRENT) USE OF ASPIRIN 04/29/2017 NEIDA NO FACC, CHRISTEL FACP CCDS Ot Z79.899 OTHER THERMOSCREW OPERATOR (CURRENT) DRUG THERAPY 04/29/2017 NEIDA NO FACC, ALI FACP CCDS Ot Z95.820 PERIPHERAL VASCULAR ANGIOPLASTY STATUS W 04/29/2017 NEIDA NO FACC, ALI FACP CCDS Ot Z96.652 PRESENCE OF LEFT ARTIFICIAL KNEE JOINT 04/29/2017 NEIDA NO FACC, ALI FACP CCDS Ot E04.1 NONTOXIC SINGLE THYROID NODULE 04/29/2017 NEIDA NO FACC, ALI FACP CCDS Ot E11.9 TYPE 2 DIABETES MELLITUS WITHOUT COMPLIC 04/29/2017 NEIDA NO FACC, ALI FACP CCDS Ot E78.5 HYPERLIPIDEMIA, UNSPECIFIED 04/29/2017 NEIDA NO FACC, ALI FACP CCDS Ot F17.210 NICOTINE DEPENDENCE, CIGARETTES, UNCOMPL 04/29/2017 NEIDA NO FACC, ALI FACP CCDS Ot G47.33 OBSTRUCTIVE SLEEP APNEA (ADULT) (PEDIATR 04/29/2017 NEIDA NO FACC, CHRISTEL FACP CCDS Ot I10 ESSENTIAL (PRIMARY) HYPERTENSION 04/29/2017 NEIDA NO FACC, CHRISTEL FACP CCDS Ot I25.10 ATHSCL HEART DISEASE OF [place] CORONARY 04/29/2017 NEIDA NO FACC, ALI FACP CCDS Ot I45.10 UNSPECIFIED RIGHT BUNDLE-BRANCH BLOCK 04/29/2017 NEIDA NO FACC, ALI FACP CCDS Ot I65.22 OCCLUSION AND STENOSIS OF LEFT CAROTID A 04/29/2017 NEIDA NO FACC, ALI FACP CCDS Ot I70.213 ATHSCL [place] ARTERIES OF EXTRM W INTRMT 04/29/2017 NEIDA NO FACC, CHRISTEL FACP CCDS Ot K21.9 GASTRO-ESOPHAGEAL REFLUX DISEASE WITHOUT 04/29/2017 NEIDA NO FACC, ALI FACP CCDS Ot Z79.82 MCC (CURRENT) USE OF ASPIRIN 04/29/2017 NEIDA NO FACC, CHRISTEL FACP CCDS Ot Z79.899 OTHER THERMOSCREW OPERATOR (CURRENT) DRUG THERAPY 04/29/2017 NEIDA NO FACC, CHRISTEL FACP CCDS Ot Z95.820 PERIPHERAL VASCULAR ANGIOPLASTY STATUS W 04/29/2017 NEIDA NO FACC, ALI FACP CCDS Ot Z96.652 PRESENCE OF LEFT ARTIFICIAL KNEE JOINT 05/03/2017 NEIDA NO FACC, CHRISTEL FACP CCDS Ot E13.65 OTHER SPECIFIED DIABETES MELLITUS WITH H 05/03/2017 NEIDA NO FACC, ALI FACP CCDS Ot E66.8 OTHER OBESITY 05/03/2017 NEIDA NO FACC, ALI FACP CCDS Ot E78.4 OTHER HYPERLIPIDEMIA 05/03/2017 NEIDA NO FACC, ALI FACP CCDS Ot G47.33 OBSTRUCTIVE SLEEP APNEA (ADULT) (PEDIATR 05/03/2017 NEIDA NO FACC, ALI FACP CCDS Ot I10 ESSENTIAL (PRIMARY) HYPERTENSION 05/03/2017 NEIDA NO FACC, ALI FACP CCDS Ot I70.213 ATHSCL [place] ARTERIES OF EXTRM W INTRMT 05/03/2017 NEIDA NO FACC, CHRISTEL FACP CCDS Ot I72.4 ANEURYSM OF ARTERY OF LOWER EXTREMITY 05/03/2017 NEIDA NO FACC, ALI FACP CCDS Ot Z72.0 TOBACCO USE 05/03/2017 NEIDA NO FACC, ALI FACP CCDS Ot Z98.890 OTHER SPECIFIED POSTPROCEDURAL STATES 05/04/2017 BAIMA, SLOAN L CONTROL CLERK SUBASSEMBLY Ot E13.65 OTHER SPECIFIED DIABETES MELLITUS WITH H 05/04/2017 BAIMA, SLOAN L CONTROL CLERK SUBASSEMBLY Ot E78.4 OTHER HYPERLIPIDEMIA 05/04/2017 BAIMA, SLOAN L CONTROL CLERK SUBASSEMBLY Ot G47.33 OBSTRUCTIVE SLEEP APNEA (ADULT) (PEDIATR 05/04/2017 BAIMA, SLOAN L CONTROL CLERK SUBASSEMBLY Ot I70.213 ATHSCL [place] ARTERIES OF EXTRM W INTRMT 05/04/2017 BAIMA, SLOAN L CONTROL CLERK SUBASSEMBLY Ot I72.8 ANEURYSM OF OTHER SPECIFIED ARTERIES 05/04/2017 BAIMA, SLOAN L CONTROL CLERK SUBASSEMBLY Ot E13.65 OTHER SPECIFIED DIABETES MELLITUS WITH H 05/04/2017 BAIMA, SLOAN L CONTROL CLERK SUBASSEMBLY Ot E78.4 OTHER HYPERLIPIDEMIA 05/04/2017 BAIMA, SLOAN L CONTROL CLERK SUBASSEMBLY Ot G47.33 OBSTRUCTIVE SLEEP APNEA (ADULT) (PEDIATR 05/04/2017 BAIMA, SLOAN L CONTROL CLERK SUBASSEMBLY Ot I70.213 ATHSCL [place] ARTERIES OF EXTRM W INTRMT 05/04/2017 BAIMA, SLOAN L CONTROL CLERK SUBASSEMBLY Ot I72.8 ANEURYSM OF OTHER SPECIFIED ARTERIES 05/24/2017 BERTRAM WILSON APRN Ot J98.4 OTHER DISORDERS OF LUNG 05/24/2017 BERTRAM WILSON APRN Ot J98.4 OTHER DISORDERS OF LUNG 06/24/2017 Ot E78.0 PURE HYPERCHOLESTEROLEMIA 06/24/2017 Ot G47.33 OBSTRUCTIVE SLEEP APNEA (ADULT) (PEDIATR 06/24/2017 Ot I10 ESSENTIAL ( PRIMARY) HYPERTENSION 06/24/2017 Ot I25.10 ATHSCL HEART DISEASE OF [place] CORONARY 06/24/2017 Ot I65.23 OCCLUSION AND STENOSIS OF BILATERAL [place] 06/24/2017 Ot Z72.0 TOBACCO USE 06/24/2017 NEIDA NO FACC, CHRISTEL FACP CCDS Ot E78.0 PURE HYPERCHOLESTEROLEMIA 06/24/2017 NEIDA NO FACC, ALI FACP CCDS Ot G47.33 OBSTRUCTIVE SLEEP APNE[place] (ADULT) (PEDIATR 06/24/2017 NEIDA NO FACC, ALI FACP CCDS Ot I10 ESSENTIAL (PRIMARY) HYPERTENSION 06/24/2017 NEIDA NO FACC, ALI FACP CCDS Ot I25.10 ATHSCL HEART DISEASE OF [place] CORONARY 06/24/2017 NEIDA NO FAC, ALI FACP CCDS Ot I65.23 OCCLUSION AND STENOSIS OF [place]ILATERAL [place] 06/24/2017 NEIDA NO FACC, ALI FACP CCDS Ot Z72.0 TOBACCO USE 06/24/2017 YULI MEJIA PAPER COLORER Ot M79.89 OTHER SPECIFIED SOFT TISSUE DISORDERS 06/24/2017 HEMANT CALVERT MD Ot M17.11 UNILATERAL PRIMARY OSTEOARTHRITIS, RIGHT 06/24/2017 HEMANT CALVERT MD Ot M54.16 RADICULOPATHY, LUMBAR REGION 06/24/2017 BRITNI FREIRE DO Ot R05 COUGH 06/24/2017 BRITNI FREIRE DO Ot R06.02 SHORTNESS OF BREATH 06/24/2017 BRITNI FREIRE DO Ot Z72.0 TOBACCO USE 06/24/2017 NEIDA NO FACC, ALI FACP CCDS Ot I65.22 OCCLUSION AND STENOSIS OF LEFT CAROTID A 06/24/2017 NEIDA NO FACGerry, ALI FACP CCDS Ot I70.8 ATHEROSCLEROSIS OF OTHER ARTERIES 06/24/2017 NEIDA NO FACGerry, ALI FACP CCDS Ot R55 SYNCOPE AND COLLAPSE 06/24/2017 BERTRAM WILSON APRN Ot R05 COUGH 06/24/2017 BERTRAM WILSON APRN Ot R06.02 SHORTNESS OF BREATH 06/24/2017 ROX CHAVES, TAMY Sadler Ot R09.89 OTH SYMPTOMS AND SIGNS INVOLVING THE CIR 06/24/2017 ROX CHAVES, TAMY Sadler Ot 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] 06/24/2017 TAMY GRAMAJO NP Ot R09.89 OTH SYMPTOMS AND SIGNS INVOLVING THE CIR 06/24/2017 YULI MEJIA PAPER COLORER Ot M25.551 PAIN IN RIGHT HIP 06/24/2017 YULI MEJIA PAPER COLORER Ot M25.561 PAIN IN RIGHT KNEE 06/24/2017 YULI MEJIA PAPER COLORER Ot M47.816 SPONDYLOSIS W/O MYELOPATHY OR RADICULOPA 06/24/2017 YULI MEJIA PAPER COLORER Ot R10.2 PELVIC AND PERINEAL PAIN 06/24/2017 YULI MEJIA PAPER COLORER Ot Z95.828 PRESENCE OF OTHER VASCULAR IMPLANTS AND 06/24/2017 YULI MEJIA Crystal PAPER COLORER Ot E78.5 HYPERLIPIDEMIA, UNSPECIFIED 06/24/2017 YULI MEJIA PAPER COLORER Ot R53.83 OTHER FATIGUE 06/24/2017 YULI MEJIA PAPER COLORER Ot R94.6 ABNORMAL RESULTS OF THYROID FUNCTION [place] 06/24/2017 YULI MEJIA PAPER COLORER Ot E04.2 NONTOXIC MULTINODULAR GOITER 06/24/2017 BERTRAM WILSON PAPER COLORER Ot J98.4 OTHER DISORDERS OF LUNG 06/24/2017 NEIDA NO FACC, ALI FACP CCDS Ot I25.10 ATHSCL HEART DISEASE OF [place] CORONARY 06/24/2017 NEIDA NO FACC, ALI FACP CCDS Ot R53.83 OTHER FATIGUE 06/24/2017 NEIDA NO FACC, ALI FACP CCDS Ot E13.65 OTHER SPECIFIED DIABETES MELLITUS WITH H 06/24/2017 NEIDA NO FACC, ALI FACP CCDS Ot E66.8 OTHER OBESITY 06/24/2017 NEIDA NO FACC, ALI FACP CCDS Ot E78.4 OTHER HYPERLIPIDEMIA 06/24/2017 NEIDA NO FACC, ALI FACP CCDS Ot G47.33 OBSTRUCTIVE SLEEP APNEA (ADULT) (PEDIATR 06/24/2017 NEIDA NO FACC, ALI FACP CCDS Ot I10 ESSENTIAL (PRIMARY) HYPERTENSION 06/24/2017 NEIDA NO FACC, ALI FACP CCDS Ot I70.213 ATHSCL [place] ARTERIES OF EXTRM W INTRMT 06/24/2017 NEIDA NO FACC, ALI FACP CCDS Ot I72.4 ANEURYSM OF ARTERY OF LOWER EXTREMITY 06/24/2017 NEIDA NO FACC, ALI FACP CCDS Ot Z72.0 TOBACCO USE 06/24/2017 NEIDA NO FACC, ALI FACP CCDS Ot Z98.890 OTHER SPECIFIED POSTPROCEDURAL STATES 06/24/2017 BAISLOAN ALSTON CONTROL CLERK SUBASSEMBLY Ot E13.65 OTHER SPECIFIED DIABETES MELLITUS WITH H 06/24/2017 BAISLOAN ALSTON L CONTROL CLERK SUBASSEMBLY Ot E78.4 OTHER HYPERLIPIDEMIA 06/24/2017 BAISLOAN ALSTON L CONTROL CLERK SUBASSEMBLY Ot G47.33 OBSTRUCTIVE SLEEP APNEA (ADULT) (PEDIATR 06/24/2017 BAISLOAN ALSTON L CONTROL CLERK SUBASSEMBLY Ot I70.213 ATHSCL [place] ARTERIES OF EXTRM W INTRMT 06/24/2017 SLOAN RIVERA Ot I72.8 ANEURYSM OF OTHER SPECIFIED ARTERIES 11/10/2017 Ot E78.0 PURE HYPERCHOLESTEROLEMIA 11/10/2017 Ot G47.33 OBSTRUCTIVE SLEEP APNEA (ADULT) (PEDIATR 11/10/2017 Ot I10 ESSENTIAL ( PRIMARY) HYPERTENSION 11/10/2017 Ot I25.10 ATHSCL HEART DISEASE OF [place] CORONARY 11/10/2017 Ot I65.23 OCCLUSION AND STENOSIS OF [place]ILATERAL [place] 11/10/2017 Ot Z72.0 TOBACCO USE 11/10/2017 NEIDA NO FACC, ALI FACP CCDS Ot E78.0 PURE HYPERCHOLESTEROLEMIA 11/10/2017 NEIDA NO FACC, ALI FACP CCDS Ot G47.33 OBSTRUCTIVE SLEEP APNEA (ADULT) (PEDIATR 11/10/2017 NEIDA NO FACC, ALI FACP CCDS Ot I10 ESSENTIAL (PRIMARY) HYPERTENSION 11/10/2017 NEIDA NO FACGerry, ALI FACP CCDS Ot I25.10 ATHSCL HEART DISEASE OF [place] CORONARY 11/10/2017 NEIDA NO FACGerry, ALI FACP CCDS Ot I65.23 OCCLUSION AND STENOSIS OF [place]ILATERAL [place] 11/10/2017 NEIDA NO FACC, ALI FACP CCDS Ot Z72.0 TOBACCO USE 11/10/2017 YULI MEJIA APRN Ot M79.89 OTHER SPECIFIED SOFT TISSUE DISORDERS 11/10/2017 HEMANT CALVERT MD Ot M17.11 UNILATERAL PRIMARY OSTEOARTHRITIS, RIGHT 11/10/2017 HEMANT CALVERT MD Ot M54.16 RADICULOPATHY, LUMBAR REGION 11/10/2017 BRITNI FREIRE DO Ot R05 COUGH 11/10/2017 BRITNI FREIRE DO Ot R06.02 SHORTNESS OF BREATH 11/10/2017 BRITNI FREIRE DO Ot Z72.0 TOBACCO USE 11/10/2017 NEIDA NO FACC, ALI FACP CCDS Ot I65.22 OCCLUSION AND STENOSIS OF LEFT CAROTID A 11/10/2017 NEIDA NO FACC, ALI FACP CCDS Ot I70.8 ATHEROSCLEROSIS OF OTHER ARTERIES 11/10/2017 NEIDA NO FACC, ALI FACP CCDS Ot R55 SYNCOPE AND COLLAPSE 11/10/2017 BERTRAM WILSON APRN Ot R05 COUGH 11/10/2017 BERTRAM WILSON APRN Ot R06.02 SHORTNESS OF BREATH 11/10/2017 ROX CHAVES, TAMY Sadler Ot R09.89 OTH SYMPTOMS AND SIGNS INVOLVING THE CIR 11/10/2017 TAMY GRAMAJO NP Ot 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] 11/10/2017 TAMY GRAMAJO NP Ot R09.89 OTH SYMPTOMS AND SIGNS INVOLVING THE CIR 11/10/2017 YULI MEJIA PAPER COLORER Ot M25.551 PAIN IN RIGHT HIP 11/10/2017 YULI MEJIA PAPER COLORER Ot M25.561 PAIN IN RIGHT KNEE 11/10/2017 YULI MEJIA PAPER COLORER Ot M47.816 SPONDYLOSIS W/O MYELOPATHY OR RADICULOPA 11/10/2017 YULI MEJIA PAPER COLORER Ot R10.2 PELVIC AND PERINEAL PAIN 11/10/2017 YULI MEJIA PAPER COLORER Ot Z95.828 PRESENCE OF OTHER VASCULAR IMPLANTS AND 11/10/2017 YULI MEJIA PAPER COLORER Ot E78.5 HYPERLIPIDEMIA, UNSPECIFIED 11/10/2017 YULI MEJIA PAPER COLORER Ot R53.83 OTHER FATIGUE 11/10/2017 YULI MEJIA PAPER COLORER Ot R94.6 ABNORMAL RESULTS OF THYROID FUNCTION [place] 11/10/2017 YULI MEJIA PAPER COLORER Ot E04.2 NONTOXIC MULTINODULAR GOITER 11/10/2017 BERTRAM WILSON PAPER COLORER Ot J98.4 OTHER DISORDERS OF LUNG 11/10/2017 NEIDA NO FACC, CHRISTEL FACP CCDS Ot I25.10 ATHSCL HEART DISEASE OF [place] CORONARY 11/10/2017 NEIDA NO FACC, CHRISTEL FACP CCDS Ot R53.83 OTHER FATIGUE 11/10/2017 NEIDA NO FACC, CHRISTEL FACP CCDS Ot E13.65 OTHER SPECIFIED DIABETES MELLITUS WITH H 11/10/2017 NEIDA NO FACC, CHRISTEL FACP CCDS Ot E66.8 OTHER OBESITY 11/10/2017 NEIDA NO FACC, CHRISTEL FACP CCDS Ot E78.4 OTHER HYPERLIPIDEMIA 11/10/2017 NEIDA NO FACC, CHRISTEL FACP CCDS Ot G47.33 OBSTRUCTIVE SLEEP APNEA (ADULT) (PEDIATR 11/10/2017 CHRISTEL CARRASQUILLO MD, FACC FACP CCDS Ot I10 ESSENTIAL (PRIMARY) HYPERTENSION 11/10/2017 CHRISTEL CARRASQUILLO MD, FACC FACP CCDS Ot I70.213 ATHSCL [place] ARTERIES OF EXTRM W INTRMT 11/10/2017 NEIDA NO FACC, CHRISTEL FACP CCDS Ot I72.4 ANEURYSM OF ARTERY OF LOWER EXTREMITY 11/10/2017 NEIDA NO FACC, CHRISTEL FACP CCDS Ot Z72.0 TOBACCO USE 11/10/2017 NEIDA NO FACC, ALI FACP CCDS Ot Z98.890 OTHER SPECIFIED POSTPROCEDURAL STATES 11/10/2017 BAIMA SLOAN L CONTROL CLERK SUBASSEMBLY Ot E13.65 OTHER SPECIFIED DIABETES MELLITUS WITH H 11/10/2017 BAIMA SLOAN L CONTROL CLERK SUBASSEMBLY Ot E78.4 OTHER HYPERLIPIDEMIA 11/10/2017 BAIMA, SLOAN L CONTROL CLERK SUBASSEMBLY Ot G47.33 OBSTRUCTIVE SLEEP APNEA (ADULT) (PEDIATR 11/10/2017 BAIMA SLOAN L CONTROL CLERK SUBASSEMBLY Ot I70.213 ATHSCL [place] ARTERIES OF EXTRM W INTRMT 11/10/2017 BAIGAMALIEL, SLOAN L CONTROL CLERK SUBASSEMBLY Ot I72.8 ANEURYSM OF OTHER SPECIFIED ARTERIES 11/16/2017 HEMANT GIBSON MD Ot B07.0 PLANTAR WART 11/16/2017 HEMANT GIBSON MD Ot I70.292 OTH ATHSCL [place] ARTERIES OF EXTREMITIE 11/17/2017 HEMANT GIBSON MD Ot I70.292 OT ATHSCL [place] ARTERIES OF EXTREMITIE 11/23/2017 NEIDA NO FACC, CHRISTEL FACP CCDS Ot E04.1 NONTOXIC SINGLE THYROID NODULE 11/23/2017 NEIDA NO FACC, ALI FACP CCDS Ot E78.5 HYPERLIPIDEMIA, UNSPECIFIED 11/23/2017 NEIDA NO FACC, CHRISTEL FACP CCDS Ot F17.210 NICOTINE DEPENDENCE, CIGARETTES, UNCOMPL 11/23/2017 NEIDA NO FACC, ALI FACP CCDS Ot G47.33 OBSTRUCTIVE SLEEP APNEA (ADULT) (PEDIATR 11/23/2017 NEIDA NO FACC, CHRISTEL FACP CCDS Ot I10 ESSENTIAL (PRIMARY) HYPERTENSION 11/23/2017 NEIDA NO FACC, ALI FACP CCDS Ot I25.10 ATHSCL HEART DISEASE OF [place] CORONARY 11/23/2017 NEIDA NO FACC, CHRISTEL FACP CCDS Ot I45.10 UNSPECIFIED RIGHT BUNDLE-BRANCH BLOCK 11/23/2017 NEIDA NO FACC, ALI FACP CCDS Ot I65.22 OCCLUSION AND STENOSIS OF LEFT CAROTID A 11/23/2017 NEIDA NO FACC, CHRISTEL FACP CCDS Ot I70.202 UNSP ATHSCL [place] ARTERIES OF EXTREMITI 11/23/2017 NEIDA NO FACC, ALI FACP CCDS Ot 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 11/23/2017 NEIDA NO FACC, ALI FACP CCDS Ot I87.2 VENOUS INSUFFICIENCY (CHRONIC) (PERIPHER 11/23/2017 NEIDA NO FACC, ALI FACP CCDS Ot R55 SYNCOPE AND COLLAPSE 11/23/2017 NEIDA NO FACC, ALI FACP CCDS Ot Z79.899 OTHER THERMOSCREW OPERATOR (CURRENT) DRUG THERAPY 11/23/2017 NEIDA NO FACC, ALI FACP CCDS Ot Z96.651 PRESENCE OF RIGHT ARTIFICIAL KNEE JOINT 11/28/2017 NEIDA NO FACC, ALI FACP CCDS Ot E04.1 NONTOXIC SINGLE THYROID NODULE 11/28/2017 NEIDA NO FACC, ALI FACP CCDS Ot E78.5 HYPERLIPIDEMIA, UNSPECIFIED 11/28/2017 NEIDA NO FACC, ALI FACP CCDS Ot F17.210 NICOTINE DEPENDENCE, CIGARETTES, UNCOMPL 11/28/2017 NEIDA NO FACC, ALI FACP CCDS Ot G47.33 OBSTRUCTIVE SLEEP APNEA (ADULT) (PEDIATR 11/28/2017 NEIDA NO FACC, ALI FACP CCDS Ot I10 ESSENTIAL (PRIMARY) HYPERTENSION 11/28/2017 NEIDA NO FACC, ALI FACP CCDS Ot I25.10 ATHSCL HEART DISEASE OF [place] CORONARY 11/28/2017 NEIDA NO FACC, CHRISTEL FACP CCDS Ot I45.10 UNSPECIFIED RIGHT BUNDLE-BRANCH BLOCK 11/28/2017 NEIDA NO FACC, ALI FACP CCDS Ot I65.22 OCCLUSION AND STENOSIS OF LEFT CAROTID A 11/28/2017 NEIDA NO FACC, CHRISTEL FACP CCDS Ot I70.202 UNSP ATHSCL [place] ARTERIES OF EXTREMITI 11/28/2017 NEIDA NO FACC, ALI FACP CCDS Ot 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 11/28/2017 NEIDA NO FACC, ALI FACP CCDS Ot I87.2 VENOUS INSUFFICIENCY (CHRONIC) (PERIPHER 11/28/2017 NEIDA NO FACC, ALI FACP CCDS Ot R55 SYNCOPE AND COLLAPSE 11/28/2017 NEIDA NO FACC, CHRISTEL FACP CCDS Ot Z79.899 OTHER [facility] (CURRENT) DRUG THERAPY 11/28/2017 NEIDA NO FACC, CHRISTEL FACP CCDS Ot Z96.651 PRESENCE OF RIGHT ARTIFICIAL KNEE JOINT 11/30/2017 NEIDA NO FACC, ALI FACP CCDS Ot M79.604 PAIN IN RIGHT LEG 11/30/2017 NEIDA NO FACC, CHRISTEL FACP CCDS Ot M79.605 PAIN IN LEFT LEG 11/30/2017 NEIDA NO FACC, ALI FACP CCDS Ot Z95.820 PERIPHERAL VASCULAR ANGIOPLASTY STATUS W 11/30/2017 NEIDA NO FACC, ALI FACP CCDS Ot Z98.890 OTHER SPECIFIED POSTPROCEDURAL STATES 11/30/2017 CHRISTEL CARRASQUILLO MD, FACC FACP CCDS Ot E04.1 NONTOXIC SINGLE THYROID NODULE 11/30/2017 NEIDA NO FACC, ALI FACP CCDS Ot E78.5 HYPERLIPIDEMIA, UNSPECIFIED 11/30/2017 NEIDA NO FACC, CHRISTEL FACP CCDS Ot F17.210 NICOTINE DEPENDENCE, CIGARETTES, UNCOMPL 11/30/2017 NEIDA NO FACC, ALI FACP CCDS Ot G47.33 OBSTRUCTIVE SLEEP APNEA (ADULT) (PEDIATR 11/30/2017 NEIDA NO FACC, CHRISTEL FACP CCDS Ot I10 ESSENTIAL (PRIMARY) HYPERTENSION 11/30/2017 NEIDA NO FACC, ALI FACP CCDS Ot I25.10 ATHSCL HEART DISEASE OF [place] CORONARY 11/30/2017 CHRISTEL CARRASQUILLO MD, FACC FACP CCDS Ot I45.10 UNSPECIFIED RIGHT BUNDLE-BRANCH BLOCK 11/30/2017 NEIDA NO FACC, ALI FACP CCDS Ot I65.22 OCCLUSION AND STENOSIS OF LEFT CAROTID A 11/30/2017 NEIDA NO FACC, ALI FACP CCDS Ot I70.202 UNSP ATHSCL [place] ARTERIES OF EXTREMITI 11/30/2017 NEIDA NO FACC ALI FACP CCDS Ot 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 11/30/2017 NEIDA NO FACC, ALI FACP CCDS Ot I87.2 VENOUS INSUFFICIENCY (CHRONIC) (PERIPHER 11/30/2017 CHRISTEL CARRASQUILLO MD, FACC FACP CCDS Ot R55 SYNCOPE AND COLLAPSE 11/30/2017 CHRISTEL CARRASQUILLO MD, FACC FACP CCDS Ot Z79.899 OTHER THERMOSCREW OPERATOR (CURRENT) DRUG THERAPY 11/30/2017 NEIDA NO FAC, ALI ERNESTOP CCDS Ot Z96.651 PRESENCE OF RIGHT ARTIFICIAL KNEE JOINT 11/30/2017 ARTHUR NO, HEMANT G Ot B07.0 PLANTAR WART 11/30/2017 ARTHUR NO, HEMANT [place] Ot I70.292 OT ATHSCL [place] ARTERIES OF EXTREMITIE 12/05/2017 ARTHUR NO, HEMANT G Ot B07.0 PLANTAR WART 12/05/2017 ARTHUR NO, HEMANT [place] Ot I70.292 OT ATHSCL [place] ARTERIES OF EXTREMITIE 2017 ARTHUR NO, HEMANT [place] Ot B07.0 PLANTAR WART 2017 ARTHUR NO, HEMANT [place] Ot I70.292 OT ATHSCL [place] ARTERIES OF EXTREMITIE 03/13/2018 CHRIS BOTELLO APRN Ot F32.9 MAJOR DEPRESSIVE DISORDER, SINGLE EPISOD 03/13/2018 CHRIS BOTELLO APRN Ot G47.30 SLEEP APNEA, UNSPECIFIED 03/13/2018 CHRIS BOTELLO APRN Ot I10 ESSENTIAL (PRIMARY) HYPERTENSION 03/13/2018 CHRIS BOTELLO APRN Ot J20.9 ACUTE BRONCHITIS, UNSPECIFIED 03/13/2018 CHRIS BOTELLO APRN Ot K21.9 GASTRO-ESOPHAGEAL REFLUX DISEASE WITHOUT 03/13/2018 CHRIS BOTELLO APRN Ot R06.02 SHORTNESS OF BREATH 03/13/2018 CHRIS BOTELLO APRN Ot Z77.22 CNTCT W AND EXPSR TO ENVIRON TOBACCO SMO 03/13/2018 CHRIS BOTELLO APRN Ot Z79.02 MCC (CURRENT) USE OF ANTITHROMBOTI 03/13/2018 CHRIS BOTELLO APRN Ot Z79.51 MCC (CURRENT) USE OF INHALED STERO 03/13/2018 CHRIS BOTELLO APRN Ot Z79.52 MCC (CURRENT) USE OF SYSTEMIC STER 03/13/2018 CHRIS BOTELLO APRN Ot Z79.82 MCC (CURRENT) USE OF ASPIRIN 03/13/2018 CHRIS BOTELLO APRN Ot Z87.01 PERSONAL HISTORY OF PNEUMONIA (RECURRENT 03/13/2018 CHRIS BOTELLO APRN Ot Z95.820 PERIPHERAL VASCULAR ANGIOPLASTY STATUS W 03/15/2018 CHRIS BOTELLO APRN Ot F32.9 MAJOR DEPRESSIVE DISORDER, SINGLE EPISOD 03/15/2018 CHRIS BOTELLO APRN Ot G47.30 SLEEP APNEA, UNSPECIFIED 03/15/2018 CHRIS BOTELLO APRN Ot I10 ESSENTIAL (PRIMARY) HYPERTENSION 03/15/2018 CHRIS BOTELLO APRN Ot J20.9 ACUTE BRONCHITIS, UNSPECIFIED 03/15/2018 CHRIS BOTELLO APRN Ot K21.9 GASTRO-ESOPHAGEAL REFLUX DISEASE WITHOUT 03/15/2018 CHRIS BOTELLO APRN Ot R06.02 SHORTNESS OF BREATH 03/15/2018 CHRIS BOTELLO APRN Ot Z77.22 CNTCT W AND EXPSR TO ENVIRON TOBACCO SMO 03/15/2018 CHRIS BOTELLO APRN Ot Z79.02 MCC (CURRENT) USE OF ANTITHROMBOTI 03/15/2018 CHRIS BOTELLO APRN Ot Z79.51 THERMOSCREW OPERATOR (CURRENT) USE OF INHALED STERO 03/15/2018 CHRIS BOTELLO APRN Ot Z79.52 THERMOSCREW OPERATOR (CURRENT) USE OF SYSTEMIC STER 03/15/2018 CHRIS BOTELLO APRN Ot Z79.82 THERMOSCREW OPERATOR (CURRENT) USE OF ASPIRIN 03/15/2018 CHRIS BOTELLO APRN Ot Z87.01 PERSONAL HISTORY OF PNEUMONIA (RECURRENT 03/15/2018 CHRIS BOTELLO APRN Ot Z95.820 PERIPHERAL VASCULAR ANGIOPLASTY STATUS W 03/23/2018 Ot E78.0 PURE HYPERCHOLESTEROLEMIA 03/23/2018 Ot G47.33 OBSTRUCTIVE SLEEP APNEA (ADULT) (PEDIATR 03/23/2018 Ot I10 ESSENTIAL ( PRIMARY) HYPERTENSION 03/23/2018 Ot I25.10 ATHSCL HEART DISEASE OF [place] CORONARY 03/23/2018 Ot I65.23 OCCLUSION AND STENOSIS OF BILATERAL [place] 03/23/2018 Ot Z72.0 TOBACCO USE 03/23/2018 NEIDA NO FACC, CHRISTEL FACP CCDS Ot E78.0 PURE HYPERCHOLESTEROLEMIA 03/23/2018 NEIDA NO FACC, CHRISTEL FACP CCDS Ot G47.33 OBSTRUCTIVE SLEEP APNEA (ADULT) (PEDIATR 03/23/2018 NEIDA NO FACC, ALI FACP CCDS Ot I10 ESSENTIAL (PRIMARY) HYPERTENSION 03/23/2018 NEIDA NO FACC, ALI FACP CCDS Ot I25.10 ATHSCL HEART DISEASE OF [place] CORONARY 03/23/2018 NEIDA OROZCO, ALI [facility] CCDS Ot I65.23 OCCLUSION AND STENOSIS OF BILATERAL [place] 03/23/2018 NEIDA NO FACC, ALI FACP CCDS Ot Z72.0 TOBACCO USE 03/23/2018 YULI MEJIA PAPER COLORER Ot M79.89 OTHER SPECIFIED SOFT TISSUE DISORDERS 03/23/2018 HEMANT CALVERT MD Ot M17.11 UNILATERAL PRIMARY OSTEOARTHRITIS, RIGHT 03/23/2018 ENRIKE NO, HEMANT Pascual Ot M54.16 RADICULOPATHY, LUMBAR REGION 03/23/2018 BRITNI FREIRE DO Ot R05 COUGH 03/23/2018 BRITNI FREIRE DO Ot R06.02 SHORTNESS OF BREATH 03/23/2018 BRITNI FREIRE DO Ot Z72.0 TOBACCO USE 03/23/2018 NEIDA OROZCO, ALI FACP CCDS Ot I65.22 OCCLUSION AND STENOSIS OF LEFT CAROTID A 03/23/2018 NEIDA NO FACC, ALI [facility] CCDS Ot I70.8 ATHEROSCLEROSIS OF OTHER ARTERIES 03/23/2018 NEIDA NO [facility], ALI FACP CCDS Ot R55 SYNCOPE AND COLLAPSE 03/23/2018 BERTRAM WILSON PAPER COLORER Ot R05 COUGH 03/23/2018 BERTRAM WILSON APRN Ot R06.02 SHORTNESS OF BREATH 03/23/2018 ROX CHAVES, TAMY Sadler Ot R09.89 OTH SYMPTOMS AND SIGNS INVOLVING THE CIR 03/23/2018 TAMY GRAMAJO NP Ot 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] 03/23/2018 TAMY GRAMAJO NP Ot R09.89 OTH SYMPTOMS AND SIGNS INVOLVING THE CIR 03/23/2018 YULI MEJIA PAPER COLORER Ot M25.551 PAIN IN RIGHT HIP 03/23/2018 YULI MEJIA PAPER COLORER Ot M25.561 PAIN IN RIGHT KNEE 03/23/2018 YULI MEJIA PAPER COLORER Ot M47.816 SPONDYLOSIS W/O MYELOPATHY OR RADICULOPA 03/23/2018 YULI MEJAI PAPER COLORER Ot R10.2 PELVIC AND PERINEAL PAIN 03/23/2018 YULI MEJIA PAPER COLORER Ot Z95.828 PRESENCE OF OTHER VASCULAR IMPLANTS AND 03/23/2018 YULI MEJIA PAPER COLORER Ot E78.5 HYPERLIPIDEMIA, UNSPECIFIED 03/23/2018 YULI EMJIA PAPER COLORER Ot R53.83 OTHER FATIGUE 03/23/2018 YULI MEJIA PAPER COLORER Ot R94.6 ABNORMAL RESULTS OF THYROID FUNCTION [place] 03/23/2018 YULI MEJIA PAPER COLORER Ot E04.2 NONTOXIC MULTINODULAR GOITER 03/23/2018 BERTRAM WILSON PAPER COLORER Ot J98.4 OTHER DISORDERS OF LUNG 03/23/2018 NEIDA NO FACC, ALI FACP CCDS Ot I25.10 ATHSCL HEART DISEASE OF [place] CORONARY 03/23/2018 NEIDA NO FACC, ALI FACP CCDS Ot R53.83 OTHER FATIGUE 03/23/2018 NEIDA NO FACC, ALI FACP CCDS Ot E13.65 OTHER SPECIFIED DIABETES MELLITUS WITH H 03/23/2018 NEIDA NO FACC, ALI FACP CCDS Ot E66.8 OTHER OBESITY 03/23/2018 NEIDA NO FACC, ALI FACP CCDS Ot E78.4 OTHER HYPERLIPIDEMIA 03/23/2018 NEIDA NO FACC, ALI FACP CCDS Ot G47.33 OBSTRUCTIVE SLEEP APNEA (ADULT) (PEDIATR 03/23/2018 NEIDA NO FACC, ALI FACP CCDS Ot I10 ESSENTIAL (PRIMARY) HYPERTENSION 03/23/2018 NEIDA NO FACC, ALI FACP CCDS Ot I70.213 ATHSCL [place] ARTERIES OF EXTRM W INTRMT 03/23/2018 NEIDA NO FACC, ALI FACP CCDS Ot I72.4 ANEURYSM OF ARTERY OF LOWER EXTREMITY 03/23/2018 NEIDA NO FACC, ALI FACP CCDS Ot Z72.0 TOBACCO USE 03/23/2018 NEIDA NO FACC, ALI FACP CCDS Ot Z98.890 OTHER SPECIFIED POSTPROCEDURAL STATES 03/23/2018 BAIMA, SLOAN L CONTROL CLERK SUBASSEMBLY Ot E13.65 OTHER SPECIFIED DIABETES MELLITUS WITH H 03/23/2018 BAIMA, SLOAN L CONTROL CLERK SUBASSEMBLY Ot E78.4 OTHER HYPERLIPIDEMIA 03/23/2018 BAIMA, SLOAN L CONTROL CLERK SUBASSEMBLY Ot G47.33 OBSTRUCTIVE SLEEP APNEA (ADULT) (PEDIATR 03/23/2018 BAIMA, SLOAN L CONTROL CLERK SUBASSEMBLY Ot I70.213 ATHSCL [place] ARTERIES OF EXTRM W INTRMT 03/23/2018 BAIMA, SLOAN L CONTROL CLERK SUBASSEMBLY Ot I72.8 ANEURYSM OF OTHER SPECIFIED ARTERIES 03/23/2018 ARTHUR NO, HEMANT [place] Ot B07.0 PLANTAR WART 03/23/2018 ARTHUR NO, HEMANT [place] Ot I70.292 OTH ATHSCL [place] ARTERIES OF EXTREMITIE 03/23/2018 ARTHUR NO, HEMANT [place] Ot I70.292 OTH ATHSCL [place] ARTERIES OF EXTREMITIE 03/23/2018 ARTHUR NO, HEMANT [place] Ot B07.0 PLANTAR WART 03/23/2018 ARTHUR NO, HEMANT [place] Ot I70.292 OTH ATHSCL [place] ARTERIES OF EXTREMITIE 03/23/2018 ARTHUR NO, HEMANT [place] Ot B07.0 PLANTAR WART 03/23/2018 ARTHUR NO, HEMANT [place] Ot I70.292 OTH ATHSCL [place] ARTERIES OF EXTREMITIE 03/23/2018 NEIDA NO FACC, ALI FACP CCDS Ot M79.604 PAIN IN RIGHT LEG 03/23/2018 NEIDA NO FACGerry, ALI FACP CCDS Ot M79.605 PAIN IN LEFT LEG 03/23/2018 NEIDA NO FACC, ALI FACP CCDS Ot Z95.820 PERIPHERAL VASCULAR ANGIOPLASTY STATUS W 03/23/2018 NEIDA NO FACC, ALI FACP CCDS Ot Z98.890 OTHER SPECIFIED POSTPROCEDURAL STATES 03/24/2018 Ot E78.0 PURE HYPERCHOLESTEROLEMIA 03/24/2018 Ot G47.33 OBSTRUCTIVE SLEEP APNEA (ADULT) (PEDIATR 03/24/2018 Ot I10 ESSENTIAL ( PRIMARY) HYPERTENSION 03/24/2018 Ot I25.10 ATHSCL HEART DISEASE OF [place] CORONARY 03/24/2018 Ot I65.23 OCCLUSION AND STENOSIS OF BILATERAL [place] 03/24/2018 Ot Z72.0 TOBACCO USE 03/24/2018 NEIDA NO FACC, ALI FACP CCDS Ot E78.0 PURE HYPERCHOLESTEROLEMIA 03/24/2018 NEIDA NO FACGerry, ALI FACP CCDS Ot G47.33 OBSTRUCTIVE SLEEP APNEA (ADULT) (PEDIATR 03/24/2018 NEIDA NO FACC, ALI FACP CCDS Ot I10 ESSENTIAL (PRIMARY) HYPERTENSION 03/24/2018 NEIDA NO FACC, ALI FACP CCDS Ot I25.10 ATHSCL HEART DISEASE OF [place] CORONARY 03/24/2018 NEIDA NO FACC, ALI FACP CCDS Ot I65.23 OCCLUSION AND STENOSIS OF BILATERAL [place] 03/24/2018 NEIDA NO FAC, ALI FACP CCDS Ot Z72.0 TOBACCO USE 03/24/2018 YULI MEJIA PAPER COLORER Ot M79.89 OTHER SPECIFIED SOFT TISSUE DISORDERS 03/24/2018 ENRIKE NO, HEMANT Pascual Ot M17.11 UNILATERAL PRIMARY OSTEOARTHRITIS, RIGHT 03/24/2018 ENRIKE NO, HEMANT Pascual Ot M54.16 RADICULOPATHY, LUMBAR REGION 03/24/2018 BRITNI FREIRE DO Ot R05 COUGH 03/24/2018 BRITNI FREIRE DO Ot R06.02 SHORTNESS OF BREATH 03/24/2018 BRITNI FREIRE DO Ot Z72.0 TOBACCO USE 03/24/2018 NEIDA NO FACC, ALI FACP CCDS Ot I65.22 OCCLUSION AND STENOSIS OF LEFT CAROTID A 03/24/2018 NEIDA NO FACC, ALI FACP CCDS Ot I70.8 ATHEROSCLEROSIS OF OTHER ARTERIES 03/24/2018 NEIDA NO FACC, ALI FACP CCDS Ot R55 SYNCOPE AND COLLAPSE 03/24/2018 BERTRAM WILSON APRN Ot R05 COUGH 03/24/2018 BERTRAM WILSON APRN Ot R06.02 SHORTNESS OF BREATH 03/24/2018 ROX GARAGE DOOR INSTALLER, TAMY Sadler Ot R09.89 OTH SYMPTOMS AND SIGNS INVOLVING THE CIR 03/24/2018 ROX CHAVES, TAMY Sadler Ot 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] 03/24/2018 ROX CHAVES, TAMY Sadler Ot R09.89 OTH SYMPTOMS AND SIGNS INVOLVING THE CIR 03/24/2018 YULI MEJIA PAPER COLORER Ot M25.551 PAIN IN RIGHT HIP 03/24/2018 YULI MEJIA PAPER COLORER Ot M25.561 PAIN IN RIGHT KNEE 03/24/2018 YULI MEJIA PAPER COLORER Ot M47.816 SPONDYLOSIS W/O MYELOPATHY OR RADICULOPA 03/24/2018 YULI MEJIA PAPER COLORER Ot R10.2 PELVIC AND PERINEAL PAIN 03/24/2018 YULI MEJIA PAPER COLORER Ot Z95.828 PRESENCE OF OTHER VASCULAR IMPLANTS AND 03/24/2018 YULI MEJIA APRN Ot E78.5 HYPERLIPIDEMIA, UNSPECIFIED 03/24/2018 YULI MEJIA PAPER COLORER Ot R53.83 OTHER FATIGUE 03/24/2018 YULI MEJIA PAPER COLORER Ot R94.6 ABNORMAL RESULTS OF THYROID FUNCTION [place] 03/24/2018 YULI MEJIA PAPER COLORER Ot E04.2 NONTOXIC MULTINODULAR GOITER 03/24/2018 KATIE BERTRAM Deisy PAPER COLORER Ot J98.4 OTHER DISORDERS OF LUNG 03/24/2018 NEIDA OROZCO, ALI FACP CCDS Ot I25.10 ATHSCL HEART DISEASE OF [place] CORONARY 03/24/2018 NEIDA NO [facility], ALI FACP CCDS Ot R53.83 OTHER FATIGUE 03/24/2018 NEIDA NO [facility], ALI FACP CCDS Ot E13.65 OTHER SPECIFIED DIABETES MELLITUS WITH H 03/24/2018 NEIDA NO [facility], ALI FACP CCDS Ot E66.8 OTHER OBESITY 03/24/2018 NEIDA NO [facility], ALI FACP CCDS Ot E78.4 OTHER HYPERLIPIDEMIA 03/24/2018 NEIDA NO [facility], ALI FACP CCDS Ot G47.33 OBSTRUCTIVE SLEEP APNEA (ADULT) (PEDIATR 03/24/2018 NEIDA NO [facility], ALI FACP CCDS Ot I10 ESSENTIAL (PRIMARY) HYPERTENSION 03/24/2018 NEIDA NO [facility], ALI FACP CCDS Ot I70.213 ATHSCL [place] ARTERIES OF EXTRM W INTRMT 03/24/2018 NEIDA OROZCO, ALI FACP CCDS Ot I72.4 ANEURYSM OF ARTERY OF LOWER EXTREMITY 03/24/2018 NEIDA NO [facility], ALI FACP CCDS Ot Z72.0 TOBACCO USE 03/24/2018 NEIDA NO [facility], ALI FACP CCDS Ot Z98.890 OTHER SPECIFIED POSTPROCEDURAL STATES 03/24/2018 BAISLOAN ALSTON L CONTROL CLERK SUBASSEMBLY Ot E13.65 OTHER SPECIFIED DIABETES MELLITUS WITH H 03/24/2018 BAIMA, SLOAN L CONTROL CLERK SUBASSEMBLY Ot E78.4 OTHER HYPERLIPIDEMIA 03/24/2018 BAIMA SLOAN L CONTROL CLERK SUBASSEMBLY Ot G47.33 OBSTRUCTIVE SLEEP APNEA (ADULT) (PEDIATR 03/24/2018 BAIMA SLOAN L CONTROL CLERK SUBASSEMBLY Ot I70.213 ATHSCL [place] ARTERIES OF EXTRM W INTRMT 03/24/2018 BAISLOAN ALSTON L CONTROL CLERK SUBASSEMBLY Ot I72.8 ANEURYSM OF OTHER SPECIFIED ARTERIES 03/24/2018 ARTHUR NO, HEMANT [place] Ot B07.0 PLANTAR WART 03/24/2018 ARTHUR NO, HEMANT [place] Ot I70.292 OTH ATHSCL [place] ARTERIES OF EXTREMITIE 03/24/2018 HEMANT GIBSON MD Ot I70.292 OTH ATHSCL [place] ARTERIES OF EXTREMITIE 03/24/2018 HEMANT GIBSON MD Ot B07.0 PLANTAR WART 03/24/2018 HEMANT GIBSON MD Ot I70.292 OTH ATHSCL [place] ARTERIES OF EXTREMITIE 03/24/2018 HEMANT GIBSON MD Ot B07.0 PLANTAR WART 03/24/2018 HEMANT GIBSON MD Ot I70.292 OTH ATHSCL [place] ARTERIES OF EXTREMITIE 03/24/2018 NEIDA NO FACC, ALI FACP CCDS Ot M79.604 PAIN IN RIGHT LEG 03/24/2018 NEIDA NO FACC, ALI FACP CCDS Ot M79.605 PAIN IN LEFT LEG 03/24/2018 NEIDA OROZCOC, ALI FACP CCDS Ot Z95.820 PERIPHERAL VASCULAR ANGIOPLASTY STATUS W 03/24/2018 NEIDA NO FACC, ALI FACP CCDS Ot Z98.890 OTHER SPECIFIED POSTPROCEDURAL STATES 03/29/2018 NEIDA NO FACC, ALI FACP CCDS Ot E11.51 TYPE 2 DIABETES W DIABETIC PERIPHERAL AN 03/29/2018 NEIDA OROZCOC, ALI FACP CCDS Ot E78.5 HYPERLIPIDEMIA, UNSPECIFIED 03/29/2018 NEIDA NO FACC, ALI FACP CCDS Ot I21.19 STEMI INVOLVING OTH CORONARY ARTERY OF I 03/29/2018 NEIDA OROZCOC, ALI FACP CCDS Ot I25.10 ATHSCL HEART DISEASE OF [place] CORONARY 03/29/2018 NEIDA NO FACC, ALI FACP CCDS Ot I51.7 CARDIOMEGALY 03/29/2018 NEIDA NO FACC, ALI FACP CCDS Ot I77.9 DISORDER OF ARTERIES AND ARTERIOLES, UNS 03/29/2018 NEIDA NO FACC, ALI FACP CCDS Ot R06.02 SHORTNESS OF BREATH 04/02/2018 SLOAN RIVERA CONTROL CLERK SUBASSEMBLY Ot I70.213 ATHSCL [place] ARTERIES OF EXTRM W INTRMT 04/02/2018 SLOAN RIVERA CONTROL CLERK SUBASSEMBLY Ot Z95.820 PERIPHERAL VASCULAR ANGIOPLASTY STATUS W 04/03/2018 NEIDA NO FACC, CHRISTEL FACP CCDS Ot E11.51 TYPE 2 DIABETES W DIABETIC PERIPHERAL AN 04/03/2018 NEIDA NO FACC, ALI FACP CCDS Ot E78.5 HYPERLIPIDEMIA, UNSPECIFIED 04/03/2018 NEIDA NO FACC, ALI FACP CCDS Ot I21.19 STEMI INVOLVING OTH CORONARY ARTERY OF I 04/03/2018 NEIDA NO FACC, ALI FACP CCDS Ot I25.10 ATHSCL HEART DISEASE OF [place] CORONARY 04/03/2018 NEIDA NO FACC, ALI FACP CCDS Ot I51.7 CARDIOMEGALY 04/03/2018 NEIDA NO FACC, ALI FACP CCDS Ot I77.9 DISORDER OF ARTERIES AND ARTERIOLES, UNS 04/03/2018 NEIDA NO FACC, ALI FACP CCDS Ot R06.02 SHORTNESS OF BREATH Procedures Code Description Performed By Performed On 81.54 TOTAL KNEE REPLACEMENT 05/01/2012 [id number] DILATION OF 1 COR ART WITH DRUG-ELUT INT 03/19/2017 [id number] MEASURE CARDIAC SAMPL PRESSURE, BILATE 03/19/2017 [id number] FLUOROSCOPY OF RIGHT AND LEFT HEART USIN [...] - 05/19/16 08:30 Bacterial sputum culture NORMAL [facility] Complete blood count (CBC) with automated white [...] 16:00 THYROID STIMULATING HORMONE 1.90 u[iU]/mL 0.35-4.94 Automated blood complete blood count (hemogram) panel - 04/26/17 07:32 Blood leukocytes automated count (number/volume) 6.4 10*3/uL 4.3-11.0 Blood erythrocytes automated count (number/volume) 5.18 10*6/uL 4.35-5.85 Venous blood hemoglobin measurement (mass/volume) 14.7 g/dL 13.3-17.7 Blood hematocrit (volume fraction) 44 % 40-54 Automated erythrocyte mean corpuscular volume 86 [foz_us] 80-99 Automated erythrocyte mean corpuscular hemoglobin (mass per erythrocyte) 28 pg 25-34 Automated erythrocyte mean corpuscular hemoglobin concentration measurement ( mass/volume) 33 g/dL 32-36 Automated erythrocyte distribution width ratio 14.8 % 10.0-14.5 Automated blood platelet count (count/volume) 177 10*3/uL 130-400 Automated blood platelet mean volume measurement 10.9 [foz_us] 7.4-10.4 PT panel in platelet poor plasma by coagulation assay - 04/26/17 07:32 Prothrombin time (PT) in platelet poor plasma by coagulation assay 12.7 s 12.2-14.7 INR in platelet poor plasma or blood by coagulation assay 0.9 0.8-1.4 Activated partial thromboplastin time (aPTT) in platelet poor plasma bycoagulation assay - 04/26/17 07:32 Activated partial thromboplastin time (aPTT) in platelet poor plasma bycoagulation assay 28 s 24-35 Comprehensive metabolic panel - 04/26/17 07:32 Serum or plasma sodium measurement (moles/volume) 141 mmol/L 135-145 Serum or plasma potassium measurement (moles/volume) 4.2 mmol/L 3.6-5.0 Serum or plasma chloride measurement (moles/volume) 109 mmol/L 98-107 Carbon dioxide 25 mmol/L 21-32 Serum or plasma anion gap determination (moles/volume) 7 mmol/L 5-14 Serum or plasma urea nitrogen measurement (mass/volume) 15 mg/dL 7-18 Serum or plasma creatinine measurement (mass/volume) 1.10 mg/dL 0.60-1.30 Serum or plasma urea nitrogen/creatinine mass ratio 14 NRG Serum or plasma creatinine measurement with calculation of estimated glomerular filtration rate > NRG Serum or plasma glucose measurement (mass/volume) 121 mg/dL 70-105 Serum or plasma calcium measurement (mass/volume) 9.5 mg/dL 8.5-10.1 Serum or plasma total bilirubin measurement (mass/volume) 0.3 mg/dL 0.1-1.0 Serum or plasma alkaline phosphatase measurement (enzymatic activity/volume) 117 U/L 40-136 Serum or plasma aspartate aminotransferase measurement (enzymatic activity/ volume) 17 U/L 5-34 Serum or plasma alanine aminotransferase measurement (enzymatic activity/volume ) 23 U/L 0-55 Serum or plasma protein measurement (mass/volume) 7.5 g/dL 6.4-8.2 Serum or plasma albumin measurement (mass/volume) 4.3 g/dL 3.2-4.5 Lipid 1996 panel - 04/26/17 07:32 Serum or plasma triglyceride measurement (mass/volume) 239 mg/dL <150 Serum or plasma cholesterol measurement (mass/volume) 164 mg/dL < 200 Serum or plasma cholesterol in HDL measurement (mass/volume) 31 mg/ dL 40-60 Cholesterol in LDL [mass/volume] in serum or plasma by direct assay 102 mg/dL 1-129 Serum or plasma cholesterol in VLDL measurement (mass/volume) 48 mg/ dL 5-40 Methicillin resistant Staphylococcus aureus (MRSA) screening culture - 07:32 Methicillin resistant Staphylococcus aureus (MRSA) screening culture NEG NRG Activated partial thromboplastin time (aPTT) in platelet poor plasma bycoagulation assay - 04/26/17 16:50 Activated partial thromboplastin time (aPTT) in platelet poor plasma bycoagulation assay 40 s 24-35 Automated blood complete blood count (hemogram) panel - 04/27/17 03:15 Blood leukocytes automated count (number/volume) 8.1 10*3/uL 4.3-11.0 Blood erythrocytes automated count (number/volume) 4.62 10*6/uL 4.35-5.85 Venous blood hemoglobin measurement (mass/volume) 13.1 g/dL 13.3-17.7 Blood hematocrit (volume fraction) 40 % 40-54 Automated erythrocyte mean corpuscular volume 86 [foz_us] 80-99 Automated erythrocyte mean corpuscular hemoglobin (mass per erythrocyte) 28 pg 25-34 Automated erythrocyte mean corpuscular hemoglobin concentration measurement ( mass/volume) 33 g/dL 32-36 Automated erythrocyte distribution width ratio 14.8 % 10.0-14.5 Automated blood platelet count (count/volume) 189 10*3/uL 130-400 Automated blood platelet mean volume measurement 11.1 [foz_us] 7.4-10.4 Whole blood basic metabolic panel - 04/27/17 03:15 Serum or plasma sodium measurement (moles/volume) 137 mmol/L 135-145 Serum or plasma potassium measurement (moles/volume) 4.5 mmol/L 3.6-5.0 Serum or plasma chloride measurement (moles/volume) 105 mmol/L 98-107 Carbon dioxide 18 mmol/L 21-32 Serum or plasma anion gap determination (moles/volume) 14 mmol/L 5-14 Serum or plasma urea nitrogen measurement (mass/volume) 14 mg/dL 7-18 Serum or plasma creatinine measurement (mass/volume) 1.05 mg/dL 0.60-1.30 Serum or plasma urea nitrogen/creatinine mass ratio 13 NRG Serum or plasma creatinine measurement with calculation of estimated glomerular filtration rate > NRG Serum or plasma glucose measurement (mass/volume) 227 mg/dL 70-105 Serum or plasma calcium measurement (mass/volume) 8.9 mg/dL 8.5-10.1 Complete blood count (CBC) with automated white blood cell (WBC) differential - 11/14/17 12:50 Blood leukocytes automated count (number/volume) 8.6 10*3/uL 4.3-11.0 Blood erythrocytes automated count (number/volume) 5.57 10*6/uL 4.35-5.85 Venous blood hemoglobin measurement (mass/volume) 15.7 g/dL 13.3-17.7 Blood hematocrit (volume fraction) 47 % 40-54 Automated erythrocyte mean corpuscular volume 85 [foz_us] 80-99 Automated erythrocyte mean corpuscular hemoglobin (mass per erythrocyte) 28 pg 25-34 Automated erythrocyte mean corpuscular hemoglobin concentration measurement ( mass/volume) 33 g/dL 32-36 Automated erythrocyte distribution width ratio 15.6 % 10.0-14.5 Automated blood platelet count (count/volume) 202 10*3/uL 130-400 Automated blood platelet mean volume measurement 10.7 [foz_us] 7.4-10.4 Automated blood neutrophils/100 leukocytes 72 % 42-75 Automated blood lymphocytes/100 leukocytes 18 % 12-44 Blood monocytes/100 leukocytes 8 % 0-12 Automated blood eosinophils/100 leukocytes 2 % 0-10 Automated blood basophils/100 leukocytes 0 % 0-10 Blood neutrophils automated count (number/volume) 6.2 10*3 1.8-7.8 Blood lymphocytes automated count (number/volume) 1.6 10*3 1.0-4.0 Blood monocytes automated count (number/volume) 0.7 10*3 0.0-1.0 Automated eosinophil count 0.1 10*3/uL 0.0-0.3 Automated blood basophil count (count/volume) 0.0 10*3/uL 0.0-0.1 Comprehensive metabolic panel - 11/14/17 12:50 Serum or plasma sodium measurement (moles/volume) 138 mmol/L 135-145 Serum or plasma potassium measurement (moles/volume) 4.0 mmol/L 3.6-5.0 Serum or plasma chloride measurement (moles/volume) 103 mmol/L 98-107 Carbon dioxide 25 mmol/L 21-32 Serum or plasma anion gap determination (moles/volume) 10 mmol/L 5-14 Serum or plasma urea nitrogen measurement (mass/volume) 15 mg/dL 7-18 Serum or plasma creatinine measurement (mass/volume) 0.95 mg/dL 0.60-1.30 Serum or plasma urea nitrogen/creatinine mass ratio 16 NRG Serum or plasma creatinine measurement with calculation of estimated glomerular filtration rate > NRG Serum or plasma glucose measurement (mass/volume) 87 mg/dL 70-105 Serum or plasma calcium measurement (mass/volume) 9.6 mg/dL 8.5-10.1 Serum or plasma total bilirubin measurement (mass/volume) 0.7 mg/dL 0.1-1.0 Serum or plasma alkaline phosphatase measurement (enzymatic activity/volume) 139 U/L 40-136 Serum or plasma aspartate aminotransferase measurement (enzymatic activity/ volume) 17 U/L 5-34 Serum or plasma alanine aminotransferase measurement (enzymatic activity/volume ) 26 U/L 0-55 Serum or plasma protein measurement (mass/volume) 7.6 g/dL 6.4-8.2 Serum or plasma albumin measurement (mass/volume) 4.3 g/dL 3.2-4.5 CALCIUM CORRECTED 9.4 mg/dL 8.5-10.1 Automated blood complete blood count (hemogram) panel - 11/22/17 09:28 Blood leukocytes automated count (number/volume) 9.6 10*3/uL 4.3-11.0 Blood erythrocytes automated count (number/volume) 5.43 10*6/uL 4.35-5.85 Venous blood hemoglobin measurement (mass/volume) 15.4 g/dL 13.3-17.7 Blood hematocrit (volume fraction) 46 % 40-54 Automated erythrocyte mean corpuscular volume 85 [foz_us] 80-99 Automated erythrocyte mean corpuscular hemoglobin (mass per erythrocyte) 28 pg 25-34 Automated erythrocyte mean corpuscular hemoglobin concentration measurement ( mass/volume) 33 g/dL 32-36 Automated erythrocyte distribution width ratio 15.6 % 10.0-14.5 Automated blood platelet count (count/volume) 223 10*3/uL 130-400 Automated blood platelet mean volume measurement 10.6 [foz_us] 7.4-10.4 PT panel in platelet poor plasma by coagulation assay - 11/22/17 09:28 Prothrombin time (PT) in platelet poor plasma by coagulation assay 13.6 s 12.2-14.7 INR in platelet poor plasma or blood by coagulation assay 1.0 0.8-1.4 Activated partial thromboplastin time (aPTT) in platelet poor plasma bycoagulation assay - 11/22/17 09:28 Activated partial thromboplastin time (aPTT) in platelet poor plasma bycoagulation assay 29 s 24-35 Comprehensive metabolic panel - 11/22/17 09:28 Serum or plasma sodium measurement (moles/volume) 140 mmol/L 135-145 Serum or plasma potassium measurement (moles/volume) 4.4 mmol/L 3.6-5.0 Serum or plasma chloride measurement (moles/volume) 107 mmol/L 98-107 Carbon dioxide 24 mmol/L 21-32 Serum or plasma anion gap determination (moles/volume) 9 mmol/L 5-14 Serum or plasma urea nitrogen measurement (mass/volume) 13 mg/dL 7-18 Serum or plasma creatinine measurement (mass/volume) 0.96 mg/dL 0.60-1.30 Serum or plasma urea nitrogen/creatinine mass ratio 14 NRG Serum or plasma creatinine measurement with calculation of estimated glomerular filtration rate > NRG Serum or plasma glucose measurement (mass/volume) 96 mg/dL 70-105 Serum or plasma calcium measurement (mass/volume) 9.5 mg/dL 8.5-10.1 Serum or plasma total bilirubin measurement (mass/volume) 0.6 mg/dL 0.1-1.0 Serum or plasma alkaline phosphatase measurement (enzymatic activity/volume) 121 U/L 40-136 Serum or plasma aspartate aminotransferase measurement (enzymatic activity/ volume) 17 U/L 5-34 Serum or plasma alanine aminotransferase measurement (enzymatic activity/volume ) 19 U/L 0-55 Serum or plasma protein measurement (mass/volume) 7.4 g/dL 6.4-8.2 Serum or plasma albumin measurement (mass/volume) 4.3 g/dL 3.2-4.5 CALCIUM CORRECTED 9.3 mg/dL 8.5-10.1 Lipid 1996 panel - 11/22/17 09:28 Serum or plasma triglyceride measurement (mass/volume) 171 mg/dL <150 Serum or plasma cholesterol measurement (mass/volume) 149 mg/dL < 200 Serum or plasma cholesterol in HDL measurement (mass/volume) 25 mg/ dL 40-60 Cholesterol in LDL [mass/volume] in serum or plasma by direct assay 102 mg/dL 1-129 Serum or plasma cholesterol in VLDL measurement (mass/volume) 34 mg/ dL 5-40 Methicillin resistant Staphylococcus aureus (MRSA) screening culture - 09:28 Methicillin resistant Staphylococcus aureus (MRSA) screening culture NEG NRG Automated blood complete blood count (hemogram) panel - 11/23/17 06:00 Blood leukocytes automated count (number/volume) 8.9 10*3/uL 4.3-11.0 Blood erythrocytes automated count (number/volume) 4.72 10*6/uL 4.35-5.85 Venous blood hemoglobin measurement (mass/volume) 13.6 g/dL 13.3-17.7 Blood hematocrit (volume fraction) 41 % 40-54 Automated erythrocyte mean corpuscular volume 86 [foz_us] 80-99 Automated erythrocyte mean corpuscular hemoglobin (mass per erythrocyte) 29 pg 25-34 Automated erythrocyte mean corpuscular hemoglobin concentration measurement ( mass/volume) 33 g/dL 32-36 Automated erythrocyte distribution width ratio 15.0 % 10.0-14.5 Automated blood platelet count (count/volume) 167 10*3/uL 130-400 Automated blood platelet mean volume measurement 10.8 [foz_us] 7.4-10.4 Whole blood basic metabolic panel - 11/23/17 06:00 Serum or plasma sodium measurement (moles/volume) 138 mmol/L 135-145 Serum or plasma potassium measurement (moles/volume) 4.5 mmol/L 3.6-5.0 Serum or plasma chloride measurement (moles/volume) 107 mmol/L 98-107 Carbon dioxide 24 mmol/L 21-32 Serum or plasma anion gap determination (moles/volume) 7 mmol/L 5-14 Serum or plasma urea nitrogen measurement (mass/volume) 15 mg/dL 7-18 Serum or plasma creatinine measurement (mass/volume) 0.89 mg/dL 0.60-1.30 Serum or plasma urea nitrogen/creatinine mass ratio 17 NRG Serum or plasma creatinine measurement with calculation of estimated glomerular filtration rate > NRG Serum or plasma glucose measurement (mass/volume) 140 mg/dL 70-105 Serum or plasma calcium measurement (mass/volume) 8.9 mg/dL 8.5-10.1 Complete blood count (CBC) with automated white blood cell (WBC) differential - 03/13/18 13:50 Blood leukocytes automated count (number/volume) 8.4 10*3/uL 4.3-11.0 Blood erythrocytes automated count (number/volume) 5.35 10*6/uL 4.35-5.85 Venous blood hemoglobin measurement (mass/volume) 15.3 g/dL 13.3-17.7 Blood hematocrit (volume fraction) 46 % 40-54 Automated erythrocyte mean corpuscular volume 87 [foz_us] 80-99 Automated erythrocyte mean corpuscular hemoglobin (mass per erythrocyte) 29 pg 25-34 Automated erythrocyte mean corpuscular hemoglobin concentration measurement ( mass/volume) 33 g/dL 32-36 Automated erythrocyte distribution width ratio 15.1 % 10.0-14.5 Automated blood platelet count (count/volume) 193 10*3/uL 130-400 Automated blood platelet mean volume measurement 10.7 [foz_us] 7.4-10.4 Automated blood neutrophils/100 leukocytes 71 % 42-75 Automated blood lymphocytes/100 leukocytes 18 % 12-44 Blood monocytes/100 leukocytes 10 % 0-12 Automated blood eosinophils/100 leukocytes 2 % 0-10 Automated blood basophils/100 leukocytes 0 % 0-10 Blood neutrophils automated count (number/volume) 6.0 10*3 1.8-7.8 Blood lymphocytes automated count (number/volume) 1.5 10*3 1.0-4.0 Blood monocytes automated count (number/volume) 0.8 10*3 0.0-1.0 Automated eosinophil count 0.1 10*3/uL 0.0-0.3 Automated blood basophil count (count/volume) 0.0 10*3/uL 0.0-0.1 PT panel in platelet poor plasma by coagulation assay - 03/13/18 13:50 Prothrombin time (PT) in platelet poor plasma by coagulation assay 13.7 s 12.2-14.7 INR in platelet poor plasma or blood by coagulation assay 1.1 0.8-1.4 Activated partial thromboplastin time (aPTT) in platelet poor plasma bycoagulation assay - 03/13/18 13:50 Activated partial thromboplastin time (aPTT) in platelet poor plasma bycoagulation assay 32 s 24-35 Fibrin D-dimer FEU measurement in platelet poor plasma (mass/volume) - 13:50 Fibrin D-dimer FEU measurement in platelet poor plasma (mass/volume) 0.37 ug/mL 0.00-0.49 Comprehensive metabolic panel - 03/13/18 13:50 Serum or plasma sodium measurement (moles/volume) 139 mmol/L 135-145 Serum or plasma potassium measurement (moles/volume) 4.0 mmol/L 3.6-5.0 Serum or plasma chloride measurement (moles/volume) 106 mmol/L 98-107 Carbon dioxide 22 mmol/L 21-32 Serum or plasma anion gap determination (moles/volume) 11 mmol/L 5-14 Serum or plasma urea nitrogen measurement (mass/volume) 10 mg/dL 7-18 Serum or plasma creatinine measurement (mass/volume) 0.97 mg/dL 0.60-1.30 Serum or plasma urea nitrogen/creatinine mass ratio 10 NRG Serum or plasma creatinine measurement with calculation of estimated glomerular filtration rate > NRG Serum or plasma glucose measurement (mass/volume) 148 mg/dL 70-105 Serum or plasma calcium measurement (mass/volume) 9.1 mg/dL 8.5-10.1 Serum or plasma total bilirubin measurement (mass/volume) 0.3 mg/dL 0.1-1.0 Serum or plasma alkaline phosphatase measurement (enzymatic activity/volume) 122 U/L 40-136 Serum or plasma aspartate aminotransferase measurement (enzymatic activity/ volume) 17 U/L 5-34 Serum or plasma alanine aminotransferase measurement (enzymatic activity/volume ) 18 U/L 0-55 Serum or plasma protein measurement (mass/volume) 7.4 g/dL 6.4-8.2 Serum or plasma albumin measurement (mass/volume) 4.0 g/dL 3.2-4.5 CALCIUM CORRECTED 9.1 mg/dL 8.5-10.1 Magnesium - 03/13/18 13:50 Magnesium 2.3 mg/dL 1.8-2.4 Lipase - 03/13/18 13:50 Lipase 20 U/L 8-78 Serum or plasma troponin i.cardiac measurement (mass/volume) - 03/13/18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
[2018-05-07] MEDS ORDERED: NS IV 1000 ML 1,000 ML IV ONE (21:03)
[2018-05-07 21:10] LABS: BASOPHILS % (AUTO) 0 % (0-10); EOSINOPHILS # (AUTO) 0.1 10^3/uL (0.0-0.3); EOSINOPHILS % (AUTO) 0 % (0-10); HEMATOCRIT 49 % (40-54); HEMOGLOBIN 16.7 G/DL (13.3-17.7); LYMPHOCYTES % (AUTO) 6 % (12-44); MEAN CORPUSCULAR HEMOGLOBIN 29 PG (25-34); MEAN CORPUSCULAR HGB CONC 34 G/DL (32-36); MEAN CORPUSCULAR VOLUME 86 FL (80-99); MEAN PLATELET VOLUME 10.8 FL (7.4-10.4); MONOCYTES # (AUTO) 0.8 X 10^3 (0.0-1.0); MONOCYTES % (AUTO) 5 % (0-12); NEUTROPHILS # (AUTO) 13.6 X 10^3 (1.8-7.8); NEUTROPHILS % (AUTO) 88 % (42-75); PLATELET COUNT 182 10^3/uL (130-400); RED CELL DISTRIBUTION WIDTH 15.1 % (10.0-14.5); WHITE BLOOD COUNT 15.5 10^3/uL (4.3-11.0)
[2018-05-07] MEDS ORDERED: ASPIRIN 81 MG CHEW (CHILDREN'S ASA) PO ONE (21:15)
[2018-05-07 21:17] LABS: PROTHROMBIN TIME PATIENT 13.5 SEC (12.2-14.7)
[2018-05-07 21:27] LABS: ALANINE AMINOTRANSFERASE 31 U/L (0-55); ALBUMIN 4.6 GM/DL (3.2-4.5); ALKALINE PHOSPHATASE 147 U/L (40-136); AMYLASE 43 U/L (25-125); BILIRUBIN,TOTAL 0.8 MG/DL (0.1-1.0); BUN/CREATININE RATIO 17; CALCIUM 9.8 MG/DL (8.5-10.1); CARBON DIOXIDE 23 MMOL/L (21-32); CHLORIDE 100 MMOL/L (98-107); CREATININE SERUM 1.02 MG/DL (0.60-1.30); GFR ESTIMATED > 60; GLUCOSE 208 MG/DL (70-105); LIPASE 12 U/L (8-78); MAGNESIUM 2.1 MG/DL (1.8-2.4); POTASSIUM 4.5 MMOL/L (3.6-5.0); SODIUM 136 MMOL/L (135-145); TOTAL PROTEIN 7.8 GM/DL (6.4-8.2)
[2018-05-07 21:28] LABS: BAND NEUTROPHILS 0 %; BASOPHILS % (MANUAL) 0 %; EOSINOPHILS % (MANUAL) 2 %; LYMPHOCYTES % (MANUAL) 4 %; MONOCYTES % (MANUAL) 3 %; NEUTROPHILS % (MANUAL) 86 %
[2018-05-07 21:29] LABS: RBC MORPH NORMAL; REACTIVE LYMPHOCYTES 5 %
[2018-05-07 21:34] LABS: MYOGLOBIN SERUM 43.1 NG/ML (10.0-92.0)
--- NOTE | 2018-05-07 21:59 | Diagnostic Imaging Report ---
INDICATION: Shortness of air. EXAMINATION: Chest, 05/07/2018. COMPARISON: 03/13/2018. FINDINGS: The cardiomediastinal silhouette is unremarkable. The pulmonary vasculature is within normal limits. The lungs and pleural spaces are clear. IMPRESSION: No evidence of an acute cardiopulmonary process. Dictated by: Dictated on workstation # [id number]
[2018-05-07] MEDS ORDERED: morphine INJ 10 MG/ML 1ML (SYR OR VIAL) IVP STA (22:06)
--- NOTE | 2018-05-07 22:39 | NUR ---
Pt stating he does not wish to be admitted to the hospital at this time. Pt wanting to go home. Dr. Thomas bernardo.
--- NOTE | 2018-05-07 22:49 | ED Abdominal Pain ---
General Chief Complaint: Abdominal/GI Problems Stated Complaint: VOMITTING,PAIN IN ABD Nursing Triage Note: pt c/o vomiting and abdominal pain since tuesday that "occassionally shoots through to back." symptoms accompanied with increased SOB, diaphoresis, and weakness. pt also has swelling on left side for months that has gotten significantly worse over the last couple of weeks. Sepsis Screen: No Definite Risk Source of Information: Patient Exam Limitations: No Limitations History of Present Illness Date Seen by Provider: May 07, 2018 Time Seen by Provider: 21:04 Initial Comments Here with 2 days of nausea, vomiting and central abdominal pain as well as left hip pain. He has chronic left hip pain and takes hydrocodone daily for that. He has been unable to take any of his medicines due to the persistent nausea and vomiting. Does have shortness of breath and feels weak and sweaty. Does have significant heart history with over 20 stents between heart legs. Denies blood in his stool. States overall does not feel well. Timing/Duration: 1-2 Days Severity/Quality: Moderate, Aching Location: Epigastric Radiation: No Radiation Activities at Onset: None Modifying Factors: Worsens With Eating Associated Symptoms: No Back Pain, No Chest Pain; Diaphoresis; No Fever/Chills ; Fatigue, Nausea/Vomiting, Shortness of Air, Weakness Allergies and Home Medications Allergies Coded Allergies: No Known Drug Allergies (Unverified , 08/02/16) Home Medications Albuterol Sulfate 1 Puff Puff, 2 PUFF IH Q4H 1 PUFF = 90 MCG Prescribed by: CHRIS BOTELLO on 03/13/18 144 Aspirin 81 Mg Tablet.dr, 81 MG PO DAILY, (Reported) Atorvastatin Calcium 40 Mg Tablet, 40 MG PO HS, (Reported) Bupropion HCl 100 Mg Tablet, 100 MG PO HS, (Reported) Calcium Carbonate 300 Mg Tab.chew, 300 MG PO TID PRN for HEARTBURN, (Reported) Cefuroxime Axetil 250 Mg Tablet, 250 MG PO BID Prescribed by: CHRIS BOTELLO on 03/13/18 1442 Clopidogrel Bisulfate 75 Mg Tablet, 75 MG PO DAILY, (Reported) Hydrocodone/Acetaminophen 1 Each Tablet, 1 TAB PO EVERY 4-6 HOURS PRN for PAIN- MODERATE, (Reported) Lorazepam 0.5 Mg Tablet, 0.5 MG PO TID PRN for ANXIETY Prescribed by: CHRIS BOTELLO on 03/13/18 1500 Metoprolol Succinate 50 Mg Tab.er.24h, 25 MG PO DAILY, (Reported) TAKES 1/2 (50MG) TABLET Pramipexole Di-HCl 0.5 Mg Tablet, 0.5 MG PO HS, (Reported) Prednisone 20 Mg Tab, 40 MG PO DAILY Prescribed by: CHRIS BOTELLO on 03/13/18 1442 Pregabalin 75 Mg Capsule, 75 MG PO BID, (Reported) Primidone 50 Mg Tablet, 50 MG PO HS, (Reported) Ranitidine HCl 150 Mg Tablet, 150 MG PO DAILY PRN for HEARTBURN, (Reported) Sertraline HCl 50 Mg Tablet, 50 MG PO BID, (Reported) Patient Home Medication List Home Medication List Reviewed: Yes Review of Systems Review of Systems Constitutional: see HPI; No chills, No fever Respiratory: See HPI Cardiovascular: See HPI Gastrointestinal: See HPI, Abdominal Pain, Vomiting Genitourinary: No Symptoms Reported Musculoskeletal: joint pain (left hip), muscle pain (left hip) Skin: no symptoms reported All Other Systems Reviewed Negative Unless Noted: Yes Past Suqkjqp-Rgakhc-Yzheqr Hx Past Med/Social Hx: Reviewed Nursing Past Med/Soc Hx Patient Social History Alcohol Use: Denies Use Recreational Drug Use: No Smoking Status: Current Everyday Smoker Type Used: Cigarettes 2nd Hand Smoke Exposure: Yes Recent Foreign Travel: No Contact w/Someone Who Travel: No Recent Infectious Disease Expo: No Recent Hopitalizations: No Immunizations Up To Date Tetanus Booster (TDap): Unknown Date of Pneumonia Vaccine: Sep 30, 2012 Date of Influenza Vaccine: Dec 13, 2016 Seasonal Allergies Seasonal Allergies: No Past Medical History Surgeries: Yes (NECK AND BACK, CYST REMOVED, KNEE ARTH, LEFT TOTAL KNEE 05/01/12 , 13 STENTS) Coronary Stent, Vascular Surgery Respiratory: No Pneumonia, Sleep Apnea Currently Using CPAP: Yes Currently Using BIPAP: No Cardiac: Yes (13 STENTS PLACED) Hypertension Neurological: Yes Neuropathy Reproductive Disorders: No Sexually Transmitted Disease: No HIV/AIDS: No Genitourinary: No Gastrointestinal: No Gastroesophageal Reflux Musculoskeletal: Yes (OSTEO ARTHRITIS) Arthritis Endocrine: Yes (possible diabetes) HEENT: No Cancer: No Psychosocial: Yes Depression Integumentary: Yes (RECENT DIAGNOSIS OF FUNGAL INFECTION ON BILAT LEGS) Blood Disorders: No Family Medical History Reviewed Nursing Family Hx No Pertinent Family Hx Physical Exam Vital Signs Vital Signs - First Documented 05/07/18 20:39 Temp 98.5 Pulse 100 Resp 18 B/P (MAP) 116/74 (88) Pulse Ox 98 O2 Delivery Room Air Capillary Refill : Less Than 3 Seconds Height/Weight/BMI Height: 6'1.00" Weight: 252lbs. 0.0oz. 114.232831qa; 33.5 BMI Method:Stated General Appearance: WD/WN, no apparent distress HEENT: PERRL/EOMI, pharynx normal Neck: full range of motion, supple Respiratory: lungs clear, normal breath sounds Cardiovascular: no murmur, tachycardia Peripheral Pulses: 2+ Dorsalis Pedis (R), 2+ Left Dors-Pedis (L), 2+ Radial Pulses (R), 2+ Radial Pulses (L) Gastrointestinal: soft; No guarding, No rebound; tenderness (mild epigastric) Extremities: pelvis stable, other (tender in the area of the left hip where he is typically tender.) Back: normal inspection, no CVA tenderness, no vertebral tenderness Neurologic/Psychiatric: alert, oriented x 3 Skin: normal color, warm/dry Progress/Results/Core Measures Results/Orders Lab Results Laboratory Tests Test 05/07/18 20:59 Range/Units White Blood Count 15.5 H 4.3-11.0 10^3/uL Red Blood Count 5.73 4.35-5.85 10^6/uL Hemoglobin 16.7 13.3-17.7 G/DL Hematocrit 49 40-54 % Mean Corpuscular Volume 86 80-99 FL Mean Corpuscular Hemoglobin 29 25-34 PG Mean Corpuscular Hemoglobin Concent 34 32-36 G/DL Red Cell Distribution Width 15.1 H 10.0-14.5 % Platelet Count 182 130-400 10^3/uL Mean Platelet Volume 10.8 H 7.4-10.4 FL Neutrophils (%) (Auto) 88 H 42-75 % Lymphocytes (%) (Auto) 6 L 12-44 % Monocytes (%) (Auto) 5 0-12 % Eosinophils (%) (Auto) 0 0-10 % Basophils (%) (Auto) 0 0-10 % Neutrophils # (Auto) 13.6 H 1.8-7.8 X 10^3 Lymphocytes # (Auto) 1.0 1.0-4.0 X 10^3 Monocytes # (Auto) 0.8 0.0-1.0 X 10^3 Eosinophils # (Auto) 0.1 0.0-0.3 10^3/uL Basophils # (Auto) 0.0 0.0-0.1 10^3/uL Neutrophils % (Manual) 86 % Lymphocytes % (Manual) 4 % Monocytes % (Manual) 3 % Eosinophils % (Manual) 2 % Basophils % (Manual) 0 % Band Neutrophils 0 % Reactive Lymphocytes 5 % Blood Morphology Comment NORMAL Prothrombin Time 13.5 12.2-14.7 SEC INR Comment 1.0 0.8-1.4 Activated Partial Thromboplast Time 31 24-35 SEC Sodium Level 136 135-145 MMOL/L Potassium Level 4.5 3.6-5.0 MMOL/L Chloride Level 100 98-107 MMOL/L Carbon Dioxide Level 23 21-32 MMOL/L Anion Gap 13 5-14 MMOL/L Blood Urea Nitrogen 17 7-18 MG/DL Creatinine 1.02 0.60-1.30 MG/DL Estimat Glomerular Filtration Rate > 60 BUN/Creatinine Ratio 17 Glucose Level 208 H 70-105 MG/DL Calcium Level 9.8 8.5-10.1 MG/DL Corrected Calcium 8.5-10.1 MG/DL Magnesium Level 2.1 1.8-2.4 MG/DL Total Bilirubin 0.8 0.1-1.0 MG/DL Aspartate Amino Transf (AST/SGOT) 22 5-34 U/L Alanine Aminotransferase (ALT/SGPT) 31 0-55 U/L Alkaline Phosphatase 147 H 40-136 U/L Myoglobin 43.1 10.0-92.0 NG/ML Troponin I < 0.028 <0.028 NG/ML Total Protein 7.8 6.4-8.2 GM/DL Albumin 4.6 H 3.2-4.5 GM/DL Amylase Level 43 25-125 U/L Lipase 12 8-78 U/L My Orders Orders - RADHA CASTRO MD Cbc With Automated Diff (05/07/18 21:03) Magnesium (05/07/18 21:03) Chest 1 View, Ap/Pa Only (05/07/18 21:03) Ekg Tracing (05/07/18 21:03) Cardiac Profile 1 (05/07/18 21:03) Comprehensive Metabolic Panel (05/07/18 21:03) Myoglobin Serum (05/07/18 21:03) Protime With Inr (05/07/18 21:03) Partial Thromboplastin Time (05/07/18 21:03) O2 (05/07/18 21:03) Monitor-Rhythm Ecg Trace Only (05/07/18 21:03) Lipid Panel (05/08/18 06:00) Aspirin Chewable Tablet (Baby Aspirin Ch (05/07/18 21:15) Saline Lock/Iv-Start (05/07/18 21:03) Lipase (05/07/18 21:03) Amylase (05/07/18 21:03) Saline Lock/Iv-Start (05/07/18 21:03) Ns Iv 1000 Ml (Sodium Chloride 0.9%) (05/07/18 21:03) Manual Differential (05/07/18 20:59) Morphine Injection (Morphine Injection (05/07/18 22:06) Saline Lock/Iv-Start (05/07/18 23:17) Ns Iv 500 Ml (Sodium Chloride 0.9%) (05/07/18 23:17) Rx-Ondansetron Po (Rx-Zofran Po) (05/07/18 23:21) Medications Given in ED Current Medications Medications Dose Ordered Sig/Paula Route Start Time Stop Time Status Last Admin Dose Admin Aspirin 324 mg ONCE ONCE PO 05/07/18 21:15 05/07/18 21:16 DC 05/07/18 21:35 324 MG Sodium Chloride 500 ml @ 0 mls/hr Q0M ONCE IV 05/07/18 23:17 05/07/18 23:18 DC 05/07/18 23:28 999 MLS/HR Sodium Chloride 1,000 ml @ 0 mls/hr Q0M ONCE IV 05/07/18 21:03 05/07/18 21:05 DC 05/07/18 21:35 999 MLS/HR Vital Signs/I&O 05/07/18 20:39 Temp 98.5 Pulse 100 Resp 18 B/P (MAP) 116/74 (88) Pulse Ox 98 O2 Delivery Room Air Blood Pressure Mean: 88 Progress Progress Note : Progress Note Seen and evaluated. IV, labs, EKG and chest x-ray ordered. ASA 324 mg by mouth ordered. Monitor patient. Normal saline 1 L bolus ordered. Patient has been without his chronic pain medicines for 2 days and this may be part of his left hip pain as well as stomach upset exacerbation. May have started with viral illness but progressed to withdrawal. He did give morphine 10 mg IV. Monitor patient. 2317: Patient is high risk for cardiac disease and has multiple stents. He does not want to stay because his mother has esophageal cancer and they're having a family meeting in the morning. He is feeling much better now. We did discuss risk and benefits of staying and he would prefer to go home. We will initiate by mouth challenge and repeat normal saline 500 mL bolus. If tolerating then we will consider discharge home. 0002: Tolerated by mouth challenge of fluids. Patient still wants to go home. Patient's will return for any concerns and states that he understands the risk of going home. Discharged home with return precautions. Patient verbalize understanding instructions and agreement with plan. Initial ECG Impression Date: May 07, 2018 Initial ECG Impression Time: 20:57 Initial ECG Rate: 100 Initial ECG Rhythm: S.Tach Comment Sinus rhythm with tachycardia noted. No evidence of ST elevation [place]. Left axis deviation. Similar to previous of 03/13/18 but faster rate. Interpreted by me. Diagnostic Imaging Diagonstic Imaging: Xray Plain Films/CT/US/NM/MRI: chest Comments NAME: GYPSY CARUSO [facility] REC#: [id number] PT STATUS: REG ER : 1955 PHYSICIAN: RADHA CASTRO MD ADMIT DATE: 05/07/18/ER Signed Date of Exam: 05/07/18 CHEST 1 VIEW, AP/PA ONLY INDICATION: Shortness of air. EXAMINATION: Chest, 05/07/2018. COMPARISON: 03/13/2018. FINDINGS: The cardiomediastinal silhouette is unremarkable. The pulmonary vasculature is within normal limits. The lungs and pleural spaces are clear. IMPRESSION: No evidence of an acute cardiopulmonary process. Dictated by: Dictated on workstation # [id number] Dict: 05/07/182142 Trans: 05/07/182226 Interpreted by: TAMY JIN MD Electronically signed by: TAMY JIN MD 05/07/182226 Departure Impression Primary Impression: Nausea and vomiting Qualified Codes: R11.2 - Nausea with vomiting, unspecified Additional Impression: Chest pain Qualified Codes: R07.9 - Chest pain, unspecified Disposition: 01 HOME, SELF-CARE Condition: Stable Departure-Patient Inst. Decision time for Depature: 00:03 Referrals: BETH ANDERSON MD (PCP/Family) Primary Care Physician Patient Instructions: Acute Abdomen (Belly Pain), Adult (DC), Chest Pain (DC), Nausea and Vomiting, Adult (DC) Add. Discharge Instructions: All discharge instructions reviewed with patient and/or family. Voiced understanding. Continue home medications as previously prescribed. Use nausea medicine as prescribed. Clear liquid or light diet for the next 24 hours and then advance as tolerated. Follow-up with your Dr. in one to 2 days for recheck. Return for worsening, fever, vomiting, weakness, breathing problems, chest pain or other concerns as needed. Do not hesitate to return for any concerns. Scripts Ondansetron (Ondansetron Odt) 4 Mg Tab.rapdis 4 MG PO Q6H PRN for NAUSEA/VOMITING, #8 TAB 0 Refills Prov: RADHA CASRTO MD 05/08/18 RADHA CASTRO MD May 07, 2018 22:49
[2018-05-07] MEDS ORDERED: NS IV 500 ML 500 ML IV ONE (23:17)
[2018-05-07] MEDS ORDERED: RX-ONDANSETRON 4 MG ODT (ZOFRAN) PPK #4 PO STA (23:21)
[2018-05-08] MEDS ORDERED: ONDA4TAB11 PO (00:05)
[2018-05-08 00:17] VITALS: BP 142/86
== END 2018-05-08 00:17 | disposition home or self-care (01) ==
LOC: EDUNIT# 20:15 → ER 20:16
DX: R11.2 Nausea with vomiting, unspecified (principal); R07.9 Chest pain, unspecified; G47.30 Sleep apnea, unspecified; I10 Essential (primary) hypertension; K21.9 Gastro-esophageal reflux disease without esophagitis; F32.9 Major depressive disorder, single episode, unspecified; F17.210 Nicotine dependence, cigarettes, uncomplicated; Z95.5 Presence of coronary angioplasty implant and graft; Z96.642 Presence of left artificial hip joint; Z87.01 Personal history of pneumonia (recurrent); Z79.51 Long term (current) use of inhaled steroids; Z79.82 Long term (current) use of aspirin; Z79.02 Long term (current) use of antithrombotics/antiplatelets; Z79.52 Long term (current) use of systemic steroids
CPT/HCPCS: 36415; 71045; 80053; 82150; 83690; 83735; 83874; 84484; 85007; 85027; 85610; 85730; 93005; 93041

== ENCOUNTER → 2018-05-08 | Outpatient (CLI) | payer OTHER ==
[~2018-05-08] MED LIST changes: +IOHEXOL 350 MG/ML 100 ML (OMNIPAQUE 350) VIAL IV ONE; +NS 100 ML (IVPB) BAG IV ONE; +ONDA4TAB11 PO; +RECEIVED CONTRAST 20 ML VIAL IV SCH
--- NOTE | 2018-05-08 19:01 | Diagnostic Imaging Report ---
PROCEDURE: CT abdomen and pelvis with contrast. TECHNIQUE: Multiple contiguous axial images were obtained through the abdomen and pelvis after administration of intravenous contrast. INDICATION: Left-sided abdominal pain and swelling. FINDINGS: The lung bases are clear. The liver demonstrates generalized low density consistent with hepatic steatosis. No discrete liver mass is seen. The gallbladder is unremarkable. No biliary duct dilatation is identified. Pancreas and spleen are unremarkable. No adrenal mass is detected. Kidneys are unremarkable. The aorta is non-aneurysmal. No central retroperitoneal or mesenteric lymphadenopathy is seen. The small and large bowel loops are normal in caliber. There is sigmoid diverticulosis without evidence of acute diverticulitis. Bladder and prostate are unremarkable. No pelvic lymphadenopathy is seen. No mass lesion in the left costovertebral angle is seen to account for the area of fullness. IMPRESSION: 1. Hepatic steatosis. 2. Otherwise unremarkable CT of the abdomen and pelvis apart from uncomplicated colonic diverticulosis. Dictated by: Dictated on workstation # [id number]
== END ==
LOC: RAD 12:54
DX: K76.0 Fatty (change of) liver, not elsewhere classified (principal)
CPT/HCPCS: 74177

== ENCOUNTER → 2018-05-10 | Outpatient (CLI) | payer OTHER ==
[~2018-05-10] MED LIST changes: -IOHEXOL 350 MG/ML 100 ML (OMNIPAQUE 350) VIAL IV ONE; -NS 100 ML (IVPB) BAG IV ONE; -RECEIVED CONTRAST 20 ML VIAL IV SCH
--- NOTE | 2018-05-10 16:21 | Diagnostic Imaging Report ---
INDICATION: Left hip pain x 2 months. FINDINGS: Two views of the left hip show no fracture or dislocation. The joint spaces are well maintained. The patient has long segment stenting of the superficial femoral artery. IMPRESSION: No acute abnormality is seen in the left hip. Dictated by: Dictated on workstation # [id number]
== END ==
LOC: RAD 15:49
DX: M25.552 Pain in left hip (principal)
CPT/HCPCS: 73502

== ENCOUNTER → 2018-05-18 | Outpatient (CLI) | payer OTHER ==
--- NOTE | 2018-05-18 16:54 | Diagnostic Imaging Report ---
PROCEDURE: MRI lumbar spine. TECHNIQUE: Multiplanar, multisequence MRI of the lumbar spine was performed without contrast. INDICATION: Back pain and left hip pain. COMPARISON: Comparison made with prior examination from 05/20/2016. FINDINGS: The alignment of the lumbar spine is normal. The vertebral body heights are well maintained. There is no spondylolysis or spondylolisthesis. No fractures are identified. Conus medullaris is seen at L1 and is normal in appearance. The T12-L1 disc is unremarkable. The L1-2 disc is unremarkable. At L2-3, there is some mild facet disease. At L3-4, there is loss of disc height and signal intensity. There is broad-based annular bulging, facet disease, and thickening of the ligamentum flavum. There is mild spinal stenosis with some encroachment upon the lateral recess bilaterally. There is moderate bilateral neural foraminal encroachment. At L4-5, there is minimal annular bulging with some facet disease and thickening of the ligamentum flavum. There is some mild central spinal stenosis and slight encroachment upon the left lateral recess. There is mild bilateral neural foraminal encroachment. At L5-S1, there is some minimal annular bulging and mild facet disease. The abdominal aorta is nonaneurysmal. Kidneys are normal in appearance. IMPRESSION: Mild lumbar spondylosis and degenerative disc disease as described. Dictated by: Dictated on workstation # [id number]
== END ==
LOC: RAD 15:30
DX: M47.816 Spondylosis without myelopathy or radiculopathy, lumbar region (principal); M51.36 Other intervertebral disc degeneration, lumbar region; M46.06 Spinal enthesopathy, lumbar region
CPT/HCPCS: 72148

== ENCOUNTER 2018-08-16 15:55 | Emergency (ER) | payer OTHER ==
[~2018-08-16] VITALS: Ht 185.4 cm; Wt 113.4 kg
[2018-08-16 16:29] LABS: BASOPHILS % (AUTO) 0 % (0-10); EOSINOPHILS # (AUTO) 0.1 10^3/uL (0.0-0.3); EOSINOPHILS % (AUTO) 1 % (0-10); HEMATOCRIT 46 % (40-54); HEMOGLOBIN 15.3 G/DL (13.3-17.7); LYMPHOCYTES # (AUTO) 1.6 X 10^3 (1.0-4.0); LYMPHOCYTES % (AUTO) 15 % (12-44); MEAN CORPUSCULAR HEMOGLOBIN 30 PG (25-34); MEAN CORPUSCULAR HGB CONC 33 G/DL (32-36); MEAN CORPUSCULAR VOLUME 89 FL (80-99); MEAN PLATELET VOLUME 11.3 FL (7.4-10.4); MONOCYTES # (AUTO) 0.9 X 10^3 (0.0-1.0); MONOCYTES % (AUTO) 9 % (0-12); NEUTROPHILS # (AUTO) 7.9 X 10^3 (1.8-7.8); NEUTROPHILS % (AUTO) 75 % (42-75); PLATELET COUNT 187 10^3/uL (130-400); RED CELL DISTRIBUTION WIDTH 14.5 % (10.0-14.5); WHITE BLOOD COUNT 10.5 10^3/uL (4.3-11.0)
[2018-08-16] MEDS ORDERED: ONDANSETRON 4 MG/2 ML (SDV) Z0FRAN IVP ONE (16:30)
[2018-08-16] MEDS ORDERED: NS IV 1000 ML 1,000 ML IV SCH (16:30)
[2018-08-16 16:48] LABS: ALANINE AMINOTRANSFERASE 37 U/L (0-55); ALBUMIN 4.2 GM/DL (3.2-4.5); ALKALINE PHOSPHATASE 161 U/L (40-136); BILIRUBIN,TOTAL 0.6 MG/DL (0.1-1.0); BUN/CREATININE RATIO 16; CALCIUM 9.8 MG/DL (8.5-10.1); CARBON DIOXIDE 24 MMOL/L (21-32); CHLORIDE 103 MMOL/L (98-107); CREATININE SERUM 0.97 MG/DL (0.60-1.30); GFR ESTIMATED > 60; GLUCOSE 203 MG/DL (70-105); POTASSIUM 4.2 MMOL/L (3.6-5.0); SODIUM 139 MMOL/L (135-145); TOTAL PROTEIN 7.3 GM/DL (6.4-8.2)
--- NOTE | 2018-08-16 16:53 | ED General ---
General Chief Complaint: General Problems/Pain Stated Complaint: PAIN IN BOTH LEGS;DIZZY Nursing Triage Note: PT REPORTS NOT "FEELING WELL" SINCE YESTERDAY. PT REPORTS VOMITING, HEADACHE, LIGHTHEADED, LEG PAIN, AND STOMACH PAIN. Nursing Sepsis Screen: No Definite Risk History of Present Illness Date Seen by Provider: Aug 16, 2018 Time Seen by Provider: 16:10 Initial Comments 62-year-old male presents for generalized weakness. Last evening the patient reports vomiting once after eating at his sisters. He was able to sleep last night, he has a history of sleep apnea but does not wear his sleep machine. He vomited at 10:00 am this morning. He had only water to drink today. He was diagnosed as pre-diabetic but his BS is 217 with no solid food intake today and reports only water. He saw Dr. Anderson yesterday for his back and leg pain, and insomnia, medications were adjusted. He also was diagnosed with depression and new medication were ordered, he has not implemented these changes. He complains of left leg pain, in the calf. He reports it is different then the pain he chronically has in his legs from his back. He has been off his Plavix for 2 days, to have an epidural injection in his back. Timing/Duration: 3-4 Days Severity: Moderate Associated Systoms: Malaise, Nausea/Vomiting; No Shortness of Air; Weakness Allergies and Home Medications Allergies Coded Allergies: No Known Drug Allergies (Unverified , 08/16/18) Home Medications Albuterol Sulfate 1 Puff Puff, 2 PUFF IH Q4H 1 PUFF = 90 MCG Prescribed by: CHRIS BOTELLO on 03/13/18 144 Aspirin 81 Mg Tablet.dr, 81 MG PO DAILY, (Reported) Atorvastatin Calcium 40 Mg Tablet, 40 MG PO HS, (Reported) Bupropion HCl 100 Mg Tablet, 100 MG PO HS, (Reported) Calcium Carbonate 300 Mg Tab.chew, 300 MG PO TID PRN for HEARTBURN, (Reported) Cefuroxime Axetil 250 Mg Tablet, 250 MG PO BID Prescribed by: CHRIS BOTELLO on 03/13/18 144 Clopidogrel Bisulfate 75 Mg Tablet, 75 MG PO DAILY, (Reported) Hydrocodone/Acetaminophen 1 Each Tablet, 1 TAB PO EVERY 4-6 HOURS PRN for PAIN- MODERATE, (Reported) Lorazepam 0.5 Mg Tablet, 0.5 MG PO TID PRN for ANXIETY Prescribed by: CHRIS BOTELLO on 03/13/18 1500 Metformin HCl 500 Mg Tablet, 500 MG PO BID Prescribed by: ALLAN ISBELL on 08/16/18 1753 Metoprolol Succinate 50 Mg Tab.er.24h, 25 MG PO DAILY, (Reported) TAKES 1/2 (50MG) TABLET Ondansetron 4 Mg Tab.rapdis, 4 MG PO Q6H PRN for NAUSEA/VOMITING Prescribed by: RADHA CASTRO on 05/08/18 0005 Pramipexole Di-HCl 0.5 Mg Tablet, 0.5 MG PO HS, (Reported) Prednisone 20 Mg Tab, 40 MG PO DAILY Prescribed by: CHRIS BOTELLO on 03/13/18 1442 Pregabalin 75 Mg Capsule, 75 MG PO BID, (Reported) Primidone 50 Mg Tablet, 50 MG PO HS, (Reported) Ranitidine HCl 150 Mg Tablet, 150 MG PO DAILY PRN for HEARTBURN, (Reported) Sertraline HCl 50 Mg Tablet, 50 MG PO BID, (Reported) Patient Home Medication List Home Medication List Reviewed: Yes Review of Systems Review of Systems Constitutional: no symptoms reported, see HPI Gastrointestinal: see HPI, nausea, vomiting Musculoskeletal: see HPI, back pain, muscle pain All Other Systems Reviewed Negative Unless Noted: Yes Past Mulifgw-Kkppey-Gfnqmy Hx Past Med/Social Hx: Reviewed Nursing Past Med/Soc Hx Patient Social History Alcohol Use: Denies Use Recreational Drug Use: No Smoking Status: Current Everyday Smoker Type Used: Cigarettes 2nd Hand Smoke Exposure: Yes Recent Foreign Travel: No Contact w/Someone Who Travel: No Recent Infectious Disease Expo: No Recent Hopitalizations: No Physical Abuse: No Sexual Abuse: No Immunizations Up To Date Tetanus Booster (TDap): Unknown Date of Pneumonia Vaccine: Sep 30, 2012 Date of Influenza Vaccine: Dec 13, 2016 Seasonal Allergies Seasonal Allergies: No Past Medical History Surgeries: Yes (NECK AND BACK, CYST REMOVED, KNEE ARTH, LEFT TOTAL KNEE 05/01/12, 13 STENTS) Coronary Stent, Vascular Surgery Respiratory: Yes Pneumonia, Sleep Apnea Currently Using CPAP: Yes Currently Using BIPAP: No Cardiac: Yes (20 STENTS PLACED) Hypertension, Peripheral Vascular Neurological: Yes Neuropathy Reproductive Disorders: No Sexually Transmitted Disease: No HIV/AIDS: No Genitourinary: No Gastrointestinal: No Gastroesophageal Reflux Musculoskeletal: Yes (OSTEO ARTHRITIS) Arthritis Endocrine: Yes (possible diabetes) HEENT: No Cancer: No Psychosocial: Yes Depression Integumentary: Yes (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 0.0oz. [id number]; 33.5 BMI Method:Stated General Appearance: No Apparent Distress, WD/WN HEENT: PERRL/EOMI, TMs Normal, Normal ENT Inspection, Pharynx Normal, Other (oral mucosa pink and moist) Neck: Full Range of Motion, Normal Inspection, Non Tender, Supple Respiratory: Chest Non Tender, Lungs Clear, Normal Breath Sounds Cardiovascular: Regular Rate, Rhythm, No Edema, No Murmur, Normal Peripheral Pulses (pedal pulses 2+ and symmetric, capillary refill in the less than 2 seconds.) Gastrointestinal: Normal Bowel Sounds, Non Tender, Soft Back: Normal Inspection, Decreased Range of Motion, Muscle Spasm; No Vertebral Tenderness Extremity: Normal Capillary Refill, Normal Inspection, Normal Range of Motion, No Calf Tenderness, Other (negative Homans sign) Neurologic/Psychiatric: Alert, Oriented x3, No Motor/Sensory Deficits, Normal Mood/Affect Skin: Normal Color, Warm/Dry Progress/Results/Core Measures Suspected Sepsis Recent Fever Within 48 Hours: No Infection Criteria Present: None New/Unexplained Altered Menta: No Sepsis Screen: No Definite Risk SIRS Temperature:95.5 Pulse: 87 Respiratory Rate: 16 Laboratory Tests 08/16/18 16:20: White Blood Count 10.5 Blood Pressure 113 /78 Mean: 90 Laboratory Tests 08/16/18 16:20: Creatinine 0.97, Platelet Count 187, Total Bilirubin 0.6 Results/Orders Lab Results Laboratory Tests Test 08/16/18 16:16 08/16/18 16:20 08/16/18 18:00 Range/Units Glucometer 217 H 70-110 MG/DL White Blood Count 10.5 4.3-11.0 10^3/uL Red Blood Count 5.17 4.35-5.85 10^6/uL Hemoglobin 15.3 13.3-17.7 G/DL Hematocrit 46 40-54 % Mean Corpuscular Volume 89 80-99 FL Mean Corpuscular Hemoglobin 30 25-34 PG Mean Corpuscular Hemoglobin Concent 33 32-36 G/DL Red Cell Distribution Width 14.5 10.0-14.5 % Platelet Count 187 130-400 10^3/uL Mean Platelet Volume 11.3 H 7.4-10.4 FL Neutrophils (%) (Auto) 75 42-75 % Lymphocytes (%) (Auto) 15 12-44 % Monocytes (%) (Auto) 9 0-12 % Eosinophils (%) (Auto) 1 0-10 % Basophils (%) (Auto) 0 0-10 % Neutrophils # (Auto) 7.9 H 1.8-7.8 X 10^3 Lymphocytes # (Auto) 1.6 1.0-4.0 X 10^3 Monocytes # (Auto) 0.9 0.0-1.0 X 10^3 Eosinophils # (Auto) 0.1 0.0-0.3 10^3/uL Basophils # (Auto) 0.0 0.0-0.1 10^3/uL Sodium Level 139 135-145 MMOL/L Potassium Level 4.2 3.6-5.0 MMOL/L Chloride Level 103 98-107 MMOL/L Carbon Dioxide Level 24 21-32 MMOL/L Anion Gap 12 5-14 MMOL/L Blood Urea Nitrogen 16 7-18 MG/DL Creatinine 0.97 0.60-1.30 MG/DL Estimat Glomerular Filtration Rate > 60 BUN/Creatinine Ratio 16 Glucose Level 203 H 70-105 MG/DL Calcium Level 9.8 8.5-10.1 MG/DL Corrected Calcium 9.6 8.5-10.1 MG/DL Total Bilirubin 0.6 0.1-1.0 MG/DL Aspartate Amino Transf (AST/SGOT) 26 5-34 U/L Alanine Aminotransferase (ALT/SGPT) 37 0-55 U/L Alkaline Phosphatase 161 H 40-136 U/L Troponin I < 0.028 <0.028 NG/ML Total Protein 7.3 6.4-8.2 GM/DL Albumin 4.2 3.2-4.5 GM/DL Urine Color YELLOW Urine Clarity CLEAR Urine pH 5 5-9 Urine Specific [place] 1.030 H 1.016-1.022 Urine Protein 2+ H NEGATIVE Urine Glucose (UA) 1+ H NEGATIVE Urine Ketones 1+ H NEGATIVE Urine Nitrite NEGATIVE NEGATIVE Urine Bilirubin NEGATIVE NEGATIVE Urine Urobilinogen 4 H NORMAL MG/DL Urine Leukocyte Esterase 1+ H NEGATIVE Urine RBC (Auto) NEGATIVE NEGATIVE Urine RBC NONE /HPF Urine WBC 0-2 /HPF Urine Squamous Epithelial Cells RARE /HPF Urine Crystals PRESENT H /LPF Urine Amorphous Sediment RARE SARAH URATES H /LPF Urine Bacteria TRACE /HPF Urine Casts NONE /LPF Urine Mucus LARGE H /LPF Urine Culture Indicated NO My Orders Orders - ALLAN ISBELL Accucheck Stat ONCE (08/16/18 16:14) Cbc With Automated Diff (08/16/18 16:14) Comprehensive Metabolic Panel (08/16/18 16:14) Ua Culture If Indicated (08/16/18 16:14) Ekg Tracing (08/16/18 16:28) Ns Iv 1000 Ml (Sodium Chloride 0.9%) (08/16/18 16:30) Ondansetron Injection (Zofran Injectio (08/16/18 16:30) Troponin I (08/16/18 16:30) Medications Given in ED Current Medications Medications Dose Ordered Sig/Paula Route Start Time Stop Time Status Last Admin Dose Admin Ondansetron HCl 4 mg ONCE ONCE IVP 08/16/18 16:30 08/16/18 16:31 DC 08/16/18 16:42 4 MG Vital Signs/I&O 08/16/18 08/16/18 16:06 18:45 Temp 95.5 Pulse 87 74 Resp 16 18 B/P (MAP) 113/78 (90) 165/90 (115) Pulse Ox 97 98 Capillary Refill : Less Than 3 Seconds Blood Pressure Mean: 90 Point of Care Testing Finger Stick Blood Glucose: 217 Blood Glucose Action Taken: [facility] ADMINISTRATOR Progress Note : Time: 16:10 Progress Note Patient seen and evaluated, will obtain labs, normal saline 1 L IV, and Zofran 4 mg for nausea. 1700 patient reports improvement in his symptoms, discussed compliance issues with his treatments. Pt has been unable to urinate, awaiting that for UA. 1800 UA WNL, discussed with patient. He has been taking ice chips with no n/v. Discharge instructions and return precautions reviewed with him in detail. Discussed compliance with his medications and sleep apnea machine. ECG Initial ECG Impression Date: Aug 16, 2018 Initial ECG Impression Time: 16:50 Initial ECG Rate: 78 Initial ECG Rhythm: Normal Sinus Initial ECG Intervals: Normal Initial ECG Intervals VA 184, QRS 98, QT 400, QTc 456. Antlers P 21, QRS -10, T 36. Initial ECG Impression: Normal Initial ECG Comparisson: Unchanged Comment Review Dr. Castro, concurred with interpretation. Departure Impression Primary Impression: Diabetes type 2, uncontrolled Qualified Codes: E11.65 - Type 2 diabetes mellitus with hyperglycemia Additional Impression: Depressed Qualified Codes: F32.9 - Major depressive disorder, single episode, unspecified Disposition: HOME, SELF-CARE Condition: Improved Departure-Patient Inst. Decision time for Depature: 18:00 Referrals: BETH ANDERSON MD (PCP/Family) Primary Care Physician Patient Instructions: Diabetes Type 2 (DC), Diabetic Meal Planning Add. Discharge Instructions: Adjust her medication as directed by Dr. Anderson. Follow-up with DME to obtain a mask for your sleep apnea machine that works, use your machine every night. Take the Metformin 1 tablet twice daily. Hold, if you are not eating meals at regular intervals. Follow up with Dr. Anderson early next week. Clear liquid diet for the next 4 hours, then bland diet. Follow up with Dr. Houston. Return to emergency dept if symptoms worsen, difficulty breathing, chest pain or new concerns. All discharge instructions reviewed with patient and/or family. Voiced understanding. Scripts Metformin HCl (Metformin HCl) 500 Mg Tablet 500 MG PO BID, #20 TAB 0 Refills Prov: ALLAN ISBELL 08/16/18 Copy Copies To 1: MAYANK ESPINOZA MD Copies To 2: BETH ANDERSON MD, AMY ARNP Aug 16, 2018 16:52
[2018-08-16] MEDS ORDERED: METF-397 PO (17:53)
[2018-08-16 18:10] LABS: BILIRUBIN,URINE NEGATIVE (NEGATIVE); CLARITY,URINE CLEAR; COLOR,URINE YELLOW; GLUCOSE, URINE (UA) 1+ (NEGATIVE); KETONES,URINE 1+ (NEGATIVE); LEUKOCYTE ESTERASE ,URINE 1+ (NEGATIVE); NITRITE,URINE NEGATIVE (NEGATIVE); PH,URINE 5 (5-9); PROTEIN,URINE 2+ (NEGATIVE); UROBILINOGEN,URINE 4 MG/DL (NORMAL)
[2018-08-16 18:22] LABS: AMORPHOUS SEDIMENT,UR RARE AMOR URATES /LPF; BACTERIA,URINE TRACE /HPF; SQUAMOUS EPITHELIAL CELL,UR RARE /HPF; WBC,URINE 0-2 /HPF
[2018-08-16 18:45] VITALS: BP 165/90
== END 2018-08-16 18:45 | disposition home or self-care (01) ==
LOC: EDUNIT# 15:55 → ER 15:56
DX: E11.40 Type 2 diabetes mellitus with diabetic neuropathy, unspecified (principal); F32.9 Major depressive disorder, single episode, unspecified; G47.30 Sleep apnea, unspecified; I73.9 Peripheral vascular disease, unspecified; I10 Essential (primary) hypertension; K21.9 Gastro-esophageal reflux disease without esophagitis; F17.210 Nicotine dependence, cigarettes, uncomplicated; Z87.01 Personal history of pneumonia (recurrent); Z95.820 Peripheral vascular angioplasty status with implants and grafts; Z79.52 Long term (current) use of systemic steroids; Z96.652 Presence of left artificial knee joint; Z79.82 Long term (current) use of aspirin; Z79.02 Long term (current) use of antithrombotics/antiplatelets; Z79.84 Long term (current) use of oral hypoglycemic drugs
CPT/HCPCS: 36415; 80053; 81000; 82962; 84484; 85025; 93005; 96374

== ENCOUNTER 2018-08-19 22:33 | Observation (INO) | payer OTHER ==
[~2018-08-19] VITALS: Ht 185.4 cm; Wt 113.4 kg
[~2018-08-19 22:33] MED LIST changes: +METF-397 PO
[2018-08-19] MEDS ORDERED: NITROGLYCERIN 0.4 MG SL TABS BTL 25'S SL ONE (22:34)
[2018-08-19] MEDS ORDERED: ASPIRIN 81 MG CHEW (CHILDREN'S ASA) PO ONE (22:45)
[2018-08-19] MEDS ORDERED: morphine INJ 10 MG/ML 1ML (SYR OR VIAL) IVP STA (22:46)
--- NOTE | 2018-08-19 22:46 | ED Chest Pain ---
General Stated Complaint: CHEST PAINS Source: patient Exam Limitations: no limitations (CHRIS BERRY APRN) History of Present Illness Date Seen by Provider: Aug 19, 2018 Time Seen by Provider: 22:42 Initial Comments To ER per private vehicle from home with reports of left-sided chest pain that radiates to the left arm, left neck and into his head. This began 30 minutes ago while getting ready for bed. He has known coronary artery disease with stenting. He's been off of his Plavix for 5 days in preparation for lumbar spine injection by pain management Dr. Collazo at [facility]. Pain was severe rated at "22" out of 10. He had 3 full dose aspirin at home prior to arrival. Timing/Duration: 1/2 hour Severity/Quality: severe Radiation: arms Activities at Onset: none ASA po HUMAN RESOURCES OFFICE ASSISTANT: Yes NTG SL HUMAN RESOURCES OFFICE ASSISTANT: No (CHRIS BERRY APRN) Allergies and Home Medications Allergies Coded Allergies: No Known Drug Allergies (Unverified , 08/16/18) Home Medications Albuterol Sulfate 1 Puff Puff, 2 PUFF IH Q4H 1 PUFF = 90 MCG Prescribed by: CHRIS BERRY on 03/13/18 1442 Aspirin 81 Mg Tablet.dr, 81 MG PO DAILY, (Reported) Atorvastatin Calcium 40 Mg Tablet, 40 MG PO HS, (Reported) Bupropion HCl 100 Mg Tablet, 100 MG PO HS, (Reported) Calcium Carbonate 300 Mg Tab.chew, 300 MG PO TID PRN for HEARTBURN, (Reported) Cefuroxime Axetil 250 Mg Tablet, 250 MG PO BID Prescribed by: CHRIS BERRY on 03/13/18 1442 Clopidogrel Bisulfate 75 Mg Tablet, 75 MG PO DAILY, (Reported) Hydrocodone/Acetaminophen 1 Each Tablet, 1 TAB PO EVERY 4-6 HOURS PRN for PAIN- MODERATE, (Reported) Lorazepam 0.5 Mg Tablet, 0.5 MG PO TID PRN for ANXIETY Prescribed by: CHRIS BERRY on 03/13/18 1500 Metformin HCl 500 Mg Tablet, 500 MG PO BID Prescribed by: ALLAN ISBELL on 08/16/18 175 Metoprolol Succinate 50 Mg Tab.er.24h, 25 MG PO DAILY, (Reported) TAKES 1/2 (50MG) TABLET Ondansetron 4 Mg Tab.rapdis, 4 MG PO Q6H PRN for NAUSEA/VOMITING Prescribed by: RADHA CASTRO on 05/08/18 0005 Pramipexole Di-HCl 0.5 Mg Tablet, 0.5 MG PO HS, (Reported) Prednisone 20 Mg Tab, 40 MG PO DAILY Prescribed by: CHRIS BERRY on 03/13/18 1442 Pregabalin 75 Mg Capsule, 75 MG PO BID, (Reported) Primidone 50 Mg Tablet, 50 MG PO HS, (Reported) Ranitidine HCl 150 Mg Tablet, 150 MG PO DAILY PRN for HEARTBURN, (Reported) Sertraline HCl 50 Mg Tablet, 50 MG PO BID, (Reported) Patient Home Medication List Home Medication List Reviewed: Yes (CHRIS BERRY APRN) Review of Systems Review of Systems Constitutional: see HPI EENTM: No Symptoms Reported Respiratory: No Symptoms Reported Cardiovascular: See HPI, Chest Pain Gastrointestinal: See HPI Genitourinary: No Symptoms Reported Musculoskeletal: no symptoms reported Skin: no symptoms reported Psychiatric/Neurological: No Symptoms Reported Endocrine: No Symptoms Reported Hematologic/Lymphatic: No Symptoms Reported (CHRIS BERRY APRN) Past Axvgfcr-Yzgfiz-Lyqvbc Hx Patient Social History Type Used: Cigarettes 2nd Hand Smoke Exposure: Yes Recent Foreign Travel: No Contact w/Someone Who Travel: No Recent Hopitalizations: No (CHRIS BERRY APRN) Immunizations Up To Date Tetanus Booster (TDap): Unknown Date of Pneumonia Vaccine: Sep 30, 2012 Date of Influenza Vaccine: Dec 13, 2016 (CHRIS BERRY APRN) Seasonal Allergies Seasonal Allergies: No (CHRIS BRERY APRN) Past Medical History Surgeries: Yes (NECK AND BACK, CYST REMOVED, KNEE ARTH, LEFT TOTAL KNEE 05/01/12, 13 STENTS) Coronary Stent, Vascular Surgery Respiratory: Yes Pneumonia, Sleep Apnea Currently Using CPAP: Yes Currently Using BIPAP: No Cardiac: Yes (20 STENTS PLACED) Hypertension, Peripheral Vascular Neurological: Yes Neuropathy Reproductive Disorders: No Sexually Transmitted Disease: No HIV/AIDS: No Genitourinary: No Gastrointestinal: No Gastroesophageal Reflux Musculoskeletal: Yes (OSTEO ARTHRITIS) Arthritis Endocrine: Yes (possible diabetes) HEENT: No Cancer: No Psychosocial: Yes Depression Integumentary: Yes (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 0.0oz. 113.965624ig; 33.5 BMI Method:Stated General Appearance: No Apparent Distress, WD/WN HEENT: PERRL/EOMI Respiratory: Normal Breath Sounds, No Accessory Muscle Use, No Respiratory Distress Cardiovascular: Regular Rate, Rhythm, Normal Peripheral Pulses Gastrointestinal: Non Tender, Soft Extremity: Normal Capillary Refill, Normal Inspection Neurologic/Psychiatric: Alert, Oriented x3 Skin: Normal Color, Warm/Dry (CHRIS BERRY APRN) Progress/Results/Core Measures Results/Orders Lab Results Laboratory Tests Test 08/19/18 22:40 Range/Units White Blood Count 8.4 4.3-11.0 10^3/uL Red Blood Count 4.84 4.35-5.85 10^6/uL Hemoglobin 14.4 13.3-17.7 G/DL Hematocrit 44 40-54 % Mean Corpuscular Volume 91 80-99 FL Mean Corpuscular Hemoglobin 30 25-34 PG Mean Corpuscular Hemoglobin Concent 33 32-36 G/DL Red Cell Distribution Width 14.0 10.0-14.5 % Platelet Count 154 130-400 10^3/uL Mean Platelet Volume 11.2 H 7.4-10.4 FL Neutrophils (%) (Auto) 69 42-75 % Lymphocytes (%) (Auto) 22 12-44 % Monocytes (%) (Auto) 8 0-12 % Eosinophils (%) (Auto) 1 0-10 % Basophils (%) (Auto) 0 0-10 % Neutrophils # (Auto) 5.8 1.8-7.8 X 10^3 Lymphocytes # (Auto) 1.8 1.0-4.0 X 10^3 Monocytes # (Auto) 0.6 0.0-1.0 X 10^3 Eosinophils # (Auto) 0.1 0.0-0.3 10^3/uL Basophils # (Auto) 0.0 0.0-0.1 10^3/uL Prothrombin Time 12.4 12.2-14.7 SEC INR Comment 0.9 0.8-1.4 Activated Partial Thromboplast Time 27 24-35 SEC D-Dimer 0.42 0.00-0.49 UG/ML Sodium Level 141 135-145 MMOL/L Potassium Level 4.0 3.6-5.0 MMOL/L Chloride Level 103 98-107 MMOL/L Carbon Dioxide Level 24 21-32 MMOL/L Anion Gap 14 5-14 MMOL/L Blood Urea Nitrogen 16 7-18 MG/DL Creatinine 1.13 0.60-1.30 MG/DL Estimat Glomerular Filtration Rate > 60 BUN/Creatinine Ratio 14 Glucose Level 264 H 70-105 MG/DL Calcium Level 9.5 8.5-10.1 MG/DL Corrected Calcium 9.3 8.5-10.1 MG/DL Magnesium Level 1.9 1.8-2.4 MG/DL Total Bilirubin 0.4 0.1-1.0 MG/DL Aspartate Amino Transf (AST/SGOT) 17 5-34 U/L Alanine Aminotransferase (ALT/SGPT) 32 0-55 U/L Alkaline Phosphatase 136 40-136 U/L Myoglobin 45.0 10.0-92.0 NG/ML Troponin I 0.076 H <0.028 NG/ML Total Protein 7.3 6.4-8.2 GM/DL Albumin 4.2 3.2-4.5 GM/DL (RADHA CASTRO MD) My Orders Orders - RADHA CASTRO MD Cbc With Automated Diff (08/19/18 22:38) Magnesium (08/19/18 22:38) Chest 1 View, Ap/Pa Only (08/19/18 22:38) Ekg Tracing (08/19/18 22:38) Cardiac Profile 1 (08/19/18 22:38) Comprehensive Metabolic Panel (08/19/18 22:38) Myoglobin Serum (08/19/18 22:38) Protime With Inr (08/19/18 22:38) Partial Thromboplastin Time (08/19/18 22:38) O2 (08/19/18 22:38) Monitor-Rhythm Ecg Trace Only (08/19/18 22:38) Lipid Panel (08/20/18 06:00) Ed Iv/Invasive Line Start (08/19/18 22:38) Aspirin Chewable Tablet (Baby Aspirin Ch (08/19/18 22:45) Nitroglycerin 0.4 Mg Btl 25's (Nitrostat (08/19/18 22:34) Fibrin Degradation Products (08/19/18 22:53) Morphine Injection (Morphine Injection (08/19/18 23:15) Lidocaine 1% Inj 20 Ml (Xylocaine 1% Inj (08/20/18 00:28) Midazolam Injection (Versed Injection) (08/20/18 00:29) Fentanyl Injection (Sublimaze Injection (08/20/18 00:29) Heparin (Bolus Per Protocol) (Heparin (B (08/20/18 00:29) Fentanyl Injection (Sublimaze Injection (08/20/18 00:29) Heparin ([employer]) (Heparin ([employer])) (08/20/18 00:29) (RADHA CASTRO MD) Medications Given in ED Current Medications Medications Dose Ordered Sig/Paula Route Start Time Stop Time Status Last Admin Dose Admin Fentanyl Citrate 100 mcg STK-MED ONCE .ROUTE 08/20/18 00:29 08/20/18 00:35 DC 08/20/18 00:35 100 MCG Morphine Sulfate 4 mg ONCE ONCE IVP 08/19/18 23:15 08/19/18 23:16 DC 08/19/18 23:34 4 MG Nitroglycerin 0.4 mg STK-MED ONCE SL 08/19/18 22:34 08/19/18 22:39 DC 08/19/18 22:39 0.4 MG (RADHA CASTRO MD) Vital Signs/I&O 08/19/18 22:37 Pulse Ox 99 O2 Delivery Room Air FiO2 99 (RADHA CASTRO MD) Progress Progress Note : Progress Note Seen and evaluated and agree with above except as indicated. Assumed care for the patient from. FAITH Berry pending labs and x-ray. Morphine 4 mg IV for pain after nitroglycerin did not work. Patient did take 3 aspirin at home so ordered aspirin was held. 0003: Morphine 4 mg IV repeated his pain was not improved. I did discuss the case with Dr. Houston. Patient has significant cardiac history and multiple stents. States that this is similar to previous presentations when he had problems. Patient had similar presentation last year and had blockage. I did discuss all of this with Dr. Houston. Ultimately we decided that heart catheter would be indicated given his history and [employer] team has been called. This was discussed with patient and family who agree. 0102: Dr. Houston is seen patient in the emergency department. [employer] team is taking the patient to [facility] [employer] now. Patient did receive 50 g of fentanyl IV for pain which did help some. Pain went from 10 to an 8 and now a little bit less in route to the [employer]. (RADHA CASTRO MD) Initial ECG Impression Date: Aug 19, 2018 Initial ECG Impression Time: 22:37 Initial ECG Rate: 86 Initial ECG Rhythm: Normal Sinus Comment Sinus rhythm with normal axis. No evidence of ST elevation OR. Inferior infarct noted in similar to previous of 08/16/18. Interpreted by me. (RADHA CASTRO MD) Diagnostic Imaging Diagonstic Imaging: Xray Plain Films/CT/US/NM/MRI: chest Comments No acute findings Reviewed: Reviewed by Me (RADHA CASTRO MD) Departure Communication (Admissions) Time/Spoke to Admitting Phy: 00:03 (RADHA CASTRO MD) Impression Primary Impression: Non-ST elevation OR (NSTEMI) Disposition: ADMITTED INPATIENT Condition: Stable Admissions Decision to Admit Reason: Admit from ER (General) Decision to Admit/Date: Aug 20, 2018 Time/Decision to Admit Time: 01:06 (RADHA CASTRO MD) Departure-Patient Inst. Referrals: BETH ANDERSON MD (PCP/Family) Primary Care Physician CHRIS BERRY APRN Aug 19, 2018 22:46 RADHA CASTRO MD Aug 20, 2018 01:04
[2018-08-19 22:48] LABS: BASOPHILS % (AUTO) 0 % (0-10); EOSINOPHILS # (AUTO) 0.1 10^3/uL (0.0-0.3); EOSINOPHILS % (AUTO) 1 % (0-10); HEMATOCRIT 44 % (40-54); HEMOGLOBIN 14.4 G/DL (13.3-17.7); LYMPHOCYTES # (AUTO) 1.8 X 10^3 (1.0-4.0); LYMPHOCYTES % (AUTO) 22 % (12-44); MEAN CORPUSCULAR HEMOGLOBIN 30 PG (25-34); MEAN CORPUSCULAR HGB CONC 33 G/DL (32-36); MEAN CORPUSCULAR VOLUME 91 FL (80-99); MEAN PLATELET VOLUME 11.2 FL (7.4-10.4); MONOCYTES # (AUTO) 0.6 X 10^3 (0.0-1.0); MONOCYTES % (AUTO) 8 % (0-12); NEUTROPHILS # (AUTO) 5.8 X 10^3 (1.8-7.8); NEUTROPHILS % (AUTO) 69 % (42-75); PLATELET COUNT 154 10^3/uL (130-400); WHITE BLOOD COUNT 8.4 10^3/uL (4.3-11.0)
[2018-08-19 23:00] LABS: INR 0.9 (0.8-1.4); PROTHROMBIN TIME PATIENT 12.4 SEC (12.2-14.7)
[2018-08-19 23:09] LABS: ALANINE AMINOTRANSFERASE 32 U/L (0-55); ALBUMIN 4.2 GM/DL (3.2-4.5); ALKALINE PHOSPHATASE 136 U/L (40-136); BILIRUBIN,TOTAL 0.4 MG/DL (0.1-1.0); BUN/CREATININE RATIO 14; CALCIUM 9.5 MG/DL (8.5-10.1); CARBON DIOXIDE 24 MMOL/L (21-32); CHLORIDE 103 MMOL/L (98-107); CREATININE SERUM 1.13 MG/DL (0.60-1.30); GFR ESTIMATED > 60; GLUCOSE 264 MG/DL (70-105); MAGNESIUM 1.9 MG/DL (1.8-2.4); SODIUM 141 MMOL/L (135-145); TOTAL PROTEIN 7.3 GM/DL (6.4-8.2)
[2018-08-19] MEDS ORDERED: morphine INJ 10 MG/ML 1ML (SYR OR VIAL) IVP ONE (23:15)
[2018-08-20] VITALS (9 sets, daily range): BP systolic 116–155; BP diastolic 71–83
[2018-08-20] MEDS ORDERED: LIDOCAINE 1% INJ 20 ML 20 ML VIAL ONE (00:28)
[2018-08-20] MEDS ORDERED: HEParin (CATH LAB) 2,000 ML IV ONE (00:29)
[2018-08-20] MEDS ORDERED: HEParin 1000 UNIT/ML (10ML VIAL) FOR BOLUS ONE (00:29)
[2018-08-20] MEDS ORDERED: MIDAZOLAM 5 MG/5 ML (VERSED) VIAL ONE (00:29)
[2018-08-20] MEDS ORDERED: fentaNYL INJECTION 100 MCG/2 ML AMP ONE ×2 (00:29)
--- NOTE | 2018-08-20 00:37 | NUR ---
DR. CARRASQUILLO HERE TO SEE PT.
--- NOTE | 2018-08-20 00:55 | Consultation-Cardiology ---
HPI-Cardiology Cardiology Consultation: Date of Consultation 08/20/18 Time Seen by a Provider: 12:40 Date of Admission Attending Physician Admitting Physician Manuel Braxton MD Consulting Physician CHRISTEL CARRASQUILLO MD, MA, FACP, FACC, FSCAI, CCDS HPI: Chief Complaint: CC: Chest discomfort HPI 62 yo man with chest discomfort that started approx one hour prior to presentation to ER: L parasternal and midsternal, radiating to the L arm and neck and upper back. No diaphoresis or shortness of breath. Moderately severe in intensity and w/o any aggravating or relieving factors. Pt reports it is similar to what he had with his OK in early 2018. Not experienced since early 2017. Chronic exertional shortness of breath. Chronic bilateral leg discomfort upon walking. No palp or syncope. Review of Systems-Cardiology Review of Systems Constitutional: malaise (chronic); No weight loss, No weight gain Eyes: No vision change Ears/Nose/Throat: No ear discharge, No nasal drainage, No recent hearing loss, No ulcerations Respiratory: As described under HPI Cardiovascular: As described under HPI Gastrointestinal: No constipation, No diarrhea, No nausea, No vomiting Genitourinary: No dysuria, No hematuria, No urine frequency changes Musculoskeletal: back pain (chronic) Skin: No rash, No ulcerations Psychiatric/Neurological: No seizure, No focal weakness, No syncope Hematologic: No bleeding abnormalities [id number] Hx Patient Social History Type Used: Cigarettes 2nd Hand Smoke Exposure: Yes Recent Foreign Travel: No Immunizations Up To Date Tetanus Booster (TDap): Unknown Date of Pneumonia Vaccine: Sep 30, 2012 Date of Influenza Vaccine: Dec 13, 2016 Past Medical History PMH As described under Assessment. Family Medical History Family Medical History: Does not report fam h/o early CAD or SCD Allergies and Home Medications Allergies Coded Allergies: No Known Drug Allergies (Unverified , 08/16/18) Home Medications Albuterol Sulfate 1 Puff Puff, 2 PUFF IH Q4H 1 PUFF = 90 MCG Prescribed by: CHRIS BOTELLO on 03/13/18 1442 Aspirin 81 Mg Tablet.dr, 81 MG PO DAILY, (Reported) Atorvastatin Calcium 40 Mg Tablet, 40 MG PO HS, (Reported) Bupropion HCl 100 Mg Tablet, 100 MG PO HS, (Reported) Calcium Carbonate 300 Mg Tab.chew, 300 MG PO TID PRN for HEARTBURN, (Reported) Cefuroxime Axetil 250 Mg Tablet, 250 MG PO BID Prescribed by: CHRIS BOTELLO on 03/13/18 1442 Clopidogrel Bisulfate 75 Mg Tablet, 75 MG PO DAILY, (Reported) Hydrocodone/Acetaminophen 1 Each Tablet, 1 TAB PO EVERY 4-6 HOURS PRN for PAIN- MODERATE, (Reported) Lorazepam 0.5 Mg Tablet, 0.5 MG PO TID PRN for ANXIETY Prescribed by: CHRIS BOTELLO on 03/13/18 1500 Metformin HCl 500 Mg Tablet, 500 MG PO BID Prescribed by: ALLAN ISBELL on 08/16/18 1753 Metoprolol Succinate 50 Mg Tab.er.24h, 25 MG PO DAILY, (Reported) TAKES 1/2 (50MG) TABLET Ondansetron 4 Mg Tab.rapdis, 4 MG PO Q6H PRN for NAUSEA/VOMITING Prescribed by: RADHA CASTRO on 05/08/18 0005 Pramipexole Di-HCl 0.5 Mg Tablet, 0.5 MG PO HS, (Reported) Prednisone 20 Mg Tab, 40 MG PO DAILY Prescribed by: CHRIS BOTELLO on 03/13/18 1442 Pregabalin 75 Mg Capsule, 75 MG PO BID, (Reported) Primidone 50 Mg Tablet, 50 MG PO HS, (Reported) Ranitidine HCl 150 Mg Tablet, 150 MG PO DAILY PRN for HEARTBURN, (Reported) Sertraline HCl 50 Mg Tablet, 50 MG PO BID, (Reported) Patient Home Medication List Home Medication List Reviewed: Yes Physical Exam-Cardiology Physical Exam Vital Signs/I&O 08/19/18 22:37 Pulse Ox 99 O2 Delivery Room Air FiO2 99 Capillary Refill : Constitutional: AAO x 3, well-developed, well-nourished HEENT: EOMI, hearing is well preserved; No xanthelasmas are seen Neck: No carotid bruit; carotid pulses are 2 + bilaterally, with good upstrokes Respiratory: No accessory muscle use; lungs clear to percussion, lungs clear to auscultation Cardiovascular: regular rate-rhythm, S1 and S2, systolic murmur (soft GEMA at card base) Gastrointestinal: No tender; soft; No guarding, No rebound; audible bowel sounds Extremities: No clubbing, No cyanosis, No significant edema Neurologic/Psychiatric: oriented x 3, grossly intact, power is 5/5 both on sides Skin: No rash on exposed areas, No ulcerations on exposed areas Data Review Labs Laboratory Tests 08/19/18 22:40: White Blood Count 8.4, Red Blood Count 4.84, Hemoglobin 14.4, Hematocrit 44, Mean Corpuscular Volume 91, Mean Corpuscular Hemoglobin 30, Mean Corpuscular Hemoglobin Concent 33, Red Cell Distribution Width 14.0, Platelet Count 154, Mean Platelet Volume 11.2H, Neutrophils (%) (Auto) 69, Lymphocytes (%) (Auto) 22, Monocytes (%) (Auto) 8, Eosinophils (%) (Auto) 1, Basophils (%) (Auto) 0, Neutrophils # (Auto) 5.8, Lymphocytes # (Auto) 1.8, Monocytes # (Auto) 0.6, Eosinophils # (Auto) 0.1, Basophils # (Auto) 0.0, Prothrombin Time 12.4, INR Comment 0.9, Activated Partial Thromboplast Time 27, D-Dimer 0.42, Sodium Level 141, Potassium Level 4.0, Chloride Level 103, Carbon Dioxide Level 24, Anion Gap 14, Blood Urea Nitrogen 16, Creatinine 1.13, Estimat Glomerular Filtration Rate > 60, BUN/Creatinine Ratio 14, Glucose Level 264H, Calcium Level 9.5, Corrected Calcium 9.3, Magnesium Level 1.9, Total Bilirubin 0.4, Aspartate Amino Transf (AST/SGOT) 17, Alanine Aminotransferase (ALT/SGPT) 32, Alkaline Phosphatase 136, Myoglobin 45.0, Troponin I 0.076H, Total Protein 7.3, Albumin 4.2 Laboratory Tests 08/19/18 22:40 A/P-Cardiology Assessment/Admission Diagnosis Chest discomfort with minimally elevated troponin, suggestive of ACS PAD. On 09/30/14, he underwent stenting of the R SFA and the L external iliac artery by Dr Dockery. On 04/26/17, previous stents were patent and there was 90% L SFA stenosis to which successful balloon angioplasty was carried out. Last peripheral angio and intervention on 11/22/17: patent stents in R SFA and L Ext Iliac; L SFA had a long segment of occlusion that was treated with PTCA and stents (overlapping Absolute 6x100, 6x100, and 6x60). CT angio of 03/31/18: no high grade stenosis in ao or iliacs; bilat sup fem stents patent, mod instent restenosis in prox L SFA stent, three vessel bilat runoff R groin pseudoaneurysm (post cath of 04/26/17) on groin u/s of 05/02/17, treated with local pressure, resolved (thrombosed) on subsequent groin u/s of 05/03/17 Bilateral leg swelling due varicose veins and venous insuff. No evidence of DVT on bilat leg venous Doppler of 04/26/17 Atypical syncope without any evidence of cardiac etiology seen on 4-day ambulatory color television console monitor of 08-04-16 to 08-09-16 CAD. Last card cath was on 03/19/17: complete occlusion within the distal portion of previously placed RCA stents in 2014 (overlapping Promus Premier 4.0 x 24 and 4.0 x 12 mm stents). To this complete occlusion, successful balloon angioplasty and stenting was carried out. Following deployment of Alpine Xience 4.0 x 12 mm stent, there is 0% residual stenosis and normal antegrade flow. 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 Mild to moderate disease of the left coronary system. Significantly elevated left ventricular end-diastolic pressure MPI of 03/28/18: IMI with a small amt of gerry-infarct ischemia, inf hypokinesis LVEF 53%. These results match known cor anatomy that is described above Mild carotid art dz on carotid u/s of 03/27/18 Mild to mod stenosis of the distal L SC seen on CTA of head/neck of 08-09-16 8mm thyroid nodule seen on head/neck CT of 08-09-16 - f/u is with PCP Chronic tobacco use CTA of the chest on 03-19-17 showed minimal bilat basilar atelectasis. Indeterminant 3 mm nodular density anterior right upper lobe, new from piror CT. S/p L TKR and arthroscopic R knee surg Echo of 03/20/17: shows LVEF 50-55%, Grade I diastolic dysfunction of LV ALLEN, treated with CPAP - followed by Dr. Zaman Incomplete RBBB Hypertension, labile Hyperlipidemia Discussion and Recomendations * Given above history and clinical presentation and ongoing symptoms, we recommend card cath. We have reviewed with him the rationale, procedure, risks, benefits, potential complications, and alternatives of card cath with him. He understands and wises to proceed. Arrangements are being made * Risk factor modification has been discussed with him. Advised to refrain from tobacco use * Further recs based on cath results Clinical Quality Measures AMI/AHF: ASA po Prior to arrival: Yes CHRISTEL CARRASQUILLO MD FACP FACC CCDS Aug 20, 2018 00:55
[2018-08-20] MEDS ORDERED: NS IV 1000 ML 1,000 ML ONE ×2 (01:01→02:37)
--- NOTE | 2018-08-20 01:02 | NUR ---
CASKET [employer]SEM[employer]ER TEAM HERE, REPORT GIVEN AND PT AND ALL BELONGINGS TRANSFERRED TO CASKET ASSEMBLER.
[2018-08-20] MEDS ORDERED: EPTIFIBATIDE BOLUS 20 ML IV ONE (01:22)
[2018-08-20] MEDS ORDERED: NITRO DRIP 25000 MCG/D5W 250 ML IV ONE (01:40)
[2018-08-20] MEDS ORDERED: ASPIRIN 81 MG CHEW (CHILDREN'S ASA) ONE (01:42)
[2018-08-20] MEDS ORDERED: CLOPIDOGREL 300 MG (PLAVIX) TABLET PO ONE (01:42)
--- NOTE | 2018-08-20 02:18 | Cardiology History & Physical ---
HPI-Cardiology Cardiology H&P Date of Admission 08/20/18 Primary Care Physician Manuel Braxton MD Attending Physician Nohemi Houston MD, MA FACP [facility] [place] CCDS Consulting Physician [facility] CC: Chest pain HPI 62 yo man with chest discomfort that started approx one hour prior to presentation to ER: L parasternal and midsternal, radiating to the L arm and neck and upper back. No diaphoresis or shortness of breath. Moderately severe in intensity and w/o any aggravating or relieving factors. Pt reports it is similar to what he had with his LA in early 2018. Not experienced since early 2017. Chronic exertional shortness of breath. Chronic bilateral leg discomfort upon walking. No palp or syncope. Review of Systems-Cardiology Review of Systems Constitutional: malaise (chronic); No weight loss, No weight gain Eyes: No vision change Ears/Nose/Throat: No ear discharge, No nasal drainage, No recent hearing loss, No ulcerations Respiratory: As described under HPI Cardiovascular: As described under HPI Gastrointestinal: No constipation, No diarrhea, No nausea, No vomiting Genitourinary: No dysuria, No hematuria, No urine frequency changes Musculoskeletal: back pain (chronic) Skin: No rash, No ulcerations Psychiatric/Neurological: No seizure, No focal weakness, No syncope Hematologic: No bleeding abnormalities [id number] Hx Patient Social History Type Used: Cigarettes 2nd Hand Smoke Exposure: Yes Recent Foreign Travel: No Immunizations Up To Date Tetanus Booster (TDap): Unknown Date of Pneumonia Vaccine: Sep 30, 2012 Date of Influenza Vaccine: Dec 13, 2016 Past Medical History PMH As described under Assessment. Family Medical History Family Medical History: Does not report fam h/o early CAD or SCD Allergies and Home Medications Allergies Coded Allergies: No Known Drug Allergies (Unverified , 08/16/18) Home Medications Albuterol Sulfate 1 Puff Puff, 2 PUFF IH Q4H 1 PUFF = 90 MCG Prescribed by: CHRIS BOTELLO on 03/13/18 1442 Aspirin 81 Mg Tablet.dr, 81 MG PO DAILY, (Reported) Atorvastatin Calcium 40 Mg Tablet, 40 MG PO HS, (Reported) Bupropion HCl 100 Mg Tablet, 100 MG PO HS, (Reported) Calcium Carbonate 300 Mg Tab.chew, 300 MG PO TID PRN for HEARTBURN, (Reported) Cefuroxime Axetil 250 Mg Tablet, 250 MG PO BID Prescribed by: CHRIS BOTELLO on 03/13/18 1442 Clopidogrel Bisulfate 75 Mg Tablet, 75 MG PO DAILY, (Reported) Hydrocodone/Acetaminophen 1 Each Tablet, 1 TAB PO EVERY 4-6 HOURS PRN for PAIN- MODERATE, (Reported) Lorazepam 0.5 Mg Tablet, 0.5 MG PO TID PRN for ANXIETY Prescribed by: CHRIS BOTELLO on 03/13/18 1500 Metformin HCl 500 Mg Tablet, 500 MG PO BID Prescribed by: ALLAN ISBELL on 08/16/18 1753 Metoprolol Succinate 50 Mg Tab.er.24h, 25 MG PO DAILY, (Reported) TAKES 1/2 (50MG) TABLET Ondansetron 4 Mg Tab.rapdis, 4 MG PO Q6H PRN for NAUSEA/VOMITING Prescribed by: RADHA CASTRO on 05/08/18 0005 Pramipexole Di-HCl 0.5 Mg Tablet, 0.5 MG PO HS, (Reported) Prednisone 20 Mg Tab, 40 MG PO DAILY Prescribed by: CHRIS BOTELLO on 03/13/18 1442 Pregabalin 75 Mg Capsule, 75 MG PO BID, (Reported) Primidone 50 Mg Tablet, 50 MG PO HS, (Reported) Ranitidine HCl 150 Mg Tablet, 150 MG PO DAILY PRN for HEARTBURN, (Reported) Sertraline HCl 50 Mg Tablet, 50 MG PO BID, (Reported) Patient Home Medication List Home Medication List Reviewed: Yes Physical Exam-Cardiology Physical Exam Vital Signs/I&O 08/19/18 22:37 Pulse Ox 99 O2 Delivery Room Air FiO2 99 Capillary Refill : Constitutional: AAO x 3, well-developed, well-nourished HEENT: EOMI, hearing is well preserved; No xanthelasmas are seen Neck: No carotid bruit; carotid pulses are 2 + bilaterally, with good upstrokes Respiratory: No accessory muscle use; lungs clear to percussion, lungs clear to auscultation Cardiovascular: regular rate-rhythm, S1 and S2, systolic murmur (soft GEMA at card base) Gastrointestinal: No tender; soft; No guarding, No rebound; audible bowel sounds Extremities: No clubbing, No cyanosis, No significant edema Neurologic/Psychiatric: oriented x 3, grossly intact, power is 5/5 both on sides Skin: No rash on exposed areas, No ulcerations on exposed areas Data Review Labs Laboratory Tests 08/19/18 22:40: White Blood Count 8.4, Red Blood Count 4.84, Hemoglobin 14.4, Hematocrit 44, Mean Corpuscular Volume 91, Mean Corpuscular Hemoglobin 30, Mean Corpuscular Hemoglobin Concent 33, Red Cell Distribution Width 14.0, Platelet Count 154, Mean Platelet Volume 11.2H, Neutrophils (%) (Auto) 69, Lymphocytes (%) (Auto) 22, Monocytes (%) (Auto) 8, Eosinophils (%) (Auto) 1, Basophils (%) (Auto) 0, Neutrophils # (Auto) 5.8, Lymphocytes # (Auto) 1.8, Monocytes # (Auto) 0.6, Eosinophils # (Auto) 0.1, Basophils # (Auto) 0.0, Prothrombin Time 12.4, INR Comment 0.9, Activated Partial Thromboplast Time 27, D-Dimer 0.42, Sodium Level 141, Potassium Level 4.0, Chloride Level 103, Carbon Dioxide Level 24, Anion Gap 14, Blood Urea Nitrogen 16, Creatinine 1.13, Estimat Glomerular Filtration Rate > 60, BUN/Creatinine Ratio 14, Glucose Level 264H, Calcium Level 9.5, Corrected Calcium 9.3, Magnesium Level 1.9, Total Bilirubin 0.4, Aspartate Amino Transf (AST/SGOT) 17, Alanine Aminotransferase (ALT/SGPT) 32, Alkaline Phosphatase 136, Myoglobin 45.0, Troponin I 0.076H, Total Protein 7.3, Albumin 4.2 Laboratory Tests 08/19/18 22:40 A/P-Cardiology Assessment/Admission Diagnosis Chest discomfort with minimally elevated troponin, suggestive of ACS PAD. On 09/30/14, he underwent stenting of the R SFA and the L external iliac artery by Dr Dockery. On 04/26/17, previous stents were patent and there was 90% L SFA stenosis to which successful balloon angioplasty was carried out. Last peripheral angio and intervention on 11/22/17: patent stents in R SFA and L Ext Iliac; L SFA had a long segment of occlusion that was treated with PTCA and stents (overlapping Absolute 6x100, 6x100, and 6x60). CT angio of 03/31/18: no hi gh grade stenosis in ao or iliacs; bilat sup fem stents patent, mod instent restenosis in prox L SFA stent, three vessel bilat runoff R groin pseudoaneurysm (post cath of 04/26/17) on groin u/s of 05/02/17, treated with local pressure, resolved (thrombosed) on subsequent groin u/s of 05/03/17 Bilateral leg swelling due varicose veins and venous insuff. No evidence of DVT on bilat leg venous Doppler of 04/26/17 Atypical syncope without any evidence of cardiac etiology seen on 4-day ambulatory child monitor of 08-04-16 to 08-09-16 CAD. Last card cath was on 03/19/17: complete occlusion within the distal portion of previously placed RCA stents in 2015 (overlapping Promus Premier 4.0 x 24 and 4.0 x 12 mm stents). To this complete occlusion, successful balloon angioplasty and stenting was carried out. Following deployment of Alpine Xience 4.0 x 12 mm stent, there is 0% residual stenosis and normal antegrade flow. 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 Mild to moderate disease of the left coronary system. Significantly elevated left ventricular end-diastolic pressure MPI of 03/28/18: IMI with a small amt of gerry-infarct ischemia, inf hypokinesis LVEF 53%. These results match known cor anatomy that is described above Mild carotid art dz on carotid u/s of 03/27/18 Mild to mod stenosis of the distal L SC seen on CTA of head/neck of 08-09-16 8mm thyroid nodule seen on head/neck CT of 08-09-16 - f/u is with PCP Chronic tobacco use CTA of the chest on 03-19-17 showed minimal bilat basilar atelectasis. Indeterminant 3 mm nodular density anterior right upper lobe, new from piror CT. S/p L TKR and arthroscopic R knee surg Echo of 03/20/17: shows LVEF 50-55%, Grade I diastolic dysfunction of LV ALLEN, treated with CPAP - followed by Dr. Zaman Incomplete RBBB Hypertension, labile Hyperlipidemia Admission Status: Inpatient Order (span 2 midnights) Reason for Inpatient Admission: Ac LA Discussion and Recomendations * Given above history and clinical presentation and ongoing symptoms, we recommend card cath. We have reviewed with him the rationale, procedure, risks, benefits, potential complications, and alternatives of card cath with him. He understands and wises to proceed. Arrangements are being made * Risk factor modification has been discussed with him. Advised to refrain from tobacco use * Further recs based on cath results Clinical Quality Measures AMI/AHF: ASA po Prior to arrival: Yes NOHEMI HOUSTON MD FACP FACC CCDS Aug 20, 2018 02:18
[2018-08-20] MEDS ORDERED: NS IV 1000 ML 1,000 ML IV SCH (02:25)
--- NOTE | 2018-08-20 02:25 | NUR ---
ARRIVED TO ED ROOM 6 FOR POST CATH RECOVERY BY Rolo YANES, MAJOR ASSEMBLER AT THIS TIME.
[2018-08-20] MEDS ORDERED: PATIENT MAY USE OWN MEDS, ALL PO SCH (02:30)
[2018-08-20] MEDS ORDERED: LORazepam 0.5 MG (ATIVAN) TABLET PO PRN (02:30)
--- NOTE | 2018-08-20 03:01 | CARDIAC CATHETERIZATION ---
DATE OF SERVICE: 08/20/2018 CARDIAC CATHETERIZATION AND CORONARY INTERVENTION REPORT INDICATIONS: The patient is a 62-year-old gentleman, who presented with chest pain. He stated that the pain was similar to what he had experienced with his acute coronary syndrome in early 2018. Symptoms continued and the troponin was mildly elevated. Urgent cardiac catheterization was carried out after having obtained an informed consent for cardiac catheterization and possible ad hoc coronary intervention. PROCEDURE: He was brought to the cardiac catheterization laboratory. Right groin was prepared and draped in the usual sterile fashion. Lidocaine 1% was used as local anesthesia. Modified Seldinger technique was used to advance a 6-Indian sheath in the right femoral artery, a 6-Indian JL4 catheter for left coronary angiography, 6-Indian JR4 catheter for right coronary angiography, 6-Indian JR4 guide catheter was used for right coronary intervention that is described below. A 6-Indian pigtail catheter was used for left heart catheterization and left ventricular angiography. At the end of the procedure, following completion of the diagnostic and interventional procedures, angiography of the right femoral artery was carried out through the sheath and Mynx was used to achieve hemostasis. PERCUTANEOUS INTERVENTION OF THE RIGHT CORONARY ARTERY: The right coronary artery was extensively stented and was occluded within the standard portion in the mid part of the right coronary artery. We used a 6-Indian JR4 guide catheter to engage the right coronary artery and advanced a choice floppy wire across the occlusion and the tip was placed in a terminal posterolateral branch and this was followed by balloon angioplasty with Emerge 2.0 x 20 mm and Emerge 3.0 x 30 mm balloons. This reduced the stenosis from 100% to less than 10% and improved flow from SORAIDA 0 to SORAIDA 3. He tolerated the procedure well. The posterior descending branch of the right coronary artery is chronically occluded and was not intervened on. HEMODYNAMICS: Left ventricular end-diastolic pressure following coronary angiography was 13 mmHg. There was no significant pressure gradient on pullback across the aortic valve. Ascending aortic pressure was 129/67 with a mean of 88 mmHg. CORONARY ANGIOGRAPHY: Left main coronary artery does not exhibit significant disease. Left anterior descending artery has diffuse mild to moderate disease. Right coronary artery is dominant. It is extensively stented. The proximal and mid portion of the right coronary artery have overlapping Promus Premier 4.0 x 24, Promus Premier 4 x 12 and Alpine Xience 4 x 12 mm stents. The standard portion of the right coronary artery was occluded and the successful balloon angioplasty was carried out with restorationism of normal antegrade flow. The posterior descending branch of right coronary artery is standard and is chronically occluded and was not intervened on. LEFT VENTRICULAR ANGIOGRAPHY: Left ventricular angiography was carried out in a right anterior oblique projection. Global left ventricular systolic function was impaired. There was posterobasal hypokinesis. There was diaphragmatic akinesis. The rest of the left ventricular boykin appear to have normal motion. Left ventricular ejection fraction is approximately 40%. CONCLUSIONS: 1. Coronary artery disease consisting of moderate disease of the left anterior descending and mid vessel occlusion (in-stent) of the right coronary artery. Successful balloon angioplasty was carried out to the right coronary artery with restorationism of normal antegrade flow. The posterior descending branch of the right coronary artery is chronically occluded and was not intervened on. The right coronary artery is known to have following the stents that were placed in 2014 and 2017: Promus 4 x 24, Promus 4 x 12 and Alpine Xience 4 x 12. 2. Impairment of global left ventricular systolic function with an ejection fraction of 40%. 3. Posterior basal hypokinesis and diaphragmatic wall akinesis. 4. Mild elevation of left ventricular end-diastolic pressure. DISCUSSION AND RECOMMENDATIONS: Dual antiplatelet therapy is being continued. Statin therapy is being continued. Therapy with the beta blockers and JOSE FRANCISCO inhibitors is also being provided. Job ID: [id number] DocumentID: [id number] Dictated Date: 08/20/2018 02:15:43 Pit Hoist Operator Date: 08/20/2018 03:01:04 Dictated By: CHRISTEL CARRASQUILLO MD, MA, FACP, FACC, MTDD
[2018-08-20] MEDS ORDERED: diphenhydrAMINE 50 MG/ML INJ (BENADRYL) ONE (03:52)
[2018-08-20] MEDS ORDERED: diphenhydrAMINE 50 MG/ML INJ (BENADRYL) IVP ONE (04:00)
--- NOTE | 2018-08-20 04:00 | NUR ---
PTS FAMILY REFUSED 0400 VITALS.
--- NOTE | 2018-08-20 05:54 | Diagnostic Imaging Report ---
INDICATION: Chest pain COMPARISON: 05/07/2018 FINDINGS: Single frontal view of the chest demonstrates normal heart size and pulmonary vascularity. The lungs are well aerated and clear. No large pleural effusion or pneumothorax is seen. The visualized osseous structures show no acute abnormalities. IMPRESSION: 1. No acute cardiopulmonary process. Dictated by: Dictated on workstation # [id number]
--- NOTE | 2018-08-20 06:15 | NUR ---
PT TRANSFERRED TO 4TH FLOOR AT THIS TIME BY DENIZ DEVLINCAN SLIDER AFTER ED HOLD TO ALLOW FOR STAFFING.
[2018-08-20] MEDS: inSUlin ASPART (NovoLOG) 1 UNIT/0.01 ML (CHARGE PER UNIT) SC SCH ×4 (08:02→21:33)
[2018-08-20] MEDS: meTOproloL SUCCINATE 50 MG (TOPROL XL) TAB PO SCH (08:41)
[2018-08-20] MEDS: CLOPIDOGREL 75 MG (PLAVIX) TABLET PO SCH (08:41)
[2018-08-20] MEDS: PREGABALIN 75 MG (LYRICA) CAP PO SCH ×2 (08:42→21:20)
[2018-08-20] MEDS: ASPIRIN 81 MG CHEW (CHILDREN'S ASA) PO SCH (08:42)
[2018-08-20] MEDS: lisINopril 5 MG (PRINIVIL) TABLET PO SCH (08:43)
[2018-08-20] MEDS: buPROPion SR 100 MG (WELLBUTRIN SR) TAB PO SCH ×2 (08:43→17:42)
[2018-08-20] MEDS ORDERED: PREGABALIN 50 MG (LYRICA) CAP PO SCH (09:00)
[2018-08-20] MEDS: ACETAMINOPHEN 500 MG TAB (TYLENOL) PO PRN (13:05)
[2018-08-20] MEDS: ATORVASTATIN 80 MG (LIPITOR) TABLET PO SCH (21:20)
[2018-08-21 03:54] VITALS: BP 146/82
[2018-08-21 06:16] LABS: MEAN PLATELET VOLUME 11.4 FL (7.4-10.4); WHITE BLOOD COUNT 6.5 10^3/uL (4.3-11.0)
[2018-08-21 06:38] LABS: BUN/CREATININE RATIO 16; CALCIUM 8.7 MG/DL (8.5-10.1); CARBON DIOXIDE 21 MMOL/L (21-32); CHLORIDE 106 MMOL/L (98-107); CREATININE SERUM 0.77 MG/DL (0.60-1.30); GFR ESTIMATED > 60; GLUCOSE 166 MG/DL (70-105); SODIUM 137 MMOL/L (135-145)
[2018-08-21] MEDS: inSUlin ASPART (NovoLOG) 1 UNIT/0.01 ML (CHARGE PER UNIT) SC SCH ×4 (06:40→22:43)
[2018-08-21] MEDS: buPROPion SR 100 MG (WELLBUTRIN SR) TAB PO SCH ×2 (07:56→16:46)
[2018-08-21] MEDS: meTOproloL SUCCINATE 50 MG (TOPROL XL) TAB PO SCH (07:57)
[2018-08-21] MEDS: PREGABALIN 75 MG (LYRICA) CAP PO SCH ×2 (07:57→22:43)
[2018-08-21] MEDS: lisINopril 5 MG (PRINIVIL) TABLET PO SCH (07:57)
[2018-08-21] MEDS: CLOPIDOGREL 75 MG (PLAVIX) TABLET PO SCH (07:57)
[2018-08-21] MEDS: ASPIRIN 81 MG CHEW (CHILDREN'S ASA) PO SCH (07:57)
[2018-08-21 08:00] VITALS: BP 172/83
--- NOTE | 2018-08-21 09:48 | Progress Note-Cardiology ---
Cardiology SOAP Progress Note Subjective: Sitting up in a chair at the bedside. Wants to go home. Spouse at the bedside. Denies any c/o CP, palpitations, syncope, near syncope or dyspnea. No c/o groin discomfort. Objective: I&O/Vital Signs 08/21/18 08/21/18 08/21/18 08/21/18 07:00 08:00 08:00 12:00 Temp 97.4 97.5 Pulse 71 69 61 Resp 18 20 B/P (MAP) 172/83 (112) 125/75 (92) Pulse Ox 98 98 O2 Delivery Room Air Room Air Room Air 08/21/18 15:52 Temp 97.8 Pulse 59 Resp 18 B/P (MAP) 113/55 (74) Pulse Ox 97 O2 Delivery Room Air 08/21/18 00:00 Intake Total 2640 ml Output Total 400 ml Balance 2240 ml Weight (Pounds): 250 Weight (Ounces): 0.0 Weight (Calculated Kilograms): 113.133930 Side: right Condition: DP/PT pulses palpable, extremity w/d/p Bruising: mild bruising Constitutional: AAO x 3, well-developed, well-nourished Respiratory: No accessory muscle use; lungs clear to percussion, lungs clear to auscultation Cardiovascular: regular rate-rhythm, S1 and S2, systolic murmur (soft GEMA at card base) Gastrointestional: No tender; soft; No guarding, No rebound; audible bowel sounds Extremities: No clubbing, No cyanosis, No significant edema Neurologic/Psychiatric: oriented x 3, grossly intact, power is 5/5 both on sides Skin: No rash on exposed areas, No ulcerations on exposed areas Results/Procedures: Labs Laboratory Tests 08/20/18 21:25: Glucometer 217H 08/21/18 05:47: Glucometer 179H 08/21/18 05:49: White Blood Count 6.5, Red Blood Count 4.50, Hemoglobin 13.0L, Hematocrit 41, Mean Corpuscular Volume 91, Mean Corpuscular Hemoglobin 29, Mean Corpuscular Hemoglobin Concent 32, Red Cell Distribution Width 14.0, Platelet Count 134, Mean Platelet Volume 11.4H, Sodium Level 137, Potassium Level 4.0, Chloride Level 106, Carbon Dioxide Level 21, Anion Gap 10, Blood Urea Nitrogen 12, Creatinine 0.77, Estimat Glomerular Filtration Rate > 60, BUN/Creatinine Ratio 16, Glucose Level 166H, Calcium Level 8.7 08/21/18 10:20: Glucometer 220H 08/21/18 14:47: Glucometer 211H Procedures S/P cardiac cath with successful intervention on 08-20-18. Please see Dr. Carrasquillo's cardiac cath report of the same date for details. A/P: Assessment: Coronary artery disease - Most recent cardiac cath of August 20, 2018: moderate disease of the left anterior descending and mid vessel occlusion (in-stent) of the right coronary artery. Successful balloon angioplasty was carried out to the right coronary artery with catholic of normal antegrade flow. The posterior descending branch of the right coronary artery is chronically occluded and was not intervened on. The right coronary artery is known to have following the stents that were placed in 2014 and 2017: Promus 4 x 24, Promus 4 x 12 and Alpine Xience 4 x 12. Impairment of global left ventricular systolic function with an ejection fraction of 40%. Posterior basal hypokinesis and diaphragmatic wall akinesis. Mild elevation of left ventricular end-diastolic pressure. PAD. On 09/30/14, he underwent stenting of the R SFA and the L external iliac artery by Dr Dockery. On 04/26/17, previous stents were patent and there was 90% L SFA stenosis to which successful balloon angioplasty was carried out. Last peripheral angio and intervention on 11/22/17: patent stents in R SFA and L Ext Iliac; L SFA had a long segment of occlusion that was treated with PTCA and st ents (overlapping Absolute 6x100, 6x100, and 6x60). CT angio of 03/31/18: no high grade stenosis in ao or iliacs; bilat sup fem stents patent, mod instent restenosis in prox L SFA stent, three vessel bilat runoff R groin pseudoaneurysm (post cath of 04/26/17) on groin u/s of 05/02/17, treated with local pressure, resolved (thrombosed) on subsequent groin u/s of 05/03/17 Bilateral leg swelling due varicose veins and venous insuff. No evidence of DVT on bilat leg venous Doppler of 04/26/17 Atypical syncope without any evidence of cardiac etiology seen on 4-day ambulatory child monitor of 08-04-16 to 08-09-16 MPI of 03/28/18: IMI with a small amt of gerry-infarct ischemia, inf hypokinesis LVEF 53%. These results match known cor anatomy Mild carotid art dz on carotid u/s of 03/27/18 Mild to mod stenosis of the distal L SC seen on CTA of head/neck of 08-09-16 8mm thyroid nodule seen on head/neck CT of 08-09-16 - f/u is with PCP Chronic tobacco use CTA of the chest on 03-19-17 showed minimal bilat basilar atelectasis. Indeterminant 3 mm nodular density anterior right upper lobe, new from piror CT. S/p L TKR and arthroscopic R knee surg Echo of 03/20/17: shows LVEF 50-55%, Grade I diastolic dysfunction of LV ALLEN, treated with CPAP - followed by Dr. Zaman Incomplete RBBB Hypertension, labile Hyperlipidemia Plan: * Given above history and clinical presentation and ongoing symptoms, we recommend card cath. We have reviewed with him the rationale, procedure, risks, benefits, potential complications, and alternatives of card cath with him. He understands and wises to proceed. Arrangements are being made * Risk factor modification has been discussed with him. Advised to refrain from tobacco use * Further recs based on cath results Physician Assessment Physician Assessment No cp or palp or syncope No groin discomfort Chronic exertional shortness of breath Chronic back pain Lungs: good bilat air entry Cor: reg Ext: no /c/c/e. Mild bruising at site of access for cath (R groin) A&R * As documented in our note above that I updated (italics) and as noted below * I had a long detailed discussion with him and his regarding the findings of cath and the interventions undertaken * I discussed his CV issues with him and his * Continue current regimen * Would need to keep him on DAPT, at least for now, and he would have to postpone his back pain injections Clinical Quality Measures AMI/AHF: ASA po Prior to arrival: Yes SLOAN RIVERA CD TECHNICIAN Aug 21, 2018 09:[address] [facility] CCDS Aug 21, 2018 17:53
[2018-08-21 12:00] VITALS: BP 125/75
[2018-08-21] MEDS: ACETAMINOPHEN 500 MG TAB (TYLENOL) PO PRN (12:14)
--- NOTE | 2018-08-21 15:05 | NUR ---
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 Shared that while his family drove him to the hospital, they were pulled over. When they told the officer the pt was having a heart attack, the officer returned to his vehicle and continued to process the ticket. They said this took 5-10 minutes, and the officer met them at the ER after they arrived. Both the pt and his described this encounter as frightening and shocking, as the pt continued to have chest pains while waiting permission to go. Pt states he wants to continue working as long as he can because they need the insurance, and he wants to remain active. However, he states that he is currently working three 12 hour shifts and 8 hour shifts before and following, which he finds to be too hard on his health. Pt states he is seeking more balance in his life, and feels the financial pressures of his health, as well as decreased quality of life. He concluded the visit with a smile and said, "You know me, I am going to keep going until I can't go no more." Pt is [place] and verbalizes trusting reliance on God through prayer and has strong, meaningful relationships with family, coworkers and his neighboring community.
[2018-08-21 15:52] VITALS: BP 113/55
--- NOTE | 2018-08-21 16:05 | NUR ---
Pastoral care visit.
[2018-08-21 19:19] VITALS: BP 148/88
[2018-08-21] MEDS: ATORVASTATIN 80 MG (LIPITOR) TABLET PO SCH (22:43)
[2018-08-22] VITALS: BP 169/81
[2018-08-22 03:52] VITALS: BP 115/71
[2018-08-22] MEDS: inSUlin ASPART (NovoLOG) 1 UNIT/0.01 ML (CHARGE PER UNIT) SC SCH ×2 (06:09→10:24)
[2018-08-22] MEDS: buPROPion SR 100 MG (WELLBUTRIN SR) TAB PO SCH (06:23)
[2018-08-22 07:37] VITALS: BP 157/70
[2018-08-22] MEDS: CLOPIDOGREL 75 MG (PLAVIX) TABLET PO SCH (09:01)
[2018-08-22] MEDS: PREGABALIN 75 MG (LYRICA) CAP PO SCH (09:01)
[2018-08-22] MEDS: lisINopril 5 MG (PRINIVIL) TABLET PO SCH (09:01)
[2018-08-22] MEDS: meTOproloL SUCCINATE 50 MG (TOPROL XL) TAB PO SCH (09:01)
[2018-08-22] MEDS: ASPIRIN 81 MG CHEW (CHILDREN'S ASA) PO SCH (09:01)
[2018-08-22] MEDS ORDERED: LISI-556 PO (10:54)
[2018-08-22] MEDS ORDERED: ATOR80TA76 PO (10:54)
[2018-08-22] MEDS ORDERED: ASPI-999 PO (10:54)
[2018-08-22] MEDS ORDERED: METO-370 PO (10:54)
--- NOTE | 2018-08-22 10:56 | Discharge Inst-Cardiology ---
Discharge Inst-Cardiac Discharge Medications New Medications: Aspirin (Aspirin) 81 Mg Tab.chew 81 MG PO DAILY, #30 TAB 5 Refills Atorvastatin Calcium (Atorvastatin Calcium) 80 Mg Tablet 80 MG PO HS, #30 TAB 5 Refills Lisinopril (Lisinopril) 5 Mg Tablet 5 MG PO DAILY, #30 TAB 5 Refills Metoprolol Succinate (Metoprolol Succinate) 50 Mg Tab.er.24h 50 MG PO DAILY, #30 TAB 5 Refills Continued Medications: Albuterol Sulfate (Proair Hfa) 1 Puff Puff 2 PUFF IH Q4H, #1 PUFF 1 PUFF = 90 MCG Bupropion HCl (Bupropion HCl) 100 Mg Tablet 100 MG PO HS, TAB Calcium Carbonate (Tums) 300 Mg Tab.chew 300 MG PO TID PRN for HEARTBURN, TAB Cefuroxime Axetil (Cefuroxime) 250 Mg Tablet 250 MG PO BID, #10 TAB Clopidogrel Bisulfate (Clopidogrel) 75 Mg Tablet 75 MG PO DAILY, TAB Hydrocodone/Acetaminophen (Hydrocodon-Acetaminophn 10-325) 1 Each Tablet 1 TAB PO EVERY 4-6 HOURS PRN for PAIN-MODERATE, TAB Lorazepam (Lorazepam) 0.5 Mg Tablet 0.5 MG PO TID PRN for ANXIETY, #10 TAB Metformin HCl (Metformin HCl) 500 Mg Tablet 500 MG PO BID, #20 TAB 0 Refills Ondansetron (Ondansetron Odt) 4 Mg Tab.rapdis 4 MG PO Q6H PRN for NAUSEA/VOMITING, #8 TAB 0 Refills Pramipexole Di-HCl (Pramipexole Dihydrochloride) 0.5 Mg Tablet 0.5 MG PO HS, TAB Prednisone (Prednisone) 20 Mg Tab 40 MG PO DAILY, #8 TAB Pregabalin (Lyrica) 75 Mg Capsule 75 MG PO BID, CAP Primidone (Primidone) 50 Mg Tablet 50 MG PO HS, TAB Ranitidine HCl (Zantac) 150 Mg Tablet 150 MG PO DAILY PRN for HEARTBURN, TAB Sertraline HCl (Sertraline HCl) 50 Mg Tablet 50 MG PO BID, TAB Discontinued Medications: Aspirin (Aspirin EC) 81 Mg Tablet.dr 81 MG PO DAILY, TAB Atorvastatin Calcium (Atorvastatin Calcium) 40 Mg Tablet 40 MG PO HS, TAB Metoprolol Succinate (Metoprolol Succinate) 50 Mg Tab.er.24h 25 MG PO DAILY, TAB TAKES 1/2 (50MG) TABLET New, Converted or Re-Newed RX: Transmitted to Pharmacy Patient Instructions Patient Instructions: May restart Metformin tomorrow - follow up with PCP regarding diabetic management Follow up appointment to see Dr. Houston in one week SLOAN RIVERA Aug 22, 2018 10:56
--- NOTE | 2018-08-22 11:55 | Progress Note-Cardiology ---
Cardiology SOAP Progress Note Subjective: Sitting up in a chair at the bedside. Wishes to go home. No c/o CP, palpitations, syncope or near syncope. No c/o dyspnea. Objective: I&O/Vital Signs 08/22/18 08/22/18 08/22/18 08/22/18 03:52 07:00 07:37 07:55 Temp 97.4 97.9 Pulse 70 66 69 Resp 18 18 B/P (MAP) 115/71 (86) 157/70 (99) Pulse Ox 97 99 97 O2 Delivery Room Air Room Air Room Air 08/22/18 08/22/18 12:00 12:52 Temp 98.1 Pulse 69 64 Resp 18 B/P (MAP) 116/58 (77) Pulse Ox 96 O2 Delivery Room Air 08/22/18 00:00 Intake Total 2580 ml Balance 2580 ml Weight (Pounds): 250 Weight (Ounces): 0.0 Weight (Calculated Kilograms): 113.448431 Side: right Condition: DP/PT pulses palpable, extremity w/d/p Bruising: mild bruising Constitutional: AAO x 3, well-developed, well-nourished Respiratory: No accessory muscle use; lungs clear to percussion, lungs clear to auscultation Cardiovascular: regular rate-rhythm, S1 and S2, systolic murmur (soft GEMA at card base) Gastrointestional: No tender; soft; No guarding, No rebound; audible bowel sounds Extremities: No clubbing, No cyanosis, No significant edema Neurologic/Psychiatric: oriented x 3, grossly intact, power is 5/5 both on sides Skin: No rash on exposed areas, No ulcerations on exposed areas Results/Procedures: Labs Laboratory Tests 08/21/18 14:47: Glucometer 211H 08/21/18 20:59: Glucometer 196H 08/22/18 06:07: Glucometer 143H 08/22/18 10:08: Glucometer 261H A/P: Assessment: Coronary artery disease - Most recent cardiac cath of August 20, 2018: moderate disease of the left anterior descending and mid vessel occlusion (in-stent) of the right coronary artery. Successful balloon angioplasty was carried out to th e right coronary artery with buddhism of normal antegrade flow. The posterior descending branch of the right coronary artery is chronically occluded and was not intervened on. The right coronary artery is known to have following the stents that were placed in 2014 and 2018: Promus 4 x 24, Promus 4 x 12 and Alpine Xience 4 x 12. Impairment of global left ventricular systolic function with an ejection fraction of 40%. Posterior basal hypokinesis and diaphragmatic wall akinesis. Mild elevation of left ventricular end-diastolic pressure. PAD. On 09/30/14, he underwent stenting of the R SFA and the L external iliac artery by Dr Dockery. On 04/26/17, previous stents were patent and there was 90% L SFA stenosis to which successful balloon angioplasty was carried out. Last peripheral angio and intervention on 11/22/17: patent stents in R SFA and L Ext Iliac; L SFA had a long segment of occlusion that was treated with PTCA and stents (overlapping Absolute 6x100, 6x100, and 6x60). CT angio of 03/31/18: no high grade stenosis in ao or iliacs; bilat sup fem stents patent, mod instent restenosis in prox L SFA stent, three vessel bilat runoff R groin pseudoaneurysm (post cath of 04/26/17) on groin u/s of 05/02/17, treated with local pressure, resolved (thrombosed) on subsequent groin u/s of 05/03/17 Bilateral leg swelling due varicose veins and venous insuff. No evidence of DVT on bilat leg venous Doppler of 04/26/17 Atypical syncope without any evidence of cardiac etiology seen on 4-day ambulatory cardiac exercise specialist of 08-04-16 to 08-09-16 MPI of 03/28/18: IMI with a small amt of gerry-infarct ischemia, inf hypokinesis LVEF 53%. These results match known cor anatomy Mild carotid art dz on carotid u/s of 03/27/18 Mild to mod stenosis of the distal L SC seen on CTA of head/neck of 08-09-16 8mm thyroid nodule seen on head/neck CT of 08-09-16 - f/u is with PCP Chronic tobacco use CTA of the chest on 03-19-17 showed minimal bilat basilar atelectasis. Indeterm inant 3 mm nodular density anterior right upper lobe, new from piror CT. S/p L TKR and arthroscopic R knee surg Echo of 03/20/17: shows LVEF 50-55%, Grade I diastolic dysfunction of LV ALLEN, treated with CPAP - followed by Dr. Zaman Incomplete RBBB Hypertension, labile Hyperlipidemia Plan: Continue current medication regimen Discussed importance of medication compliance Reviewed medication changes Advised out pt f/u with his PCP regarding tx for DM 2 Advise f/u as out pt in one week Physician Assessment Physician Assessment No cp or palp or syncope or shortness of breath. Ambulating well. Wishes to go home Lungs: good bilat air entry Cor: reg Ext: no c/c/e A&R * As documented in our note above that I updated (italics) and as noted below * Risk factor mod reviewed * Outpt f/u advised Clinical Quality Measures AMI/AHF: ASA po Prior to arrival: Yes SLOAN RIVERA ENERGY CONSERVATION REPRESENTATIVE Aug 22, 2018 11:55 CHRISTEL CARRASQUILLO MD FACP FAC CCDS Aug 22, 2018 13:42
[2018-08-22 12:00] VITALS: BP 116/58
== END 2018-08-22 14:05 | disposition home or self-care (01) ==
LOC: EDUNIT# 22:33 → ER 22:34 → CATH 08-20 01:33 → ER HOLD 08-20 02:27 → 4TH 08-20 06:52
PROVIDERS: ADMIT Internal Medicine Cardiovascular Disease; ATTEND Internal Medicine Cardiovascular Disease
DX: I25.10 Atherosclerotic heart disease of native coronary artery without angina pectoris (principal); T82.855A Stenosis of coronary artery stent, initial encounter; I10 Essential (primary) hypertension; E78.5 Hyperlipidemia, unspecified; I73.9 Peripheral vascular disease, unspecified; I45.10 Unspecified right bundle-branch block; G47.33 Obstructive sleep apnea (adult) (pediatric); K21.9 Gastro-esophageal reflux disease without esophagitis; F32.9 Major depressive disorder, single episode, unspecified; Z79.02 Long term (current) use of antithrombotics/antiplatelets; Z79.82 Long term (current) use of aspirin; Z79.84 Long term (current) use of oral hypoglycemic drugs; Z79.899 Other long term (current) drug therapy; Z95.5 Presence of coronary angioplasty implant and graft; Z95.820 Peripheral vascular angioplasty status with implants and grafts
CPT/HCPCS: 36415; 71045; 80048; 80053; 82962; 83735; 83874; 84484; 85025; 85027; 85379; 85610; 85730; 93005; 93041; 93458; 96374; 96375; 96376

== ENCOUNTER 2018-10-17 12:03 | Day surgery (SDC) | payer OTHER ==
[~2018-10-17] VITALS: Ht 185.4 cm; Wt 113.4 kg
[2018-10-17] VITALS (8 sets, daily range): BP systolic 144–169; BP diastolic 84–92
[~2018-10-17 12:03] MED LIST changes: +ATOR80TA76 PO; +LISI-556 PO; +RANI-613 PO; -RANI150T46 PO
[2018-10-17] MEDS ORDERED: NS IV 1000 ML 1,000 ML IV SCH ×2 (12:06→14:44)
[2018-10-17] MEDS ORDERED: NS IV 1000 ML 1,000 ML ONE (12:09)
[2018-10-17] MEDS ORDERED: LIDOCAINE 1% INJ 20 ML 20 ML VIAL ONE (12:09)
[2018-10-17] MEDS ORDERED: HEParin (CATH LAB) 2,000 ML IV ONE (12:10)
[2018-10-17 12:36] LABS: HEMOGLOBIN 14.3 G/DL (13.3-17.7); MEAN PLATELET VOLUME 10.7 FL (7.4-10.4); RED CELL DISTRIBUTION WIDTH 14.8 % (10.0-14.5); WHITE BLOOD COUNT 8.6 10^3/uL (4.3-11.0)
[2018-10-17] MEDS ORDERED: fentaNYL INJECTION 100 MCG/2 ML AMP ONE (12:44)
[2018-10-17] MEDS ORDERED: MIDAZOLAM 5 MG/5 ML (VERSED) VIAL ONE (12:44)
[2018-10-17 12:47] LABS: PROTHROMBIN TIME PATIENT 13.7 SEC (12.2-14.7)
[2018-10-17 12:56] LABS: ALANINE AMINOTRANSFERASE 51 U/L (0-55); ALBUMIN 4.1 GM/DL (3.2-4.5); ALKALINE PHOSPHATASE 143 U/L (40-136); BILIRUBIN,TOTAL 0.6 MG/DL (0.1-1.0); BUN/CREATININE RATIO 11; CALCIUM 9.4 MG/DL (8.5-10.1); CARBON DIOXIDE 28 MMOL/L (21-32); CHLORIDE 104 MMOL/L (98-107); CHOLESTEROL 166 MG/DL (< 200); CREATININE SERUM 0.91 MG/DL (0.60-1.30); GFR ESTIMATED > 60; GLUCOSE 123 MG/DL (70-105); HDL CHOLESTEROL 30 MG/DL (40-60); POTASSIUM 4.5 MMOL/L (3.6-5.0); SODIUM 141 MMOL/L (135-145); TOTAL PROTEIN 7.1 GM/DL (6.4-8.2); TRIGLYCERIDES 281 MG/DL (<150); VLDL CHOLESTEROL 56 MG/DL (5-40)
[2018-10-17] MEDS ORDERED: DULO30CA3 PO (12:56)
[2018-10-17] MEDS ORDERED: MELO7.5T46 PO (12:56)
[2018-10-17] MEDS ORDERED: ACHD5005 PO (12:56)
[2018-10-17] MEDS ORDERED: LISI-556 PO (12:56)
[2018-10-17] MEDS ORDERED: METO-352 PO (12:56)
[2018-10-17] MEDS ORDERED: MAGN400T29 PO (12:58)
--- NOTE | 2018-10-17 13:10 | Cardiac Procedure Note-CS/ASA ---
Pre-Procedure Note Pre-Op Procedure Note H&P Reviewed The H&P was reviewed, patient examined and no changes noted. Date H&P Reviewed: Oct 17, 2018 Time H&P Reviewed: 13:10 Conscious Sedation Pre-Proced Time 13:10 ASA Score 3 For ASA 3 and 4: Consider anesthesia and medical clearance. Also, for patients with a history of failed moderate sedation consider anesthesia. Airway Lungs Heart ASA score ASA 1: a normal healthy patient ASA 2: a patient with a mild systemic disease (mid diabetes, controlled hypertension, obesity ASA 3: a patient with a severe systemic disease that limits activity (angina, COPD, prior Myocardial infarction) ASA 4: a patient with an incapacitating disease that is a constant threat to life (CHF, renal failure) ASA 5: a moribund patient not expected to survive 24 hrs. (ruptured aneurysm) ASA 6: a declared brain- patient whose organs are being harvested. For emergent operations, add the letter E after the classification Mallampati Classification Grade 3 Sedation Plan Analgesia, Amnesia, Plan communicated to team members, Discussed options with patient/fam, Discussed risks with patient/fam The patient is an appropriate candidate to undergo the planned procedure, sedation, and anesthesia. The patient immediately re-assessed prior to indication. CHRISTEL CARRASQUILLO MD FACP FAC CCDS Oct 17, 2018 13:10
--- NOTE | 2018-10-17 13:23 | NUR ---
SPOKE WITH PT AND HIS (THEY BROUGHT IN A MED LIST AND HIS BOTTLES) AND WENT OVER THE EXT MED HISTORY TO COMPLETE THE MED REC. TEMAZEPAM WAS ON THE EXTERNAL MED HISTORY BUT THE PT'S INDICATED HE NEVER STARTED TAKING THIS MED. 10-11-2018 DULOXETINE 30MG: THIS MED DID NOT SHOW IN THE EXT MED HISTORY, I FOLLOWED UP WITH DILDEE AND VERIFIED THIS WAS A CURRENT MED AND IT WAS PICKED ON THE DATE LISTED. OTC MEDS: TUMS: 1 TID PRN ASPIRIN 81M DAILY MAG-OX 400M DAILY
[2018-10-17] MEDS ORDERED: PATIENT MAY USE OWN MEDS, ALL PO SCH (14:45)
--- NOTE | 2018-10-17 14:49 | Discharge Inst-Post CATH ---
Discharge Inst-CATH/EP Problems Reviewed?: Yes Post Cardiac Cath/EP D/C Inst Follow Up/Plan F/u with Dr Houston in 2 weeks F/u with Dr Diego next week ACTIVITY * Go Home directly and rest. * Limit activity of the leg (or wrist if it was used) for 7 days including aerobics, swimming, jogging, bicycling, etc. * Restrict stair-climbing for 7 days if possible, if not, climb up with your non-cath leg, then bring together on the same step. * Avoid lifting, pushing, pulling or excessive movement of the affected extremity for 7 days. * Customary sexual activity may be resumed after 2 days-use caution not to use a position that strains or causes pain to the affected extremity. * No driving for 24 hours. * NO SMOKING. * Avoid straining for bowel movements for 7 days. * Gentle walking on level ground is allowed. * Returning to work will depend on the type of procedure and the results. Your doctor will discuss this with you. CALL YOUR DOCTOR FOR ANY OF THE FOLLOWING: *If bleeding from the puncture site occurs- Apply gentle pressure to site with clean cloth and call your doctor or EMS. * If a knot or lump forms under the skin, increases in size, or causes pain. * If bruising appears to be worsening or moving further down your leg instead of disappearing. * Temperature above 101 F. CARE OF YOUR GROIN INCISION; * Bruising or purple discoloration of the skin near the puncture site is common. * You may shower only, no bathtub bathing for 5 days. Be careful to avoid slipping as your leg may feel stiff. * If a closure device was used on your femoral artery, please see the attached guide regarding care of the device and your leg. * Leave dressing on FOR 24 hours. CARE OF YOUR WRIST INCISION; * Bruising or purple discoloration of the skin near the puncture site is common. * You may shower. * DO NOT submerge wrist. * Leave dressing on FOR 24 hours. CHRISTEL HOUSTON MD FACP FAC CCDS Oct 17, 2018 14:49
--- NOTE | 2018-10-17 14:51 | Discharge Inst-Cardiology ---
Discharge Inst-Cardiac Problems Reviewed?: Yes Discharge Medications Continued Medications: Aspirin (Aspirin) 81 Mg Tab.chew 81 MG PO DAILY, #30 TAB 5 Refills Atorvastatin Calcium (Atorvastatin Calcium) 80 Mg Tablet 80 MG PO HS, #30 TAB 5 Refills Calcium Carbonate (Tums) 300 Mg Tab.chew 300 MG PO TID PRN for HEARTBURN, TAB Clopidogrel Bisulfate (Clopidogrel) 75 Mg Tablet 75 MG PO DAILY, TAB Duloxetine HCl (Cymbalta) 30 Mg Capsule.dr 30 MG PO HS, CAP Hydrocodone Bit/Acetaminophen (Hydrocodone/Acetaminophen 5/325mg Tablet) 1 Tab Tab 1 TAB PO Q8H PRN for PAIN-MODERATE for 7 Days, TAB Lisinopril (Lisinopril) 5 Mg Tablet 5 MG PO DAILY PRN for CONSTIPATION-2ND LINE, TAB Magnesium Oxide (Magox 400) 400 Mg Tablet 400 MG PO DAILY, TAB Meloxicam (Meloxicam) 7.5 Mg Tablet 7.5 MG PO HS, TAB Metoprolol Succinate (Toprol Xl) 50 Mg Tab.er.24h 25 MG PO DAILY, TAB Pramipexole Di-HCl (Pramipexole Dihydrochloride) 0.5 Mg Tablet 0.5 MG PO HS, TAB Pregabalin (Lyrica) 75 Mg Capsule 75 MG PO BID, CAP Ranitidine HCl (Zantac) 150 Mg Tablet 150 MG PO DAILY PRN for HEARTBURN, TAB Discontinued Medications: Metformin HCl (Metformin HCl) 500 Mg Tablet 500 MG PO BID, #20 TAB 0 Refills Patient Instructions Patient Instructions: RESUME METFORMIN AT PREVIOUS HOME DOSE BEGINNING ON THE MORNING OF 10/20/18 CHRISTEL CARRASQUILLO MD FACP FAC CCDS Oct 17, 2018 14:50
--- NOTE | 2018-10-17 15:01 | OPERATIVE REPORT ---
DATE OF SERVICE: 10/17/2018 PERIPHERAL ANGIOGRAPHY The patient is a 62-year-old man who has known peripheral arterial disease and who has developed recurrent claudication of the legs, left greater than right. Angiography was carried out today after having obtained informed consent. DESCRIPTION OF PROCEDURE: He was brought to the cardiac catheterization laboratory in a fasting state. The right groin was prepared and draped in the usual sterile fashion. Lidocaine 1% used for local anesthesia. Modified Seldinger technique was used to advance a 5-Bruneian sheath in right femoral artery. We used a 5-Bruneian pigtail catheter that was positioned in the lower abdominal aorta to carry out bilateral leg artery angiography with runoff down to the level of the ankles. Subsequently, we carried out selective angiography of the contralateral (left) common femoral artery with runoff down to the level of the ankle. We performed the selective angiography by crossing into the contralateral iliac system using a crossover catheter and then advancing a wire. The crossover catheter was removed and we were then able to advance a straight catheter into the left common femoral artery, which allowed performance of angiography. The right superficial femoral artery was occluded. We tried to cross the long complete occlusion in the stented segment of the right superficial femoral artery with a 0.035 inch wire, but were not able to do so. Further attempts were then stopped. On pullback across the left common iliac artery, there is approximately 40 mm pressure gradient indicative of significant iliac artery stenosis. Therefore, we repeated abdominal aortic angiography with a pigtail catheter, which allowed improved visualization of the left iliac artery, which indicated approximately 70% to 80% stenosis and a left iliac artery stent. The diagnostic catheters were removed. Angiography of the right femoral artery was carried out through the sheath and Mynx was used to achieve hemostasis. He tolerated the procedure well. Bilateral lower limb arterial angiography indicated 70 to 80% in-stent restenosis in the left common and external iliac artery and complete occlusion of the stented segment of the left superficial femoral artery with reconstitution distally. After reconstitution, the vessel has 3-vessel runoff. On the right side, there is diffuse moderate disease of the iliofemoral system. There is a patent stent in the right superficial femoral artery and there is a 3-vessel distal runoff in the right leg. CONCLUSIONS: 1. A 70% to 80% stenosis within left iliac artery stent. 2. Long, total occlusion within a long stented segment of the left superficial femoral artery. 3. Patent stent in the right superficial femoral artery. DISCUSSION AND RECOMMENDATIONS: Based on the fact that repeated percutaneous interventions on the left superficial femoral artery have failed to keep it open on a long-term basis, it appears reasonable to consider leg bypass surgery. I called Dr. Diego of the cardiovascular surgical service at [facility] and he will evaluate the patient in surgical consultation. The patient has again been advised to observe risk factor modification. In particular, we have again asked him to quit smoking immediately and completely. Outpatient followup is advised. Job ID: [id number] DocumentID: [id number] Dictated Date: 10/17/2018 14:27:42 Program Support Assistant Date: 10/17/2018 15:00:09 Dictated By: CHRISTEL CARRASQUILLO MD, MA, FACP, FACC, MTDD
--- NOTE | 2018-10-17 15:26 | NUR ---
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 The pt and his shared about their grandson born today, and shared this is a current source of anurag and comfort in the midst of their health and financial struggles. I offered a prayer of thanks and Divine mercy. The pt said he will need surgery on his legs.
== END 2018-10-17 18:40 | disposition home or self-care (01) ==
LOC: CATH 12:03 → ICU 14:36 → CATH 18:40
PROVIDERS: ATTEND Internal Medicine Cardiovascular Disease
DX: I70.213 Atherosclerosis of native arteries of extremities with intermittent claudication, bilateral legs (principal); I74.5 Embolism and thrombosis of iliac artery; I65.29 Occlusion and stenosis of unspecified carotid artery; K21.9 Gastro-esophageal reflux disease without esophagitis; J30.9 Allergic rhinitis, unspecified; M19.90 Unspecified osteoarthritis, unspecified site; R73.9 Hyperglycemia, unspecified; E78.00 Pure hypercholesterolemia, unspecified; E78.5 Hyperlipidemia, unspecified; G47.10 Hypersomnia, unspecified; D72.829 Elevated white blood cell count, unspecified; R06.02 Shortness of breath; J98.8 Other specified respiratory disorders; G47.33 Obstructive sleep apnea (adult) (pediatric); M48.061 Spinal stenosis, lumbar region without neurogenic claudication; F41.9 Anxiety disorder, unspecified; F32.9 Major depressive disorder, single episode, unspecified; Z79.02 Long term (current) use of antithrombotics/antiplatelets; Z79.82 Long term (current) use of aspirin; Z79.891 Long term (current) use of opiate analgesic; Z79.84 Long term (current) use of oral hypoglycemic drugs; Z79.899 Other long term (current) drug therapy; Z95.0 Presence of cardiac pacemaker; Z95.5 Presence of coronary angioplasty implant and graft; Z82.49 Family history of ischemic heart disease and other diseases of the circulatory system
CPT/HCPCS: 36246; 36415; 75716; 80053; 80061; 85027; 85610; 85730; 87081; 93005

== ENCOUNTER → 2018-11-09 | Outpatient (CLI) | payer OTHER ==
[~2018-11-09] MED LIST changes: +ACHD5005 PO; +DULO30CA3 PO; +MAGN400T29 PO; +MELO7.5T46 PO; +METO-352 PO
[2018-11-09 10:08] LABS: BILIRUBIN,URINE NEGATIVE (NEGATIVE); CLARITY,URINE CLEAR; COLOR,URINE YELLOW; GLUCOSE, URINE (UA) NEGATIVE (NEGATIVE); KETONES,URINE NEGATIVE (NEGATIVE); LEUKOCYTE ESTERASE ,URINE NEGATIVE (NEGATIVE); NITRITE,URINE NEGATIVE (NEGATIVE); PH,URINE 5 (5-9); PROTEIN,URINE 1+ (NEGATIVE); UROBILINOGEN,URINE NORMAL (NORMAL)
[2018-11-09 10:19] LABS: AMORPHOUS SEDIMENT,UR RARE AMOR URATES /LPF; BACTERIA,URINE NEGATIVE /HPF; SQUAMOUS EPITHELIAL CELL,UR 0-2 /HPF
[2018-11-09 10:20] LABS: HEMOGLOBIN 14.1 G/DL (13.3-17.7); MEAN PLATELET VOLUME 10.5 FL (7.4-10.4); RED CELL DISTRIBUTION WIDTH 14.5 % (10.0-14.5)
[2018-11-09 10:37] LABS: ALANINE AMINOTRANSFERASE 42 U/L (0-55); ALBUMIN 4.1 GM/DL (3.2-4.5); ALKALINE PHOSPHATASE 145 U/L (40-136); BILIRUBIN,TOTAL 0.4 MG/DL (0.1-1.0); BUN/CREATININE RATIO 15; CALCIUM 9.3 MG/DL (8.5-10.1); CARBON DIOXIDE 24 MMOL/L (21-32); CHLORIDE 103 MMOL/L (98-107); CREATININE SERUM 0.92 MG/DL (0.60-1.30); GFR ESTIMATED > 60; GLUCOSE 204 MG/DL (70-105); POTASSIUM 4.1 MMOL/L (3.6-5.0); SODIUM 138 MMOL/L (135-145); TOTAL PROTEIN 7.1 GM/DL (6.4-8.2)
--- NOTE | 2018-11-09 10:47 | Diagnostic Imaging Report ---
INDICATION: Z01.810, Z01.818 COMPARISON: 08/19/2018 FINDINGS: Frontal and lateral views of the chest demonstrate normal heart size and pulmonary vascularity. The lungs are clear. There are no signs of infiltrate, pleural effusions or pneumothoraces. The visualized osseous structures show no acute abnormalities. IMPRESSION: 1. No acute process. No signs of infiltrates, effusions or pneumothoraces. Dictated by: Dictated on workstation # [id number]
== END ==
LOC: CARD 09:53
PROVIDERS: ATTEND Thoracic Surgery (Cardiothoracic Vascular Surgery)
DX: Z01.818 Encounter for other preprocedural examination (principal); Z01.810 Encounter for preprocedural cardiovascular examination; I70.219 Atherosclerosis of native arteries of extremities with intermittent claudication, unspecified extremity
CPT/HCPCS: 36415; 71046; 80053; 81000; 85027; 93005

== ENCOUNTER → 2018-11-20 | Outpatient (CLI) | payer OTHER ==
[2018-11-20 09:44] LABS: BASOPHILS % (AUTO) 0 % (0-10); EOSINOPHILS # (AUTO) 0.2 10^3/uL (0.0-0.3); EOSINOPHILS % (AUTO) 2 % (0-10); HEMATOCRIT 43 % (40-54); HEMOGLOBIN 14.1 G/DL (13.3-17.7); LYMPHOCYTES # (AUTO) 1.5 X 10^3 (1.0-4.0); LYMPHOCYTES % (AUTO) 16 % (12-44); MEAN CORPUSCULAR HEMOGLOBIN 30 PG (25-34); MEAN CORPUSCULAR HGB CONC 33 G/DL (32-36); MEAN CORPUSCULAR VOLUME 90 FL (80-99); MEAN PLATELET VOLUME 10.8 FL (7.4-10.4); MONOCYTES # (AUTO) 0.8 X 10^3 (0.0-1.0); MONOCYTES % (AUTO) 9 % (0-12); NEUTROPHILS # (AUTO) 6.9 X 10^3 (1.8-7.8); NEUTROPHILS % (AUTO) 74 % (42-75); PLATELET COUNT 197 10^3/uL (130-400); RED CELL DISTRIBUTION WIDTH 14.3 % (10.0-14.5); WHITE BLOOD COUNT 9.4 10^3/uL (4.3-11.0)
== END ==
LOC: LAB 09:30
PROVIDERS: ATTEND Nurse Practitioner
DX: I73.9 Peripheral vascular disease, unspecified (principal)
CPT/HCPCS: 36415; 85025

== ENCOUNTER → 2018-11-28 | Outpatient (CLI) | payer OTHER ==
[2018-11-28 11:14] LABS: BASOPHILS % (AUTO) 0 % (0-10); EOSINOPHILS # (AUTO) 0.2 10^3/uL (0.0-0.3); EOSINOPHILS % (AUTO) 3 % (0-10); HEMATOCRIT 41 % (40-54); LYMPHOCYTES # (AUTO) 1.7 X 10^3 (1.0-4.0); LYMPHOCYTES % (AUTO) 23 % (12-44); MEAN CORPUSCULAR HEMOGLOBIN 29 PG (25-34); MEAN CORPUSCULAR HGB CONC 32 G/DL (32-36); MEAN CORPUSCULAR VOLUME 90 FL (80-99); MEAN PLATELET VOLUME 10.5 FL (7.4-10.4); MONOCYTES # (AUTO) 0.7 X 10^3 (0.0-1.0); MONOCYTES % (AUTO) 9 % (0-12); NEUTROPHILS # (AUTO) 4.7 X 10^3 (1.8-7.8); NEUTROPHILS % (AUTO) 65 % (42-75); PLATELET COUNT 221 10^3/uL (130-400); RED CELL DISTRIBUTION WIDTH 14.1 % (10.0-14.5); WHITE BLOOD COUNT 7.3 10^3/uL (4.3-11.0)
[2018-11-28 11:36] LABS: ALANINE AMINOTRANSFERASE 46 U/L (0-55); ALBUMIN 3.8 GM/DL (3.2-4.5); ALKALINE PHOSPHATASE 141 U/L (40-136); BILIRUBIN,TOTAL 0.3 MG/DL (0.1-1.0); BUN/CREATININE RATIO 11; CALCIUM 8.8 MG/DL (8.5-10.1); CARBON DIOXIDE 26 MMOL/L (21-32); CHLORIDE 106 MMOL/L (98-107); CHOLESTEROL 126 MG/DL (< 200); CREATININE SERUM 0.98 MG/DL (0.60-1.30); GFR ESTIMATED > 60; GLUCOSE 219 MG/DL (70-105); HDL CHOLESTEROL 24 MG/DL (40-60); POTASSIUM 3.9 MMOL/L (3.6-5.0); SODIUM 140 MMOL/L (135-145); TOTAL PROTEIN 6.5 GM/DL (6.4-8.2); TRIGLYCERIDES 191 MG/DL (<150); VLDL CHOLESTEROL 38 MG/DL (5-40)
== END ==
LOC: LAB 10:47
PROVIDERS: ATTEND Nurse Practitioner Family
DX: E11.65 Type 2 diabetes mellitus with hyperglycemia (principal); E78.2 Mixed hyperlipidemia; R53.83 Other fatigue
CPT/HCPCS: 36415; 80053; 80061; 83036; 85025

== ENCOUNTER 2019-04-15 13:31 | Observation (INO) | payer SELFPAY ==
[~2019-04-15] VITALS: Ht 185.5 cm; Wt 120.8 kg
[~2019-04-15 13:31] MED LIST changes: -METO-370 PO; +METO50TA7 PO
[2019-04-15 13:52] LABS: BASOPHILS % (AUTO) 0 % (0-10); EOSINOPHILS # (AUTO) 0.1 10^3/uL (0.0-0.3); EOSINOPHILS % (AUTO) 2 % (0-10); HEMATOCRIT 45 % (40-54); HEMOGLOBIN 14.8 G/DL (13.3-17.7); LYMPHOCYTES # (AUTO) 1.6 X 10^3 (1.0-4.0); LYMPHOCYTES % (AUTO) 19 % (12-44); MEAN CORPUSCULAR HEMOGLOBIN 29 PG (25-34); MEAN CORPUSCULAR HGB CONC 33 G/DL (32-36); MEAN CORPUSCULAR VOLUME 87 FL (80-99); MEAN PLATELET VOLUME 10.9 FL (7.4-10.4); MONOCYTES # (AUTO) 0.7 X 10^3 (0.0-1.0); MONOCYTES % (AUTO) 8 % (0-12); NEUTROPHILS # (AUTO) 5.9 X 10^3 (1.8-7.8); NEUTROPHILS % (AUTO) 71 % (42-75); PLATELET COUNT 172 10^3/uL (130-400); RED CELL DISTRIBUTION WIDTH 15.5 % (10.0-14.5); WHITE BLOOD COUNT 8.3 10^3/uL (4.3-11.0)
[2019-04-15] MEDS ORDERED: fentaNYL INJECTION 100 MCG/2 ML AMP IVP ONE (14:00)
[2019-04-15 14:10] LABS: ALANINE AMINOTRANSFERASE 62 U/L (0-55); ALBUMIN 4.2 GM/DL (3.2-4.5); ALKALINE PHOSPHATASE 145 U/L (40-136); BILIRUBIN,TOTAL 0.4 MG/DL (0.1-1.0); BUN/CREATININE RATIO 18; CALCIUM 9.7 MG/DL (8.5-10.1); CARBON DIOXIDE 22 MMOL/L (21-32); CHLORIDE 103 MMOL/L (98-107); CREATININE SERUM 0.93 MG/DL (0.60-1.30); GFR ESTIMATED > 60; GLUCOSE 120 MG/DL (70-105); MAGNESIUM 1.9 MG/DL (1.6-2.4); POTASSIUM 4.2 MMOL/L (3.6-5.0); SODIUM 138 MMOL/L (135-145); TOTAL PROTEIN 7.1 GM/DL (6.4-8.2)
--- NOTE | 2019-04-15 14:16 | Diagnostic Imaging Report ---
INDICATION: Syncope. Comparison with 11/09/2018. FINDINGS: Portable chest. The lungs are well-aerated and clear. Heart is not enlarged. No pulmonary edema. No pneumothorax or pleural effusion. No bony abnormalities. IMPRESSION: Normal portable chest. Dictated by: Dictated on workstation # [id number]
--- NOTE | 2019-04-15 14:36 | Diagnostic Imaging Report ---
PROCEDURE: CT head without contrast. TECHNIQUE: Multiple contiguous axial images were obtained through the brain without the use of intravenous contrast. Auto Exposure Controls were utilized during the CT exam to meet ALARA standards for radiation dose reduction. INDICATION: Syncopal episode. No comparison available. FINDINGS: There are no CT findings of an acute intracranial abnormality. There is no evidence of intracranial hemorrhage. There is no mass effect or shift. There is no hydrocephalus. There are no findings of territorial loss of león-white differentiation or abnormal low density within the basal ganglia or within the rolanda. The posterior fossa appears unremarkable. The mastoid air cells appear clear. The paranasal sinuses appear clear. Orbital contents unremarkable. There is no acute calvarial abnormality. IMPRESSION: 1. No CT evidence of an acute intracranial abnormality. Dictated by: Dictated on workstation # [id number]
--- NOTE | 2019-04-15 15:01 | NUR ---
Patient awake and alert, resting in bed with spouse at his side. Patient given ice water to drink per request.
--- NOTE | 2019-04-15 15:33 | ED Syncope ---
General Chief Complaint: Dizziness/Syncope Stated Complaint: PASSED OUT Nursing Triage Note: Patient brought to ER room 2 with spouse. Patient complaining of a sycope episode that occurred approximately 1 hour ago. Per spouse, patient was standing up walking when he suddenly fell to the ground unresponsive. Per spouse patient was unresponsive for approximately 1 minute. She states patient was nauseated before the syncope episode and he was diaphoretic. Patient is EDMONDSON x4 and able to answer all questions appropriately. Patient denies any chest pain or shortness of breath but does complain of a headache. Source of Information: Patient Exam Limitations: No Limitations History of Present Illness Date Seen by Provider: Apr 15, 2019 Time Seen by Provider: 13:47 Initial Comments This 63-year-old gentleman presents to the emergency room with complaint of syncope. He was moving boxes and tools around today in the process of moving homes. His left him to go to the garage and came back to find him lying on the ground, head on the dirt, and unresponsive. It took approximately a minute for him to start blinking and breathing again. He returned to an alert status fairly quickly. He noted a mild headache prior to the event and a severe headache after the event. He denies any chest pain, shortness of breath, lightheadedness or dizziness, or any other prodrome. He denies any other injury. He has a significant cardiac history with numerous stents. Dr. Houston is his primary map drafter. He has not seen Dr. Houston recently as he lost his insurance due to his health. He receives his primary care at [facility]. Fingerstick blood sugar was 119. Patient states he recalls feeling nauseated and sweaty immediately after the event. Allergies and Home Medications Allergies Coded Allergies: No Known Drug Allergies (Unverified , 08/16/18) Home Medications Aspirin 81 Mg Tab.chew, 81 MG PO DAILY Prescribed by: SLOAN RIVERA on 08/22/18 1054 Atorvastatin Calcium 80 Mg Tablet, 80 MG PO HS Prescribed by: SLOAN RIVERA on 08/22/18 1054 Calcium Carbonate 300 Mg Tab.chew, 300 MG PO TID PRN for HEARTBURN, (Reported) Clopidogrel Bisulfate 75 Mg Tablet, 75 MG PO DAILY, (Reported) Duloxetine HCl 30 Mg Capsule.dr, 60 MG PO HS, (Reported) Hydrocodone/Acetaminophen 1 Each Tablet, 1 EACH PO Q4H PRN for PAIN-MODERATE (5- 7), (Reported) Magnesium Oxide 500 Mg Capsule, 500 MG PO DAILY, (Reported) Meloxicam 7.5 Mg Tablet, 7.5 MG PO HS, (Reported) Metoprolol Succinate 50 Mg Tab.er.24h, 25 MG PO DAILY, (Reported) Pramipexole Di-HCl 0.5 Mg Tablet, 0.5 MG PO HS, (Reported) Pregabalin 75 Mg Capsule, 150 MG PO BID, (Reported) Patient Home Medication List Home Medication List Reviewed: Yes Review of Systems Constitutional: see HPI EENTM: no symptoms reported Respiratory: no symptoms reported Cardiovascular: see HPI Gastrointestinal: see HPI Genitourinary: no symptoms reported Musculoskeletal: no symptoms reported Skin: see HPI Psychiatric/Neurological: See HPI Past Vzmbsxm-Yzvxky-Sbxrrq Hx Past Med/Social Hx: Reviewed Nursing Past Med/Soc Hx Patient Social History Alcohol Use: Denies Use Recreational Drug Use: No Smoking Status: Current Everyday Smoker Type Used: Cigarettes 2nd Hand Smoke Exposure: Yes Recent Foreign Travel: No Contact w/Someone Who Travel: No Recent Infectious Disease Expo: No Recent Hopitalizations: No Physical Abuse: No Sexual Abuse: No Mistreated: No Fear: No Immunizations Up To Date Tetanus Booster (TDap): Unknown Date of Pneumonia Vaccine: Sep 30, 2012 Date of Influenza Vaccine: Dec 13, 2016 Seasonal Allergies Seasonal Allergies: No Past Medical History Surgeries: Yes (NECK AND BACK, CYST REMOVED, KNEE ARTH, LEFT TOTAL KNEE 05/01/12, 23 STENTS) Cardiac, Coronary Stent, Vascular Surgery Respiratory: Yes Pneumonia, Sleep Apnea Currently Using CPAP: Yes Currently Using BIPAP: No Cardiac: Yes (23 STENTS PLACED, bypass to left leg) Coronary Artery Disease, Hypertension, Peripheral Vascular Neurological: Yes Neuropathy Reproductive Disorders: No Sexually Transmitted Disease: No HIV/AIDS: No Genitourinary: No Gastrointestinal: No Gastroesophageal Reflux Musculoskeletal: Yes (OSTEO ARTHRITIS) Arthritis Endocrine: Yes Diabetes, Non-Insulin dep HEENT: No Cancer: No Did You Recieve Any Treatments: No Psychosocial: Yes Depression Integumentary: Yes (RECENT DIAGNOSIS OF FUNGAL INFECTION ON BILAT LEGS) Blood Disorders: No Family Medical History No Pertinent Family Hx Physical Exam Vital Signs Vital Signs - First Documented 04/15/19 13:40 Temp 35.7 Pulse 61 Resp 16 B/P (MAP) 147/72 (97) Pulse Ox 96 O2 Delivery Room Air Capillary Refill : Less Than 3 Seconds Height, Weight, BMI Height: 6'1.00" Weight: 250lbs. 0.0oz. 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 Norm as Tested Cranial Nerves: Normal Hearing, Normal Speech, PERRL Coordination/Gait: Normal Finger to Nose Motor/Sensory: No Motor Deficit, No Sensory Deficit Skin: Normal Color, Warm/Dry Progress/Results/Core Measures Results/Orders Lab Results Laboratory Tests Test 04/15/19 13:42 04/15/19 13:44 Range/Units Glucometer 118 H 70-110 MG/DL White Blood Count 8.3 4.3-11.0 10^3/uL Red Blood Count 5.19 4.35-5.85 10^6/uL Hemoglobin 14.8 13.3-17.7 G/DL Hematocrit 45 40-54 % Mean Corpuscular Volume 87 80-99 FL Mean Corpuscular Hemoglobin 29 25-34 PG Mean Corpuscular Hemoglobin Concent 33 32-36 G/DL Red Cell Distribution Width 15.5 H 10.0-14.5 % Platelet Count 172 130-400 10^3/uL Mean Platelet Volume 10.9 H 7.4-10.4 FL Neutrophils (%) (Auto) 71 42-75 % Lymphocytes (%) (Auto) 19 12-44 % Monocytes (%) (Auto) 8 0-12 % Eosinophils (%) (Auto) 2 0-10 % Basophils (%) (Auto) 0 0-10 % Neutrophils # (Auto) 5.9 1.8-7.8 X 10^3 Lymphocytes # (Auto) 1.6 1.0-4.0 X 10^3 Monocytes # (Auto) 0.7 0.0-1.0 X 10^3 Eosinophils # (Auto) 0.1 0.0-0.3 10^3/uL Basophils # (Auto) 0.0 0.0-0.1 10^3/uL Prothrombin Time 13.0 12.2-14.7 SEC INR Comment 1.0 0.8-1.4 Activated Partial Thromboplast Time 27 24-35 SEC Sodium Level 138 135-145 MMOL/L Potassium Level 4.2 3.6-5.0 MMOL/L Chloride Level 103 98-107 MMOL/L Carbon Dioxide Level 22 21-32 MMOL/L Anion Gap 13 5-14 MMOL/L Blood Urea Nitrogen 17 7-18 MG/DL Creatinine 0.93 0.60-1.30 MG/DL Estimat Glomerular Filtration Rate > 60 BUN/Creatinine Ratio 18 Glucose Level 120 H 70-105 MG/DL Calcium Level 9.7 8.5-10.1 MG/DL Corrected Calcium 9.5 8.5-10.1 MG/DL Magnesium Level 1.9 1.6-2.4 MG/DL Total Bilirubin 0.4 0.1-1.0 MG/DL Aspartate Amino Transf (AST/SGOT) 35 H 5-34 U/L Alanine Aminotransferase (ALT/SGPT) 62 H 0-55 U/L Alkaline Phosphatase 145 H 40-136 U/L Myoglobin 25.9 10.0-92.0 NG/ML Troponin I < 0.028 <0.028 NG/ML Total Protein 7.1 6.4-8.2 GM/DL Albumin 4.2 3.2-4.5 GM/DL My Orders Orders - ERNIE HARTMAN MD Cbc With Automated Diff (04/15/19 13:47) Magnesium (04/15/19 13:47) Chest 1 View, Ap/Pa Only (04/15/19 13:47) Ekg Tracing (04/15/19 13:47) Comprehensive Metabolic Panel (04/15/19 13:47) Myoglobin Serum (04/15/19 13:47) Protime With Inr (04/15/19 13:47) Partial Thromboplastin Time (04/15/19 13:47) O2 (04/15/19 13:47) Monitor-Rhythm Ecg Trace Only (04/15/19 13:47) Lipid Panel (04/16/19 06:00) Ed Iv/Invasive Line Start (04/15/19 13:47) Troponin I (04/15/19 13:44) Ct Head Wo (04/15/19 13:56) Fentanyl Injection (Sublimaze Injection (04/15/19 14:00) Medications Given in ED Current Medications Medications Dose Ordered Sig/Paula Route Start Time Stop Time Status Last Admin Dose Admin Fentanyl Citrate 50 mcg ONCE ONCE IVP 04/15/19 14:00 04/15/19 14:01 DC 04/15/19 14:06 50 MCG Vital Signs/I&O 04/15/19 04/15/19 13:40 14:00 Temp 35.7 Pulse 61 Resp 16 B/P (MAP) 147/72 (97) Pulse Ox 96 98 O2 Delivery Room Air Room Air Blood Pressure Mean: 97 FSBG Bedside Testing Finger Stick Blood Glucose: 118 Progress Progress Note : Progress Note CT head was unremarkable. Workup revealed no cause for his syncope. Due to his significant cardiac history, admission was felt appropriate to monitor his rhythm and repeat a troponin. Case was discussed with Dr. Naylor and Dr. ROBERTS. Hydrocodone was given for the headache. Initial ECG Impression Date: Apr 15, 2019 Initial ECG Impression Time: 13:44 Initial ECG Rate: 61 Initial ECG Rhythm: Normal Sinus Initial ECG Intervals: Normal Initial ECG Impression: Normal Comment Normal sinus rhythm with no ST elevation or depression. No abnormal intervals or axis deviation. Diagnostic Imaging Diagonstic Imaging: CT Plain Films/CT/US/NM/MRI: head Comments NAME: GYPSY CARUSO [facility] REC#: [id number] PT STATUS: ADM Chau : 1955 PHYSICIAN: ERNIE HARTMAN MD ADMIT DATE: 04/15/19 Signed Date of Exam:04/15/19 CT HEAD WO PROCEDURE: CT head without contrast. TECHNIQUE: Multiple contiguous axial images were obtained through the brain without the use of intravenous contrast. Auto Exposure Controls were utilized during the CT exam to meet ALARA standards for radiation dose reduction. INDICATION: Syncopal episode. No comparison available. FINDINGS: There are no CT findings of an acute intracranial abnormality. There is no evidence of intracranial hemorrhage. There is no mass effect or shift. There is no hydrocephalus. There are no findings of territorial loss of león-white differentiation or abnormal low density within the basal ganglia or within the rolanda. The posterior fossa appears unremarkable. The mastoid air cells appear clear. The paranasal sinuses appear clear. Orbital contents unremarkable. There is no acute calvarial abnormality. IMPRESSION: 1. No CT evidence of an acute intracranial abnormality. Dictated by: Dictated on workstation # [id number] Dict: 04/15/19 1423 Trans: 04/15/19 1558 [facility] [id number] Interpreted by: CHRISTIAN BEY MD Electronically signed by: CHRISTIAN BEY MD 04/15/19 1558 Reviewed: Reviewed by Me Diagonstic Imaging: Xray Plain Films/CT/US/NM/MRI: chest Comments NAME: GYPSY CARUSO JR MED REC#: [id number] PT STATUS: REG ER : 1955 PHYSICIAN: ERNIE HARTMAN MD ADMIT DATE: 04/15/19/ER Signed Date of Exam:04/15/19 CHEST 1 VIEW, AP/PA ONLY INDICATION: Syncope. Comparison with 11/09/2018. FINDINGS: Portable chest. The lungs are well-aerated and clear. Heart is not enlarged. No pulmonary edema. No pneumothorax or pleural effusion. No bony abnormalities. IMPRESSION: Normal portable chest. Dictated by: Dictated on workstation # [id number] Dict: 04/15/19 1412 Trans: 04/15/19 1426 [facility] [id number] Interpreted by: BILL HARMAN MD Electronically signed by: BILL HARMAN MD 04/15/19 1426 Reviewed: Reviewed by Me Departure Communication (Admissions) Time/Spoke to Admitting Phy: 15:20 Dr. Roberts Time/Spoke to Consulting Phy: 15:15 Dr. Naylor Impression Primary Impression: Syncope Qualified Codes: R55 - Syncope and collapse Disposition: ADMITTED INPATIENT Condition: Improved Admissions Decision to Admit Reason: Admit from ER (General) Decision to Admit/Date: Apr 15, 2019 Time/Decision to Admit Time: 15:15 Departure-Patient Inst. Ref[place]: [facility] [place] Primary Care Physician ERNIE HARTMAN MD Apr 15, 2019 15:33
[2019-04-15] MEDS ORDERED: HYDROcodone/APAP 5 MG/325 MG (LORTAB) TAB PO ONE (15:45)
--- NOTE | 2019-04-15 16:00 | NUR ---
GYPSY CARUSO JR admitted to room 405-1, with an admitting diagnosis of SYNCOPE, on 04/15/19 from ED via WHEELCHAIR, accompanied by ED STAFF. GYPSY CARUSO JR introduced to surroundings, call light, bed controls, phone, TV, temperature control, lights, meal times, smoking policy, visitor policy, side rail policy, bathrooms and showers. Patient Rights given to patient in the handbook. GYPSY CARUSO JR verbalizes understanding that [facility] is not responsible for the loss or damage to any personal effects or valuables that are kept in the patients possession during their hospitalization. The following Patient Care Plans were discussed with the PATIENT AND HIS FAMILY: Discharge Planning, SYNCOPE, and KNOWLEDGE DEFICIT. GYPSY CARUSO JR verbalizes understanding of Interdisciplinary Patient Education. Patient and/or family were informed about the Rapid Response Team and its purpose.
[2019-04-15] MEDS ORDERED: ONDANSETRON 4 MG/2 ML (SDV) Z0FRAN IV PRN (16:15)
[2019-04-15] MEDS ORDERED: ACETAMINOPHEN 500 MG TAB (TYLENOL) PO PRN (16:15)
[2019-04-15] MEDS ORDERED: CATHETER FLUSH 10 ML SYR IV PRN (16:15)
[2019-04-15 16:22] VITALS: BP 168/81
[2019-04-15] MEDS ORDERED: FLU QUADRIvalent (5+ YOA) 2019-2020 (AFLURIA) 0.5 ML IM ONE (16:45)
--- NOTE | 2019-04-15 17:21 | NUR ---
CALLED DR CHOWDHURY WITH DVT SCORE. THE MED REC DONE IN THE EMERGENCY ROOM DOES NOT MATCH THE WRITTEN LIST PROVIDED BY PATIENT. THE PATIENT SAID HIS CAN CLARIFY AND LET US KNOW WHAT HE IS TAKING AND WHAT HE IS NO LONGER TAKING. NO MEDICATIONS SHOWED ON THE PATIENT'S EXTERNAL MED HISTORY IN THE MEDICATION RECONCILIATION. WHEN THE PATIENT'S RETURNS AND MED LIST CLARIFIED--WILL CLL DR CHOWDHURY BACK TO RESTART HOME MEDICATIONS.
[2019-04-15] MEDS ORDERED: MAGN500C15 PO (17:37)
[2019-04-15] MEDS ORDERED: ENOXAPARIN 40 MG/0.4 ML (LOVENOX) SYR ONE (17:58)
[2019-04-15] MEDS: ENOXAPARIN 40 MG/0.4 ML (LOVENOX) SYR SC SCH (18:07)
--- NOTE | 2019-04-15 18:39 | History & Physical-Hospitalist ---
History of Present Illness HPI/Chief Complaint 63 yo male with CAD and multiple stents. Was moving boxes, felt like he might pass out and then collapsed. saw this and witnessed that he was not breathing., but before she started CPR he started awakening. They had not eaten breakfast that morning. he denied having any CP or SOA but at the time of my interview felt tired. Source: patient, family Exam Limitations: no limitations Date Seen 04/15/19 Time Seen by a Provider: 15:00 Attending Physician Renae Roberts MD PCP [place] [place] Referring Physician Date of Admission Apr 15, 2019 at 15:26 Home Medications & Allergies Home Medications Reviewed patient Home Medication Reconciliation performed by pharmacy medication reconciliations registered pharmacy technician and/or nursing. Patients Allergies have been reviewed. Allergies Allergies Coded Allergies No Known Drug Allergies (Unverified08/16/18) Past Bxnjsvj-Oatqwi-Attzdg Hx Past Med/Social Hx: Reviewed Nursing Past Med/Soc Hx Patient Social History Marrital Status: Employed/Student: unemployed Alcohol Use: Denies Use Recreational Drug Use: No Smoking Status: Current Everyday Smoker Type Used: Cigarettes 2nd Hand Smoke Exposure: Yes Recent Foreign Travel: No Contact w/other who traveled: No Recent Hopitalizations: No Recent Infectious Disease Expo: No Immunizations Up To Date Tetanus Booster (TDap): Unknown Date of Pneumonia Vaccine: Sep 30, 2012 Date of Influenza Vaccine: Dec 13, 2016 Seasonal Allergies Seasonal Allergies: No Past Medical History Surgeries: Cardiac, Coronary Stent, Vascular Surgery Currently Using CPAP: Yes Currently Using BIPAP: No Cardiac: Coronary Artery Disease, Hypertension, Peripheral Vascular Neurological: Neuropathy Reproductive: No Sexually Transmitted Disease: No HIV/AIDS: No Gastrointestinal: Gastroesophageal Reflux Musculoskeletal: Arthritis Did You Recieve Any Treatments: No Psychosocial: Depression History of Blood Disorders: No Family History Cardiovascular disease 19 FATHER 19 MOTHER Completed stroke 19 MOTHER Congenital heart disease Coronary thrombosis 19 MOTHER Gastroenteritis 19 MOTHER (DIVERTICULITIS) Hypertension 19 FATHER 19 MOTHER G8 SISTER G8 SISTER Neoplasm 19 FATHER (LUNG CANCER) 19 MOTHER (THROAT CANCER) Seizure disorder G8 BROTHER No Pertinent Family Hx Review of Systems Constitutional: see HPI Respiratory: no symptoms reported Cardiovascular: syncope Gastrointestinal: no symptoms reported Physical Exam Physical Exam Vital Signs Vital Signs - First Documented 04/15/19 13:40 Temp 35.7 Pulse 61 Resp 16 B/P (MAP) 147/72 (97) Pulse Ox 96 O2 Delivery Room Air Capillary Refill : Less Than 3 Seconds Height, Weight, BMI Height: 6'1.00" Weight: 250lbs. 0.0oz. 113.403246sw; 35.10 BMI Method:Stated General Appearance: Other (fatigued) HEENT: TMs Normal, Normal ENT Inspection, Pharynx Normal Neck: Full Range of Motion, Normal Inspection, Non Tender Respiratory: Chest Non Tender, Lungs Clear, Normal Breath Sounds, No Accessory Muscle Use, No Respiratory Distress Cardiovascular: Regular Rate, Rhythm, No Edema, No Gallop, No Murmur, Normal Peripheral Pulses Gastrointestinal: Normal Bowel Sounds, No Organomegaly, No Pulsatile Mass, Non Tender, Soft Extremity: Normal Capillary Refill, Non Tender, No Calf Tenderness Neurologic/Psychiatric: Alert, Oriented x3, No Motor/Sensory Deficits, Normal 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
[2019-04-15] MEDS ORDERED: HYDR-3061 PO (19:17)
[2019-04-15] MEDS ORDERED: NON-FORMULARY MEDICATION 1 EA EA (Calcium Carbonate (Tums) 300 MG) PO PRN (19:45)
[2019-04-15] MEDS ORDERED: ACETAMINOPHEN PO PRN (19:45)
[2019-04-15] MEDS ORDERED: HYDROCODONE PO PRN (19:45)
[2019-04-15] MEDS ORDERED: [UNRECOGNIZED DRUG - OTHER] PO PRN (19:45)
--- NOTE | 2019-04-15 19:45 | NUR ---
DR FOURNIER CALLED BY THIS RN AND WE REVIEWED HOME MED LIST. ORDERED TO RESTART ALL HOME MEDS EXCEPT MOBIC.
[2019-04-15 19:48] VITALS: BP 175/81
[2019-04-15] MEDS ORDERED: CALCIUM CARBONATE 500 MG (TUMS) TAB.CHEW PO PRN (20:15)
[2019-04-15] MEDS: PREGABALIN 75 MG (LYRICA) CAP PO SCH (20:24)
[2019-04-15] MEDS: PRAMIPEXOLE 0.5 MG TAB (MIRAPEX) PO SCH (20:24)
[2019-04-15] MEDS: DULoxetine 30 MG (CYMBALTA) CAP PO SCH (20:24)
[2019-04-15] MEDS: HYDROcodone/APAP 10 MG/325 MG (LORTAB) TAB PO PRN (20:28)
[2019-04-15] MEDS: CATHETER FLUSH 10 ML SYR IV SCH (21:40)
[2019-04-16 00:24] VITALS: BP 145/67
[2019-04-16] MEDS: HYDROcodone/APAP 10 MG/325 MG (LORTAB) TAB PO PRN (03:23)
[2019-04-16 04:55] VITALS: BP 168/78
[2019-04-16] MEDS: CATHETER FLUSH 10 ML SYR IV SCH ×3 (06:02→20:50)
[2019-04-16 06:58] LABS: CHOLESTEROL 153 MG/DL (< 200); HDL CHOLESTEROL 28 MG/DL (40-60); TRIGLYCERIDES 237 MG/DL (<150); VLDL CHOLESTEROL 47 MG/DL (5-40)
[2019-04-16 08:00] VITALS: BP 144/74
[2019-04-16] MEDS: CLOPIDOGREL 75 MG (PLAVIX) TABLET PO SCH (08:35)
[2019-04-16] MEDS: PREGABALIN 75 MG (LYRICA) CAP PO SCH ×2 (08:35→20:48)
[2019-04-16] MEDS: ASPIRIN 81 MG CHEW (CHILDREN'S ASA) PO SCH (08:35)
[2019-04-16] MEDS: MAGNESIUM OXIDE (MAG-OX)400 MG TAB PO SCH (08:35)
[2019-04-16] MEDS ORDERED: meTOproloL SUCCINATE 50 MG (TOPROL XL) TAB PO SCH (09:00)
[2019-04-16] MEDS ORDERED: NON-FORMULARY MEDICATION 1 EA EA (Magnesium Oxide (Magnesium) 500 MG) PO SCH (09:00)
--- NOTE | 2019-04-16 11:15 | NUR ---
Pastoral care visit.
[2019-04-16 12:00] VITALS: BP 123/59
--- NOTE | 2019-04-16 13:14 | Consultation-Cardiology ---
HPI-Cardiology Cardiology Consultation: Date of Consultation 04/16/19 Time Seen by a Provider: 09:10 Date of Admission Attending Physician Renae Roberts MD Admitting Physician [place] Consulting Physician CHRISTEL CARRASQUILLO MD, MA, FACP, FACC, FSCAI, CCDS HPI: Chief Complaint: CC: Syncope HPI 63 yo man who had syncope at home yesterday. Was in the yard, had straightened up after bending to pick something up, passed out, witnessed by , lasting less than a min. feels there was no pulse when she tried to take. She then shook him and he came around. There was no cp or shortness of breath or premonitory or subsequent symptoms. He does not report leg swelling or leg discoloration or leg pain Review of Systems-Cardiology Review of Systems Constitutional: malaise, tiredness; No weight loss, No weight gain Eyes: No vision change Ears/Nose/Throat: No ear discharge, No nasal drainage, No recent hearing loss Respiratory: As described under HPI Cardiovascular: As described under HPI Gastrointestinal: No constipation, No diarrhea, No nausea, No vomiting Genitourinary: No dysuria, No hematuria, No urine frequency changes Musculoskeletal: back pain (chronic) Skin: No rash, No ulcerations Psychiatric/Neurological: No seizure, No focal weakness, No syncope Hematologic: No bleeding abnormalities ESM-Goiilh-Lpcayq Hx Patient Social History Marrital Status: Employed/Student: unemployed Alcohol Use: Denies Use Recreational Drug Use: No Smoking Status: Current Everyday Smoker Type Used: Cigarettes 2nd Hand Smoke Exposure: Yes Recent Foreign Travel: No Recent Infectious Disease Expo: No Hospitalization with Isolation: Denies Immunizations Up To Date Tetanus Booster (TDap): Unknown Date of Pneumonia Vaccine: Sep 30, 2012 Date of Influenza Vaccine: Apr 15, 2019 Past Medical History PMH As described under Assessment. Family Medical History Family Medical History: Does not report fam h/o early CAD or SCD Family History: Cardiovascular disease 19 FATHER 19 MOTHER Completed stroke 19 MOTHER Congenital heart disease Coronary thrombosis 19 MOTHER Gastroenteritis 19 MOTHER (DIVERTICULITIS) Hypertension 19 FATHER 19 MOTHER G8 SISTER G8 SISTER Neoplasm 19 FATHER (LUNG CANCER) 19 MOTHER (THROAT CANCER) Seizure disorder G8 BROTHER Allergies and Home Medications Allergies Coded Allergies: No Known Drug Allergies (Unverified , 08/16/18) Home Medications Aspirin 81 Mg Tab.chew, 81 MG PO DAILY Prescribed by: SLOAN RIVERA on 08/22/18 1054 Atorvastatin Calcium 80 Mg Tablet, 80 MG PO HS Prescribed by: SLOAN RIVERA on 08/22/18 1054 Calcium Carbonate 300 Mg Tab.chew, 300 MG PO TID PRN for HEARTBURN, (Reported) Clopidogrel Bisulfate 75 Mg Tablet, 75 MG PO DAILY, (Reported) Duloxetine HCl 30 Mg Capsule.dr, 60 MG PO HS, (Reported) Hydrocodone/Acetaminophen 1 Each Tablet, 1 EACH PO Q4H PRN for PAIN-MODERATE (5- 7), (Reported) Magnesium Oxide 500 Mg Capsule, 500 MG PO DAILY, (Reported) Meloxicam 7.5 Mg Tablet, 7.5 MG PO HS, (Reported) Metoprolol Succinate 50 Mg Tab.er.24h, 25 MG PO DAILY, (Reported) Pramipexole Di-HCl 0.5 Mg Tablet, 0.5 MG PO HS, (Reported) Pregabalin 75 Mg Capsule, 150 MG PO BID, (Reported) Patient Home Medication List Home Medication List Reviewed: Yes Physical Exam-Cardiology Physical Exam Vital Signs/I&O 04/16/19 04/16/19 04/16/19 04/16/19 04:55 07:00 08:00 08:00 Temp 36.6 36.4 Pulse 54 64 64 Resp 18 18 B/P (MAP) 168/78 (108) 144/74 (97) Pulse Ox 95 96 96 O2 Delivery Room Air Room Air Room Air 04/16/19 12:17 Pulse 67 04/16/19 00:00 Intake Total 520 ml Balance 520 ml Capillary Refill : Greater Than 3 Seconds Constitutional: AAO x 3, well-developed, well-nourished HEENT: EOMI, hearing is well preserved; No xanthelasmas are seen Neck: carotid pulses are 2 + bilaterally, with good upstrokes Respiratory: No accessory muscle use; other (good bilateral air entry) Cardiovascular: regular rate-rhythm, systolic murmur (soft GEMA at card base) Gastrointestinal: No tender; soft; No guarding, No rebound; audible bowel so unds Extremities: No clubbing, No cyanosis, No significant edema Neurologic/Psychiatric: oriented x 3, other (moves all limbs equally) Skin: No rash on exposed areas, No ulcerations on exposed areas Data Review Labs Laboratory Tests 04/15/19 13:42: Glucometer 118H 04/15/19 13:44: White Blood Count 8.3, Red Blood Count 5.19, Hemoglobin 14.8, Hematocrit 45, Mean Corpuscular Volume 87, Mean Corpuscular Hemoglobin 29, Mean Corpuscular Hemoglobin Concent 33, Red Cell Distribution Width 15.5H, Platelet Count 172, Mean Platelet Volume 10.9H, Neutrophils (%) (Auto) 71, Lymphocytes (%) (Auto) 19, Monocytes (%) (Auto) 8, Eosinophils (%) (Auto) 2, Basophils (%) (Auto) 0, Neutrophils # (Auto) 5.9, Lymphocytes # (Auto) 1.6, Monocytes # (Auto) 0.7, Eos inophils # (Auto) 0.1, Basophils # (Auto) 0.0, Prothrombin Time 13.0, INR Comment 1.0, Activated Partial Thromboplast Time 27, Sodium Level 138, Potassium Level 4.2, Chloride Level 103, Carbon Dioxide Level 22, Anion Gap 13, Blood Urea Nitrogen 17, Creatinine 0.93, Estimat Glomerular Filtration Rate > 60, BUN/Creatinine Ratio 18, Glucose Level 120H, Calcium Level 9.7, Corrected Calcium 9.5, Magnesium Level 1.9, Total Bilirubin 0.4, Aspartate Amino Transf (AST/SGOT) 35H, Alanine Aminotransferase (ALT/SGPT) 62H, Alkaline Phosphatase 145H, Myoglobin 25.9, Troponin I < 0.028, Total Protein 7.1, Albumin 4.2 04/15/19 17:51: Troponin I < 0.028 04/16/19 05:39: Triglycerides Level 237H, Cholesterol Level 153, LDL Cholesterol Direct 101, VLDL Cholesterol 47H, HDL Cholesterol 28L Laboratory Tests 04/15/19 13:44 A/P-Cardiology Assessment/Admission Diagnosis Syncope of undetermined etiology Coronary artery disease - Most recent cardiac cath of August 20, 2018: moderate disease of the left anterior descending and mid vessel occlusion (in-stent) of the right coronary artery. Successful balloon angioplasty was carried out to the right coronary artery with confucianism of normal antegrade flow. The posterior descending branch of the right coronary artery is chronically occluded and was not intervened on. The right coronary artery is known to have following the stents that were placed in 2014 and 2018: Promus 4 x 24, Promus 4 x 12 and Alpine Xience 4 x 12. Impairment of global left ventricular systolic function with an ejection fraction of 40%. Posterior basal hypokinesis and diaphragmatic wall akinesis. Mild elevation of left ventricular end-diastolic pressure. PAD. On 09/30/14, he underwent stenting of the R SFA and the L external iliac artery by Dr Dockery. On 04/26/17, previous stents were patent and there was 90% L SFA stenosis to which successful balloon angioplasty was carried out. Last peripheral angio and intervention on 11/22/17: patent stents in R SFA and L Ext Iliac; L SFA had a long segment of occlusion that was treated with PTCA and stents (overlapping Absolute 6x100, 6x100, and 6x60). Last peripheral angio on 10/17/18: 70% in L iliac artery stent; long, total occlusion of a long stented segment of L SFA; patent stent in R SFA . L fem-pop by Dr Diego on 11/16/18 Bilateral leg swelling due varicose veins and venous insuff. 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 Indeterminant 3 mm nodular density anterior right upper lobe, new from piror CT. S/p L TKR and arthroscopic R knee surg Echo of 03/20/17: shows LVEF 50-55%, Grade I diastolic dysfunction of LV ALLEN, treated with CPAP - followed by Dr. Zaman Incomplete RBBB Hypertension, labile Hyperlipidemia, treated with statin Tobacco abuse, currently refraining Discussion and Recomendations * Tele. Consider ILR if tele shows no arrhythmia * Echo * Continue previous CV regimen * Monitor labs * We advised him to continue to refrain from tobacco use * I spoke with him and his and answered CV-related questions Clinical Quality Measures DVT/VTE Risk/Contraindication: Risk Factor Score Per Nursin RFS Level Per Nursing on Admit: 4+=Very High CHRISTEL CARRASQUILLO MD FACP FACC CCDS Apr 16, 2019 13:14
--- NOTE | 2019-04-16 14:46 | Progress Note ---
Subjective Subjective/Events-last exam Patient states that he feels fine this AM. Denies any similar symptoms. No dizziness or chest pain. Tolerating PO diet. Review of Systems Pulmonary: No Dyspnea, No Cough Cardiovascular: No: Chest Pain, Palpitations Genitourinary: No Dysuria, No Frequency Neurological: No: Weakness, Incoordination Objective Exam Last Set of Vital Signs Vital Signs Date Time Temp Pulse Resp B/P (MAP) Pulse Ox O2 Delivery O2 Flow Rate FiO2 04/16/19 12:17 67 04/16/19 12:00 36.1 18 123/59 (80) 97 Room Air Capillary Refill : Greater Than 3 Seconds I&O Intake and Output 04/16/19 00:00 Intake Total 520 ml Balance 520 ml Intake Oral 520 ml # Voids 2 Daily Weight Change No No General: Alert, Oriented X3, Cooperative, No Acute Distress Lungs: Clear to Auscultation, Normal Air Movement Heart: Regular Rate, No Murmurs Abdomen: Normal Bowel Sounds, Soft, No Tenderness, No Masses Extremities: No Edema, No Tenderness/Swelling Neuro: Strength at 5/5 X4 Ext, Sensation Intact, Cranial Nerves 3-12 NL Psych/Mental Status: Mental Status NL, Mood NL Results/Procedures Lab Laboratory Tests 04/15/19 17:51: Troponin I < 0.028 04/16/19 05:39: Triglycerides Level 237H, Cholesterol Level 153, LDL Cholesterol Direct 101, VLDL Cholesterol 47H, HDL Cholesterol 28L Assessment/Plan Assessment/Plan (1) Syncope Status: Acute Assessment & Plan: - Undetermined cause, no recurrent symptoms since admission, Dr Houston consulted and appreciate recommendations Qualifiers: Qualified Codes: R55 - Syncope and collapse (2) CAD (coronary artery disease) Status: Chronic Assessment & Plan: - Cardiology consulted Qualifiers: Qualified Codes: I25.10 - Atherosclerotic heart disease of [place] coronary artery without angina pectoris (3) HTN (hypertension) Status: Chronic Assessment & Plan: - continue home meds Qualifiers: Qualified Codes: I10 - Essential (primary) hypertension (4) HLD (hyperlipidemia) Status: Chronic Assessment & Plan: - On Statin Qualifiers: Qualified Codes: E78.2 - Mixed hyperlipidemia (5) Elevated LFTs Status: Acute Assessment & Plan: - Unsure if it is acute or chronic, Will get acute hepatitis panel, patient in on high dose statin therapy may have to adjust dose (6) Tobacco abuse Status: Chronic Assessment & Plan: - Discussed the importance of cessation Clinical Quality Measures DVT/VTE Risk/Contraindication: Risk Factor Score Per Nursin RFS Level Per Nursing on Admit: 4+=Very High RADHA RODRIGUEZ MD Apr 16, 2019 14:46
[2019-04-16 16:01] VITALS: BP 119/56
[2019-04-16] MEDS: ENOXAPARIN 40 MG/0.4 ML (LOVENOX) SYR SC SCH (17:19)
--- NOTE | 2019-04-16 18:09 | NUR ---
NEW ORDERS FROM DR. CARRASQUILLO, PATIENT MAY HAVE REGULAR TRY FOR DINNER 04/16. CLEAR LIQUID TRAY FOR BREAKFAST ON 04/17 AND THEN MAKE PATIENT NPO.
--- NOTE | 2019-04-16 18:57 | NUR ---
Attempted to contact patients to update her on Dr. Houston's plan of care for 04/17. No answer at this time.
[2019-04-16 20:06] VITALS: BP 140/66
[2019-04-16] MEDS: PRAMIPEXOLE 0.5 MG TAB (MIRAPEX) PO SCH (20:48)
[2019-04-16] MEDS: DULoxetine 30 MG (CYMBALTA) CAP PO SCH (20:48)
[2019-04-17] VITALS: BP 121/86
[2019-04-17 04:20] VITALS: BP 166/80
[2019-04-17] MEDS: CATHETER FLUSH 10 ML SYR IV SCH ×2 (06:22→14:00)
[2019-04-17 06:25] LABS: BASOPHILS % (AUTO) 0 % (0-10); EOSINOPHILS # (AUTO) 0.1 10^3/uL (0.0-0.3); EOSINOPHILS % (AUTO) 2 % (0-10); HEMATOCRIT 44 % (40-54); HEMOGLOBIN 14.1 G/DL (13.3-17.7); LYMPHOCYTES # (AUTO) 1.5 X 10^3 (1.0-4.0); LYMPHOCYTES % (AUTO) 22 % (12-44); MEAN CORPUSCULAR HEMOGLOBIN 28 PG (25-34); MEAN CORPUSCULAR HGB CONC 32 G/DL (32-36); MEAN CORPUSCULAR VOLUME 87 FL (80-99); MONOCYTES # (AUTO) 0.6 X 10^3 (0.0-1.0); MONOCYTES % (AUTO) 9 % (0-12); NEUTROPHILS # (AUTO) 4.6 X 10^3 (1.8-7.8); NEUTROPHILS % (AUTO) 67 % (42-75); PLATELET COUNT 157 10^3/uL (130-400); RED CELL DISTRIBUTION WIDTH 15.7 % (10.0-14.5); WHITE BLOOD COUNT 6.8 10^3/uL (4.3-11.0)
[2019-04-17 06:46] LABS: ALANINE AMINOTRANSFERASE 57 U/L (0-55); ALBUMIN 3.7 GM/DL (3.2-4.5); ALKALINE PHOSPHATASE 141 U/L (40-136); BILIRUBIN,TOTAL 0.3 MG/DL (0.1-1.0); BUN/CREATININE RATIO 15; CALCIUM 8.8 MG/DL (8.5-10.1); CARBON DIOXIDE 23 MMOL/L (21-32); CHLORIDE 105 MMOL/L (98-107); CREATININE SERUM 0.91 MG/DL (0.60-1.30); GFR ESTIMATED > 60; GLUCOSE 145 MG/DL (70-105); POTASSIUM 4.5 MMOL/L (3.6-5.0); SODIUM 138 MMOL/L (135-145); TOTAL PROTEIN 6.4 GM/DL (6.4-8.2)
[2019-04-17 08:00] VITALS: BP 146/71
[2019-04-17] MEDS ORDERED: ASPI-983 PO (08:19)
[2019-04-17] MEDS ORDERED: MAGN400T50 PO (08:19)
[2019-04-17] MEDS ORDERED: ATOR80TA76 PO (08:19)
[2019-04-17] MEDS ORDERED: HYDR-3820 PO (08:20)
[2019-04-17] MEDS ORDERED: DULO60CA59 PO (08:21)
--- NOTE | 2019-04-17 08:24 | NUR ---
SPOKE WITH THE PATIENT (HE DOES NOT KNOW HIS MEDS BUT THERE WAS A WRITTEN HOME MEDS LIST ON HIS FILE) WELL GETTING A LIST FROM [facility] (I ATTACHED TO HIS CHART) AND CALLING [facility] TO COMPLETE THE MED REC. MOST RX'S ARE OUT OF DATE- WHEN I ASKED THE PATIENT'S JAY SHE SAID SOME THEY HAVE CUT THE DOSE (PRAMIPEXOLE AND METOPROLOL) SOME HE JUST HAD "A LOT" OF AT HOME AND DIDNT NEED REFILL RECENTLY AND ATORVASTATIN THE PATIENT'S WAS GIVING HIM HER MEDS. WHEN I INQUIRED ABOUT HAVING AN OVER STOCK AT HOME SHE SAYS BETWEEN THEM GETTING REFILLED ABOUT A WEEK EARLY AND HIS HOSPITAL STAYS HE JUST HAD EXTRAS. WHEN I LOOKED BACK THE LAST TIME HE WAS ADMITTED HERE WAS IN AUGUST 2018 PRAMIPEXOLE 0.5MG: DIRECTIONS SAY" 1 TAB BID" HOWEVER THE PT IS ONLY TAKING TO 1 TAB ONCE DAILY. METOPROLOL SUCC 50MG: DIRECTIONS " 1 TAB DAILY" HOWEVER THE PT IS TAKING TAB DAILY. ON BOTH THE MEDS ABOVE NEITHER OF THE PATIENTS PHARMACIES HAD THOSE DIRECTIONS ON FILE TO LOWER THE DOSES. THE FOLLOWING ARE FILL DATES AT [facility]: 01-30-2019 MELOXICAM 7.5MG #30/30DS 01-30-2019 METOPROLOL SUCC 50MG #30/60DS (PLEASE SEE NOTE ABOVE) 01-30-2019 CLOPIDOGREL 75MG #30/30DS 01-30-2019 ATORVASTATIN 80MG #30/30DS 01-02-2019 PRAMIPEXOLE 0.5MG #60 FILL DATES AT [facility]: 03-22-2019 DULOXETINE 60MG #30/30DS 03-22-2019 LYRICA 150MG #60/30DS 03-27-2019 HYDRO/APAP 10/325 #90/15DS ASPIRIN, MAGNESIUM AND TUMS ARE ALSO LISTED ON THE PATIENTS AT HOME MEDS LIST. JAY SAYS SHE GETS THE ASPIRIN AND MAGNESIUM FREE AND BUYS THE TUMS- I COULD NOT FIND ANY PHARMACY THAT HAS DISPENSED THOSE. HOWEVER I DID LEAVE THEM ON [facility] THEY WERE BOUGHT AT SOME POINT AND THE WAS MISTAKEN.
[2019-04-17] MEDS: MAGNESIUM OXIDE (MAG-OX)400 MG TAB PO SCH (09:33)
[2019-04-17] MEDS: CLOPIDOGREL 75 MG (PLAVIX) TABLET PO SCH (09:33)
[2019-04-17] MEDS: ASPIRIN 81 MG CHEW (CHILDREN'S ASA) PO SCH (09:33)
[2019-04-17] MEDS: PREGABALIN 75 MG (LYRICA) CAP PO SCH (09:33)
--- NOTE | 2019-04-17 10:15 | Progress Note - Cardiology ---
Cardiology SOAP Progress Note Objective: I&O/Vital Signs Weight (Pounds): 250 Weight (Ounces): 0.0 Weight (Calculated Kilograms): 113.679411 Constitutional: AAO x 3, well-developed, well-nourished Respiratory: No accessory muscle use; other (good bilateral air entry) Cardiovascular: regular rate-rhythm, systolic murmur (soft GEMA at card base) Gastrointestional: No tender; soft; No guarding, No rebound; audible bowel sounds Extremities: No clubbing, No cyanosis, No significant edema Neurologic/Psychiatric: oriented x 3, other (moves all limbs equally) Skin: No rash on exposed areas, No ulcerations on exposed areas Results/Procedures: Labs A/P: Assessment: Syncope of undetermined etiology Coronary artery disease - Most recent cardiac cath of August 20, 2018: moderate disease of the left anterior descending and mid vessel occlusion (in-stent) of the right coronary artery. Successful balloon angioplasty was carried out to the right coronary artery with temple of normal antegrade flow. The posterior descending branch of the right coronary artery is chronically occluded and was not intervened on. The right coronary artery is known to have following the stents that were placed in 2014 and 2017: Promus 4 x 24, Promus 4 x 12 and Alpine Xience 4 x 12. Impairment of global left ventricular systolic function with an ejection fraction of 40%. Posterior basal hypokinesis and diaphragmatic wall akinesis. Mild elevation of left ventricular end-diastolic pressure. PAD. On 09/30/14, he underwent stenting of the R SFA and the L external iliac artery by Dr Dockery. On 04/26/17, previous stents were patent and there was 90% L SFA stenosis to which successful balloon angioplasty was carried out. Last peripheral angio and intervention on 11/22/17: patent stents in R SFA and L Ext Iliac; L SFA had a long segment of occlusion that was treated with PTCA and stents (overlapping Absolute 6x100, 6x100, and 6x60). Last peripheral angio on 10/17/18: 70% in L iliac artery stent; long, total occlusion of a long stented segment of L SFA; patent stent in R SFA . L fem-pop by Dr Diego on 11/16/18 Bilateral leg swelling due varicose veins and venous insuff. 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 Indeterminant 3 mm nodular density anterior right upper lobe, new from piror CT. S/p L TKR and arthroscopic R knee surg Echo of 03/20/17: shows LVEF 50-55%, Grade I diastolic dysfunction of LV ALLEN, treated with CPAP - followed by Dr. Zaman Incomplete RBBB Hypertension, labile Hyperlipidemia, treated with statin Tobacco abuse, currently refraining Plan: * Tele. Consider ILR if tele shows no arrhythmia * Echo - pending * Continue current CV regimen * Liver enzyme elevation improving - management per medical services * Monitor labs * We advised him to continue to refrain from tobacco use SLOAN RIVERA Apr 17, 2019 10:15
[2019-04-17 12:01] VITALS: BP 161/74
--- NOTE | 2019-04-17 12:55 | Progress Note - Cardiology ---
Cardiology SOAP Progress Note Subjective: No further syncope No cp or palp or syncope or leg discomfort No focal weakness No n/v/d Objective: I&O/Vital Signs 04/17/19 04/17/19 04/17/19 04/17/19 01:00 04:20 07:00 08:00 Temp 36.4 36.6 Pulse 77 68 65 60 Resp 16 18 B/P (MAP) 166/80 (108) 146/71 (96) Pulse Ox 98 97 O2 Delivery Room Air Room Air 04/17/19 12:01 Temp 36.6 Pulse 60 Resp 18 B/P (MAP) 161/74 (103) Pulse Ox 97 O2 Delivery Room Air 04/17/19 00:00 Intake Total 2140 ml Balance 2140 ml Weight (Pounds): 250 Weight (Ounces): 0.0 Weight (Calculated Kilograms): [id number] Constitutional: AAO x 3, well-developed, well-nourished Respiratory: No accessory muscle use; other (good bilateral air entry) Cardiovascular: regular rate-rhythm, systolic murmur (soft GEMA at card base) Gastrointestional: No tender; soft; No guarding, No rebound; audible bowel sounds Extremities: No clubbing, No cyanosis, No significant edema Neurologic/Psychiatric: oriented x 3, other (moves all limbs equally) Skin: No rash on exposed areas, No ulcerations on exposed areas Results/Procedures: Labs Laboratory Tests 04/17/19 05:37: White Blood Count 6.8, Red Blood Count 4.99, Hemoglobin 14.1, Hematocrit 44, Mean Corpuscular Volume 87, Mean Corpuscular Hemoglobin 28, Mean Corpuscular Hemoglobin Concent 32, Red Cell Distribution Width 15.7H, Platelet Count 157, Mean Platelet Volume 11.0H, Neutrophils (%) (Auto) 67, Lymphocytes (%) (Auto) 22, Monocytes (%) (Auto) 9, Eosinophils (%) (Auto) 2, Basophils (%) (Auto) 0, Neutrophils # (Auto) 4.6, Lymphocytes # (Auto) 1.5, Monocytes # (Auto) 0.6, Eosinophils # (Auto) 0.1, Basophils # (Auto) 0.0, Sodium Level 138, Potassium Level 4.5, Chloride Level 105, Carbon Dioxide Level 23, Anion Gap 10, Blood Urea Nitrogen 14, Creatinine 0.91, Estimat Glomerular Filtration Rate > 60, BUN/Creatinine Ratio 15, Glucose Level 145H, Calcium Level 8.8, Corrected Calcium 9.0, Total Bilirubin 0.3, Aspartate Amino Transf (AST/SGOT) 33, Alanine Aminotransferase (ALT/SGPT) 57H, Alkaline Phosphatase 141H, Total Protein 6.4, Albumin 3.7 A/P: Assessment: Syncope of undetermined etiology Coronary artery disease - Most recent cardiac cath of August 20, 2018: moderate disease of the left anterior descending and mid vessel occlusion (in-stent) of the right coronary artery. Successful balloon angioplasty was carried out to the right coronary artery with hindu of normal antegrade flow. The posterior descending branch of the right coronary artery is chronically occluded and was not intervened on. The right coronary artery is known to have following the stents that were placed in 2014 and 2017: Promus 4 x 24, Promus 4 x 12 and Alpine Xience 4 x 12. Impairment of global left ventricular systolic function with an ejection fraction of 40%. Posterior basal hypokinesis and diaphragmatic wall akinesis. Mild elevation of left ventricular end-diastolic pressure. PAD. On 09/30/14, he underwent stenting of the R SFA and the L external iliac artery by Dr Dockery. On 04/26/17, previous stents were patent and there was 90% L SFA stenosis to which successful balloon angioplasty was carried out. Last peripheral angio and intervention on 11/22/17: patent stents in R SFA and L Ext Iliac; L SFA had a long segment of occlusion that was treated with PTCA and s tents (overlapping Absolute 6x100, 6x100, and 6x60). Last peripheral angio on 10/17/18: 70% in L iliac artery stent; long, total occlusion of a long stented segment of L SFA; patent stent in R SFA . L fem-pop by Dr Diego on 11/16/18 Bilateral leg swelling due varicose veins and venous insuff. 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 Indeterminant 3 mm nodular density anterior right upper lobe, new from piror CT. S/p L TKR and arthroscopic R knee surg Echo of 04/17/19: shows LVEF 50-55%, mild LV enlargement, grade I diastolic dysfunction of LV ALLEN, treated with CPAP - followed by Dr. Zaman Incomplete RBBB Hypertension, labile Hyperlipidemia, treated with statin Tobacco abuse, currently refraining Plan: * ILR today: arrhythmia may be source of his syncope a couple of days ago, tele has not shown any significant arrhythmia so far * Continue current CV regimen * Liver enzyme elevation improving - management per medical services * Monitor labs * We advised him to continue to refrain from tobacco use CHRISTEL CARRASQUILLO MD FACP FAC CCDS Apr 17, 2019 12:55
--- NOTE | 2019-04-17 13:49 | Cardiac Procedure Note-CS/ASA ---
Pre-Procedure Note Pre-Op Procedure Note H&P Reviewed The H&P was reviewed, patient examined and no changes noted. Date H&P Reviewed: Apr 17, 2019 Time H&P Reviewed: 13:49 Conscious Sedation Pre-Proced Time 13:49 ASA Score 3 For ASA 3 and 4: Consider anesthesia and medical clearance. Also, for patients with a history of failed moderate sedation consider anesthesia. Airway Lungs Heart ASA score ASA 1: a normal healthy patient ASA 2: a patient with a mild systemic disease (mid diabetes, controlled hypertension, obesity ASA 3: a patient with a severe systemic disease that limits activity (angina, COPD, prior Myocardial infarction) ASA 4: a patient with an incapacitating disease that is a constant threat to life (CHF, renal failure) ASA 5: a moribund patient not expected to survive 24 hrs. (ruptured aneurysm) ASA 6: a declared brain- patient whose organs are being harvested. For emergent operations, add the letter E after the classification Mallampati Classification Grade 2 Sedation Plan Analgesia, Amnesia, Plan communicated to team members, Discussed options with patient/fam, Discussed risks with patient/fam The patient is an appropriate candidate to undergo the planned procedure, sedation, and anesthesia. The patient immediately re-assessed prior to indication. CHRISTEL CARRASQUILLO MD FACP FAC CCDS Apr 17, 2019 13:49
--- NOTE | 2019-04-17 14:06 | NUR ---
Patient off floor at this time to heart center.
[2019-04-17] MEDS ORDERED: ASPI-999 PO (15:19)
--- NOTE | 2019-04-17 15:40 | NUR ---
Patient back to room at this time from heart center
--- NOTE | 2019-04-17 15:46 | Discharge Summary ---
Diagnosis/Chief Complaint Date of Admission Apr 15, 2019 at 15:26 Date of Discharge 04/17/2019 Admission Diagnosis Admission Diagnosis See problem list Discharge Diagnosis See Below Problems/Diagnosis: (1) Syncope Assessment & Plan: - Undetermined cause, no recurrent symptoms since admission, Dr Houston consulted and appreciate recommendations 04/17: Echo EF 50-55%, Grade I diastolic dysfunction, Loop recorder implanted Qualifiers: Qualified Codes: R55 - Syncope and collapse Status: Acute (2) CAD (coronary artery disease) Assessment & Plan: - Cardiology consulted Qualifiers: Qualified Codes: I25.10 - Atherosclerotic heart disease of [place] coronary artery without angina pectoris Status: Chronic (3) HTN (hypertension) Assessment & Plan: - continue home meds Qualifiers: Qualified Codes: I10 - Essential (primary) hypertension Status: Chronic (4) HLD (hyperlipidemia) Assessment & Plan: - On Statin Qualifiers: Qualified Codes: E78.2 - Mixed hyperlipidemia Status: Chronic (5) Elevated LFTs Assessment & Plan: - Unsure if it is acute or chronic, Will get acute hepatitis panel, patient in on high dose statin therapy may have to adjust dose Status: Acute (6) Tobacco abuse Assessment & Plan: - Discussed the importance of cessation Status: Chronic Discharge Summary-Simple/Stand Procedures Echo: EF 50-55%, Grade I diastolic Dysfunction Loop Recorder implanted Consultations Dr Houston: Cardiology Discharge Physical Examination Allergies: Coded Allergies: No Known Drug Allergies (Unverified , 08/16/18) Vitals & I&Os Vital Sign - Last 12Hours Date Time Temp Pulse Resp B/P (MAP) Pulse Ox O2 Delivery O2 Flow Rate FiO2 04/17/19 12:48 64 04/17/19 12:01 36.6 18 161/74 (103) 97 Room Air Intake and Output0 04/17/19 00:00 Intake Total 2140 ml Balance 2140 ml General Appearance: Alert, Oriented X3, Cooperative, No Acute Distress HEENT: Mucous Memb Moist/[place] Respiratory: Clear to Auscultation, Normal Air Movement Cardiovascular: Regular Rate, No Murmurs Abdominal: Normal Bowel Sounds, Soft, No Tenderness, No Masses Extremities: No Edema, No Tenderness/Swelling Skin: No Rashes, No Breakdown Neuro: Normal Speech, Strength at 5/5 X4 Ext, Sensation Intact, Cranial Nerves 3-12 NL Psych/Mental Status: Mental Status NL, Mood NL Hospital Course Was the Problem List Reviewed?: Yes See final discharge diagnosis. Other pending tests ACUTE HEPATITIS PANEL PENDING Discussion & Recommendations 63 yo M that was found after syncopal episode that was witnessed by his . Patient was seen by Dr Houston during admission. Loop recorder was implanted. Patient did not have any further episodes during admission. Discharge Condition at discharge stable Instructions to patient/family Please see electronic discharge instructions given to patient. Discharge Medications Reviewed and agree with Discharge Medication list on patient's Discharge Instruction sheet Clinical Quality Measures DVT/VTE Risk/Contraindication: Risk Factor Score Per Nursin RFS Level Per Nursing on Admit: 4+=Very High Copy Copies To 1: PARESH SMALLWOOD MD, HOLLY R MD Apr 17, 2019 15:46
--- NOTE | 2019-04-17 15:49 | Discharge Summary ---
Discharge Formerly [facility], [facility] Reconcile Patient Problems Problems Reviewed?: Yes Discharge Medications New, Converted or Re-Newed RX: Other New Medications: Aspirin (Aspirin) 81 Mg Tab.chew 81 MG PO DAILY, #100 TAB 5 Refills Continued Medications: Atorvastatin Calcium (Atorvastatin Calcium) 80 Mg Tablet 80 MG PO HS, TAB LAST FILLED 01-30-2019 #30/30 DAY SUPPLY Calcium Carbonate (Tums) 300 Mg Tab.chew 300 MG PO TID PRN for HEARTBURN, TAB Clopidogrel Bisulfate (Clopidogrel) 75 Mg Tablet 75 MG PO DAILY, TAB LAST FILLED 01-30-2019 #30/30 DAY SUPPLY Duloxetine HCl (Duloxetine HCl) 60 Mg Capsule.dr 60 MG PO DAILY, CAP Hydrocodone/Acetaminophen (Hydrocodon-Acetaminophn 10-325) 1 Each Tablet 2 TAB PO Q8H PRN for PAIN-MODERATE (5-7), TAB Magnesium Oxide (Magnesium Oxide) 400 Mg Tablet 400 MG PO DAILY, TAB Metoprolol Succinate (Toprol Xl) 50 Mg Tab.er.24h 25 MG PO DAILY, TAB TAKES OF A 50MG TAB LAST FILLED 01-30-2019 #30/30 DAY SUPPLY Pramipexole Di-HCl (Pramipexole Dihydrochloride) 0.5 Mg Tablet 0.25-0.5 MG PO HS, TAB LAST FILLED 01-02-19 #60 Pregabalin (Lyrica) 75 Mg Capsule 150 MG PO BID, CAP Discontinued Medications: Aspirin (Aspirin EC) 81 Mg Tablet.dr 81 MG PO DAILY, TAB Meloxicam (Meloxicam) 7.5 Mg Tablet 7.5 MG PO HS, TAB LAST FILLED 01-30-2019 #30/30 DAY SUPPLY Patient Instructions Goal/Follow Up Appt: F.u with PCP Dr Smallwood on TuesdayApr 23 @ 11 AM Activity & Diet Discharge Diet: Cardiac Diet Activity as Tolerated: Yes Orders-Post D/C & Referrals Pneu Vac Indicated: Yes Copy Copies To 1: PARESH SMALLWOOD MD, HOLLY R MD Apr 17, 2019 15:49
--- NOTE | 2019-04-17 19:29 | OPERATIVE REPORT ---
DATE OF SERVICE: 04/17/2019 CLINICAL DIAGNOSIS: Syncope. PROCEDURE: Implantable loop recorder implantation. INDICATIONS: The patient is a 63-year-old man who has had the syncope. On hospitalization for 2 days, no arrhythmia was seen on telemetry, but infrequent arrhythmia may be the underlying cause. Implantable loop recorder implantation was carried out after having obtained an informed consent. DESCRIPTION OF PROCEDURE: [facility] The left prepectoral area was prepared and draped in the usual sterile fashion. Lidocaine 1% was used for local anesthesia. The tools provided with the [employer] Reveal LINQ device were used to make a pocket anterior to the left 4th intercostal space into which the device was placed and the skin edges were closed using Dermabond and Steri-Strips. The device's serial #[id number]. Job ID: [id number] DocumentID: [id number] Dictated Date: 04/17/2019 14:50:36 Launderer Hand Date: 04/17/2019 19:29:12 Dictated By: CHRISTEL CARRASQUILLO MD, MA, FACP, FACC,
[2019-04-17 21:54] LABS: HEPATITIS C ANTIBODY C Non-Reactive (Non-Reactive)
== END 2019-04-17 16:40 | disposition home or self-care (01) ==
LOC: EDUNIT# 13:31 → ER 13:32 → 4TH 15:26
PROVIDERS: ADMIT Internal Medicine; ATTEND Internal Medicine
DX: R55 Syncope and collapse (principal); I25.10 Atherosclerotic heart disease of native coronary artery without angina pectoris; I10 Essential (primary) hypertension; I83.93 Asymptomatic varicose veins of bilateral lower extremities; I77.1 Stricture of artery; I45.10 Unspecified right bundle-branch block; I73.9 Peripheral vascular disease, unspecified; G47.30 Sleep apnea, unspecified; E11.40 Type 2 diabetes mellitus with diabetic neuropathy, unspecified; M19.90 Unspecified osteoarthritis, unspecified site; K21.9 Gastro-esophageal reflux disease without esophagitis; E78.5 Hyperlipidemia, unspecified; R94.5 Abnormal results of liver function studies; F32.9 Major depressive disorder, single episode, unspecified; F17.210 Nicotine dependence, cigarettes, uncomplicated; Z79.02 Long term (current) use of antithrombotics/antiplatelets; Z79.891 Long term (current) use of opiate analgesic; Z79.82 Long term (current) use of aspirin; Z79.899 Other long term (current) drug therapy; Z82.3 Family history of stroke
CPT/HCPCS: 33285; 36415; 70450; 71045; 80053; 80061; 80074; 82962; 83735; 83874; 84484; 85025; 85610; 85730; 93005; 93041; 93306; G0378

== ENCOUNTER 2019-12-24 01:29 | Emergency (ER) | payer SELFPAY ==
[~2019-12-24] VITALS: Ht 185 cm; Wt 108.0 kg
[~2019-12-24 01:29] MED LIST changes: +ACHYD1T PO; +ASPI-1238 PO; -ASPI-983 PO; +DULO60CA59 PO; +FENO145T26 PO; -FENO145T37 PO; +HYDR-3061 PO; -HYDR-3820 PO; +MAGN400T50 PO; +MAGN500C15 PO; -PANT40TA3 PO; +PANT40TA52 PO
[2019-12-24 01:33] VITALS: BP 184/96
[2019-12-24] MEDS ORDERED: ORPHENADRINE 60 MG/2 ML (NORFLEX) AMP (ED ONLY) IM STA (02:09)
[2019-12-24] MEDS ORDERED: KETOROLAC 60 MG/2 ML VIAL IM STA (02:09)
[2019-12-24] MEDS ORDERED: diphenhydrAMINE 50 MG/ML INJ (BENADRYL) IM ONE (02:15)
--- NOTE | 2019-12-24 02:17 | ED General ---
General Chief Complaint: General Problems/Pain Stated Complaint: BODY TREMORS, INSOMNIA Nursing Triage Note: C/O DIFFICULTY SLEEPING D/T JERKING OF ARMS/LEGS OVER LAST WEEK. Nursing Sepsis Screen: No Definite Risk Source of Information: Patient Exam Limitations: No Limitations History of Present Illness Date Seen by Provider: Dec 24, 2019 Time Seen by Provider: 01:56 Initial Comments Here with difficulty with sleeping and noting jerking of his arms and legs over the last week. Denies any new medications but has been out of his Suboxone for [address] Yue Ferrell tomorrow for repeat prescription. Otherwise taking his medications as directed. Denies chest pain, breathing problems or fever. He is concerned because he has not been able to sleep well because of these movements. His brought him to the emergency department. Timing/Duration: 1 Week, Getting Worse, Intermittent Associated Systoms: No Chest Pain, No Fever/Chills, No Nausea/Vomiting, No Shortness of Air, No Weakness Allergies and Home Medications Allergies Coded Allergies: No Known Drug Allergies (Unverified , 08/16/18) Home Medications Aspirin 81 Mg Tab.chew, 81 MG PO DAILY Prescribed by: SLOAN RIVERA on 04/17/19 1519 Atorvastatin Calcium 80 Mg Tablet, 80 MG PO HS, (Reported) LAST FILLED 01-30-2019 #30/30 DAY SUPPLY Calcium Carbonate 300 Mg Tab.chew, 300 MG PO TID PRN for HEARTBURN, (Reported) Clopidogrel Bisulfate 75 Mg Tablet, 75 MG PO DAILY, (Reported) LAST FILLED 01-30-2019 #30/30 DAY SUPPLY Duloxetine HCl 60 Mg Capsule.dr, 60 MG PO DAILY, (Reported) Hydrocodone Bit/Acetaminophen 1 Each Tablet, 2 TAB PO Q8H PRN for PAIN-MODERATE (5-7), (Reported) Magnesium Oxide 400 Mg Tablet, 400 MG PO DAILY, (Reported) Metoprolol Succinate 50 Mg Tab.er.24h, 25 MG PO DAILY, (Reported) TAKES OF A 50MG TAB LAST FILLED 01-30-2019 #30/30 DAY SUPPLY Pramipexole Di-HCl 0.5 Mg Tablet, 0.25-0.5 MG PO HS, (Reported) LAST FILLED 01-02-19 #60 Pregabalin 75 Mg Capsule, 150 MG PO BID, (Reported) Patient Home Medication List Home Medication List Reviewed: Yes Review of Systems Review of Systems Constitutional: see HPI Respiratory: no symptoms reported Cardiovascular: no symptoms reported Gastrointestinal: No abdominal pain, No nausea, No vomiting Musculoskeletal: see HPI, muscle pain Psychiatric/Neurological: See HPI Past Ncxexnz-Vhjrrg-Adljah Hx Past Med/Social Hx: Reviewed Nursing Past Med/Soc Hx Patient Social History Alcohol Use: Denies Use Recreational Drug Use: No Smoking Status: Current Everyday Smoker Type Used: Cigarettes 2nd Hand Smoke Exposure: Yes Recent Foreign Travel: No Contact w/Someone Who Travel: No Recent Infectious Disease Expo: No Recent Hopitalizations: No Immunizations Up To Date Tetanus Booster (TDap): Unknown Date of Pneumonia Vaccine: Sep 30, 2012 Date of Influenza Vaccine: Apr 15, 2019 Seasonal Allergies Seasonal Allergies: No Past Medical History Surgeries: Yes (NECK AND BACK, CYST REMOVED, KNEE ARTH, LEFT TOTAL KNEE 05/01/12, 23 STENTS) Cardiac, CABG, Coronary Stent, Vascular Surgery Respiratory: Yes Pneumonia, Sleep Apnea, COPD Currently Using CPAP: Yes Currently Using BIPAP: No Cardiac: Yes Coronary Artery Disease, Hypertension, Peripheral Vascular Neurological: Yes Neuropathy Reproductive Disorders: No Sexually Transmitted Disease: No HIV/AIDS: No Genitourinary: No Gastrointestinal: No Gastroesophageal Reflux Musculoskeletal: Yes Arthritis Endocrine: Yes Diabetes, Non-Insulin dep HEENT: No Cancer: No Did You Recieve Any Treatments: No Psychosocial: Yes Depression Integumentary: No Blood Disorders: No Family Medical History Reviewed Nursing Family Hx Cardiovascular disease 19 FATHER 19 MOTHER Completed stroke 19 MOTHER Congenital heart disease Coronary thrombosis 19 MOTHER Gastroenteritis 19 MOTHER (DIVERTICULITIS) Hypertension 19 FATHER 19 MOTHER G8 SISTER G8 SISTER Neoplasm 19 FATHER (LUNG CANCER) 19 MOTHER (THROAT CANCER) Seizure disorder G8 BROTHER No Pertinent Family Hx Physical Exam Vital Signs Vital Signs - First Documented 12/24/19 01:33 Temp 35.4 Pulse 78 Resp 16 B/P (MAP) 184/96 (125) Pulse Ox 99 O2 Delivery Room Air Capillary Refill : Less Than 3 Seconds Height, Weight, BMI Height: 6'1.00" Weight: 250lbs. 0.0oz. 113.212179in; 31.00 BMI Method:Stated General Appearance: No Apparent Distress, WD/WN Respiratory: Lungs Clear, Normal Breath Sounds Cardiovascular: Regular Rate, Rhythm, No Murmur Neurologic/Psychiatric: Alert, Oriented x3 Progress/Results/Core Measures Suspected Sepsis Recent Fever Within 48 Hours: No Infection Criteria Present: None New/Unexplained Altered Menta: No Sepsis Screen: No Definite Risk SIRS Temperature: Pulse: 78 Respiratory Rate: 16 Blood Pressure 184 /96 Mean: 125 Results/Orders My Orders Orders - RADHA CASTRO MD Ketorolac Injection (Toradol Injection) (12/24/19 02:09) Norflex 60 Mg Im (12/24/19 02:09) Diphenhydramine Injection (Benadryl Inje (12/24/19 02:15) Vital Signs/I&O 12/24/19 01:33 Temp 35.4 Pulse 78 Resp 16 B/P (MAP) 184/96 (125) Pulse Ox 99 O2 Delivery Room Air Capillary Refill : Less Than 3 Seconds Blood Pressure Mean: 125 Progress Note : Progress Note Seen and evaluated. The patient was noted to be off Suboxone. I do believe his concerns are related to withdrawal. He does have appointment with prescribing physician today. Toradol 60 mg IM, Benadryl 50 mg IM and Norflex 60 mg IM ordered in order to reduce some symptoms of withdrawal pending prescription today. Discharged home with return precautions. Patient verbalize understanding instructions and agreement with plan. Departure Impression Primary Impression: Medication withdrawal Qualified Codes: F11.23 - Opioid dependence with withdrawal Disposition: HOME, SELF-CARE Condition: Stable Departure-Patient Inst. Decision time for Depature: 02:17 Referrals: [facility] (PCP/Family) Primary Care Physician Patient Instructions: Prescription Drug Withdrawal (DC) Add. Discharge Instructions: All discharge instructions reviewed with patient and/or family. Voiced understanding. Follow-up with your DrGiacomo today for recheck and further evaluation and for prescription of your medication. Return for worse pain, fever, vomiting, chest pain, breathing problems or other concerns as needed. RADHA CASTRO MD Dec 24, 2019 02:17
== END 2019-12-24 02:27 | disposition home or self-care (01) ==
LOC: EDUNIT# 01:29 → ER 01:30
DX: F11.23 Opioid dependence with withdrawal (principal); I10 Essential (primary) hypertension; F32.9 Major depressive disorder, single episode, unspecified; F17.210 Nicotine dependence, cigarettes, uncomplicated; Z82.49 Family history of ischemic heart disease and other diseases of the circulatory system; Z80.8 Family history of malignant neoplasm of other organs or systems; Z80.1 Family history of malignant neoplasm of trachea, bronchus and lung; Z95.1 Presence of aortocoronary bypass graft; Z95.5 Presence of coronary angioplasty implant and graft; Z79.82 Long term (current) use of aspirin
CPT/HCPCS: 99284

== ENCOUNTER 2020-05-20 10:00 | Day surgery (SDC) | payer MEDICAID ==
[~2020-05-20] VITALS: Ht 185 cm; Wt 97.0 kg
[2020-05-20 08:37] VITALS: BP 174/89
[2020-05-20 09:02] LABS: HEMOGLOBIN 14.9 g/dL (13.3-17.7); MEAN PLATELET VOLUME 10.2 fL (9.0-12.2); WHITE BLOOD COUNT 8.3 10^3/uL (4.3-11.0)
[2020-05-20 09:25] LABS: ALANINE AMINOTRANSFERASE 14 U/L (0-55); ALBUMIN 3.9 GM/DL (3.2-4.5); ALKALINE PHOSPHATASE 129 U/L (40-136); BILIRUBIN,TOTAL 0.4 MG/DL (0.1-1.0); BUN/CREATININE RATIO 9; CALCIUM 9.3 MG/DL (8.5-10.1); CARBON DIOXIDE 25 MMOL/L (21-32); CHLORIDE 103 MMOL/L (98-107); CHOLESTEROL 123 MG/DL (< 200); CREATININE SERUM 0.95 MG/DL (0.60-1.30); GFR ESTIMATED > 60; GLUCOSE 104 MG/DL (70-105); HDL CHOLESTEROL 25 MG/DL (40-60); SODIUM 137 MMOL/L (135-145); TOTAL PROTEIN 7.2 GM/DL (6.4-8.2); TRIGLYCERIDES 133 MG/DL (<150); VLDL CHOLESTEROL 27 MG/DL (5-40)
[~2020-05-20 10:00] MED LIST changes: +BACITRACIN INJECTION 50,000 UNIT, SODIUM CHLORIDE 0.9% IRRIGATIO 500 ML IR ONE; +BREX2TAB PO; +BUSPAR TOP; +HEParin (CATH LAB) 1,000 ML IV ONE; +LIDOCAINE 1% INJ 20 ML 20 ML VIAL ONE; -LISI-556 PO; +LISI-729 PO; +METF-399 PO; +NS (IVPB) 50 ML ONE; +NS IV 1000 ML 1,000 ML IV ONE; +NS IV 1000 ML 1,000 ML ONE; +SERT-413 PO; -SERT50TA9 PO; +ceFAZolin INJECTION 1,000 MG ONE; +ceFAZolin INJECTION 1,000 MG VIAL IV ONE
[2020-05-20] MEDS ORDERED: MIDAZOLAM 5 MG/5 ML (VERSED) VIAL ONE ×2 (10:23→11:17)
[2020-05-20] MEDS ORDERED: fentaNYL INJ 100 MCG/2 ML AMP ONE ×2 (10:24→11:18)
--- NOTE | 2020-05-20 11:17 | Cardiac Procedure Note-CS/ASA ---
Pre-Procedure Note Pre-Op Procedure Note H&P Reviewed The H&P was reviewed, patient examined and no changes noted. Date H&P Reviewed: May 20, 2020 Time H&P Reviewed: 11:17 Conscious Sedation Pre-Proced Time 11:17 ASA Score 3 For ASA 3 and 4: Consider anesthesia and medical clearance. Also, for patients with a history of failed moderate sedation consider anesthesia. Airway Lungs Heart ASA score ASA 1: a normal healthy patient ASA 2: a patient with a mild systemic disease (mid diabetes, controlled hypertension, obesity ASA 3: a patient with a severe systemic disease that limits activity (angina, COPD, prior Myocardial infarction) ASA 4: a patient with an incapacitating disease that is a constant threat to life (CHF, renal failure) ASA 5: a moribund patient not expected to survive 24 hrs. (ruptured aneurysm) ASA 6: a declared brain- patient whose organs are being harvested. For emergent operations, add the letter E after the classification Mallampati Classification Grade 2 Sedation Plan Analgesia, Amnesia, Plan communicated to team members, Discussed options with patient/fam, Discussed risks with patient/fam The patient is an appropriate candidate to undergo the planned procedure, sedation, and anesthesia. The patient immediately re-assessed prior to indication. CHRISTEL CARRASQUILLO MD FACP FAC CCDS May 20, 2020 11:17
[2020-05-20] MEDS ORDERED: BUSPAR TOP SCH (12:30)
[2020-05-20] MEDS ORDERED: NS IV 1000 ML 1,000 ML IV SCH (12:30)
[2020-05-20] MEDS ORDERED: oxyCODONE/APAP 5/325MG (PERCOCET 5) TABLET PO PRN (12:30)
[2020-05-20] MEDS ORDERED: ACETAMINOPHEN 325 MG TABLET PO PRN (12:30)
[2020-05-20] MEDS ORDERED: PATIENT MAY USE OWN MEDS, ALL PO SCH (12:30)
--- NOTE | 2020-05-20 13:04 | Diagnostic Imaging Report ---
INDICATION: Post cardiac pacemaker. Comparison with 04/15/2019. FINDINGS: Battery generator overlies left chest. Dual leads are in good position. The lungs are well-aerated and clear. No pneumothorax or pleural effusion. IMPRESSION: Satisfactory appearing postoperative chest with left-sided pacemaker now present. Dictated by: Dictated on workstation # [id number]
[2020-05-20] MEDS ORDERED: ceFAZolin INJECTION 1,000 MG in WATER (STERILE) FOR INJECTION 10 ML IV SCH (14:00)
[2020-05-20 15:56] VITALS: BP 203/93
[2020-05-20] MEDS ORDERED: CALCIUM CARBONATE 600 MG (CALCARB) TAB PO PRN (16:00)
[2020-05-20] MEDS ORDERED: amLODIPine 10 MG (NORVASC) TAB PO ONE (16:30)
[2020-05-20] MEDS: ceFAZolin INJECTION 1,000 MG in WATER (STERILE) FOR INJECTION 10 ML IV SCH (17:17)
--- NOTE | 2020-05-20 17:30 | OPERATIVE REPORT ---
DATE OF SERVICE: PREOPERATIVE DIAGNOSES: Sinus node dysfunction with symptomatic bradycardia with asystolic pauses up to 7 seconds recorded on implantable loop recorder. POSTOPERATIVE DIAGNOSES: Sinus node dysfunction with symptomatic bradycardia with asystolic pauses up to 7 seconds recorded on implantable loop recorder. PROCEDURE: Dual chamber pacemaker implantation. ESTIMATED BLOOD LOSS: Less than 20 mL. INDICATIONS: The patient is a 64-year-old gentleman who has syncope and presyncope. Implantable loop recorder has shown long pauses of up to 7 seconds. This is an absence of any rate-lowering agents. Dual chamber pacemaker implantation was advised. Informed consent was obtained. DESCRIPTION OF PROCEDURE: He was brought to the cardiac catheterization laboratory in a fasting state. The left prepectoral area was prepared and draped in the usual sterile fashion. Lidocaine 1% was used for local anesthesia. Modified Seldinger technique was used to advance two guidewires into the left subclavian vein and the tips were placed in the right atrium. Sharp and blunt dissection was used to make a pacemaker pocket. The pocket was packed with gauze soaked in an antibiotic solution after good hemostasis had been assured. The guidewires were used to advance sheaths and the guidewires were removed. The sheaths were used to advance leads and the sheaths were removed. All lead manipulation was carried out under fluoroscopy. The right ventricular lead is an active fixation lead and the tip was placed at the right ventricular apex. The right atrial lead is an active fixation lead and the tip was placed at the right atrial appendage. Good sensing and capture thresholds were obtained. There was no diaphragmatic stimulation at 10 volts. The right atrial lead is [employer] model 408028 with serial #[id number]. The right ventricular lead is Med[employer]onic model 5076-58 with serial #[id number]. The atrial capture threshold is 0.4 volts at 0.4 milliseconds. The atrial lead impedance is 532 ohms. P waves are measured at 3.8 millivolts. Right ventricular lead impedance is 931 ohms. Capture threshold is 0.4 milliseconds at 0.875 millivolts. R wave is measured at 20 millivolts. The patient tolerated the procedure well. Job ID: [id number] DocumentID: [id number] Dictated Date: 05/20/2020 12:35:16 Artist Scientific Date: 05/20/2020 17:30:03 Dictated By: CHRISTEL CARRASQUILLO MD, MA, FACP, FACC,
[2020-05-20 19:00] VITALS: BP 160/76
[2020-05-20 20:00] VITALS: BP 160/82
[2020-05-20] MEDS ORDERED: PRAMIPEXOLE 0.5 MG TAB (MIRAPEX) PO SCH (21:00)
[2020-05-20] MEDS: metFORMIN 500 MG (GLUCOPHAGE) TAB PO SCH (21:02)
[2020-05-20 22:31] VITALS: BP 144/67
[2020-05-20 23:00] VITALS: BP 114/56
[2020-05-21] VITALS (7 sets, daily range): BP systolic 119–139; BP diastolic 52–76
[2020-05-21] MEDS: ceFAZolin INJECTION 1,000 MG in WATER (STERILE) FOR INJECTION 10 ML IV SCH ×2 (02:12→09:54)
[2020-05-21 02:56] LABS: HEMOGLOBIN 13.1 g/dL (13.3-17.7); MEAN PLATELET VOLUME 10.4 fL (9.0-12.2); WHITE BLOOD COUNT 7.7 10^3/uL (4.3-11.0)
[2020-05-21 03:14] LABS: ALBUMIN 3.3 GM/DL (3.2-4.5); CHLORIDE 103 MMOL/L (98-107); POTASSIUM 4.1 MMOL/L (3.6-5.0); SODIUM 137 MMOL/L (135-145)
[2020-05-21 03:15] LABS: CALCIUM 8.5 MG/DL (8.5-10.1)
[2020-05-21 03:16] LABS: GLUCOSE 109 MG/DL (70-105)
[2020-05-21 03:17] LABS: CARBON DIOXIDE 25 MMOL/L (21-32)
[2020-05-21 03:18] LABS: BILIRUBIN,TOTAL 0.2 MG/DL (0.1-1.0)
[2020-05-21 03:19] LABS: ALKALINE PHOSPHATASE 111 U/L (40-136)
[2020-05-21 03:20] LABS: CREATININE SERUM 0.83 MG/DL (0.60-1.30); GFR ESTIMATED > 60
[2020-05-21 03:21] LABS: BUN/CREATININE RATIO 12
[2020-05-21 03:23] LABS: ALANINE AMINOTRANSFERASE 12 U/L (0-55)
--- NOTE | 2020-05-21 07:51 | Progress Note - Cardiology ---
Cardiology SO Progress Note Objective: I&O/Vital Signs Weight (Pounds): 250 Weight (Ounces): 0.0 Weight (Calculated Kilograms): 113.440905 Results/Procedures: Labs Microbiology 05/20/20 MRSA Screen - Final, Complete MRSA not isolated A/P: Assessment: S/P dual chamber PPM implant on 05-20-20 One brief episode of syncope in Mar 2019. - S/P ILR implant - S/p ILR - transmission of May 12, 2019 showed 7.0 sec pause Coronary artery disease: - Most recent cardiac cath of August 20, 2018: moderate disease of the left anterior descending and mid vessel occlusion (in-stent) of the right coronary artery. Successful balloon angioplasty was carried out to the right coronary artery with rastafari of normal antegrade flow. The posterior descending branch of the right coronary artery is chronically occluded and was not intervened on. The right coronary artery is known to have following the stents that were placed in 2014 and 2017: Promus 4 x 24, Promus 4 x 12 and Alpine Xience 4 x 12. Impairment of global left ventricular systolic function with an ejection fraction of 40%. Posterior basal hypokinesis and diaphragmatic wall akinesis. Mild elevation of left ventricular end-diastolic pressure. PAD. - On 09/30/14, he underwent stenting of the R SFA and the L external iliac artery by Dr Dockery. - On 04/26/17, previous stents were patent and there was 90% L SFA stenosis to which successful balloon angioplasty was carried out. - Peripheral angio and intervention on 11/22/17: patent stents in R SFA and L Ext Iliac; L SFA had a long segment of occlusion that was treated with PTCA and stents (overlapping Absolute 6x100, 6x100, and 6x60). - Peripheral angio on 10/17/18: 70% in L iliac artery stent; long, total occlusion of a long stented segment of L SFA; patent stent in R SFA. - H/o L fem-pop by Dr Diego on 11/16/18 and he has since had f/u on PAD with Dr Diego. Leg arterial - - Doppler of 06/05/19 ([facility]): 50-75% narrowing in prox and distal SFA with 2 vessel runoff; 30-49% narrowing in L prox fem-pop with 3 vessel infrapopliteal runoff Bilateral leg swelling due varicose veins and venous insuff. No evidence of DVT on bilat leg venous Doppler of 04/26/17 Carotid arterial dz: - Mild carotid art dz on carotid u/s of 03/27/18. - Mild to mod stenosis of the distal L subclavian seen on CTA of head/neck of 08-09-16. 8mm thyroid nodule seen on head/neck CT of 08-09-16 - f/u is with PCP Chronic tobacco use, advised to quit COPD CTA of the chest on 03-19-17 showed minimal bilat basilar atelectasis. Indeterminant 3 mm nodular density anterior right upper lobe, new from prior CT. S/p L TKR and arthroscopic R knee surg Echo of 04/17/19: shows LVEF 50-55%, mild LV enlargement, grade I diastolic dysfunction of LV ALLEN, treated with CPAP - followed by Dr. Zaman Incomplete RBBB Hypertension, labile Hyperlipidemia, treated with statin SLOAN RIVERA May 21, 2020 07:51
[2020-05-21] MEDS ORDERED: CEFU500T63 PO (07:53)
[2020-05-21] MEDS ORDERED: AMLO10TA4 PO (07:53)
[2020-05-21] MEDS ORDERED: ASPIRIN 81 MG CHEW (CHILDREN'S ASA) PO SCH (09:00)
[2020-05-21] MEDS ORDERED: [UNRECOGNIZED DRUG - REMARK] PO SCH (09:00)
[2020-05-21] MEDS ORDERED: CLOPIDOGREL 75 MG (PLAVIX) TABLET PO SCH (09:00)
[2020-05-21] MEDS ORDERED: [UNRECOGNIZED DRUG - REMARK] PO SCH (09:00)
[2020-05-21] MEDS ORDERED: amLODIPine 5 MG (NORVASC) TAB PO SCH (09:00)
[2020-05-21] MEDS: metFORMIN 500 MG (GLUCOPHAGE) TAB PO SCH (09:47)
--- NOTE | 2020-05-21 19:03 | Progress Note - Cardiology ---
Cardiology SOAP Progress Note Subjective: No cp or palp or syncope or shortness of breath No n/v/d No weakness Some soreness at site of implantation Objective: I&O/Vital Signs 05/21/20 05/21/20 05/21/20 05/21/20 08:59 09:40 11:30 12:25 Temp 37.1 36.4 Pulse 87 86 87 Resp 14 25 B/P (MAP) 133/72 (92) 130/76 (94) Pulse Ox 96 95 98 O2 Delivery Room Air Room Air Room Air 05/21/20 14:01 Temp 36.4 Pulse 87 Resp 25 B/P (MAP) 130/76 Pulse Ox 98 O2 Delivery Room Air 05/21/20 00:00 Intake Total 500 ml Output Total 0 ml Balance 500 ml Weight (Pounds): 250 Weight (Ounces): 0.0 Weight (Calculated Kilograms): 113.340891 Device Insertion Site: without hematoma Bruising: moderated bruising Constitutional: AAO x 3, well-developed, well-nourished Respiratory: No accessory muscle use; other (good bilateral air entry) Cardiovascular: regular rate-rhythm, S1 and S2, systolic murmur (soft GEMA at card base) Gastrointestional: No tender; soft; No guarding, No rebound; audible bowel sounds Extremities: No clubbing, No cyanosis, No significant edema Neurologic/Psychiatric: oriented x 3, other (moves all limbs equally) Skin: No rash on exposed areas, No ulcerations on exposed areas Results/Procedures: Labs Laboratory Tests 05/21/20 02:40: White Blood Count 7.7, Red Blood Count 4.70, Hemoglobin 13.1L, Hematocrit 41, Mean Corpuscular Volume 87, Mean Corpuscular Hemoglobin 28, Mean Corpuscular Hemoglobin Concent 32, Red Cell Distribution Width 14.8H, Platelet Count 199, Mean Platelet Volume 10.4, Sodium Level 137, Potassium Level 4.1, Chloride Level 103, Carbon Dioxide Level 25, Anion Gap 9, Blood Urea Nitrogen 10, Creatinine 0.83, Estimat Glomerular Filtration Rate > 60, BUN/Creatinine Ratio 12, Glucose Level 109H, Calcium Level 8.5, Corrected Calcium 9.1, Total Bilirubin 0.2, Aspartate Amino Transf (AST/SGOT) 15, Alanine Aminotransferase (ALT/SGPT) 12, Alkaline Phosphatase 111, Total Protein 6.0L, Albumin 3.3 Microbiology 05/20/20 MRSA Screen - Final, Complete MRSA not isolated Laboratory Tests 05/20/20 08:56 05/21/20 02:40 A/P: Assessment: SSS and symptomatic carlos - S/P ILR implant in 2019 after syncope - S/p ILR - transmission of May 12, 2019 showed 7.0 sec pause - S/P dual chamber PPM implant on 05-20-20 Coronary artery disease: - Most recent cardiac cath of August 20, 2018: moderate disease of the left anterior descending and mid vessel occlusion (in-stent) of the right coronary artery. Successful balloon angioplasty was carried out to the right coronary artery with methodist of normal antegrade flow. The posterior descending branch of the right coronary artery is chronically occluded and was not intervened on. The right coronary artery is known to have following the stents that were placed in 2014 and 2017: Promus 4 x 24, Promus 4 x 12 and Alpine Xience 4 x 12. Impairment of global left ventricular systolic function with an ejection fraction of 40%. Posterior basal hypokinesis and diaphragmatic wall akinesis. Mild elevation of left ventricular end-diastolic pressure. PAD. - On 09/30/14, he underwent stenting of the R SFA and the L external iliac artery by Dr Dockery. - On 04/26/17, previous stents were patent and there was 90% L SFA stenosis to which successful balloon angioplasty was carried out. - Peripheral angio and intervention on 11/22/17: patent stents in R SFA and L Ext Iliac; L SFA had a long segment of occlusion that was treated with PTCA and stents (overlapping Absolute 6x100, 6x100, and 6x60). - Peripheral angio on 10/17/18: 70% in L iliac artery stent; long, total occlusion of a long stented segment of L SFA; patent stent in R SFA. - H/o L fem-pop by Dr Diego on 11/16/18 and he has since had f/u on PAD with Dr Diego. Leg arterial - - Doppler of 06/05/19 ([facility]): 50-75% narrowing in prox and distal SFA with 2 vessel runoff; 30-49% narrowing in L prox fem-pop with 3 vessel infrapopliteal runoff Bilateral leg swelling due varicose veins and venous insuff. No evidence of DVT on bilat leg venous Doppler of 04/26/17 Carotid arterial dz: - Mild carotid art dz on carotid u/s of 03/27/18. - Mild to mod stenosis of the distal L subclavian seen on CTA of head/neck of 08-09-16. 8mm thyroid nodule seen on head/neck CT of 08-09-16 - f/u is with PCP Chronic tobacco use, advised to quit COPD CTA of the chest on 03-19-17 showed minimal bilat basilar atelectasis. Indeterminant 3 mm nodular density anterior right upper lobe, new from prior CT. S/p L TKR and arthroscopic R knee surg Echo of 04/17/19: shows LVEF 50-55%, mild LV enlargement, grade I diastolic dysfunction of LV ALLEN, treated with CPAP - followed by Dr. Zaman Incomplete RBBB Hypertension, labile Hyperlipidemia, treated with statin Plan: * I had a detailed discussion with him regarding his pacemaker procedure and aftercare * We had the pacemaker interrogated and reviewed the report. It is functioning normally * We have advised close clinical f/u for now, including wound inspection 05/23/20 CHRISTEL CARRASQUILLO MD FACP [facility] CCDS May 21, 2020 19:03
== END 2020-05-21 13:15 ==
LOC: CATH 10:00 → CSD 13:00 → CATH 05-21 13:15
PROVIDERS: ATTEND Internal Medicine Cardiovascular Disease
DX: I49.5 Sick sinus syndrome (principal); E11.9 Type 2 diabetes mellitus without complications; E78.00 Pure hypercholesterolemia, unspecified; F41.9 Anxiety disorder, unspecified; F32.9 Major depressive disorder, single episode, unspecified; G47.10 Hypersomnia, unspecified; G47.33 Obstructive sleep apnea (adult) (pediatric); K21.9 Gastro-esophageal reflux disease without esophagitis; I65.23 Occlusion and stenosis of bilateral carotid arteries; J30.9 Allergic rhinitis, unspecified; J44.9 Chronic obstructive pulmonary disease, unspecified; I25.10 Atherosclerotic heart disease of native coronary artery without angina pectoris; I11.9 Hypertensive heart disease without heart failure; E78.2 Mixed hyperlipidemia; Z79.82 Long term (current) use of aspirin; Z79.899 Other long term (current) drug therapy; E66.9 Obesity, unspecified; Z68.28 Body mass index [BMI] 28.0-28.9, adult; F17.210 Nicotine dependence, cigarettes, uncomplicated; Z95.818 Presence of other cardiac implants and grafts
CPT/HCPCS: 33208; 36415; 71046; 80053; 80061; 85027; 85610; 85730; 87081; 93005

== ENCOUNTER → 2020-09-09 | Outpatient (CLI) | payer MEDICAID ==
[~2020-09-09] MED LIST changes: +AMLO10TA4 PO; -BACITRACIN INJECTION 50,000 UNIT, SODIUM CHLORIDE 0.9% IRRIGATIO 500 ML IR ONE; +CEFU500T63 PO; -HEParin (CATH LAB) 1,000 ML IV ONE; -LIDOCAINE 1% INJ 20 ML 20 ML VIAL ONE; -NS (IVPB) 50 ML ONE; -NS IV 1000 ML 1,000 ML IV ONE; -NS IV 1000 ML 1,000 ML ONE; -ceFAZolin INJECTION 1,000 MG ONE; -ceFAZolin INJECTION 1,000 MG VIAL IV ONE
--- NOTE | 2020-09-09 12:54 | Diagnostic Imaging Report ---
PROCEDURE: CT chest without contrast. TECHNIQUE: Multiple contiguous axial images were obtained through the chest without the use of intravenous contrast. Auto Exposure Controls were utilized during the CT exam to meet ALARA standards for radiation dose reduction. INDICATION: Solitary pulmonary nodule. COMPARISON: Chest CT of 05/23/2017. FINDINGS: No lung mass or suspicious pulmonary nodule. No alveolar consolidation, effusion, or pneumothorax. There is some air trapping, most pronounced in the apices. No bronchiectasis, blebs, bullous disease, or cysts. There is no pleural or pericardial effusion. No acute or suspect soft tissue or osseous chest wall pathology. The visualized upper abdomen shows no acute appearing abnormality. IMPRESSION: No lung mass or suspicious nodule. No acute abnormality. Dictated by: Dictated on workstation # [id number]
== END ==
LOC: RAD 12:05
PROVIDERS: ATTEND Pediatrics
DX: R91.1 Solitary pulmonary nodule (principal)
CPT/HCPCS: 71250

== ENCOUNTER → 2021-08-19 | Outpatient (CLI) | payer MEDICAID ==
[~2021-08-19] VITALS: Ht 185.4 cm; Wt 99.5 kg
[~2021-08-19] MED LIST changes: -LISI-729 PO; +LISI5TAB20 PO
== END | disposition home or self-care (01) ==
LOC: PREOP 05:43
PROVIDERS: ATTEND Surgery
DX: Z01.818 Encounter for other preprocedural examination (principal)

== ENCOUNTER 2021-08-24 10:37 | Day surgery (SDC) | payer MEDICARE, MEDICAID ==
[~2021-08-24] VITALS: Ht 185.4 cm; Wt 99.5 kg
[2021-08-24 11:23] VITALS: BP 143/84
[2021-08-24] MEDS ORDERED: LACTATED RINGERS 1,000 ML IV STA (11:28)
[2021-08-24] MEDS ORDERED: MIDAZOLAM 2 MG/2 ML (VERSED) VIAL ONE (11:34)
[2021-08-24] MEDS ORDERED: PROPOFOL INJECTION 50 ML IV ONE (11:35)
--- NOTE | 2021-08-24 11:40 | Anesthesia-General Post-Op ---
MAC Patient Condition Mental Status/LOC: Same as Preop Cardiovascular: Satisfactory Nausea/Vomiting: Absent Respiratory: Satisfactory Pain: Controlled Complications: Absent Post Op Complications Complications None Follow Up Care/Instructions Patient Instructions None needed. Anesthesiology Discharge Order Discharge Order Patient is doing well, no complaints, stable vital signs, no apparent adverse anesthesia problems. No complications reported per nursing. AGUILAR YUEN CRNA Aug 24, 2021 11:40
--- NOTE | 2021-08-24 11:40 | Progress Note-Pre Operative ---
Pre-Operative Progress Note H&P Reviewed The H&P was reviewed, patient examined and no changes noted. Time Seen by Provider: 10:38 Date H&P Reviewed: Aug 24, 2021 Time H&P Reviewed: 10:38 Pre-Operative Diagnosis: +cologBILL Fraire DO Aug 24, 2021 11:40
[2021-08-24 12:20] VITALS: BP 112/66
[2021-08-24 12:25] VITALS: BP 136/77
--- NOTE | 2021-08-24 12:25 | Progress Note-Post Operative ---
Post-Operative Progess Note Surgeon (s)/Physical Director (s) Surgeon BILL SANDOVAL DO Physical Director: none Pre-Operative Diagnosis +cologuard Post-Operative Diagnosis Polyps diverticula int hemorrrhoids Procedure & Operative Findings Date of Procedure 08/24/21 Procedure Performed/Findings Colonoscopy with snare polypectomy PROCEDURE NOTE: After informed consent was obtained, the patient was brought to the endoscopy suite, placed in bed in left lateral decubitus position. He was administered IV sedation by the BUFFET SERVER who then monitored his vitals the entire time, heart rate, blood pressure and pulse ox and the scope was inserted, pushed all the way to about 150 cm to get into the cecum. On the way in found a polyp in the descending colon and removed it with snare polypetomy. Once in the cecum took a picture of the appendiceal orifice and noted the ileocecal valve. Then slowly withdrew the scope insufflating to look circumferentially at the boykin starting in the cecum and up the ascending colon; where I found another polyp and did another snare polypectomy. Continued to the hepatic flexure, then down the transverse colon, to the splenic flexure and into the descending colon. Found another polyp and removed it with snare. Then down into the sigmoid and finally into the rectal vault and retroflexed the scope. I had seen diverticula and took pictures of them on the way in. Took a picture of the internal hemorrhoids and finally removed the scope. The patient tolerated the procedure. He was recovered in endoscopy suite. Recommended for repeat colonoscopy in 5 years. Anesthesia Type IV sedation by BUFFET SERVER Estimated Blood Loss Estimated blood loss (mL): scant Specimens/Packing Specimens Removed desc colon polyp x 2 asc colon polyp BILL SANDOVAL DO Aug 24, 2021 12:25
--- NOTE | 2021-08-24 12:34 | Endoscopy Discharge Instruct ---
Endo Procedure/Findings Findings 1.: Polyp 2.: Diverticulosis 3.: Internal Hemorrhoids Discharge Instructions - Activity: You might feel a little sleepy until tomorrow. This is due to the medicine you received to relax you. Until tomorrow, you should: NOT drive a car, operate machinery or power tools. NOT drink any alcoholic beverages. NOT make any important decisions or sign importortant papers. Do not return to work until tomorrow, unless otherwise instructed. Resume previous activities tomorrow. Diet: Start by taking liquids. If you tolerate liquids, advance to solid food. 1.: Colonscopy in 5 years Notify Physician - If you experience excessive bleeding, unusual abdominal pain, fever, or chest pain, contact your doctor immediately. BILL SANDOVAL DO Aug 24, 2021 12:34
[2021-08-24 13:00] VITALS: BP 136/77
== END 2021-08-24 13:00 | disposition home or self-care (01) ==
LOC: ENDO 10:37
PROVIDERS: ATTEND Surgery
DX: D12.4 Benign neoplasm of descending colon (principal); D12.2 Benign neoplasm of ascending colon; K57.30 Diverticulosis of large intestine without perforation or abscess without bleeding; K64.8 Other hemorrhoids; E11.9 Type 2 diabetes mellitus without complications; F17.210 Nicotine dependence, cigarettes, uncomplicated; E66.9 Obesity, unspecified; Z68.28 Body mass index [BMI] 28.0-28.9, adult; G47.33 Obstructive sleep apnea (adult) (pediatric); I10 Essential (primary) hypertension; I25.2 Old myocardial infarction; Z79.82 Long term (current) use of aspirin; Z79.02 Long term (current) use of antithrombotics/antiplatelets; Z79.84 Long term (current) use of oral hypoglycemic drugs; Z95.1 Presence of aortocoronary bypass graft; Z95.5 Presence of coronary angioplasty implant and graft
CPT/HCPCS: 82947

== ENCOUNTER → 2022-01-29 | Outpatient (CLI) | payer MEDICARE, MEDICAID ==
[~2022-01-29] MED LIST changes: +ALBU8.5H6 IH; +CATHETER FLUSH 10 ML SYR IVP PRN; +REGADENOSON 0.4 MG/5 ML SYR (LEXISCAN) IV ONE; -RT-ALBUINH IH
[2022-01-29 09:30] VITALS: BP 150/82
--- NOTE | 2022-02-02 15:05 | STRESS TEST ---
DATE OF SERVICE: 01/29/2022 RESTING AND POST REGADENOSON TECHNETIUM-99M TETROFOSMIN SPECT CT IMAGING ORDERING PHYSICIAN: Beatrice Grande APRN PRIMARY PHYSICIAN: [facility]. CLINICAL DIAGNOSIS: Coronary artery disease. Baseline images were carried out after injection 8.63 mCi technetium-99 Tetrofosmin. This was followed by 0.4 mg percent and 25.4 mCi technetium-99 Tetrofosmin for stress imaging. The electrocardiogram showed sinus rhythm at baseline. There is evidence of old inferior wall myocardial infarction. The electrocardiogram did not change significantly with regadenoson infusion. The patient tolerated the procedure well. FINDINGS: Review of images at rest and following stress indicates a large inferoapical perfusion defect with mild to moderate reversibility. Gated images show inferoapical akinesis. Left ventricular ejection fraction is calculated to be 34%. Left ventricular end-diastolic volume is 161 mL. TID Is absent (0.88). CONCLUSIONS: 1. This study indicates a large inferoapical myocardial infarction with a small to moderate amount of gerry-infarct ischemia. 2. Inferoapical akinesis. 3. Impairment of global left ventricular systolic function with ejection fraction 34%. 4. Moderate cardiomegaly. Job ID: [id number] DocumentID: [id number] Dictated Date: 02/02/2022 12:27:21 Fitness Club Manager Date: 02/02/2022 15:03:00 Dictated By: CHRISTEL CARRASQUILLO MD; GAMALIEL; FACP; FACC;
== END ==
LOC: CARD 07:38
PROVIDERS: ATTEND Nurse Practitioner Family
DX: I25.10 Atherosclerotic heart disease of native coronary artery without angina pectoris (principal)
CPT/HCPCS: 78452; 93017; A9502

== ENCOUNTER 2022-02-09 09:00 | Day surgery (SDC) | payer MEDICARE, MEDICAID ==
[~2022-02-09] VITALS: Ht 185.5 cm; Wt 108.0 kg
[2022-02-09 07:18] VITALS: BP 145/81
[2022-02-09 07:27] LABS: HEMATOCRIT 46 % (40-54); HEMOGLOBIN 14.9 g/dL (13.3-17.7); MEAN CORPUSCULAR HEMOGLOBIN 29 pg (25-34); MEAN CORPUSCULAR HGB CONC 33 g/dL (32-36); MEAN CORPUSCULAR VOLUME 90 fL (80-99); MEAN PLATELET VOLUME 10.1 fL (9.0-12.2); PLATELET COUNT 253 10^3/uL (130-400); WHITE BLOOD COUNT 10.7 10^3/uL (4.3-11.0)
[2022-02-09 07:42] LABS: PROTHROMBIN TIME PATIENT 13.5 SEC (12.2-14.7)
[2022-02-09 07:49] LABS: BILIRUBIN,TOTAL 0.5 MG/DL (0.1-1.0); CALCIUM 9.4 MG/DL (8.5-10.1); CREATININE SERUM 1.11 MG/DL (0.60-1.30); POTASSIUM 3.6 MMOL/L (3.6-5.0); TOTAL PROTEIN 7.9 GM/DL (6.4-8.2)
[~2022-02-09 09:00] MED LIST changes: +BUPR1PAT23 TD; +BUPR300T98 PO; -CATHETER FLUSH 10 ML SYR IVP PRN; +CYAN-23 PO; +DEUT12TA PO; +ERGO1250 PO; +ESCI20TA39 PO; +HEParin (CATH LAB) 2,000 ML IV ONE; +LIDOCAINE 1% INJ 30 ML (XYLOCAINE) VIAL ONE; +MIDAZOLAM 5 MG/5 ML (VERSED) VIAL ONE; +MIRT45TA75 PO; +NS IV 1000 ML 1,000 ML IV SCH; +NS IV 1000 ML 1,000 ML ONE; -REGADENOSON 0.4 MG/5 ML SYR (LEXISCAN) IV ONE; +VENL150T PO; +fentaNYL INJ 100 MCG/2 ML AMP ONE
[2022-02-09] MEDS ORDERED: HEParin 1000 UNIT/ML (10ML VIAL) FOR BOLUS ONE (09:13)
[2022-02-09] MEDS ORDERED: EPTIFIBATIDE BOLUS 20 ML IV ONE (09:13)
[2022-02-09] MEDS ORDERED: diphenhydrAMINE 50 MG/ML INJ (BENADRYL) ONE (09:23)
[2022-02-09] MEDS ORDERED: fentaNYL INJ 100 MCG/2 ML AMP ONE (09:37)
[2022-02-09] MEDS ORDERED: NITRO DRIP 25000 MCG/D5W 250 ML IV ONE (09:46)
[2022-02-09] MEDS ORDERED: CLOPIDOGREL 75 MG (PLAVIX) TABLET ONE (10:04)
[2022-02-09] MEDS ORDERED: ASPIRIN 81 MG CHEW (CHILDREN'S ASA) ONE (10:04)
--- NOTE | 2022-02-09 10:16 | Cardiac Procedure Note-CS/ASA ---
Pre-Procedure Note Pre-Op Procedure Note Date of Available H&P: Feb 04, 2022 Date H&P Reviewed: Feb 09, 2022 Time H&P Reviewed: 08:45 History & Physical: H&P Reviewed, No changes noted Conscious Sedation Pre-Proced ASA Score 3 For ASA 3 and 4: Consider anesthesia and medical clearance. Also, for patients with a history of failed moderate sedation consider anesthesia. Airway Lungs Heart ASA score ASA 1: a normal healthy patient ASA 2: a patient with a mild systemic disease (mid diabetes, controlled hypertension, obesity ASA 3: a patient with a severe systemic disease that limits activity (angina, COPD, prior Myocardial infarction) ASA 4: a patient with an incapacitating disease that is a constant threat to life (CHF, renal failure) ASA 5: a moribund patient not expected to survive 24 hrs. (ruptured aneurysm) ASA 6: a declared brain- patient whose organs are being harvested. For emergent operations, add the letter E after the classification Mallampati Classification Grade 3 Sedation Plan Analgesia, Amnesia, Plan communicated to team members The patient is an appropriate candidate to undergo the planned procedure, sedation, and anesthesia. The patient immediately re-assessed prior to indication. CHRISTEL CARRASQUILLO MD FACP [facility]S Feb 09, 2022 10:16
[2022-02-09] MEDS ORDERED: PATIENT MAY USE OWN MEDS, ALL PO SCH (10:30)
[2022-02-09] MEDS ORDERED: ACETAMINOPHEN 325 MG TABLET PO PRN (10:30)
[2022-02-09] MEDS ORDERED: NON-FORMULARY MEDICATION 1 EA EA (Calcium Carbonate (Tums) 300 MG) PO PRN (10:30)
[2022-02-09] MEDS ORDERED: meTOproloL SUCCINATE 50 MG (TOPROL XL) TAB PO NR (10:30)
[2022-02-09 10:32] VITALS: BP 167/85
[2022-02-09 10:45] VITALS: BP 165/87
--- NOTE | 2022-02-09 11:13 | CARDIAC CATHETERIZATION ---
DATE OF SERVICE: 02/09/2022 CARDIAC CATHETERIZATION AND CORONARY INTERVENTION REPORT INDICATION FOR PROCEDURE: The patient is a 66-year-old gentleman, who is known to have coronary artery disease and has had multiple interventions to the right coronary and its posterior descending branch. He had been experiencing generalized malaise and fatigue. Myocardial perfusion imaging indicated inferoapical myocardial infarction with a small to moderate amount of gerry-infarct ischemia. The ejection fraction was 34%. There was moderate cardiomegaly. We recommended cardiac catheterization for further evaluation. Informed consent was obtained. DESCRIPTION OF PROCEDURE: He was brought to the cardiac catheterization laboratory in a fasting state. Right groin was prepped and draped in the usual sterile fashion. A 1% lidocaine was used as local anesthesia. A modified Seldinger technique was used to advance a 5-Namibian sheath in the right femoral artery. A 5-Namibian JL4 catheter was used for left coronary angiography. A 5-Namibian JR4 catheter was used for right coronary angiography. A 5-Namibian pigtail catheter was used for left heart catheterization. We did not perform left ventricular angiography. This was to conserve contrast because contrast use was anticipated for a percutaneous intervention to the right coronary, which was subsequently carried out and which is described below. PERCUTANEOUS INTERVENTION TO THE RIGHT CORONARY: We exchanged the sheath over a guidewire for a 6-Namibian sheath. We gave 5000 units of intravenous heparin. We gave a double bolus of Integrilin during the procedure. We used a 6-Namibian JL4 guide catheter to engage the right coronary artery. We tried to advance a BMW wire across the complete occlusion in the mid right coronary. We were unsuccessful. This wire was removed. We advanced a ChoICE PT Graphix wire. We were able to advance it across the lesion with moderate difficulty. The tip was placed in the distal vessel. Multiple balloon angioplasty procedures were carried out with a 2.0 x 30 mm balloon. This extended throughout the entire length of the stented segment of the right coronary and into the posterolateral system of the right coronary. The occlusion was relieved. Previously, the right coronary artery was 100% occluded. Following balloon angioplasty, there is approximately 10% to 20% residual stenosis. Flow throughout the vessel is normal. Previously, flow was SORAIDA 0. Now, flow is SORAIDA 3. The patient tolerated the procedure well. Angioplasty equipment was removed. Angiography of the right femoral artery was carried out through the sheath. The site was not suitable for device closure. This sheath was sutured in place and the patient was transferred to the floor for manual sheath removal. HEMODYNAMICS: Left ventricular end diastolic pressure following coronary angiography was 18 mmHg. There was no significant pressure gradient on pullback across the aortic valve. CORONARY ANGIOGRAPHY: Left main coronary artery is free of significant disease. Left anterior descending and left circumflex arteries have diffuse moderate plaque. Right coronary artery is large and dominant. It is extensively stented. It was included in its mid portion. This was an instent occlusion. Due to this, successful balloon angioplasty restored normal antegrade flow (from SORAIDA 0 to SORAIDA 3) and improved the stenosis from 100% to 10% to 20%. 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 It was not intervened on. Left to right collaterals were seen prior to the intervention to the right coronary. CONCLUSION: 1. Moderate disease of the left coronary system. 2. Mid vessel occlusion (in-stent) of the right coronary treated with successful balloon angioplasty, reduced the stenosis to 10% to 20% and improved flow from SORAIDA 0 to SORAIDA flow 3. The posterolateral branch of the right coronary is chronically occluded and was not intervened on. There are ttor-he-tpihc collaterals. 3. Elevated left ventricular end-diastolic pressure. Job ID: [id number] DocumentID: [id number] Dictated Date: 02/09/2022 10:15:06 Plant Biology Professor Date: 02/09/2022 11:11:00 Dictated By: CHRISTEL CARRASQUILLO MD; GAMALIEL; ERNESTOP; ERNESTOC; LUCILLE
[2022-02-09] MEDS: NS IV 1000 ML 1,000 ML IV SCH ×2 (13:28→15:06)
[2022-02-09] MEDS: oxyCODONE/APAP 7.5-325 MG (PERCOCET 7.5) TABLET PO PRN (15:05)
[2022-02-09 16:00] VITALS: BP 136/87
[2022-02-09] MEDS ORDERED: FLU QUADRIvalent (6 months+) 60 mcg/0.5 ml 2022-23 (Fluzone) IM ONE (18:30)
[2022-02-09 20:00] VITALS: BP 122/68
[2022-02-09 20:09] VITALS: BP 138/73
[2022-02-10] MEDS: oxyCODONE/APAP 7.5-325 MG (PERCOCET 7.5) TABLET PO PRN (00:17)
[2022-02-10 00:18] VITALS: BP 115/74
[2022-02-10 04:06] VITALS: BP 129/75
[2022-02-10] MEDS: NS IV 1000 ML 1,000 ML IV SCH (05:32)
[2022-02-10 06:13] LABS: BASOPHILS % (AUTO) 0 % (0-10); EOSINOPHILS # (AUTO) 0.1 10^3/uL (0.0-0.3); EOSINOPHILS % (AUTO) 1 % (0-10); HEMATOCRIT 39 % (40-54); HEMOGLOBIN 12.7 g/dL (13.3-17.7); LYMPHOCYTES # (AUTO) 1.9 10^3/uL (1.0-4.0); LYMPHOCYTES % (AUTO) 25 % (12-44); MEAN CORPUSCULAR HEMOGLOBIN 30 pg (25-34); MEAN CORPUSCULAR HGB CONC 33 g/dL (32-36); MEAN CORPUSCULAR VOLUME 90 fL (80-99); MEAN PLATELET VOLUME 10.2 fL (9.0-12.2); MONOCYTES # (AUTO) 0.6 10^3/uL (0.0-1.0); MONOCYTES % (AUTO) 8 % (0-12); NEUTROPHILS % (AUTO) 64 % (42-75); PLATELET COUNT 207 10^3/uL (130-400); WHITE BLOOD COUNT 7.7 10^3/uL (4.3-11.0)
[2022-02-10 06:48] LABS: CALCIUM 8.6 MG/DL (8.5-10.1)
[2022-02-10 06:55] LABS: MAGNESIUM 1.9 MG/DL (1.6-2.4)
--- NOTE | 2022-02-10 07:48 | Progress Note - Cardiology ---
Cardiology SOAP Progress Note Objective: I&O/Vital Signs 02/09/22 02/09/22 02/09/22 02/10/22 20:00 20:09 20:36 00:18 Temp 36.0 Pulse 71 75 71 Resp 16 10 12 B/P (MAP) 122/68 (86) 138/73 (94) 115/74 (88) Pulse Ox 93 94 96 94 O2 Delivery Room Air Room Air Room Air Room Air 02/10/22 02/10/22 01:00 04:06 Temp 36.8 Pulse 68 63 Resp 17 B/P (MAP) 129/75 (93) Pulse Ox 94 O2 Delivery Room Air 02/10/22 00:00 Intake Total 300 ml Output Total 425 ml Balance -125 ml Weight (Pounds): 250 Weight (Ounces): 0.0 Weight (Calculated Kilograms): 113.885413 Results/Procedures: Labs Laboratory Tests 02/10/22 05:15: White Blood Count 7.7, Red Blood Count 4.29L, Hemoglobin 12.7L, Hematocrit 39L, Mean Corpuscular Volume 90, Mean Corpuscular Hemoglobin 30, Mean Corpuscular Hemoglobin Concent 33, Red Cell Distribution Width 14.3, Platelet Count 207, Mean Platelet Volume 10.2, Immature Granulocyte % (Auto) 1, Neutrophils (%) (Auto) 64, Lymphocytes (%) (Auto) 25, Monocytes (%) (Auto) 8, Eosinophils (%) (Auto) 1, Basophils (%) (Auto) 0, Neutrophils # (Auto) 5.0, Lymphocytes # (Auto) 1.9, Monocytes # (Auto) 0.6, Eosinophils # (Auto) 0.1, Basophils # (Auto) 0.0, Immature Granulocyte # (Auto) 0.1, Sodium Level 135, Potassium Level 4.0, Chloride Level 103, Carbon Dioxide Level 22, Anion Gap 10, Blood Urea Nitrogen 13, Creatinine 1.00, Estimat Glomerular Filtration Rate 84, BUN/Creatinine Ratio 13, Glucose Level 166H, Calcium Level 8.6, Magnesium Level 1.9 Microbiology 02/09/22 MRSA Screen - Final, Complete MRSA not isolated A/P: Assessment: One brief episode of syncope in Mar 2019. - S/p ILR - transmission of May 12, 2019 showed 7.0 sec pause that led to pacemaker implantation. ILR still in place per his wishes - S/P Dual chamber PPM implant on 05-20-20 d/t symptomatic pause seen on ILR transmission of 05-11-20. Functioning normally on interrogation of 12-18-21 Coronary artery disease: - Most recent cardiac cath of August 20, 2018: moderate disease of the left anterior descending and mid vessel occlusion (in-stent) of the right coronary artery. Successful balloon angioplasty was carried out to the right coronary artery with anabaptist of normal antegrade flow. The posterior descending branch of the right coronary artery is chronically occluded and was not intervened on. The right coronary artery is known to have following the stents that were placed in 2014 and 2017: Promus 4 x 24, Promus 4 x 12 and Alpine Xience 4 x 12. Impairment of global left ventricular systolic function with an ejection fraction of 40%. Posterior basal hypokinesis and diaphragmatic wall akinesis. Mild elevation of left ventricular end-diastolic pressure. - Echo of 04/17/19: shows LVEF 50-55%, mild LV enlargement, grade I diastolic dysfunction of LV - MPI of 01-29-22 showed a lg inferoapical myocardium infarction with a small to mod amt of gerry-infarct ischemia. Inferoapical akinesis. LVEF 34 %. Mod cardiomegaly - Cardiac cath of 02-09-22: Moderate disease of the left coronary system. Mid vessel occlusion (in-stent) of the right coronary treated with successful ball oon angioplasty, reduced the stenosis to 10% to 20% and improved flow from SORAIDA 0 to SORAIDA flow 3. The posterolateral branch of the right coronary is chronically occluded and was not intervened on. There are [id number] collaterals. Elevated left ventricular end-diastolic pressure. PAD. - On 09/30/14, he underwent stenting of the R SFA and the L external iliac artery by Dr Dockery. - On 04/26/17, previous stents were patent and there was 90% L SFA stenosis to which successful balloon angioplasty was carried out. - Peripheral angio and intervention on 11/22/17: patent stents in R SFA and L Ext Iliac; L SFA had a long segment of occlusion that was treated with PTCA and stents (overlapping Absolute 6x100, 6x100, and 6x60). - Peripheral angio on 10/17/18: 70% in L iliac artery stent; long, total occlusion of a long stented segment of L SFA; patent stent in R SFA. - H/o L fem-pop by Dr Diego on 11/16/18 and he has since had f/u on PAD with Dr Diego. - Leg arterial Doppler of 06/05/19 ([facility]): 50-75% narrowing in prox and distal SFA with 2 vessel runoff; 30-49% narrowing in L prox fem-pop with 3 vessel infrapopliteal runoff Bilateral leg swelling - due varicose veins and venous insuff. - No evidence of DVT on bilat leg venous Doppler of 04/26/17 Carotid arterial dz: - Mild carotid art dz on carotid u/s of 03/02/21. - Mild to mod stenosis of the distal L subclavian seen on CTA of head/neck of 08-09-16. 8mm thyroid nodule seen on head/neck CT of 08-09-16 - f/u is with PCP Chronic tobacco use - advised to quit Pulmonary - COPD - CTA of the chest on 03-19-17 showed minimal bilat basilar atelectasis. Indeterminant 3 mm nodular density anterior right upper lobe, new from prior CT. Ortho - S/p L TKR and arthroscopic R knee surg ALLEN - treated with CPAP - followed by Dr. Zaman Abn ECG - Incomplete RBBB Hypertension - labile Hyperlipidemia - treated with statin H/o depression managed by his psychiatrist Lumbago - managed by SLOAN Chan Feb 10, 2022 07:48
[2022-02-10] MEDS ORDERED: METO50TA7 PO (07:49)
--- NOTE | 2022-02-10 07:50 | Discharge Inst-Cardiology ---
Discharge Inst-Cardiac Discharge Medications New Medications: Metoprolol Succinate (Metoprolol Succinate) 50 Mg Tab.er.24h 50 MG PO DAILY, #90 TAB 3 Refills Continued Medications: Amlodipine Besylate (Norvasc) 10 Mg Tablet 10 MG PO DAILY, #30 TAB 3 Refills Aspirin (Aspirin) 81 Mg Tab.chew 81 MG PO DAILY, TAB Atorvastatin Calcium (Atorvastatin Calcium) 80 Mg Tablet 80 MG PO HS, TAB Buprenorphine (Buprenorphine) 20 Mcg/Hour Patch.tdwk 1 EACH TD for 7 Days, PATCH Bupropion HCl (Bupropion Xl) 300 Mg Tab.er.24h 300 MG PO DAILY for Smoking Cessation, TAB Calcium Carbonate (Tums) 300 Mg Tab.chew 300 MG PO TID PRN for HEARTBURN, TAB Clopidogrel Bisulfate (Clopidogrel) 75 Mg Tablet 75 MG PO DAILY, TAB Cyanocobalamin (Vitamin B-12) (Vitamin B-12) 1,000 Mcg Capsule 1000 MCG PO DAILY, CAP Deutetrabenazine (Austedo) 12 Mg Tablet 12 MG PO BID, TAB Ergocalciferol (Vitamin D2) (Vitamin D2) 1,250 Mcg (66169 Unit) Capsule 1250 MCG PO DAILY, CAP Escitalopram Oxalate (Escitalopram Oxalate) 20 Mg Tablet 20 MG PO DAILY, TAB Metformin HCl (Metformin HCl) 1,000 Mg Tablet 500 MG PO BID, TAB Mirtazapine (Mirtazapine) 45 Mg Tablet 45 MG PO DAILY, TAB Venlafaxine HCl (Venlafaxine HCl ER) 150 Mg Tab.er.24 150 MG PO DAILY, TAB New, Converted or Re-Newed RX: Transmitted to Pharmacy Patient Instructions Patient Instructions: DO NOT TAKE METFORMIN TODAY OR TOMORROW. RESTART ON January. Please schedule follow up appointment to see Dr. Houston in 1 week SLOAN RIVERA Feb 10, 2022 07:50
[2022-02-10 08:00] VITALS: BP 143/70
[2022-02-10] MEDS ORDERED: amLODIPine 10 MG (NORVASC) TAB PO SCH (09:00)
[2022-02-10] MEDS ORDERED: ASPIRIN 81 MG CHEW (CHILDREN'S ASA) PO SCH (09:00)
[2022-02-10] MEDS ORDERED: meTOproloL SUCCINATE 50 MG (TOPROL XL) TAB PO SCH (09:00)
[2022-02-10] MEDS ORDERED: CLOPIDOGREL 75 MG (PLAVIX) TABLET PO SCH (09:00)
--- NOTE | 2022-02-10 19:20 | Progress Note - Cardiology ---
Cardiology SOAP Progress Note Subjective: No cp or palp or syncope or shortness of breath No n/v/d No focal weakness No groin or leg discomfort or swelling Wishes to go home Objective: I&O/Vital Signs 02/10/22 02/10/22 02/10/22 08:00 08:00 10:25 Temp 36.4 Pulse 61 Resp 14 B/P (MAP) 143/70 (94) Pulse Ox 94 98 O2 Delivery Room Air Room Air 02/10/22 00:00 Intake Total 300 ml Output Total 425 ml Balance -125 ml Weight (Pounds): 250 Weight (Ounces): 0.0 Weight (Calculated Kilograms): 113.586948 Groin site without hematoma: Yes Condition: DP/PT pulses palpable Bruising: mild bruising Constitutional: AAO x 3, well-developed, well-nourished Respiratory: No accessory muscle use; other (good, bilateral air entry) Cardiovascular: regular rate-rhythm, S1 and S2, systolic murmur (soft GEMA at card base) Gastrointestional: No tender, No soft, No guarding, No rebound; audible bowel sounds Extremities: No clubbing, No cyanosis, No significant edema Neurologic/Psychiatric: oriented x 3, other (moves all limbs equally) Skin: No rash, No ulcerations Results/Procedures: Labs Laboratory Tests 02/10/22 05:15: White Blood Count 7.7, Red Blood Count 4.29L, Hemoglobin 12.7L, Hematocrit 39L, Mean Corpuscular Volume 90, Mean Corpuscular Hemoglobin 30, Mean Corpuscular Hemoglobin Concent 33, Red Cell Distribution Width 14.3, Platelet Count 207, Mean Platelet Volume 10.2, Immature Granulocyte % (Auto) 1, Neutrophils (%) (Auto) 64, Lymphocytes (%) (Auto) 25, Monocytes (%) (Auto) 8, Eosinophils (%) (Auto) 1, Basophils (%) (Auto) 0, Neutrophils # (Auto) 5.0, Lymphocytes # (Auto) 1.9, Monocytes # (Auto) 0.6, Eosinophils # (Auto) 0.1, Basophils # (Auto) 0.0, Immature Granulocyte # (Auto) 0.1, Sodium Level 135, Potassium Level 4.0, Chloride Level 103, Carbon Dioxide Level 22, Anion Gap 10, Blood Urea Nitrogen 13, Creatinine 1.00, Estimat Glomerular Filtration Rate 84, BUN/Creatinine Ratio 13, Glucose Level 166H, Calcium Level 8.6, Magnesium Level 1.9 Microbiology 02/09/22 MRSA Screen - Final, Complete MRSA not isolated Laboratory Tests 02/09/22 07:21 02/10/22 05:15 A/P: Assessment: Coronary artery disease: - Most recent cardiac cath of August 20, 2018: moderate disease of the left anterior descending and mid vessel occlusion (in-stent) of the right coronary artery. Successful balloon angioplasty was carried out to the right coronary artery with moravian of normal antegrade flow. The posterior descending branch of the right coronary artery is chronically occluded and was not intervened on. The right coronary artery is known to have following the stents that were placed in 2014 and 2017: Promus 4 x 24, Promus 4 x 12 and Alpine Xience 4 x 12. Impairment of global left ventricular systolic function with an ejection fraction of 40%. Posterior basal hypokinesis and diaphragmatic wall akinesis. Mild elevation of left ventricular end-diastolic pressure. - Echo of 04/17/19: shows LVEF 50-55%, mild LV enlargement, grade I diastolic dysfunction of LV - MPI of 01-29-22 showed a lg inferoapical myocardium infarction with a small to mod amt of gerry-infarct ischemia. Inferoapical akinesis. LVEF 34 %. Mod cardiomegaly - Cardiac cath of 02-09-22: Moderate disease of the left coronary system. Mid vessel occlusion (in-stent) of the right coronary treated with successful balloon angioplasty, reduced the stenosis to 10% and improved flow from SORAIDA 0 to SORAIDA flow 3. The posterolateral branch of the right coronary is chronically occluded and was not intervened on. There are gyrc-on-quack collaterals. Elevated left ventricular end-diastolic pressure. Sinus node dysfunction. One brief episode of syncope in Mar 2019. - S/p ILR - transmission of May 12, 2019 showed 7.0 sec pause that led to pacemaker implantation. ILR still in place per his wishes - S/P Dual chamber PPM implant on 05-20-20 d/t symptomatic pause seen on ILR transmission of 05-11-20. Functioning normally on interrogation of 12-18-21 PAD. - On 09/30/14, he underwent stenting of the R SFA and the L external iliac artery by Dr Dockery. - On 04/26/17, previous stents were patent and there was 90% L SFA stenosis to which successful balloon angioplasty was carried out. - Peripheral angio and intervention on 11/22/17: patent stents in R SFA and L Ext Iliac; L SFA had a long segment of occlusion that was treated with PTCA and stents (overlapping Absolute 6x100, 6x100, and 6x60). - Peripheral angio on 10/17/18: 70% in L iliac artery stent; long, total o cclusion of a long stented segment of L SFA; patent stent in R SFA. - H/o L fem-pop by Dr Diego on 11/16/18 and he has since had f/u on PAD with Dr Diego. - Leg arterial Doppler of 06/05/19 ([facility]): 50-75% narrowing in prox and distal SFA with 2 vessel runoff; 30-49% narrowing in L prox fem-pop with 3 vessel infrapopliteal runoff Bilateral leg swelling - due varicose veins and venous insuff. - No evidence of DVT on bilat leg venous Doppler of 04/26/17 Carotid arterial dz: - Mild carotid art dz on carotid u/s of 03/02/21. - Mild to mod stenosis of the distal L subclavian seen on CTA of head/neck of 08-09-16. 8mm thyroid nodule seen on head/neck CT of 08-09-16 - f/u is with PCP Chronic tobacco use - advised to quit Pulmonary - COPD - CTA of the chest on 03-19-17 showed minimal bilat basilar atelectasis. Indeterminant 3 mm nodular density anterior right upper lobe, new from prior CT. Ortho - S/p L TKR and arthroscopic R knee surg ALLEN - treated with CPAP - followed by Dr. Zaman Abn ECG - Incomplete RBBB Hypertension - labile Hyperlipidemia - treated with statin H/o depression managed by his psychiatrist Lumbago - managed by Dr Doran Plan: * We reviewed and discussed his cath findings and interventions undertaken * Advised to continue to refrain from tobacco use * Advised compliance with meds * Advised close outpt f/u CHRISTEL CARRASQUILLO MD [facility] CCDS Feb 10, 2022 19:20
--- NOTE | 2022-02-11 00:08 | CARDIAC CATHETERIZATION ---
DATE OF SERVICE: 02/09/2022 ADDENDUM The following is the final data on intervention. Guidewire crossed. Dominance right. Preprocedure SORAIDA flow SORAIDA 0. Postprocedure SORAIDA flow SORAIDA 3. Postprocedure stenosis 10%. Vessel intervened on dominant right coronary artery. Job ID: [id number] DocumentID: [id number] Dictated Date: 02/10/2022 19:14:49 [employer]er Date: 02/11/2022 00:06:00 Dictated By: CHRISTEL CARRASQUILLO MD; GAMALIEL; FACP; FACC;
== END 2022-02-10 10:35 | disposition home or self-care (01) ==
LOC: CATH 09:00 → CSD 10:28 → CATH 02-10 10:35
PROVIDERS: ATTEND Internal Medicine Cardiovascular Disease
DX: I25.10 Atherosclerotic heart disease of native coronary artery without angina pectoris (principal); T82.598A Other mechanical complication of other cardiac and vascular devices and implants, initial encounter; E66.9 Obesity, unspecified; I10 Essential (primary) hypertension; G47.33 Obstructive sleep apnea (adult) (pediatric); J44.9 Chronic obstructive pulmonary disease, unspecified; I70.213 Atherosclerosis of native arteries of extremities with intermittent claudication, bilateral legs; I65.23 Occlusion and stenosis of bilateral carotid arteries; E78.2 Mixed hyperlipidemia; F17.210 Nicotine dependence, cigarettes, uncomplicated; Z95.0 Presence of cardiac pacemaker; M54.50 Low back pain, unspecified; F32.A Depression, unspecified; Z68.31 Body mass index [BMI] 31.0-31.9, adult; Y84.8 Other medical procedures as the cause of abnormal reaction of the patient, or of later complication, without mention of misadventure at the time of the procedure; Z79.82 Long term (current) use of aspirin; Z79.02 Long term (current) use of antithrombotics/antiplatelets
CPT/HCPCS: 80048; 80053; 80061; 83735; 85025; 85027; 85610; 85730; 87081; 92920; 93005 ×2; 93458; C1725; C1769 ×2; C1887; C1894 ×2; C8929; 36415; 93306